=== PATIENT | female | born 1960 | race African-American/Black ===

== ENCOUNTER 2025-01-21 11:15 | Emergency (ER) | payer MEDICARE, MEDICAID, SELFPAY ==
[2025-01-21] VITALS (23 sets, daily range): BP systolic 97–137; BP diastolic 67–84; PULSE 69–89; RESP 11–26; TEMP 36.8; O2SAT 90–99
--- NOTE | ~2025-01-21 | XR_ITS ---
EXAMINATION: XR chest 2V 01/21/2025 12:19 INDICATION: Shortness of breath PROCEDURE: 2 view chest COMPARISON: No prior studies for comparison. FINDINGS: The lungs are clear. The cardiomediastinal silhouette is within normal limits. There are no pleural effusions. There is no pneumothorax suspected. IMPRESSION: 1: NO ACUTE CARDIOPULMONARY DISEASE. Reviewed, dictated and finalized at location A.
--- NOTE | 2025-01-21 11:26 | ECG_ITS ---
Test Date: 2025-01-21 11:29:00 Measurements Intervals [place] Rate: 85 P: 57 MI: 161 QRS: -30 QRSD: 98 T: 65 QT: 404 QTc: 483 Interpretive Statements SINUS RHYTHM INCOMPLETE RIGHT BUNDLE BRANCH BLOCK BORDERLINE ECG No previous ECG available for comparison Electronically Signed On 01-22-2025 06:46:44 CDT by Romero Cheng D.O.
[2025-01-21 11:42] LABS: Basophils Percent Auto 0.2 % (0.2-1.2); Eosinophils Absolute Auto 0.2 K/mm3 (0-0.3); Eosinophils Percent Auto 1.1 % (0-4.4); Hematocrit 35.5 % (37.0-47.0); Hemoglobin 10.4 g/dL (12.0-15.0); Immature Granulocyte Absolute 0.05 K/mm3 (0.00-0.031); Immature Granulocyte Percent A 0.4 % (0-0.5); Lymphocytes Absolute Auto 0.62 K/mm3 (0.9-3.2); Lymphocytes Percent Auto 4.4 % (18.3-44.2); Mean Corpuscular HGB Conc 29.3 g/dl (32-36); Mean Corpuscular Volume 102.3 fl (80-100); Mean Platelet Volume 8.9 fl (7.4-10.4); Monocytes Absolute Auto 0.8 K/mm3 (0.1-0.6); Monocytes Percent Auto 5.4 % (2.6-8.5); Neutrophils Absolute Auto 12.6 K/mm3 (1.3-6.7); Neutrophils Percent Auto 88.5 % (45.5-73.1); Platelet Count Result 261 k/mm3 (150-375); Red Blood Count 3.47 M/mm3 (4.2-5.4); Red Cell Distribution Width 15.2 % (11.5-14.5); White Blood Count 14.2 K/mm3 (4.5-10.0)
[2025-01-21 12:01] LABS: Hypochromasia 1+; Platelet Estimate Adequate (Adequate); Schistocytes None Seen
[2025-01-21 13:06] LABS: Alanine Aminotransferase 25 U/L (6-35); Albumin Level 3.8 g/dL (3.5-5.1); Alkaline Phosphatase 94 U/L (38-126); Anion Gap 2 mmol/L (4-12); Aspartate Amino Transferase 39 U/L (14-36); Bilirubin,Total 0.2 mg/dL (0.2-1.3); Blood Urea Nitrogen 19 mg/dL (7-17); Calcium 9.4 mg/dL (8.4-10.2); Carbon Dioxide 35 mmol/L (22-30); Chloride 104 mmol/L (98-107); Estimated CRCL calculation 76 ml/min; Estimated Glomerular Filt Rate > 60; Glucose 84 mg/dL (65-110); Lipase 121 U/L (23-300); Potassium 4.6 mmol/L (3.4-5.0); Sodium 141 mmol/L (137-145)
[2025-01-21 13:18] LABS: NT Pro B Type Natriuretic Pept 266 pg/mL (19.9-100); Troponin I < 0.012 ng/mL (0.000-0.034)
[2025-01-21] MEDS: BELLADONNA ALK/PHENOB ELIX 10 ML, MAG HYDROX/ALUMINUM HYD/SIMETH 30 ML, LIDOCAINE 2% VI... PO (13:48)
--- NOTE | 2025-01-21 14:30 | ED.GENADULT ---
HPI - General Adult General Chief complaint: Shortness of Breath/Dyspnea Stated complaint: SOB Time Seen by Provider: 01/21/25 11:22 History of Present Illness HPI narrative: Patient is a 64-year-old female who presents ER with reports of shortness of breath then epigastric discomfort. Reports she feels like she has heartburn. Worse when she lays down flat. No chest pain. No productive cough. No fevers or chills. Chronically O2 dependent 2/2 COPD. He Related Data Allergies Allergy/AdvReac Type Severity Reaction Status Date / Time No Known Allergies Allergy Unverified 07/22/14 10:54 Review of Systems Review of Systems: All systems reviewed & are unremarkable except as noted in HPI and below Constitutional: Constitutional: Reports no additional constitutional complaints ENT: Reports system reviewed and no additional complaints, except as documented Cardiovascular: Cardiovascular: Reports no additional cardiovascular complaints Respiratory: Respiratory: Reports no additional respiratory complaints Gastrointestinal: Gastrointestinal: Reports no additional gastrointestinal complaints [facility] Past Medical History Medical History (Updated 01/21/25 @ 14:39 by Bony Nieto MD) Schizoaffective disorder Depression Diabetes Hypertension Hyperlipidemia Pulmonary embolism COPD (chronic obstructive pulmonary disease) Exam Narrative: GENERAL: Well-appearing, well-nourished, and in no acute distress. HEAD: Normocephalic, atraumatic. ENT: Mucous membranes moist. NECK: Supple. CHEST: Clear to auscultation. No respiratory distress. HEART: Regular rate and rhythm. Normal peripheral pulses. ABDOMEN: Soft, nontender, nondistended. EXTREMITIES: Normal range of motion. No edema. SKIN: Warm, dry, no rash. NEURO:Alert and oriented x3. PSYCH: Normal mood and affect. Course Course Emergency Course: Patient resting comfortably. Feels better after GI cocktail. No pneumonia or CHF on imaging. Vital Signs Vital signs: Vital Signs Temperature 98.2 F 01/21/25 11:19 Pulse Rate 89 01/21/25 11:19 Respiratory Rate 18 01/21/25 11:19 Blood Pressure 126/82 01/21/25 11:19 Pulse Oximetry 98 01/21/25 11:19 Oxygen Delivery Nasal Cannula 01/21/25 11:19 Oxygen Flow Rate 2 01/21/25 11:19 Temperature 98.2 F 01/21/25 11:19 Pulse Rate 69 01/21/25 11:43 Respiratory Rate 18 01/21/25 11:19 Blood Pressure 126/82 01/21/25 11:19 Pulse Oximetry 99 01/21/25 11:43 Oxygen Delivery Nasal Cannula 01/21/25 11:43 Oxygen Flow Rate 2 01/21/25 11:43 Medical Decision Making Vital Signs Vital Signs: Vital Signs Temperature 98.2 F 01/21/25 11:19 Pulse Rate 89 01/21/25 11:19 Respiratory Rate 18 01/21/25 11:19 Blood Pressure 126/82 01/21/25 11:19 Pulse Oximetry 98 01/21/25 11:19 Oxygen Delivery Nasal Cannula 01/21/25 11:19 Oxygen Flow Rate 2 01/21/25 11:19 Temperature 98.2 F 01/21/25 11:19 Pulse Rate 69 01/21/25 11:43 Respiratory Rate 18 01/21/25 11:19 Blood Pressure 126/82 01/21/25 11:19 Pulse Oximetry 99 01/21/25 11:43 Oxygen Delivery Nasal Cannula 01/21/25 11:43 Oxygen Flow Rate 2 01/21/25 11:43 Lab Data 01/21/25 11:34 01/21/25 11:34 Labs: Lab Results 01/21/25 Range/Units 11:34 WBC 14.2 H (4.5-10.0) K/mm3 RBC 3.47 L (4.2-5.4) M/mm3 Hgb 10.4 L (12.0-15.0) g/dL Hct 35.5 L (37.0-47.0) % MCV 102.3 H (80-100) fl MCH 30.0 (26-34) pg MCHC 29.3 L (32-36) g/dl RDW 15.2 H (11.5-14.5) % Plt Count 261 (150-375) k/mm3 MPV 8.9 (7.4-10.4) fl Immature Gran % (Auto) 0.4 (0-0.5) % Neut % (Auto) 88.5 H (45.5-73.1) % Lymph % (Auto) 4.4 L (18.3-44.2) % [place] % (Auto) 5.4 (2.6-8.5) % Eos % (Auto) 1.1 (0-4.4) % Baso % (Auto) 0.2 (0.2-1.2) % Lymph # (Auto) 0.62 L (0.9-3.2) K/mm3 [place] # (Auto) 0.8 H (0.1-0.6) K/mm3 Eos # (Auto) 0.2 (0-0.3) K/mm3 Baso # (Auto) 0.0 (0.0-0.1) K/mm3 Abs Immat Gran (auto) 0.05 H (0.00-0.031) K/mm3 Absolute Neuts (auto) 12.6 H (1.3-6.7) K/mm3 Absolute Nucleated RBC 0.000 (0.0-0.012) K/mm3 Band Neutrophils % Not Reportable Nucleated RBC % 0.0 (0.0-0.2) % Platelet Estimate Adequate (Adequate) Hypochromasia 1+ Schistocytes None seen Sodium 141 (137-145) mmol/L Potassium 4.6 (3.4-5.0) mmol/L Chloride 104 (98-107) mmol/L Carbon Dioxide 35 H (22-30) mmol/L Anion Gap 2 L (4-12) mmol/L BUN 19 H (7-17) mg/dL Creatinine 0.68 L (0.7-1.0) mg/dL Estim Creat Clear Calc 76 ml/min Estimated GFR > 60 (59 - ) Glucose 84 (65-110) mg/dL Calcium 9.4 (8.4-10.2) mg/dL Total Bilirubin 0.2 (0.2-1.3) mg/dL AST 39 H (14-36) U/L ALT 25 (6-35) U/L Alkaline Phosphatase 94 (38-126) U/L Troponin I < 0.012 (0.000-0.034) ng/mL NT-Pro-B Natriuret Pep 266 H (19.9-100) pg/mL Total Protein 7.0 (6.3-8.2) g/dL Albumin 3.8 (3.5-5.1) g/dL Lipase 121 (23-300) U/L Imaging Data Radiologist's impression: ITS Impressions Chest X-Ray 01/21/25 12:29 IMPRESSION: 1: NO ACUTE CARDIOPULMONARY DISEASE. ECG Data EKG #1: ECG completion date: 01/21/25 ECG completion time: 11:29 EKG Interpretation: normal rate (85), sinus rhythm, non-specific ST changes, normal QRS, normal QT and NL axis Discharge Plan Discharge Clinical Impression: GERD (gastroesophageal reflux disease) Patient Disposition: Home Condition: Stable Instructions: GERD (Gastroesophageal Reflux Disease) (ED) Additional Instructions: Return to the emergency department if you develop severe abdominal pain, severe nausea and vomiting to the point where you are unable to keep down fluids, if you develop chest pain or difficulty breathing, blood in your stool, dizziness or fainting, or if you develop any other new or concerning symptoms as these could be signs of more serious medical illness. Try to stay well hydrated. Continue your pantoprazole. Patient Language: Persian Follow-up/Referrals: Shiva,MD So [Primary Care Provider] - 1 Week
== END 2025-01-21 17:07 | disposition home or self-care (01) ==
PROVIDERS: Emergency Provider Emergency Medicine; PCP Family Medicine
DX: K21.9 Gastro-esophageal reflux disease without esophagitis (principal)
CPT/HCPCS: 36415; 71046; 80053; 83690; 83880; 84484; 85025; 93005; 99284; A9270

== ENCOUNTER 2025-03-08 12:19 | Observation (INO) | payer MEDICARE, MEDICAID, SELFPAY ==
[2025-03-08] VITALS (23 sets, daily range): BP systolic 114–150; BP diastolic 75–89; PULSE 72–93; RESP 16–30; TEMP 37.1–37.7; O2SAT 94–100
--- NOTE | ~2025-03-08 | XR_ITS ---
EXAMINATION: XR chest 1V portable 03/08/2025 14:04 INDICATION: Altered mental status PROCEDURE: AP portable chest COMPARISON: 01/21/2025 FINDINGS: The lungs are clear. The cardiomediastinal silhouette is within normal limits. There are no pleural effusions. There is no pneumothorax suspected. IMPRESSION: 1: NO ACUTE CARDIOPULMONARY DISEASE. Reviewed, dictated and finalized at location B.
--- NOTE | ~2025-03-08 | CT_ITS ---
Non-contrast Head CT History: Altered mental status Technique: Axial non-contrast imaging of the brain was performed. Dose reduction technique was used on this scan by utilizing automated exposure control and iterative reconstruction technique. The dose -length product (DLP) was 681.00 mGy-cm. Findings: There is no evidence of intracranial hemorrhage, mass lesion, or acute infarct. Brain par enchyma appears normal. The ventricles and subarachnoid spaces are normal in size. The calvarium ap pears normal. The visualized paranasal sinuses and mastoid air cells are clear. Impression: No significant abnormality seen. Reviewed, dictated and finalized at location . Impression: No significant abnormality seen.
--- NOTE | 2025-03-08 12:30 | ECG_ITS ---
Test Date: 2025-03-08 12:25:39 Measurements Intervals [place] Rate: 89 P: 62 AL: 150 QRS: -39 QRSD: 103 T: 52 QT: 388 QTc: 472 Interpretive Statements SINUS RHYTHM LEFTWARD AXIS T-WAVE ABNORMALITY, CONSIDER ISCHEMIA Electronically Signed On 03-08-2025 23:26:24 CDT by Brando Camejo D.O
--- OUTSIDE RECORDS SUMMARY | 2025-03-08 12:58 | XMS_ITS | Patient Health Record ---
Author Organization [facility] As [employer] Address [address] [facility] [address] [place] [address] Care Team Providers Care Marketing Trainee Name Role Phone Ben Zuleta Unavailable [phone] Reason For Referral No Information Medications Medication SIG (Take, Route, Frequency, Duration) Notes Start Date End Date Status Omeprazole 20 MG Oral Act gary cloZAPine 100 mg Oral Act gary Lisinopril 20 MG Oral Act gary Niaspan 500 mg Oral Activ e Simvastatin 20 MG Oral Ac tive Niacin 500 mg Oral *Pick strength-form from AutoNavispan for eRX* Active Alendronate Sodium 70 MG Oral Active Advair Diskus 250-50 MCG/DOSE Inhalation Active Latanoprost 0.005 % Ophthalmic Active lamoTRIgine 150 MG Oral A ctive cloZAPine 200 MG Oral Act gary traZODone HCl 150 MG Oral Active lamoTRIgine 200 MG Oral A ctive Combivent Respimat 20-100 MCG/ACT Inhalation Active Polyethylene Glycol 3350 17 gram ORAL *Pick strength-form from AutoNavispan for eRX* Active Mirtazapine 45 MG Oral Ac tive cloZAPine 50 MG Oral Acti ve Mirtazapine 30 MG Oral Ac tive oxyBUTYnin Chloride ER 10 MG Oral Active Plan Of Treatment No Information
[2025-03-08 12:59] LABS: Hematocrit 36.4 % (37.0-47.0); Hemoglobin 10.5 g/dL (12.0-15.0); Immature Granulocyte Percent A 0.3 % (0-0.5); Lymphocytes Absolute Auto 0.85 K/mm3 (0.9-3.2); Mean Corpuscular HGB Conc 28.8 g/dl (32-36); Mean Corpuscular Hemoglobin 29.0 pg (26-34); Mean Corpuscular Volume 100.6 fl (80-100); Nucleated Red Blood Cells Absolute Auto 0.000 K/mm3 (0.0-0.012); Nucleated Red Blood Cells Perc 0.0 % (0.0-0.2); Platelet Count Result 229 k/mm3 (150-375); Red Blood Count 3.62 M/mm3 (4.2-5.4); White Blood Count 8.7 K/mm3 (4.5-10.0)
[2025-03-08 13:02] LABS: Alveolar/Arterial O2 Gradient 51.4 mmHg; Fractional Inspired Oxygen 28 %; HCO3 ABG 32.9 mEq/l (22.0-26.0); Oxygen Content ABG 13.7 %vol (16.0-22.0); Oxygen Saturation ABG 90.2 % (95.0-100.0); PO2 ABG 66.2 mmHg (80.0-100.0); PO2 FiO2 Ratio Arterial Blood 2.36 %
[2025-03-08 13:08] LABS: Liters per Minute 2.0 LPM; Modified Allen's Test Pass; PCO2 ABG 69.5 mmHg (35.0-45.0); Site Drawn RIGHT RADIAL
[2025-03-08 13:15] LABS: INR 1.1; Prothrombin Time 14.7 Seconds (11.1-14.7)
[2025-03-08 13:17] LABS: Partial Thromboplastin Time 41.1 Seconds (22.3-36.8)
--- NOTE | 2025-03-08 13:18 | ED.AMS ---
HPI - Altered Mental Status General Chief Complaint: Altered Mental Status Stated Complaint: AMS Time Seen by Provider: 03/08/25 12:47 History of Present Illness HPI narrative: Patient with COPD who is on 3L O2 was found unresponsive/lethargic by senior care this morning without her O2, O2 was 80s, when EMS arrived and put her on NRB she went up to 97% and became more responsive. She is still confused currently but can tell me she does not feel good. Related Data Allergies Allergy/AdvReac Type Severity Reaction Status Date / Time No Known Allergies Allergy Unverified 07/22/14 10:54 Review of Systems Review of Systems: ROS unobtainable: Yes unobtainable due to mental status [facility] Past Medical History Medical History (Updated 03/08/25 @ 15:35 by Alicia Damon MD) Schizoaffective disorder Depression Diabetes Hypertension Hyperlipidemia Pulmonary embolism COPD (chronic obstructive pulmonary disease) Exam Narrative: EXAMINATION OF ORGAN SYSTEMS/BODY AREAS: Constitutional: Vital signs per nursing GENERAL: Sleepy HEAD: Normal with no signs of head trauma. EYES: EOMI, conjunctiva normal ENT: Hearing grossly intact LUNGS: Diminished lung sounds HEART: [Regular rate and rhythm] ABD: [Soft], [nontender to palpation] EXT: No obvious deformity SKIN: [No rashes or lesions.] NEURO: [Lethargic but wakes to voice and answers some questions and follows some commands. No gross focal sensory or strength deficits.] PSYCH: Normal affect Course Vital Signs Vital signs: Vital Signs Temperature 99.0 F 03/08/25 12:18 Pulse Rate 88 03/08/25 12:18 Respiratory Rate 17 03/08/25 12:18 Blood Pressure 114/75 03/08/25 12:18 Pulse Oximetry 97 03/08/25 12:18 Oxygen Delivery Room Air 03/08/25 12:18 Oxygen Flow Rate 3 03/08/25 12:18 Temperature 99.0 F 03/08/25 12:18 Pulse Rate 88 03/08/25 14:09 Respiratory Rate 23 H 03/08/25 14:09 Blood Pressure 124/89 03/08/25 13:16 Pulse Oximetry 100 03/08/25 14:09 Oxygen Delivery BiPAP 03/08/25 14:09 Oxygen Flow Rate 3 03/08/25 12:58 Procedures ABG Interpretation ABG Interpretation 1: ABG Results: respiratory acidosis with CO2 narcosis MDM - Altered Mental Status MDM Narrative Medical decision making narrative: Patient presents here with after mental status she has COPD and supposed to be on oxygen but was found with her oxygen off her face and hypoxic at senior care, now that she is here and on oxygen she is more alert and able to answer some questions but still seems slightly confused, she just told me that she feels bad. ABG consistent with CO2 narcosis and she is started on BiPAP and albuterol, with improvement in symptoms. EKG on my independent interpretation shows rate 89, FL 150, QRS 103, Qtc 472, left axis deviation, without any obvious ST elevations or depressions or signs of acute ischemia or arrhythmia. Chest x-ray shows cardiomegaly without any obvious large consolidation on my independent interpretation Discussed with hospitalist for admission. Lab Data 03/08/25 12:50 03/08/25 12:50 Labs: Lab Results 03/08/25 03/08/25 03/08/25 Range/Units 12:43 12:50 13:17 WBC 8.7 (4.5-10.0) K/mm3 RBC 3.62 L (4.2-5.4) M/mm3 Hgb 10.5 L (12.0-15.0) g/dL Hct 36.4 L (37.0-47.0) % MCV 100.6 H (80-100) fl MCH 29.0 (26-34) pg MCHC 28.8 L (32-36) g/dl RDW 15.3 H (11.5-14.5) % Plt Count 229 (150-375) k/mm3 MPV 9.6 (7.4-10.4) fl Immature Gran % (Auto) 0.3 (0-0.5) % Neut % (Auto) 81.1 H (45.5-73.1) % Lymph % (Auto) 9.8 L (18.3-44.2) % [place] % (Auto) 8.6 H (2.6-8.5) % Eos % (Auto) 0.1 (0-4.4) % Baso % (Auto) 0.1 L (0.2-1.2) % Lymph # (Auto) 0.85 L (0.9-3.2) K/mm3 [place] # (Auto) 0.8 H (0.1-0.6) K/mm3 Eos # (Auto) 0.0 (0-0.3) K/mm3 Baso # (Auto) 0.0 (0.0-0.1) K/mm3 Abs Immat Gran (auto) 0.03 (0.00-0.031) K/mm3 Absolute Neuts (auto) 7.1 H (1.3-6.7) K/mm3 Absolute Nucleated RBC 0.000 (0.0-0.012) K/mm3 Band Neutrophils % Not Reportable Nucleated RBC % 0.0 (0.0-0.2) % Platelet Estimate Adequate (Adequate) Hypochromasia 1+ Anisocytosis 1+ Schistocytes None seen PT 14.7 (11.1-14.7) Seconds INR 1.1 APTT 41.1 H (22.3-36.8) Seconds Sodium 142 (137-145) mmol/L Potassium 4.4 (3.4-5.0) mmol/L Chloride 103 (98-107) mmol/L Carbon Dioxide 35 H (22-30) mmol/L Anion Gap 4 (4-12) mmol/L BUN 19 H (7-17) mg/dL Creatinine 0.76 (0.7-1.0) mg/dL Estim Creat Clear Calc 67 ml/min Estimated GFR > 60 (59 - ) Glucose 104 (65-110) mg/dL POC Capillary Glucose 102 (65-105) mg/dl Lactic Acid 0.7 (0.7-2.0) mmol/L Calcium 9.9 (8.4-10.2) mg/dL Total Bilirubin 0.3 (0.2-1.3) mg/dL AST 35 (14-36) U/L ALT 23 (6-35) U/L Alkaline Phosphatase 82 (38-126) U/L Total Protein 7.9 (6.3-8.2) g/dL Albumin 4.2 (3.5-5.1) g/dL Urine Color Yellow (Yellow) Urine Appearance Clear (Clear) Urine pH 5.5 (5.0-9.0) Ur Specific [place] 1.010 (1.001-1.035) Urine Protein Negative (Negative) mg/dL Urine Glucose (UA) Negative (Negative) mg/dL Urine Ketones Negative (Negative) mg/dL Ur Blood (Man) Negative (Negative) Urine Nitrate Negative (Negative) Urine Bilirubin Negative (Negative) Urine Urobilinogen 0.2 (<2.0) mg/dL Leukocyte Esterase Rfl Negative (Negative) RAIMUNDO/UL ABG Data ABG results: 03/08/25 12:58 Puncture Site Right radial ABG pH 7.293 L* ABG pCO2 69.5 H* ABG pO2 66.2 L ABG PO2/FiO2 Ratio 2.36 ABG HCO3 32.9 H ABG O2 Saturation 90.2 L ABG O2 Content 13.7 L ABG Base Excess 4.8 A-a Gradient 51.4 Oxyhemoglobin 90.0 Total Hemoglobin 10.8 L O2 Delivery Device Nasal cannula O2 Liters/Min 2.0 FiO2 28 Critical Care Time Critical Care Time Critical Care Time: Yes Total Critical Care Time: 31 Discharge Plan Discharge Clinical Impression: Carbon dioxide narcosis, Altered mental status, Acute on chronic respiratory failure with hypoxia and hypercapnia Patient Disposition: Still a Patient Condition: Serious Patient Language: Slovenian Follow-up/Referrals: Shiva,MD So [Primary Care Provider] -
[2025-03-08 13:19] LABS: Alanine Aminotransferase 23 U/L (6-35); Albumin Level 4.2 g/dL (3.5-5.1); Alkaline Phosphatase 82 U/L (38-126); Anion Gap 4 mmol/L (4-12); Aspartate Amino Transferase 35 U/L (14-36); Bilirubin,Total 0.3 mg/dL (0.2-1.3); Blood Urea Nitrogen 19 mg/dL (7-17); Calcium 9.9 mg/dL (8.4-10.2); Carbon Dioxide 35 mmol/L (22-30); Chloride 103 mmol/L (98-107); Estimated CRCL calculation 67 ml/min; Estimated Glomerular Filt Rate > 60; Glucose 104 mg/dL (65-110); Potassium 4.4 mmol/L (3.4-5.0); Sodium 142 mmol/L (137-145); Total Protein 7.9 g/dL (6.3-8.2)
[2025-03-08] MEDS: IPRATROPIUM 0.5 MG/ALBUTEROL SULFATE 2.5 MG AMPUL.NEB 3 ML 6 ML (13:20)
[2025-03-08 13:23] LABS: Add Urine Microscopic? NO; Appearance Urine Clear (Clear); Glucose Urine UA Negative (Negative); Leukocyte Esterase Ur Negative LEU/UL (Negative); Nitrate Urine Negative (Negative); Specific Grav Ur 1.010 (1.001-1.035)
[2025-03-08 13:31] LABS: Anisocytosis 1+; Schistocytes None Seen
[2025-03-08 13:33] LABS: Hypochromasia 1+
--- NOTE | 2025-03-08 17:14 | ADMGEN ---
This patient, David Hannon, was admitted to IMU Room 207-01. Patient/family oriented to hospital policies and general routines including ID bracelet, bed and alarms, visiting hours, pain management, procedures, bathroom and other care routines, personal items, smoking policy, room service/diet, and visiting hours. Information on how to activate the Rapid Response Team has been discussed. Patient/Family are encouraged to report perceived risks to care and to ask questions if they do not understand what they are told or what they should do.
--- NOTE | 2025-03-08 17:41 | P.HP_ITS ---
H&P: HPI History of Present Illness Date/Time: 03/08/25 17:41 Chief Complaint: Altered mental status Narrative: 64-year-old female past medical history of schizophrenia, depression, diabetes, hypertension, hyperlipidemia PE and COPD was found to have altered mental status at her [facility]. According to the ED the patient wears oxygen she was found without her O2 her pulse ox in the 80s. EMS was called. When they placed oxygen on her she became more responsive. In the ED shows hemoglobin of 10.5 which is baseline , ABG 7.29, pCO2 of 69, PO2 of 66, bicarb of 32, UA is negative for infection. Chest x-ray shows no acute cardiopulmonary process Review of Systems Review of Systems: 12 systems were reviewed and are negativ e except for as per HPI. [facility] Past Medical History Medical History (Updated 03/08/25 @ 17:45 by Cassie Mejia, DRY JANITOR) Schizoaffective disorder Depression Diabetes Hypertension Hyperlipidemia Pulmonary embolism COPD (chronic obstructive pulmonary disease) Social History Social History Smoking status: Never smoker Alcohol intake: never Substance use: never Substance use type: does not use Do You Feel Safe in your Home?: Yes Lack of Transportation: No Lack of Food: Never True Current Housing: I Have Housing Concerned About Future Housing: No Difficulty Paying Gas/Electric Bills: No Difficulty Paying for Meds: No Currently Unemployed: No Education: Decline to Answer Difficulty w/ Childcare or Family Care: No Spiritual care concerns: No Meds Home Medications and Allergies Home Medications ?Medication ?Instructions ?Recorded ?Confirmed ?Type acetaminophen 325 mg tablet 325 mg PO Q6H PRN pain 03/08/25 03/08/25 History acyclovir 400 mg tablet 400 mg PO BID 03/08/25 03/08/25 History albuterol sulfate 90 mcg/actuation 2 puff inhalation Q4H PRN cough 03/08/25 03/08/25 History aerosol inhaler alendronate 70 mg tablet 70 mg PO WEEKLY 03/08/25 03/08/25 History apixaban 5 mg tablet (Eliquis) 5 mg PO BID 03/08/25 03/08/25 History aspirin 81 mg tablet,delayed 81 mg PO DAILY 03/08/25 03/08/25 History release atorvastatin 10 mg tablet 10 mg PO HS 03/08/25 03/08/25 History bismuth subsalicylate 262 mg/15 mL 262 mg PO Q4H PRN diarrhea 03/08/25 03/08/25 History oral suspension (Stomach Relief) budesonide-formoterol HFA 80 1 puff inhalation DAILY 03/08/25 03/08/25 History mcg-4.5 mcg/actuation aerosol inhaler calcium carbonate ([place] 1,000 mg PO DAILY 03/08/25 03/08/25 History Calcium) clozapine 100 mg tablet 100 mg PO HS 03/08/25 03/08/25 History clozapine 100 mg tablet 100 mg PO QAM 03/08/25 03/08/25 History clozapine 200 mg tablet 400 mg PO HS 03/08/25 03/08/25 History desvenlafaxine succinate 50 mg 50 mg PO DAILY 03/08/25 03/08/25 History tablet,extended release 24 hr fluticasone furoate 100 1 inh inhalation DAILY 03/08/25 03/08/25 History mcg-vilanterol 25 mcg/dose inhalation powder (Breo Ellipta) lamotrigine 200 mg tablet 200 mg PO BID 03/08/25 03/08/25 History latanoprost 0.005 % eye drops 1 drp EACH EYE HS 03/08/25 03/08/25 History lithium carbonate 150 mg capsule 150 mg PO QPM 03/08/25 03/08/25 History lorazepam 0.5 mg tablet 0.5 mg PO TID 03/08/25 03/08/25 History meloxicam 7.5 mg tablet 7.5 mg PO DAILY 03/08/25 03/08/25 History metformin 500 mg tablet 500 mg PO QPM 03/08/25 03/08/25 History olanzapine 15 mg tablet 15 mg PO HS 03/08/25 03/08/25 History pantoprazole 40 mg tablet,delayed 40 mg PO DAILY 03/08/25 03/08/25 History release polyethylene glycol 3350 17 17 g PO DAILY PRN constipation 03/08/25 03/08/25 History gram/dose oral powder sertraline 100 mg tablet 200 mg PO DAILY 03/08/25 03/08/25 History tiotropium 2.5 mcg-olodaterol 2.5 2 puff inhalation DAILY 03/08/25 03/08/25 History mcg/actuation mist for inhalation (Stiolto Respimat) Allergies Allergy/AdvReac Type Severity Reaction Status Date / Time No Known Allergies Allergy Unverified 07/22/14 10:54 Vital Signs Vital Signs - 24 hr 03/08/25 12:18 03/08/25 12:18 03/08/25 12:50 Temperature 99.0 F Pulse Rate 88 87 Respiratory Rate 17 17 Blood Pressure 114/75 116/77 Pulse Oximetry 97 97 97 Oxygen Delivery Room Air Nasal Cannula Oxygen Flow Rate 3 03/08/25 12:58 03/08/25 13:01 03/08/25 13:15 Temperature Pulse Rate 87 87 Respiratory Rate 23 H 22 H Blood Pressure 115/77 Pulse Oximetry 96 97 100 Oxygen Delivery Nasal Cannula BiPAP Oxygen Flow Rate 3 03/08/25 13:16 03/08/25 13:19 03/08/25 13:20 Temperature Pulse Rate 89 88 Respiratory Rate 16 Blood Pressure 124/89 Pulse Oximetry 99 99 Oxygen Delivery BiPAP Oxygen Flow Rate 03/08/25 14:01 03/08/25 14:09 03/08/25 14:16 Temperature Pulse Rate 88 88 85 Respiratory Rate 21 H 23 H 22 H Blood Pressure 129/82 135/83 Pulse Oximetry 100 100 Oxygen Delivery BiPAP Oxygen Flow Rate 03/08/25 14:31 03/08/25 14:46 03/08/25 15:01 Temperature Pulse Rate 87 89 88 Respiratory Rate 24 H 23 H 23 H Blood Pressure 138/82 128/83 141/81 H Pulse Oximetry 100 Oxygen Delivery Oxygen Flow Rate 03/08/25 16:16 03/08/25 16:31 03/08/25 16:45 Temperature Pulse Rate 88 86 85 Respiratory Rate 22 H 30 H 21 H Blood Pressure 139/79 140/80 Pulse Oximetry 97 97 100 Oxygen Delivery BiPAP Oxygen Flow Rate 03/08/25 16:55 03/08/25 17:11 Temperature 99.9 F H Pulse Rate 93 89 Respiratory Rate 22 H Blood Pressure 150/75 H Pulse Oximetry 94 Oxygen Delivery Oxygen Flow Rate Exam Narrative: General: well appearing, appears stated age. HEENT: normocephalic, atraumatic. Mucous membranes moist. EOMI, PERRLA, bilateral sclera anicteric, no conjunctival injection. Neck supple without JVD, lymphadenopathy, or bruit. Respiratory: clear to ascultation bilaterally. No rales/rhonic/wheezes. Cardiovascular: Regular rate and rhythm, normal S1-S2 upon ascultation. No murmurs, rubs, or clicks. PMI is nondisplaced, capillary refill less than 3 second. Abdomen: Soft, round, no pulsatile masses, nondistended and nontender. No rebound, no guarding. No CVA tenderness, no hepatosplenomegaly. Bowel sounds present to all four quadrants. No high pitch or tinkling sounds, resonant to percussion. Extremities: No cyanosis, clubbing, or edema present. Pulses are palpable 2/2. Active ROM to all four extremities. Neuro: Alert and orientated x 4. PERRLA. Cranial nerves 2-12 intact without focal deficit. Skin: Warm, dry, and intact, without rash, erythema, or lesion. Psych: pleasant, cooperative, normal speech, normal affect, no hallucinations, no dysarthia H&P: Results Labs Labs: Short CBC 03/08/25 Range/Units 12:50 WBC 8.7 (4.5-10.0) K/mm3 Hgb 10.5 L (12.0-15.0) g/dL Hct 36.4 L (37.0-47.0) % Plt Count 229 (150-375) k/mm3 BMP 03/08/25 12:50 Sodium 142 Potassium 4.4 Chloride 103 Carbon Dioxide 35 H BUN 19 H Creatinine 0.76 Glucose 104 Calcium 9.9 Liver Function 03/08/25 Range/Units 12:50 Total Bilirubin 0.3 (0.2-1.3) mg/dL AST 35 (14-36) U/L ALT 23 (6-35) U/L Alkaline Phosphatase 82 (38-126) U/L Albumin 4.2 (3.5-5.1) g/dL Urine 03/08/25 Range/Units 13:17 Urine Color Yellow (Yellow) Urine Appearance Clear (Clear) Urine pH 5.5 (5.0-9.0) Ur Specific [place] 1.010 (1.001-1.035) Urine Protein Negative (Negative) mg/dL Urine Glucose (UA) Negative (Negative) mg/dL Assessment and Plan Assessment and plan (1) COPD exacerbation: Code(s): J44.1 - Chronic obstructive pulmonary disease with (acute) exacerbation Status: Acute Assessment and Plan: Cipro DuoNeb Guaifenesin Solu-Medrol (2) Altered mental status: Code(s): R41.82 - Altered mental status, unspecified Status: Acute Assessment and Plan: Could be due to hypoxia and hypercarbia versus infection versus polypharmacy versus o other (3) Acute on chronic respiratory failure with hypoxia and hypercapnia: Code(s): J96.21 - Acute and chronic respiratory failure with hypoxia; J96.22 - Acute and chronic respiratory failure with hypercapnia Status: Acute Assessment and Plan: BiPAP Clear liquid Repeat ABG (4) Carbon dioxide narcosis: Code(s): R06.89 - Other abnormalities of breathing Status: Acute Assessment and Plan: BiPAP (5) Schizoaffective disorder: Code(s): F25.9 - Schizoaffective disorder, unspecified Status: Acute (6) Hypertension: Code(s): I10 - Essential (primary) hypertension Status: Acute (7) Diabetes: Code(s): E11.9 - Type 2 diabetes mellitus without complications Status: Acute
[2025-03-08 18:36] LABS: Alveolar/Arterial O2 Gradient 71.4 mmHg; Fractional Inspired Oxygen 30 %; HCO3 ABG 35.4 mEq/l (22.0-26.0); Oxygen Content ABG 13.5 %vol (16.0-22.0); Oxygen Saturation ABG 91.3 % (95.0-100.0); PO2 ABG 65.5 mmHg (80.0-100.0); PO2 FiO2 Ratio Arterial Blood 2.18 %
[2025-03-08 18:38] LABS: Modified Allen's Test Pass; PCO2 ABG 65.5 mmHg (35.0-45.0)
[2025-03-08 18:39] LABS: Non-Invasive Inspiratory Pressure 16 CMH2O; Non-Invasive Vent Rate 22 /MIN
[2025-03-08 18:40] LABS: Non-Invasive Expiratory Pressure 8 CMH2O; Site Drawn LEFT RADIAL
--- NOTE | 2025-03-08 18:40 | PC.NURSE ---
Cassie Mjeia EPIC KALEIDOSCOPE ANALYST notified of critical ABG results. New order for BiPAP to be PRN and pt to be on home O2 of 3L NC when not on BiPAP. Pt may also have a clear liquid diet.
[2025-03-08] MEDS: ATORVASTATIN 10 MG TABLET PO (20:17)
[2025-03-08] MEDS: CIPROFLOXACIN 500 MG TAB PO (20:17)
[2025-03-08] MEDS: guaiFENesin 12 HR 600 MG TABCR 1200 MG PO (20:17)
[2025-03-08] MEDS: LATANOPROST 0.005% OP SOLN 2.5 ML BTL 1 DROP EACH EYE (20:18)
--- NOTE | 2025-03-08 22:48 | P.HP_ITS ---
H&P: HPI History of Present Illness Date/Time: 03/08/25 22:48 Chief Complaint: Altered mental status Narrative: 64-year-old female with history of schizophrenia, COPD, diabetes, hypertension, hyperlipidemia pulmonary embolism presents the hospital with altered mental status. She is normally on 2 L nasal cannula however today she was found at her halfway without her oxygen on the pulse ox in 80s. The EMS was called. Patient does not remember the event. In the ED lab work shows anemia at 10 point 5 which is baseline, ABG shows pH of 7.29, pCO2 of 69, PO2 of 66, bicarb 32. Chest x-ray shows no acute process. EKG shows sinus rhythm. Review of Systems Review of Systems: ROS unobtainable: Yes unobtainable due to medical condition [facility] Past Medical History Medical History (Updated 03/08/25 @ 22:55 by Cassie Mejia, [employer]) Schizoaffective disorder Depression Diabetes Hypertension Hyperlipidemia Pulmonary embolism COPD (chronic obstructive pulmonary disease) Social History Social History Smoking status: Never smoker Alcohol intake: never Substance use: never Substance use type: does not use Do You Feel Safe in your Home?: Yes Lack of Transportation: No Lack of Food: Never True Current Housing: I Have Housing Concerned About Future Housing: No Difficulty Paying Gas/Electric Bills: No Difficulty Paying for Meds: No Currently Unemployed: No Education: Decline to Answer Difficulty w/ Childcare or Family Care: No Spiritual care concerns: No Meds Home Medications and Allergies Home Medications ?Medication ?Instructions ?Recorded ?Confirmed ?Type acetaminophen 325 mg tablet 325 mg PO Q6H PRN pain 03/08/25 03/08/25 History acyclovir 400 mg tablet 400 mg PO BID 03/08/25 03/08/25 History albuterol sulfate 90 mcg/actuation 2 puff inhalation Q4H PRN cough 03/08/25 03/08/25 History aerosol inhaler alendronate 70 mg tablet 70 mg PO WEEKLY 03/08/25 03/08/25 History apixaban 5 mg tablet (Eliquis) 5 mg PO BID 03/08/25 03/08/25 History aspirin 81 mg tablet,delayed 81 mg PO DAILY 03/08/25 03/08/25 History release atorvastatin 10 mg tablet 10 mg PO HS 03/08/25 03/08/25 History bismuth subsalicylate 262 mg/15 mL 262 mg PO Q4H PRN diarrhea 03/08/25 03/08/25 History oral suspension (Stomach Relief) budesonide-formoterol HFA 80 1 puff inhalation DAILY 03/08/25 03/08/25 History mcg-4.5 mcg/actuation aerosol inhaler calcium carbonate (Oyster Shell 1,000 mg PO DAILY 03/08/25 03/08/25 History Calcium) clozapine 100 mg tablet 100 mg PO HS 03/08/25 03/08/25 History clozapine 100 mg tablet 100 mg PO QAM 03/08/25 03/08/25 History clozapine 200 mg tablet 400 mg PO HS 03/08/25 03/08/25 History desvenlafaxine succinate 50 mg 50 mg PO DAILY 03/08/25 03/08/25 History tablet,extended release 24 hr fluticasone furoate 100 1 inh inhalation DAILY 03/08/25 03/08/25 History mcg-vilanterol 25 mcg/dose inhalation powder (Breo Ellipta) lamotrigine 200 mg tablet 200 mg PO BID 03/08/25 03/08/25 History latanoprost 0.005 % eye drops 1 drp EACH EYE HS 03/08/25 03/08/25 History lithium carbonate 150 mg capsule 150 mg PO QPM 03/08/25 03/08/25 History lorazepam 0.5 mg tablet 0.5 mg PO TID 03/08/25 03/08/25 History meloxicam 7.5 mg tablet 7.5 mg PO DAILY 03/08/25 03/08/25 History metformin 500 mg tablet 500 mg PO QPM 03/08/25 03/08/25 History olanzapine 15 mg tablet 15 mg PO HS 03/08/25 03/08/25 History pantoprazole 40 mg tablet,delayed 40 mg PO DAILY 03/08/25 03/08/25 History release polyethylene glycol 3350 17 17 g PO DAILY PRN constipation 03/08/25 03/08/25 History gram/dose oral powder sertraline 100 mg tablet 200 mg PO DAILY 03/08/25 03/08/25 History tiotropium 2.5 mcg-olodaterol 2.5 2 puff inhalation DAILY 03/08/25 03/08/25 History mcg/actuation mist for inhalation (Stiolto Respimat) Allergies Allergy/AdvReac Type Severity Reaction Status Date / Time No Known Allergies Allergy Unverified 07/22/14 10:54 Vital Signs Vital Signs - 24 hr 03/08/25 12:18 03/08/25 12:18 03/08/25 12:50 Temperature 99.0 F Pulse Rate 88 87 Respiratory Rate 17 17 Blood Pressure 114/75 116/77 Pulse Oximetry 97 97 97 Oxygen Delivery Room Air Nasal Cannula Oxygen Flow Rate 3 Fraction of Inspired Oxygen 03/08/25 12:58 03/08/25 13:01 03/08/25 13:15 Temperature Pulse Rate 87 87 Respiratory Rate 23 H 22 H Blood Pressure 115/77 Pulse Oximetry 96 97 100 Oxygen Delivery Nasal Cannula BiPAP Oxygen Flow Rate 3 Fraction of Inspired Oxygen 03/08/25 13:16 03/08/25 13:19 03/08/25 13:20 Temperature Pulse Rate 89 88 Respiratory Rate 16 Blood Pressure 124/89 Pulse Oximetry 99 99 Oxygen Delivery BiPAP Oxygen Flow Rate Fraction of Inspired Oxygen 03/08/25 14:01 03/08/25 14:09 03/08/25 14:16 Temperature Pulse Rate 88 88 85 Respiratory Rate 21 H 23 H 22 H Blood Pressure 129/82 135/83 Pulse Oximetry 100 100 Oxygen Delivery BiPAP Oxygen Flow Rate Fraction of Inspired Oxygen 03/08/25 14:31 03/08/25 14:46 03/08/25 15:01 Temperature Pulse Rate 87 89 88 Respiratory Rate 24 H 23 H 23 H Blood Pressure 138/82 128/83 141/81 H Pulse Oximetry 100 Oxygen Delivery Oxygen Flow Rate Fraction of Inspired Oxygen 03/08/25 16:16 03/08/25 16:31 03/08/25 16:45 Temperature Pulse Rate 88 86 85 Respiratory Rate 22 H 30 H 21 H Blood Pressure 139/79 140/80 Pulse Oximetry 97 97 100 Oxygen Delivery BiPAP Oxygen Flow Rate Fraction of Inspired Oxygen 03/08/25 16:55 03/08/25 17:00 03/08/25 17:11 Temperature 99.9 F H Pulse Rate 93 89 89 Respiratory Rate 22 H 22 H Blood Pressure 150/75 H Pulse Oximetry 94 94 Oxygen Delivery BiPAP Oxygen Flow Rate Fraction of Inspired Oxygen 30 03/08/25 18:00 03/08/25 20:00 03/08/25 20:00 Temperature 98.8 F Pulse Rate 84 79 79 Respiratory Rate 22 H 26 H Blood Pressure 132/85 Pulse Oximetry 95 100 Oxygen Delivery BiPAP Oxygen Flow Rate Fraction of Inspired Oxygen 30 03/08/25 20:00 03/08/25 22:00 Temperature Pulse Rate 83 78 Respiratory Rate Blood Pressure Pulse Oximetry Oxygen Delivery Oxygen Flow Rate Fraction of Inspired Oxygen Exam Narrative: General: well appearing, appears stated age. HEENT: normocephalic, atraumatic. Mucous membranes moist. EOMI, PERRLA, bilateral sclera anicteric, no conjunctival injection. Neck supple without JVD, lymphadenopathy, or bruit. Respiratory: clear to ascultation bilaterally. No rales/rhonic/wheezes. Cardiovascular: Regular rate and rhythm, normal S1-S2 upon ascultation. No m urmurs, rubs, or clicks. PMI is nondisplaced, capillary refill less than 3 second. Abdomen: Soft, round, no pulsatile masses, nondistended and nontender. No rebound, no guarding. No CVA tenderness, no hepatosplenomegaly. Bowel sounds present to all four quadrants. No high pitch or tinkling sounds, resonant to percussion. Extremities: No cyanosis, clubbing, or edema present. Pulses are palpable 2/2. Active ROM to all four extremities. Neuro: Alert and orientated x 1-2. PERRLA. Cranial nerves 2-12 intact without focal deficit. Skin: Warm, dry, and intact, without rash, erythema, or lesion. Psych: pleasant, cooperative, normal speech, normal affect, no hallucinations, no dysarthia On BiPAP H&P: Results Labs Labs: Short CBC 03/08/25 Range/Units 12:50 WBC 8.7 (4.5-10.0) K/mm3 Hgb 10.5 L (12.0-15.0) g/dL Hct 36.4 L (37.0-47.0) % Plt Count 229 (150-375) k/mm3 BMP 03/08/25 12:50 Sodium 142 Potassium 4.4 Chloride 103 Carbon Dioxide 35 H BUN 19 H Creatinine 0.76 Glucose 104 Calcium 9.9 Liver Function 03/08/25 Range/Units 12:50 Total Bilirubin 0.3 (0.2-1.3) mg/dL AST 35 (14-36) U/L ALT 23 (6-35) U/L Alkaline Phosphatase 82 (38-126) U/L Albumin 4.2 (3.5-5.1) g/dL Urine 03/08/25 Range/Units 13:17 Urine Color Yellow (Yellow) Urine Appearance Clear (Clear) Urine pH 5.5 (5.0-9.0) Ur Specific Cass 1.010 (1.001-1.035) Urine Protein Negative (Negative) mg/dL Urine Glucose (UA) Negative (Negative) mg/dL Assessment and Plan Assessment and plan (1) Altered mental status: Code(s): R41.82 - Altered mental status, unspecified Status: Acute Assessment and Plan: Likely due to hypoxia and hypercarbia Neuro checks Treat for underlying infection BiPAP (2) Acute on chronic respiratory failure with hypoxia and hypercapnia: Code(s): J96.21 - Acute and chronic respiratory failure with hypoxia; J96.22 - Acute and chronic respiratory failure with hypercapnia Status: Acute Assessment and Plan: BiPAP Repeat ABG improved Breathing treatments (3) COPD exacerbation: Code(s): J44.1 - Chronic obstructive pulmonary disease with (acute) exacerbation Status: Acute Assessment and Plan: Cipro Duo[place] Guaifenesin Solu-Medrol (4) Schizoaffective disorder: Code(s): F25.9 - Schizoaffective disorder, unspecified Status: Acute Assessment and Plan: Continue Lamictal, lithium, Zoloft (5) ACS (acute coronary syndrome): Code(s): I24.9 - Acute ischemic heart disease, unspecified Status: Acute Assessment and Plan: Continue Eliquis, aspirin, Lipitor Quality VTE Prophylaxis VTE prophylaxis: mechanical ordered and pharmacologic ordered Hospitalist MIPS Advance Care Plan I have confirmed that the patient's Advanced Care Plan is present, code status is documented, or surrogate decision maker is listed in patient medical record.: Yes Medication Reconciliation I have utilized all available resources to obtain, update and review the patie nts current medications (includes all prescriptions, OTC, herbals, cannabis, and nutritional supplements).: Yes
[2025-03-09] VITALS (23 sets, daily range): BP systolic 114–152; BP diastolic 69–78; PULSE 71–85; RESP 18–29; TEMP 36.6–37.1; O2SAT 93–97
[2025-03-09] MEDS: IPRATROPIUM 0.5 MG/ALBUTEROL SULFATE 2.5 MG AMPUL.NEB 3 ML INHALATION ×4 (02:45→20:40)
[2025-03-09 04:34] LABS: Hematocrit 34.8 % (37.0-47.0); Hemoglobin 10.2 g/dL (12.0-15.0); Immature Granulocyte Percent A 0.3 % (0-0.5); Lymphocytes Absolute Auto 0.54 K/mm3 (0.9-3.2); Mean Corpuscular HGB Conc 29.3 g/dl (32-36); Mean Corpuscular Hemoglobin 29.0 pg (26-34); Mean Corpuscular Volume 98.9 fl (80-100); Nucleated Red Blood Cells Absolute Auto 0.000 K/mm3 (0.0-0.012); Nucleated Red Blood Cells Perc 0.0 % (0.0-0.2); Platelet Count Result 241 k/mm3 (150-375); Red Blood Count 3.52 M/mm3 (4.2-5.4); White Blood Count 6.7 K/mm3 (4.5-10.0)
[2025-03-09 05:01] LABS: Hypochromasia 1+; Schistocytes None Seen
[2025-03-09 05:03] LABS: Anion Gap 7 mmol/L (4-12); Blood Urea Nitrogen 21 mg/dL (7-17); Calcium 9.9 mg/dL (8.4-10.2); Carbon Dioxide 33 mmol/L (22-30); Chloride 101 mmol/L (98-107); Estimated CRCL calculation 68 ml/min; Estimated Glomerular Filt Rate > 60; Glucose 152 mg/dL (65-110); Potassium 4.3 mmol/L (3.4-5.0); Sodium 141 mmol/L (137-145)
[2025-03-09 05:47] LABS: Alveolar/Arterial O2 Gradient 70.8 mmHg; Fractional Inspired Oxygen 30 %; HCO3 ABG 34.7 mEq/l (22.0-26.0); Oxygen Content ABG 14.3 %vol (16.0-22.0); Oxygen Saturation ABG 92.1 % (95.0-100.0); PO2 ABG 67.9 mmHg (80.0-100.0); PO2 FiO2 Ratio Arterial Blood 2.26 %
[2025-03-09 05:50] LABS: Modified Allen's Test Pass; PCO2 ABG 64.0 mmHg (35.0-45.0); Site Drawn LEFT RADIAL
[2025-03-09] MEDS: FLUTICASONE/SALMETEROL 115-21 MCG INHALER 1 PUFF 2 PUFF INHALATION ×2 (07:30→20:39)
[2025-03-09] MEDS: SERTRALINE HCL 50 MG TABLET 200 MG PO (08:52)
[2025-03-09] MEDS: guaiFENesin 12 HR 600 MG TABCR 1200 MG PO ×2 (08:53→20:13)
[2025-03-09] MEDS: DESVENLAFAXINE SUCCINATE 50 MG TAB.ER.24H PO (08:53)
[2025-03-09] MEDS: ASPIRIN 81 MG ENTERIC TABLET PO (08:53)
[2025-03-09] MEDS: MELOXICAM 7.5 MG TABLET PO (08:53)
[2025-03-09] MEDS: CIPROFLOXACIN 500 MG TAB PO ×2 (08:53→20:14)
[2025-03-09] MEDS: ACYCLOVIR 400 MG TABLET PO ×2 (08:54→20:13)
[2025-03-09] MEDS: APIXABAN 5 MG TABLET PO ×2 (08:59→20:14)
[2025-03-09] MEDS: UMECLIDINIUM/VILANTEROL 62.5-25 MCG ELLIPTA 2 PUFF INHALATION (13:08)
--- NOTE | 2025-03-09 17:44 | P.PNIM_ITS ---
Progress Note: A&P Assessment and Plan (1) Altered mental status: Code(s): R41.82 - Altered mental status, unspecified Status: Acute Assessment and Plan: Likely due to hypoxia and hypercarbia Neuro checks Treat for underlying infection BiPAP (2) Acute on chronic respiratory failure with hypoxia and hypercapnia: Code(s): J96.21 - Acute and chronic respiratory failure with hypoxia; J96.22 - Acute and chronic respiratory failure with hypercapnia Status: Acute Assessment and Plan: BiPAP Repeat ABG improved Breathing treatments (3) COPD exacerbation: Code(s): J44.1 - Chronic obstructive pulmonary disease with (acute) exacerbation Status: Acute Assessment and Plan: Honey Sahni Guaifenesin Solu-Medrol (4) Schizoaffective disorder: Code(s): F25.9 - Schizoaffective disorder, unspecified Status: Acute Assessment and Plan: Continue Lamictal, lithium, Zoloft (5) ACS (acute coronary syndrome): Code(s): I24.9 - Acute ischemic heart disease, unspecified Status: Acute Assessment and Plan: Continue Eliquis, aspirin, Lipitor Plan patient is 64 y/o female with psychiatric history, chronic respiratory failure on home oxygen presented with AMS most likely 2/2 hypercarbic respiratory failure due to noncompliants with her home oxygen, patient was placed on BIPAP now clinical symptoms are improving, will CPM and monitor, will have PT/OT ev aluate the patient. Subjective Date/time seen: 03/09/25 17:44 Interval history: Narrative: 64-year-old female with history of schizophrenia, COPD, diabetes, hypertension, hyperlipidemia pulmonary embolism presents the hospital with altered mental status. She is normally on 2 L nasal cannula however today she was found at her half-way without her oxygen on the pulse ox in 80s. The EMS was called. Patient does not remember the event. In the ED lab work shows anemia at 10 point 5 which is baseline, ABG shows pH of 7.29, pCO2 of 69, PO2 of 66, bicarb 32. Chest x-ray shows no acute process. EKG shows sinus rhythm. patient is 64 y/o female with psychiatric history, chronic respiratory failure on home oxygen presented with AMS most likely 2/2 hypercarbic respiratory failure due to noncompliants with her home oxygen, patient was placed on BIPAP now clinical symptoms are improving, will CPM and monitor, will have PT/OT evaluate the patient. Review of Systems Review of Systems: 12 systems were reviewed and are negativ e except for as per HPI. ROS unobtainable: Yes unobtainable due to medical condition and unobtain able due to mental status Exam Narrative: Patient is comfortable, NAD HEENT: eyes are clear and none icteric LUNGS:CTA HEART: RR S1S2 ABD: BS+, Soft and nontender Lower extremities: no edema SKIN: nonjaundiced Neuro: grossly intact. Objective Data Vital Signs Vital Signs: Vital Signs - 24 hr 03/08/25 18:00 03/08/25 20:00 03/08/25 20:00 Temperature 37.1 C Pulse Rate 84 79 79 Respiratory Rate 22 H 26 H Blood Pressure 132/85 Pulse Oximetry 95 100 Oxygen Delivery BiPAP Fraction of Inspired Oxygen 30 03/08/25 20:00 03/08/25 20:00 03/08/25 22:00 Temperature Pulse Rate 83 72 78 Respiratory Rate 23 H Blood Pressure Pulse Oximetry 96 Oxygen Delivery BiPAP Fraction of Inspired Oxygen 03/09/25 00:00 03/09/25 00:00 03/09/25 00:00 Temperature 37.1 C Pulse Rate 72 72 71 Respiratory Rate 22 H 24 H Blood Pressure 114/72 Pulse Oximetry 96 95 Oxygen Delivery BiPAP Fraction of Inspired Oxygen 30 03/09/25 02:00 03/09/25 02:45 03/09/25 02:45 Temperature Pulse Rate 76 72 75 Respiratory Rate 23 H 26 H Blood Pressure Pulse Oximetry 96 Oxygen Delivery BiPAP Fraction of Inspired Oxygen 03/09/25 02:50 03/09/25 04:00 03/09/25 04:00 Temperature Pulse Rate 75 73 73 Respiratory Rate 23 H 22 H Blood Pressure Pulse Oximetry 97 Oxygen Delivery BiPAP Fraction of Inspired Oxygen 30 03/09/25 04:00 03/09/25 06:00 03/09/25 07:25 Temperature 37.1 C Pulse Rate 77 78 73 Respiratory Rate 22 H 20 Blood Pressure 133/78 Pulse Oximetry 97 Oxygen Delivery Fraction of Inspired Oxygen 03/09/25 07:35 03/09/25 08:00 03/09/25 08:00 Temperature 37.0 C Pulse Rate 75 72 79 Respiratory Rate 20 20 Blood Pressure 126/76 Pulse Oximetry 96 Oxygen Delivery Fraction of Inspired Oxygen 03/09/25 10:00 03/09/25 11:34 03/09/25 12:00 Temperature 37.0 C Pulse Rate 76 78 77 Respiratory Rate 18 Blood Pressure 133/76 Pulse Oximetry 94 Oxygen Delivery Fraction of Inspired Oxygen 03/09/25 13:08 03/09/25 13:31 03/09/25 14:00 Temperature Pulse Rate 72 73 85 Respiratory Rate 20 20 Blood Pressure Pulse Oximetry Oxygen Delivery Fraction of Inspired Oxygen 03/09/25 16:10 Temperature 36.6 C Pulse Rate 82 Respiratory Rate 20 Blood Pressure 129/69 Pulse Oximetry 97 Oxygen Delivery Fraction of Inspired Oxygen Intake/Output Intake/Output: Intake & Output 03/06/25 03/07/25 03/08/25 03/09/25 23:59 23:59 23:59 23:59 Intake Total 1430 Output Total 300 1300 Balance -300 130 Meds/Results Medications: Active Medications Generic Name Dose Route Start Last Admin Trade Name Freq PRN Reason Stop Dose Admin Acyclovir 400 mg 03/09/25 09:00 03/09/25 08:54 Acyclovir 400 Mg Tablet PO 400 mg Q12HR AIRAM Administration Albuterol/Ipratropium 3 ml 03/08/25 20:00 03/09/25 13:08 Ipratropium 0.5 Mg/Albuterol Sulfate 2.5 Mg Ampul.Neb 3 Ml INHALATION 3 ml Q6HRT AIRAM Administration Apixaban 5 mg 03/09/25 09:00 03/09/25 08:59 Apixaban 5 Mg Tablet PO 5 mg Q12HR AIRAM Administration Aspirin 81 mg 03/09/25 09:00 03/09/25 08:53 Aspirin 81 Mg Enteric Tablet PO 81 mg DAILY AIRAM Administration Atorvastatin Calcium 10 mg 03/08/25 21:00 03/08/25 20:17 Atorvastatin 10 Mg Tablet PO 10 mg HS AIRAM Administration Ciprofloxacin 500 mg 03/08/25 21:00 03/09/25 08:53 Ciprofloxacin 500 Mg Tab PO 500 mg Q12HR AIRAM Administration Desvenlafaxine Succinate 50 mg 03/09/25 09:00 03/09/25 08:53 Desvenlafaxine Succinate 50 Mg Tab.Er.24h PO 50 mg QAM AIRAM Administration Guaifenesin 1,200 mg 03/08/25 21:00 03/09/25 08:53 Guaifenesin 12 Hr 600 Mg Tabcr PO 1,200 mg Q12HR AIRAM Administration Lamotrigine 200 mg 03/09/25 09:00 03/09/25 09:07 Lamotrigine 100 Mg Tablet PO 200 mg Q12HR AIRAM Administration Latanoprost 1 drop 03/08/25 21:00 03/08/25 20:18 Latanoprost 0.005% Op Soln 2.5 Ml Btl EACH EYE 1 drop HS AIRAM Administration Mclaughlin Carbonate 150 mg 03/09/25 21:00 Mclaughlin Carbonate 150 Mg Capsule PO QHS AIRAM Meloxicam 7.5 mg 03/09/25 09:00 03/09/25 08:53 Meloxicam 7.5 Mg Tablet PO 7.5 mg DAILY AIRAM Administration Methylprednisolone Sodium Succinate 60 mg 03/09/25 09:00 03/09/25 17:06 Methylprednisolone Sod Succ 125 Mg Vial IV PUSH 60 mg Q6HR AIRAM Administration Olanzapine 15 mg 03/08/25 21:00 03/08/25 20:17 Olanzapine 5 Mg Tablet PO 15 mg HS AIRAM Administration Polyethylene Glycol 17 gm 03/08/25 18:16 Polyethylene Glycol 3350 17 Gm Powd.Pack PO DAILY PRN constipation Fluticasone/Salmeterol 2 puff 03/08/25 20:00 03/09/25 07:30 Fluticasone/Salmeterol 115-21 Mcg Inhaler 1 Puff INHALATION 2 puff Q12HRT AIRAM Administration Sertraline HCl 200 mg 03/09/25 09:00 03/09/25 08:52 Sertraline Hcl 50 Mg Tablet PO 200 mg DAILY AIRAM Administration Umeclidinium/Vilanterol 2 puff 03/09/25 08:00 03/09/25 13:08 Umeclidinium/Vilanterol 62.5-25 Mcg Ellipta INHALATION 2 puff DAILYRT AIRAM Administration Radiology Results: ITS Impressions Head CT 03/08/25 14:03 Impression: No significant abnormality seen. Chest X-Ray 03/08/25 14:07 IMPRESSION: 1: NO ACUTE CARDIOPULMONARY DISEASE. Labs Labs: Laboratory Results - last 24 hr 03/08/25 03/08/25 03/09/25 18:31 20:44 03:44 WBC 6.7 RBC 3.52 L Hgb 10.2 L Hct 34.8 L MCV 98.9 MCH 29.0 MCHC 29.3 L RDW 15.1 H Plt Count 241 MPV 9.8 Immature Gran % (Auto) 0.3 Neut % (Auto) 87.9 H Lymph % (Auto) 8.1 L Nelson % (Auto) 3.5 Eos % (Auto) 0.0 Baso % (Auto) 0.2 Lymph # (Auto) 0.54 L Nelson # (Auto) 0.2 Eos # (Auto) 0.0 Baso # (Auto) 0.0 Abs Immat Gran (auto) 0.02 Absolute Neuts (auto) 5.9 Absolute Nucleated RBC 0.000 Band Neutrophils % Not Reportable Nucleated RBC % 0.0 Platelet Estimate Adequate Hypochromasia 1+ Schistocytes None seen Puncture Site Left radial ABG pH 7.351 ABG pCO2 65.5 H* ABG pO2 65.5 L ABG PO2/FiO2 Ratio 2.18 ABG HCO3 35.4 H ABG O2 Saturation 91.3 L ABG O2 Content 13.5 L ABG Base Excess 8.1 A-a Gradient 71.4 Oxyhemoglobin 90.2 Total Hemoglobin 10.6 L O2 Delivery Device Non-invasive vent O2 Liters/Min Not Reportable Vent Rate 22 FiO2 30 Expiratory Pressure 8 Inspiratory Pressure 16 Sodium 141 Potassium 4.3 Chloride 101 Carbon Dioxide 33 H Anion Gap 7 BUN 21 H Creatinine 0.67 L Estim Creat Clear Calc 68 Estimated GFR > 60 Glucose 152 H POC Capillary Glucose 161 H Calcium 9.9 03/09/25 05:34 WBC RBC Hgb Hct MCV MCH MCHC RDW Plt Count MPV Immature Gran % (Auto) Neut % (Auto) Lymph % (Auto) Nelson % (Auto) Eos % (Auto) Baso % (Auto) Lymph # (Auto) Nelson # (Auto) Eos # (Auto) Baso # (Auto) Abs Immat Gran (auto) Absolute Neuts (auto) Absolute Nucleated RBC Band Neutrophils % Nucleated RBC % Platelet Estimate Hypochromasia Schistocytes Puncture Site Left radial ABG pH 7.352 ABG pCO2 64.0 H* ABG pO2 67.9 L ABG PO2/FiO2 Ratio 2.26 ABG HCO3 34.7 H ABG O2 Saturation 92.1 L ABG O2 Content 14.3 L ABG Base Excess 7.4 A-a Gradient 70.8 Oxyhemoglobin 91.1 Total Hemoglobin 11.1 L O2 Delivery Device Bipap O2 Liters/Min Not Reportable Vent Rate FiO2 30 Expiratory Pressure 8 Inspiratory Pressure 16 Sodium Potassium Chloride Carbon Dioxide Anion Gap BUN Creatinine Estim Creat Clear Calc Estimated GFR Glucose POC Capillary Glucose Calcium Quality VTE Prophylaxis VTE prophylaxis: mechanical ordered and pharmacologic ordered
[2025-03-09] MEDS: ATORVASTATIN 10 MG TABLET PO (20:14)
[2025-03-09] MEDS: LITHIUM CARBONATE 150 MG CAPSULE PO (20:14)
[2025-03-09] MEDS: LATANOPROST 0.005% OP SOLN 2.5 ML BTL 1 DROP EACH EYE (20:14)
[2025-03-10] VITALS (16 sets, daily range): BP systolic 108–148; BP diastolic 66–77; PULSE 67–85; RESP 16–24; TEMP 36.5–37.2; O2SAT 94–99
[2025-03-10] MEDS: IPRATROPIUM 0.5 MG/ALBUTEROL SULFATE 2.5 MG AMPUL.NEB 3 ML INHALATION ×3 (01:14→14:00)
[2025-03-10] MEDS: CIPROFLOXACIN 500 MG TAB PO (08:46)
[2025-03-10] MEDS: APIXABAN 5 MG TABLET PO (08:46)
[2025-03-10] MEDS: DESVENLAFAXINE SUCCINATE 50 MG TAB.ER.24H PO (08:46)
[2025-03-10] MEDS: ASPIRIN 81 MG ENTERIC TABLET PO (08:47)
[2025-03-10] MEDS: ACYCLOVIR 400 MG TABLET PO (08:47)
[2025-03-10] MEDS: SERTRALINE HCL 50 MG TABLET 200 MG PO (08:47)
[2025-03-10] MEDS: MELOXICAM 7.5 MG TABLET PO (08:47)
[2025-03-10] MEDS: guaiFENesin 12 HR 600 MG TABCR 1200 MG PO (08:47)
[2025-03-10] MEDS: UMECLIDINIUM/VILANTEROL 62.5-25 MCG ELLIPTA 2 PUFF INHALATION (08:51)
[2025-03-10] MEDS: FLUTICASONE/SALMETEROL 115-21 MCG INHALER 1 PUFF 2 PUFF INHALATION (08:57)
[2025-03-10 12:38] LABS: Alveolar/Arterial O2 Gradient 97.8 mmHg; Fractional Inspired Oxygen 32 %; HCO3 ABG 32.4 mEq/l (22.0-26.0); Oxygen Content ABG 13.7 %vol (16.0-22.0); Oxygen Saturation ABG 92.4 % (95.0-100.0); PCO2 ABG 55.1 mmHg (35.0-45.0); PO2 ABG 65.9 mmHg (80.0-100.0); PO2 FiO2 Ratio Arterial Blood 2.06 %
[2025-03-10 12:40] LABS: Modified Allen's Test Pass; Site Drawn LEFT RADIAL
[2025-03-10 12:41] LABS: Liters per Minute 3.0 LPM
--- NOTE | 2025-03-10 14:17 | P.DS_ITS ---
DS: Admitting Diagnosis Discharge Date 03/10/25 Admitting Diagnosis Altered mental status DS: Discharge Diagnosis Discharge Diagnosis (1) Altered mental status: Code(s): R41.82 - Altered mental status, unspecified Status: Acute Assessment and Plan: Likely due to hypoxia and hypercarbia Neuro checks Treat for underlying infection BiPAP (2) Acute on chronic respiratory failure with hypoxia and hypercapnia: Code(s): J96.21 - Acute and chronic respiratory failure with hypoxia; J96.22 - Acute and chronic respiratory failure with hypercapnia Status: Acute Assessment and Plan: BiPAP Repeat ABG improved Breathing treatments (3) COPD exacerbation: Code(s): J44.1 - Chronic obstructive pulmonary disease with (acute) exacerbation Status: Acute Assessment and Plan: Honey DuoNebs Guaifenesin Solu-Medrol (4) Schizoaffective disorder: Code(s): F25.9 - Schizoaffective disorder, unspecified Status: Chronic Assessment and Plan: Continue Lamictal, lithium, Zoloft (5) ACS (acute coronary syndrome): Code(s): I24.9 - Acute ischemic heart disease, unspecified Status: Acute Assessment and Plan: Continue Eliquis, aspirin, Lipitor Plan patient is 64 y/o female with psychiatric history, chronic respiratory failure on home oxygen presented with AMS most likely 2/2 hypercarbic respiratory failure due to noncompliants with her home oxygen, patient was placed on BIPAP now clinical symptoms are improving, will CPM and monitor, will have PT/OT evaluate the patient. DS: Summary Hospital Course Hospital Course: patient is 64 y/o female with psychiatric history, chronic respiratory failure on home oxygen presented with AMS most likely 2/2 hypercarbic respiratory failure due to noncompliants with her home oxygen, patient was placed on BIPAP now clinical symptoms are improving, will CPM and monitor, will have PT/OT evaluate the patient. While in the hospital, patient is wearing her BIPAP, her mentation has improved and feeling better, patient is stable, will discharge today. Time Spent with Patient Time attestation: Total time spent providing and/or coordinating discharge services: Exam Narrative: Patient is comfortable, NAD HEENT: eyes are clear and none icteric LUNGS:CTA HEART: RR S1S2 ABD: BS+, Soft and nontender Lower extremities: no edema SKIN: nonjaundiced Neuro: grossly intact. DS: Data Data Completed and Pending Labs on day of discharge: Labs from last 24 hours 03/10/25 03/09/25 12:30 20:01 Puncture Site Left radial ABG pH 7.387 ABG pCO2 55.1 H ABG pO2 65.9 L ABG PO2/FiO2 Ratio 2.06 ABG HCO3 32.4 H ABG O2 Saturation 92.4 L ABG O2 Content 13.7 L ABG Base Excess 6.2 A-a Gradient 97.8 Oxyhemoglobin 90.9 Total Hemoglobin 10.7 L O2 Delivery Device Nasal cannula O2 Liters/Min 3.0 FiO2 32 POC Capillary Glucose 218 H Discharge Plan Discharge Attending physician on discharge: Maria A Palma Consulting providers: Cassie Mejia; Brando Camejo; Alex Infante; Ben Howard Discharging Clinician: Maria A Palma Patient Disposition: SNF Activity: as tolerated Diet: heart healthy Discharge Instructions: patient is instructed to wear her home oxygen as directed, patient to follow up with her primary care provider as soon as possible. Patient Instructions: Antibiotic Form Patient Language: Cape Verdean Stand Alone Forms: General Discharge Information Follow-up/Referrals: Shiva,MD So [Primary Care Provider] - Discharge Medications: New guaifenesin [Mucus Relief ER] 600 mg Tablet Extended Release 12hr 1,200 mg PO Q12HR Qty: 30 0RF ipratropium-albuterol 0.5 mg-3 mg(2.5 mg base)/3 mL Solution For Nebulization 3 ml inhalation Q6HRT Qty: 30 0RF prednisone 10 mg tablet 10 mg PO DAILY Qty: 42 0RF Rx Instructions: 6Tx2d, 5Tx2d 4Tx2d, 3Tx2d, 2Tx2d, 1Tx2d Continued acetaminophen 325 mg tablet 325 mg PO Q6H PRN (Reason: pain) acyclovir 400 mg tablet 400 mg PO BID albuterol sulfate 90 mcg/actuation HFA aerosol inhaler 2 puff INHALATION Q4H PRN (Reason: cough) alendronate 70 mg tablet 70 mg PO WEEKLY Rx Instructions: Due on 03/31. Eliquis 5 mg tablet 5 mg PO BID aspirin 81 mg tablet,delayed release (DR/EC) 81 mg PO DAILY atorvastatin 10 mg tablet 10 mg PO HS bismuth subsalicylate [Stomach Relief] 262 mg/15 mL suspension 262 mg PO Q4H PRN (Reason: diarrhea) budesonide-formoterol 80-4.5 mcg/actuation HFA aerosol inhaler 1 puff INHALATION DAILY clozapine 100 mg tablet 100 mg PO QAM clozapine 200 mg tablet 400 mg PO HS Patient Comments: To be given with 100 mg at bedtime for a total of 500 desvenlafaxine succinate 50 mg tablet extended release 24 hr 50 mg PO DAILY clozapine 100 mg tablet 100 mg PO HS Patient Comments: To be given with 400 mg at bedtime for a total of 500 lamotrigine 200 mg tablet 200 mg PO BID latanoprost 0.005 % drops 1 drp EACH EYE HS meloxicam 7.5 mg tablet 7.5 mg PO DAILY metformin 500 mg tablet 500 mg PO QPM pantoprazole 40 mg tablet,delayed release (DR/EC) 40 mg PO DAILY polyethylene glycol 3350 17 gram/dose powder 17 g PO DAILY PRN (Reason: constipation) sertraline 100 mg tablet 200 mg PO DAILY Stiolto Respimat 2.5-2.5 mcg/actuation mist 2 puff INHALATION DAILY calcium carbonate [Oyster Shell Calcium] 500 mg calcium (1,250 mg) tablet 1,000 mg PO DAILY No Action lorazepam 0.5 mg tablet 0.5 mg PO TID PRN (Reason: Anxiety) 30 Days Qty: 60 0RF fluticasone propionate 50 mcg/actuation [place],Suspension 1 spray intranasal Q12HR PRN (Reason: nasal congestion) Qty: 16 0RF umeclidinium-vilanterol [Anoro Ellipta] 62.5-25 mcg/actuation Blister With Device 1 inh inhalation DAILYRT 30 Days Qty: 30 0RF fluticasone propionate [Flonase Allergy Relief] 50 mcg/actuation spray,suspension 1 spray intranasal BID PRN (Reason: nasal congestion) Qty: 16 0RF Rx Instructions: administer into each nostril Date of admission: 03/08/25 14:31 Primary Care Provider: Shiva,So Admitting Provider: Maria A Palma Attending physician on admission: Maria A Palma Condition: Stable
--- NOTE | 2025-03-10 16:56 | PC.NURSE ---
Report called to YUNI Canales at [facility] at 1416. Informed patient will be returning via ambulance, unsure of arrival time. Ally was thankful for report and verbalized understanding. EMS to floor at 1650 to transfer patient back to facility. Discharge packet and med list given to EMS. Shilo Mina RN
== END 2025-03-10 16:50 ==
LOC: ANHED 15:35 → ANHIMU 15:39
PROVIDERS: Emergency Medicine; General Practice; Nurse Practitioner Gerontology; Admitting Provider Family Medicine; Emergency Provider Emergency Medicine; PCP Family Medicine; Visit Provider Family Medicine
DX: J96.21 Acute and chronic respiratory failure with hypoxia (principal); J96.22 Acute and chronic respiratory failure with hypercapnia; R41.82 Altered mental status, unspecified; J44.1 Chronic obstructive pulmonary disease with (acute) exacerbation; Z99.81 Dependence on supplemental oxygen; I24.9 Acute ischemic heart disease, unspecified; E11.9 Type 2 diabetes mellitus without complications; F25.9 Schizoaffective disorder, unspecified; F32.A Depression, unspecified; I10 Essential (primary) hypertension; E78.5 Hyperlipidemia, unspecified; Z79.01 Long term (current) use of anticoagulants; Z79.51 Long term (current) use of inhaled steroids; Z79.82 Long term (current) use of aspirin; Z79.899 Other long term (current) drug therapy; Z86.711 Personal history of pulmonary embolism; Z91.199 Patient's noncompliance with other medical treatment and regimen due to unspecified reason
CPT/HCPCS: 36415; 36600; 70450; 71045; 80048; 80053; 81003; 82805; 82948; 83605; 85018; 85025; 85610; 85730; 93005; 94002; 94003; 94640; 96374; 99291; A9270; J2919

== ENCOUNTER 2025-03-19 06:11 | Inpatient (IN) | payer MEDICARE, MEDICAID, SELFPAY ==
[2025-03-19] VITALS (28 sets, daily range): BP systolic 101–138; BP diastolic 64–89; PULSE 52–96; RESP 13–40; TEMP 36.5–37.1; O2SAT 95–100
--- NOTE | ~2025-03-19 | XR_ITS ---
CHEST RADIOGRAPH CLINICAL HISTORY: SOB . COMPARISON: 03/08/2025 and 01/21/2025 TECHNIQUE: Single portable view of the chest. FINDINGS Significant left atrial enlargement, unchanged from prior. The remainder of the cardiomediastinal silhouette is otherwise unremarkable. Patchy interstitial thickening detected within the bilateral upper lobes, an interval change from matheus or examinations. The remainder of the lungs are clear. IMPRESSION: Patchy interstitial thickening within the bilateral upper lobes, an interval change from prior and po ssibly representing atypical pneumonia. Reviewed, dictated and finalized at location A. IMPRESSION: Patchy interstitial thickening within the bilateral upper lobes, an interval ch olman from prior and possibly representing atypical pneumonia.
--- NOTE | ~2025-03-19 | XR_ITS ---
XR chest 1V portable 03/21/2025 06:10 Indication: Pneumonia Procedure: AP portable chest Comparison: Comparison to multiple prior studies sequentially, with oldest reviewed study dated 01/21. Findings: Improving bilateral airspace disease compared with 03/19/2025. Cardiomegaly. No significant effusion or pneumothorax. No acute osseous abnormality. Impression: 1: Improving bilateral airspace disease which may reflect resolving edema or pneumonia. Reviewed, dictated and finalized at location B. Impression: 1: Improving bilateral airspace disease which may reflect resolving edema or pn eumonia.
--- NOTE | 2025-03-19 06:16 | ED_ITS ---
HPI - SOB/Dyspnea General Chief Complaint: Shortness of Breath/Dyspnea Stated Complaint: resp distress Time Seen by Provider: 03/19/25 06:13 History of Present Illness HPI Narrative: Patient was found unresponsive at the alf, did not appear to be breathing well, she was supposed be on oxygen but was not on oxygen. EMS put on a non-rebreather with with improvement only to the 80s, then started on CPAP which improved her oxygen to 93% and she became more responsive, she was also given the magnesium, steroids, DuoNebs. Related Data Home Medications ?Medication ?Instructions ?Recorded ?Confirmed ?Last Taken ?Type acetaminophen 325 mg tablet 325 mg PO Q6H PRN pain 03/08/25 03/08/25 Unknown History acyclovir 400 mg tablet 400 mg PO BID 03/08/25 03/08/25 03/08/25 History albuterol sulfate 90 mcg/actuation 2 puff inhalation Q4H PRN cough 03/08/25 03/08/25 Unknown History aerosol inhaler alendronate 70 mg tablet 70 mg PO WEEKLY 03/08/25 03/08/25 03/03/25 History apixaban 5 mg tablet (Eliquis) 5 mg PO BID 03/08/25 03/08/25 03/08/25 History aspirin 81 mg tablet,delayed 81 mg PO DAILY 03/08/25 03/08/25 03/08/25 History release atorvastatin 10 mg tablet 10 mg PO HS 03/08/25 03/08/25 03/07/25 History bismuth subsalicylate 262 mg/15 mL 262 mg PO Q4H PRN diarrhea 03/08/25 03/08/25 Unknown History oral suspension (Stomach Relief) budesonide-formoterol HFA 80 1 puff inhalation DAILY 03/08/25 03/08/25 03/08/25 History mcg-4.5 mcg/actuation aerosol inhaler calcium carbonate (Oyster Shell 1,000 mg PO DAILY 03/08/25 03/08/25 03/08/25 History Calcium) clozapine 100 mg tablet 100 mg PO HS 03/08/25 03/08/25 03/07/25 History clozapine 100 mg tablet 100 mg PO QAM 03/08/25 03/08/25 03/08/25 History clozapine 200 mg tablet 400 mg PO HS 03/08/25 03/08/2503/07/25 History desvenlafaxine succinate 50 mg 50 mg PO DAILY 03/08/25 03/08/25 03/08/25 History tablet,extended release 24 hr fluticasone furoate 100 1 inh inhalation DAILY 03/08/25 03/08/25 03/08/25 History mcg-vilanterol 25 mcg/dose inhalation powder (Breo Ellipta) lamotrigine 200 mg tablet 200 mg PO BID 03/08/25 03/08/25 03/08/25 History latanoprost 0.005 % eye drops 1 drp EACH EYE HS 03/08/25 03/08/25 03/07/25 History lithium carbonate 150 mg capsule 150 mg PO QPM 03/08/25 03/08/25 03/07/25 History lorazepam 0.5 mg tablet 0.5 mg PO TID 03/08/25 03/08/25 03/08/25 History meloxicam 7.5 mg tablet 7.5 mg PO DAILY 03/08/25 03/08/25 03/08/25 History metformin 500 mg tablet 500 mg PO QPM 03/08/25 03/08/25 03/07/25 History olanzapine 15 mg tablet 15 mg PO HS 03/08/25 03/08/25 03/07/25 History pantoprazole 40 mg tablet,delayed 40 mg PO DAILY 03/08/25 03/08/25 03/08/25 History release polyethylene glycol 3350 17 17 g PO DAILY PRN constipation 03/08/25 03/08/25 Unknown History gram/dose oral powder sertraline 100 mg tablet 200 mg PO DAILY 03/08/25 03/08/25 03/08/25 History tiotropium 2.5 mcg-olodaterol 2.5 2 puff inhalation DAILY 03/08/25 03/08/25 03/08/25 History mcg/actuation mist for inhalation (Stiolto Respimat) Allergies Allergy/AdvReac Type Severity Reaction Status Date / Time No Known Allergies Allergy Unverified 07/22/14 10:54 Review of Systems 2 Review of Systems: All systems reviewed & are unremarkable except as noted in HPI and below PMFSH Past Medical History Medical History (Updated 03/19/25 @ 06:22 by Alicia Damon MD) Schizoaffective disorder Depression Diabetes Hypertension Hyperlipidemia Pulmonary embolism COPD (chronic obstructive pulmonary disease) Social History Social History Smoking status: Never smoker Alcohol intake: never Substance use: never Substance use type: does not use Do You Feel Safe in your Home?: Yes Lack of Transportation: No Lack of Food: Never True Current Housing: I Have Housing Concerned About Future Housing: No Difficulty Paying Gas/Electric Bills: No Difficulty Paying for Meds: No Currently Unemployed: No Education: Decline to Answer Difficulty w/ Childcare or Family Care: No Spiritual care concerns: No Exam 2 Narrative: EXAMINATION OF ORGAN SYSTEMS/BODY AREAS: Constitutional: Vital signs per nursing GENERAL: Initially slumped over HEAD: Normal with no signs of head trauma. EYES: EOMI, conjunctiva normal ENT: Hearing grossly intact LUNGS: Diminished breath sounds HEART: [Regular rate and rhythm] ABD: [Soft], [nontender to palpation] EXT: Normal range of motion SKIN: [No rashes or lesions.] NEURO: [Initially only responsive to painful stimulus then started waking up and now moving spontaneously, adjusting the mask on her face, adjusting herself on the bed, speaking. No gross focal sensory or strength deficits.] PSYCH: Normal affect Course Vital Signs Vital signs: Vital Signs Pulse Rate 94 03/19/25 06:00 Respiratory Rate 33 H 03/19/25 06:00 Pulse Oximetry 95 03/19/25 06:00 Oxygen Delivery BiPAP 03/19/25 06:00 Pulse Rate 88 03/19/25 07:01 Respiratory Rate 25 H 03/19/25 07:01 Blood Pressure 109/69 03/19/25 07:01 Pulse Oximetry 100 03/19/25 07:01 Oxygen Delivery BiPAP 03/19/25 06:40 Oxygen Flow Rate 50 03/19/25 06:40 Fraction of Inspired Oxygen 50 03/19/25 06:02 MDM - SOB/Dyspnea MDM Narrative Medical decision making narrative: 64F with acute dyspnea and altered mental status, was found without her oxygen when she is supposed to be on oxygen at the alf, started on CPAP by EMS with immediate improvement in mental status. They were also given her IV steroids, magnesium, DuoNebs. By the time she arrived here she was more responsive, transferred to BiPAP here, and her mental status continued to improve. ABG does show CO2 retention/narcosis. I did re-evaluate the patient after about an hour for being on BiPAP, she is now speaking full sentences, in no respiratory distress, breathing very comfortably, says that she feels good, asking if she can go home. I do feel she can benefit from admission to IMU at this time, discussed with hospitalist for admission. Lab Data 03/19/25 06:28 03/19/25 06:28 Labs: Lab Results 03/19/25 03/19/25 03/19/25 Range/Units 06:22 06:24 06:28 WBC 22.3 H (4.5-10.0) K/mm3 RBC 3.69 L (4.2-5.4) M/mm3 Hgb 10.8 L (12.0-15.0) g/dL Hct 37.3 (37.0-47.0) % MCV 101.1 H (80-100) fl MCH 29.3 (26-34) pg MCHC 29.0 L (32-36) g/dl RDW 15.2 H (11.5-14.5) % Plt Count 350 (150-375) k/mm3 MPV 9.1 (7.4-10.4) fl Immature Gran % (Auto) 0.7 H (0-0.5) % Neut % (Auto) 93.8 H (45.5-73.1) % Lymph % (Auto) 3.3 L (18.3-44.2) % Johnston % (Auto) 1.9 L (2.6-8.5) % Eos % (Auto) 0.1 (0-4.4) % Baso % (Auto) 0.2 (0.2-1.2) % Lymph # (Auto) 0.73 L (0.9-3.2) K/mm3 Johnston # (Auto) 0.4 (0.1-0.6) K/mm3 Eos # (Auto) 0.0 (0-0.3) K/mm3 Baso # (Auto) 0.0 (0.0-0.1) K/mm3 Abs Immat Gran (auto) 0.15 H (0.00-0.031) K/mm3 Absolute Neuts (auto) 20.9 H (1.3-6.7) K/mm3 Absolute Nucleated RBC 0.000 (0.0-0.012) K/mm3 Nucleated RBC % 0.0 (0.0-0.2) % Expiratory Pressure 5 cmH2O Inspiratory Pressure 16 cmH2O Sodium 143 (137-145) mmol/L Potassium 3.9 (3.4-5.0) mmol/L Chloride 104 (98-107) mmol/L Carbon Dioxide 31 H (22-30) mmol/L Anion Gap 8 (4-12) mmol/L BUN 20 H (7-17) mg/dL Creatinine 0.81 (0.7-1.0) mg/dL Estim Creat Clear Calc Not Reportable Estimated GFR > 60 (59 - ) Glucose 184 H (65-110) mg/dL POC Capillary Glucose 159 H (65-105) mg/dl Lactic Acid 2.6 H (0.7-2.0) mmol/L Calcium 9.3 (8.4-10.2) mg/dL Magnesium 3.0 H (1.6-2.3) mg/dL Total Bilirubin 0.3 (0.2-1.3) mg/dL AST 27 (14-36) U/L ALT 16 (6-35) U/L Alkaline Phosphatase 74 (38-126) U/L Troponin I 0.026 (0.000-0.034) ng/mL NT-Pro-B Natriuret Pep 314 H (19.9-100) pg/mL Total Protein 6.9 (6.3-8.2) g/dL Albumin 3.8 (3.5-5.1) g/dL Urine Color Urine Appearance Urine pH Ur Specific [place] Urine Protein Urine Glucose (UA) Urine Ketones Ur Blood (Man) Urine Nitrate Urine Bilirubin Urine Urobilinogen Leukocyte Esterase Rfl Influenza A (RT-PCR) Influenza B (RT-PCR) RSV (RT-PCR) SARS-CoV-2 RNA (RT-PCR) 03/19/25 03/19/25 03/19/25 Range/Units 06:29 06:33 07:10 WBC (4.5-10.0) K/mm3 RBC (4.2-5.4) M/mm3 Hgb (12.0-15.0) g/dL Hct (37.0-47.0) % MCV (80-100) fl MCH (26-34) pg MCHC (32-36) g/dl RDW (11.5-14.5) % Plt Count (150-375) k/mm3 MPV (7.4-10.4) fl Immature Gran % (Auto) (0-0.5) % Neut % (Auto) (45.5-73.1) % Lymph % (Auto) (18.3-44.2) % Johnston % (Auto) (2.6-8.5) % Eos % (Auto) (0-4.4) % Baso % (Auto) (0.2-1.2) % Lymph # (Auto) (0.9-3.2) K/mm3 Johnston # (Auto) (0.1-0.6) K/mm3 Eos # (Auto) (0-0.3) K/mm3 Baso # (Auto) (0.0-0.1) K/mm3 Abs Immat Gran (auto) (0.00-0.031) K/mm3 Absolute Neuts (auto) (1.3-6.7) K/mm3 Absolute Nucleated RBC (0.0-0.012) K/mm3 Nucleated RBC % (0.0-0.2) % Expiratory Pressure cmH2O Inspiratory Pressure cmH2O Sodium Cancelled (137-145) mmol/L Potassium Cancelled (3.4-5.0) mmol/L Chloride Cancelled (98-107) mmol/L Carbon Dioxide Cancelled (22-30) mmol/L Anion Gap Cancelled (4-12) mmol/L BUN Cancelled (7-17) mg/dL Creatinine Cancelled (0.7-1.0) mg/dL Estim Creat Clear Calc Cancelled Estimated GFR Cancelled (59 - ) Glucose Cancelled (65-110) mg/dL POC Capillary Glucose (65-105) mg/dl Lactic Acid (0.7-2.0) mmol/L Calcium Cancelled (8.4-10.2) mg/dL Magnesium (1.6-2.3) mg/dL Total Bilirubin Cancelled (0.2-1.3) mg/dL AST Cancelled (14-36) U/L ALT Cancelled (6-35) U/L Alkaline Phosphatase Cancelled (38-126) U/L Troponin I (0.000-0.034) ng/mL NT-Pro-B Natriuret Pep (19.9-100) pg/mL Total Protein Cancelled (6.3-8.2) g/dL Albumin Cancelled (3.5-5.1) g/dL Urine Color Pending Urine Appearance Pending Urine pH Pending Ur Specific [place] Pending Urine Protein Pending Urine Glucose (UA) Pending Urine Ketones Pending Ur Blood (Man) Pending Urine Nitrate Pending Urine Bilirubin Pending Urine Urobilinogen Pending Leukocyte Esterase Rfl Pending Influenza A (RT-PCR) Pending Influenza B (RT-PCR) Pending RSV (RT-PCR) Pending SARS-CoV-2 RNA (RT-PCR) Pending ABG Data ABG results: 03/19/25 06:22 Puncture Site Right radial ABG pH 7.314 L ABG pCO2 59.3 H ABG pO2 70.7 L ABG PO2/FiO2 Ratio 1.41 ABG HCO3 29.5 H ABG O2 Saturation 92.4 L ABG O2 Content 13.9 L ABG Base Excess 2.2 A-a Gradient 219.1 Oxyhemoglobin 90.5 Total Hemoglobin 10.9 L O2 Delivery Device Bipap O2 Liters/Min Not Reportable FiO2 70 Critical Care Time Critical Care Time Critical Care Time: Yes Total Critical Care Time: 31 Discharge Plan Discharge Clinical Impression: Acute on chronic respiratory failure with hypoxia and hypercapnia, Altered mental status Patient Disposition: Still a Patient Condition: Serious Patient Language: Mongolian Prescriptions: No Action acetaminophen 325 mg tablet 325 mg PO Q6H PRN (Reason: pain) acyclovir 400 mg tablet 400 mg PO BID albuterol sulfate 90 mcg/actuation HFA aerosol inhaler 2 puff INHALATION Q4H PRN (Reason: cough) alendronate 70 mg tablet 70 mg PO WEEKLY Eliquis 5 mg tablet 5 mg PO BID aspirin 81 mg tablet,delayed release (DR/EC) 81 mg PO DAILY atorvastatin 10 mg tablet 10 mg PO HS bismuth subsalicylate [Stomach Relief] 262 mg/15 mL suspension 262 mg PO Q4H PRN (Reason: diarrhea) budesonide-formoterol 80-4.5 mcg/actuation HFA aerosol inhaler 1 puff INHALATION DAILY clozapine 100 mg tablet 100 mg PO QAM clozapine 200 mg tablet 400 mg PO HS Patient Comments: To be given with 100 mg at bedtime for a total of 500 desvenlafaxine succinate 50 mg tablet extended release 24 hr 50 mg PO DAILY clozapine 100 mg tablet 100 mg PO HS Patient Comments: To be given with 400 mg at bedtime for a total of 500 lamotrigine 200 mg tablet 200 mg PO BID latanoprost 0.005 % drops 1 drp EACH EYE HS lithium carbonate 150 mg capsule 150 mg PO QPM lorazepam 0.5 mg tablet 0.5 mg PO TID meloxicam 7.5 mg tablet 7.5 mg PO DAILY metformin 500 mg tablet 500 mg PO QPM olanzapine 15 mg tablet 15 mg PO HS pantoprazole 40 mg tablet,delayed release (DR/EC) 40 mg PO DAILY polyethylene glycol 3350 17 gram/dose powder 17 g PO DAILY PRN (Reason: constipation) sertraline 100 mg tablet 200 mg PO DAILY Stiolto Respimat 2.5-2.5 mcg/actuation mist 2 puff INHALATION DAILY calcium carbonate [Oyster Shell Calcium] 500 mg calcium (1,250 mg) tablet 1,000 mg PO DAILY fluticasone furoate-vilanterol [Breo Ellipta] 100-25 mcg/dose blister with device 1 inh inhalation DAILY guaifenesin [Mucus Relief ER] 600 mg Tablet Extended Release 12hr 1,200 mg PO Q12HR Qty: 30 0RF ipratropium-albuterol 0.5 mg-3 mg(2.5 mg base)/3 mL Solution For Nebulization 3 ml inhalation Q6HRT Qty: 30 0RF ciprofloxacin HCl 500 mg Tablet 500 mg PO Q12HR Qty: 10 0RF prednisone 10 mg tablet 10 mg PO DAILY Qty: 42 0RF Rx Instructions: 6Tx2d, 5Tx2d 4Tx2d, 3Tx2d, 2Tx2d, 1Tx2d Follow-up/Referrals: Shiva,MD So [Primary Care Provider] -
--- NOTE | 2025-03-19 06:18 | ECG_ITS ---
Test Date: 2025-03-19 06:17:58 Measurements Intervals Superior Rate: 95 P: 60 IL: 146 QRS: -47 QRSD: 94 T: 65 QT: 307 QTc: 387 Interpretive Statements SINUS RHYTHM LEFT ANTERIOR FASCICULAR BLOCK [QRS AXIS <= -45, QR IN I, RS IN II] Compared to ECG 03/08/2025 12:25:39 T-wave abnormality no longer present Possible ischemia no longer present Electronically Signed On 03-19-2025 17:57:50 CDT by Best Couch M.D.
--- OUTSIDE RECORDS SUMMARY | 2025-03-19 06:27 | XMS_ITS | Patient Health Record ---
Author Organization [facility] Address [address] [facility] [address] [place] [address] Care Team Providers Care Job Setter Honing Name Role Phone Ben Zuleta Unavailable [phone] Reason For Referral No Information Medications Medication SIG (Take, Route, Frequency, Duration) Notes Start Date End Date Status Omeprazole 20 MG Oral Act gary cloZAPine 100 mg Oral Act gary Lisinopril 20 MG Oral Act gary Niaspan 500 mg Oral Activ e Simvastatin 20 MG Oral Ac tive Niacin 500 mg Oral *Pick strength-form from Holvispan for eRX* Active Alendronate Sodium 70 MG Oral Active Advair Diskus 250-50 MCG/DOSE Inhalation Active Latanoprost 0.005 % Ophthalmic Active lamoTRIgine 150 MG Oral A ctive cloZAPine 200 MG Oral Act gary traZODone HCl 150 MG Oral Active lamoTRIgine 200 MG Oral A ctive Combivent Respimat 20-100 MCG/ACT Inhalation Active Polyethylene Glycol 3350 17 gram ORAL *Pick strength-form from Holvispan for eRX* Active Mirtazapine 45 MG Oral Ac tive cloZAPine 50 MG Oral Acti ve Mirtazapine 30 MG Oral Ac tive oxyBUTYnin Chloride ER 10 MG Oral Active Plan Of Treatment No Information
[2025-03-19 06:38] LABS: Hematocrit 37.3 % (37.0-47.0); Hemoglobin 10.8 g/dL (12.0-15.0); Immature Granulocyte Percent A 0.7 % (0-0.5); Lymphocytes Absolute Auto 0.73 K/mm3 (0.9-3.2); Mean Corpuscular HGB Conc 29.0 g/dl (32-36); Mean Corpuscular Hemoglobin 29.3 pg (26-34); Mean Corpuscular Volume 101.1 fl (80-100); Nucleated Red Blood Cells Absolute Auto 0.000 K/mm3 (0.0-0.012); Nucleated Red Blood Cells Perc 0.0 % (0.0-0.2); Platelet Count Result 350 k/mm3 (150-375); Red Blood Count 3.69 M/mm3 (4.2-5.4); White Blood Count 22.3 K/mm3 (4.5-10.0)
--- NOTE | 2025-03-19 06:51 | PC.NURSE ---
PT AWAKE, ALERT AND ORIENTED, RESPONDING TO QUESTIONS APPROPRIATELY.
[2025-03-19 07:00] LABS: Alveolar/Arterial O2 Gradient 219.1 mmHg; HCO3 ABG 29.5 mEq/l (22.0-26.0); Modified Allen's Test Pass; Oxygen Content ABG 13.9 %vol (16.0-22.0); Oxygen Saturation ABG 92.4 % (95.0-100.0); PCO2 ABG 59.3 mmHg (35.0-45.0); PO2 ABG 70.7 mmHg (80.0-100.0); PO2 FiO2 Ratio Arterial Blood 1.41 %; Site Drawn RIGHT RADIAL
[2025-03-19 07:01] LABS: Fractional Inspired Oxygen 70 %
[2025-03-19 07:05] LABS: Alanine Aminotransferase 16 U/L (6-35); Albumin Level 3.8 g/dL (3.5-5.1); Alkaline Phosphatase 74 U/L (38-126); Anion Gap 8 mmol/L (4-12); Aspartate Amino Transferase 27 U/L (14-36); Bilirubin,Total 0.3 mg/dL (0.2-1.3); Blood Urea Nitrogen 20 mg/dL (7-17); Calcium 9.3 mg/dL (8.4-10.2); Carbon Dioxide 31 mmol/L (22-30); Chloride 104 mmol/L (98-107); Estimated Glomerular Filt Rate > 60; Glucose 184 mg/dL (65-110); Magnesium 3.0 mg/dL (1.6-2.3); Potassium 3.9 mmol/L (3.4-5.0); Sodium 143 mmol/L (137-145); Total Protein 6.9 g/dL (6.3-8.2)
[2025-03-19 07:15] LABS: NT Pro B Type Natriuretic Pept 314 pg/mL (19.9-100); Troponin I 0.026 ng/mL (0.000-0.034)
[2025-03-19 07:22] LABS: Influenza A QL RT-PCR Negative (Negative); Influenza B QL RT-PCR Negative (Negative); RSV RNA, RT-PCR Negative (Negative); SARS-CoV-2 RNA PCR Positive (Negative)
[2025-03-19 07:29] LABS: Add Urine Microscopic? YES; Appearance Urine Clear (Clear); Glucose Urine UA Negative (Negative); Leukocyte Esterase Ur Negative LEU/UL (Negative); Nitrate Urine Negative (Negative); Specific Grav Ur > 1.030 (1.001-1.035)
[2025-03-19 07:42] LABS: Alveolar/Arterial O2 Gradient 320.9 mmHg; Carboxyhemoglobin 0.1 % THb (0-2.0); Fractional Inspired Oxygen 70 %; HCO3 ABG 29.0 mEq/l (22.0-26.0); Methemoglobin ABG 0.0 %THb (0-1.5); Oxygen Content ABG 15.0 %vol (16.0-22.0); Oxygen Saturation ABG 97.9 % (95.0-100.0); PCO2 ABG 56.6 mmHg (35.0-45.0); PO2 ABG 117.4 mmHg (80.0-100.0); PO2 FiO2 Ratio Arterial Blood 1.68 %; Reduced Hemoglobin 2.7 %THb (0-5.0)
[2025-03-19 07:43] LABS: Site Drawn LEFT RADIAL
[2025-03-19 07:44] LABS: Modified Allen's Test Pass; Non-Invasive Expiratory Pressure 5 CMH2O; Non-Invasive Inspiratory Pressure 16 CMH2O; Non-Invasive Vent Rate 12 /MIN
--- NOTE | 2025-03-19 07:45 | PC.NURSE ---
Phlebotomy at bedside at this time.
[2025-03-19] MEDS: cefTRIAXone 2 GM in SODIUM CHLORIDE 0.9% IV 100 ML 200 ML IVPB (08:36)
[2025-03-19] MEDS: AZITHROMYCIN 500 MG TABLET PO (08:36)
--- NOTE | 2025-03-19 11:06 | ADMGEN ---
This patient, David Hannon, was admitted to Intensive Care Unit-2 AT 0951. Patient/family oriented to hospital policies and general routines including ID bracelet, bed and alarms, visiting hours, pain management, procedures, bathroom and other care routines, personal items, smoking policy, room service/diet, and visiting hours. Information on how to activate the Rapid Response Team has been discussed. Patient/Family are encouraged to report perceived risks to care and to ask questions if they do not understand what they are told or what they should do.
[2025-03-19] MEDS: LORazepam INJ (*CRX) 2 MG/ML VIAL 0.5 MG IV PUSH (11:30)
[2025-03-19 12:50] LABS: Hemoglobin A1C 6.0 % (<5.7)
--- NOTE | 2025-03-19 13:07 | P.HP_ITS ---
H&P: HPI History of Present Illness Date/Time: 03/19/25 13:07 Chief Complaint: Respiratory Distress Narrative: This is a pleasantly confused 64 year old female pt w/PMH of Schizzoaffective disorder, Depression, DM, HTN, HLD, COPD, and PE on chronic anticoagulation and who is a samuel of the [facility] with state as guardian who was brought into the ER overnight after [facility]. It is noted that pt is supposed to wear supplemental oxygen, was found without it and was found to be unresponsive with low oxygen saturations. After EMS arrival and application of NRB, her oxygen increased and she began responding. She was brought to the ER for further workup and evaluation. In the ER she was placed on BiPap, and labs and workup were significant for findings of +COVID, CXR showing patchy interstitial thickness in the bilateral upper lobes possibly representing an atypical PNA, WBCs were 22.3, H&H of 10.8/37.3, Mag of 3.0, and ABG results showing pH of 7.328, PCO2 of 56.6, PO2 of 117.4 and HCO3 of 29.0. She was placed on BiPap w/settings of 16/5, RR 12, and 70% FiO2 and placed in IMU stepdown for further eval and treatment of COVID w/COVID PNA, and Acute Hypoxic Respiratory Failure. Review of Systems Review of Systems: ROS unobtainable: Yes unobtainable due to mental status (Pt confused) [facility] Past Medical History Medical History (Updated 03/19/25 @ 13:22 by RGE Raymundo) Acute hypoxic respiratory failure Pneumonia COVID-19 Schizoaffective disorder Depression Diabetes Hypertension Hyperlipidemia Pulmonary embolism COPD (chronic obstructive pulmonary disease) Social History Social History Smoking status: Unknown if ever smoked Second hand tobacco smoke exposure: No Alcohol intake: never Substance use: never Substance use type: does not use Do You Feel Safe in your Home?: No Lack of Transportation: No Lack of Food: Never True Current Housing: I Have Housing Concerned About Future Housing: No Difficulty Paying Gas/Electric Bills: No Difficulty Paying for Meds: No Currently Unemployed: No Education: High School Diploma/GED Difficulty w/ Childcare or Family Care: No Spiritual care concerns: No Meds Home Medications and Allergies Home Medications ?Medication ?Instructions ?Recorded ?Confirmed ?Type acetaminophen 325 mg tablet 325 mg PO Q6H PRN pain 03/08/25 03/19/25 History acyclovir 400 mg tablet 400 mg PO BID 03/08/25 03/19/25 History albuterol sulfate 90 mcg/actuation 2 puff inhalation Q4H PRN cough 03/08/25 03/19/25 History aerosol inhaler alendronate 70 mg tablet 70 mg PO WEEKLY 03/08/25 03/19/25 History apixaban 5 mg tablet (Eliquis) 5 mg PO BID 03/08/25 03/19/25 History aspirin 81 mg tablet,delayed 81 mg PO DAILY 03/08/25 03/19/25 History release atorvastatin 10 mg tablet 10 mg PO HS 03/08/25 03/19/25 History bismuth subsalicylate 262 mg/15 mL 262 mg PO Q4H PRN diarrhea 03/08/25 03/19/25 History oral suspension (Stomach Relief) budesonide-formoterol HFA 80 1 puff inhalation DAILY 03/08/25 03/19/25 History mcg-4.5 mcg/actuation aerosol inhaler calcium carbonate ([place] 1,000 mg PO DAILY 03/08/25 03/19/25 History Calcium) clozapine 100 mg tablet 100 mg PO HS 03/08/25 03/19/25 History clozapine 100 mg tablet 100 mg PO QAM 03/08/25 03/19/25 History clozapine 200 mg tablet 400 mg PO HS 03/08/25 03/19/25 History desvenlafaxine succinate 50 mg 50 mg PO DAILY 03/08/25 03/19/25 History tablet,extended release 24 hr fluticasone furoate 100 1 inh inhalation DAILY 03/08/25 03/19/25 History mcg-vilanterol 25 mcg/dose inhalation powder (Breo Ellipta) lamotrigine 200 mg tablet 200 mg PO BID 03/08/25 03/19/25 History latanoprost 0.005 % eye drops 1 drp EACH EYE HS 03/08/25 03/19/25 History lithium carbonate 150 mg capsule 150 mg PO QPM 03/08/25 03/19/25 History lorazepam 0.5 mg tablet 0.5 mg PO TID 03/08/25 03/19/25 History meloxicam 7.5 mg tablet 7.5 mg PO DAILY 03/08/25 03/19/25 History metformin 500 mg tablet 500 mg PO QPM 03/08/25 03/19/25 History olanzapine 15 mg tablet 15 mg PO HS 03/08/25 03/19/25 History pantoprazole 40 mg tablet,delayed 40 mg PO DAILY 03/08/25 03/19/25 History release polyethylene glycol 3350 17 17 g PO DAILY PRN constipation 03/08/25 03/19/25 History gram/dose oral powder sertraline 100 mg tablet 200 mg PO DAILY 03/08/25 03/19/25 History tiotropium 2.5 mcg-olodaterol 2.5 2 puff inhalation DAILY 03/08/25 03/19/25 History mcg/actuation mist for inhalation (Stiolto Respimat) guaifenesin 600 mg tablet, 1,200 mg (2 x 600 mg) PO Q12HR #30 03/10/25 03/19/25 Rx extended release 12 hr (Mucus tabs Relief ER) ipratropium 0.5 mg-albuterol 3 mg 3 ml inhalation Q6HRT #30 vials 03/10/25 03/19/25 Rx (2.5 mg base)/3 mL nebulization soln prednisone 10 mg tablet 10 mg PO DAILY #42 tabs 03/10/25 03/19/25 Rx Allergies Allergy/AdvReac Type Severity Reaction Status Date / Time No Known Allergies Allergy Unverified 07/22/14 10:54 Vital Signs Vital Signs - 24 hr 03/19/25 06:00 03/19/25 06:02 03/19/25 06:25 Temperature Pulse Rate 94 95 94 Respiratory Rate 33 H 29 33 H Blood Pressure Pulse Oximetry 95 96 95 Oxygen Delivery BiPAP BiPAP BiPAP Oxygen Flow Rate Fraction of Inspired Oxygen 50 03/19/25 06:40 03/19/25 06:46 03/19/25 07:01 Temperature Pulse Rate 91 88 Respiratory Rate 25 H 25 H Blood Pressure 101/67 109/69 Pulse Oximetry 100 100 100 Oxygen Delivery BiPAP Oxygen Flow Rate 50 Fraction of Inspired Oxygen 03/19/25 07:16 03/19/25 07:30 03/19/25 07:46 Temperature 97.8 F Pulse Rate 90 90 86 Respiratory Rate 24 H 26 H 25 H Blood Pressure 109/72 112/74 Pulse Oximetry 100 100 100 Oxygen Delivery BiPAP Oxygen Flow Rate Fraction of Inspired Oxygen 03/19/25 08:22 03/19/25 08:43 03/19/25 09:00 Temperature 97.7 F Pulse Rate 86 89 87 Respiratory Rate 24 H 20 13 Blood Pressure 125/73 123/85 Pulse Oximetry 98 100 98 Oxygen Delivery BiPAP Oxygen Flow Rate Fraction of Inspired Oxygen 03/19/25 09:50 Temperature Pulse Rate Respiratory Rate 40 H Blood Pressure Pulse Oximetry Oxygen Delivery BiPAP Oxygen Flow Rate Fraction of Inspired Oxygen Exam Const: General: comfortable and no acute distress Other: Elderly female pt sitting up in the bed at this time in no acute distress. She is pleasantly confused. HENMT: Face/Nose/Sinus: Normal nares present Mouth: Yes moist mucous membranes Eyes: General: appearance normal, both eyes and all related structures Neck: Neck: supple and No no JVD Lymphatic: lymphadenopathy not noted Resp: Effort & Inspection: normal respiratory effort Auscultation: diminished lung sounds bilateral (bases) Cardio: Rate: regular rate Rhythm: regular rhythm Heart sounds: no gallops, no murmurs and no rubs GI: GI Palp: Yes Soft to palpation and No Tenderness to palpation present (GI) Auscultation: normal bowel sounds Skin: General skin exam: normal color, no rashes or lesions noted and no erythema Lesions: no lesions noted Rashes: no rashes noted Wounds: no wounds Neuro: Speech: normal speech Motor exam (neuro): Abnormal motor strength present (Generalized, non-focal weakness.) Sensory Exam: normal sensation Extrem: General: normal to inspection, no edema and no pedal edema Other: Freely and equally MAEW. Psych: Mental Status: mental status grossly normal Other: Alert and oriented to self only. H&P: Results Labs Labs: Short CBC 03/19/25 Range/Units 06:28 WBC 22.3 H (4.5-10.0) K/mm3 Hgb 10.8 L (12.0-15.0) g/dL Hct 37.3 (37.0-47.0) % Plt Count 350 (150-375) k/mm3 [facility] 03/19/25 03/19/25 06:28 06:29 Sodium 143 Cancelled Potassium 3.9 Cancelled Chloride 104 Cancelled Carbon Dioxide 31 H Cancelled BUN 20 H Cancelled Creatinine 0.81 Cancelled Glucose 184 H Cancelled Calcium 9.3 Cancelled Cardiac Enzymes 03/19/25 Range/Units 06:28 Troponin I 0.026 (0.000-0.034) ng/mL Liver Function 03/19/25 03/19/25 Range/Units 06:28 06:29 Total Bilirubin 0.3 Cancelled (0.2-1.3) mg/dL AST 27 Cancelled (14-36) U/L ALT 16 Cancelled (6-35) U/L Alkaline Phosphatase 74 Cancelled (38-126) U/L Albumin 3.8 Cancelled (3.5-5.1) g/dL Urine 03/19/25 Range/Units 07:10 Urine Color Yellow (Yellow) Urine Appearance Clear (Clear) Urine pH 6.5 (5.0-9.0) Ur Specific [place] > 1.030 (1.001-1.035) Urine Protein 1+ H (Negative) mg/dL Urine Glucose (UA) Negative (Negative) mg/dL Assessment and Plan Assessment and plan (1) COVID-19: Code(s): U07.1 - COVID-19 Status: Acute Assessment and Plan: * Supportive care with oxygen, nebs * Isolation * Remdesivir per protocol * Dexamethasone IV Per protocol * Consider consult to Pulmonology if pt does not improve. * Daily labs (2) Pneumonia: Code(s): J18.9 - Pneumonia, unspecified organism Status: Acute Assessment and Plan: * See #1 * Continue Mucinex. * Continue all treatments and supportive care (3) Acute hypoxic respiratory failure: Code(s): J96.01 - Acute respiratory failure with hypoxia Status: Acute Assessment and Plan: * See #1 * Continue all treatments and supportive care * Continue BiPap at current settings of 16/5, 70% and RR of 12. * Wean from BiPap as tolerated. (4) Diabetes: Code(s): E11.9 - Type 2 diabetes mellitus without complications Status: Chronic Assessment and Plan: * Heart healthy Diet * SSI Low dose protocol * Hypoglycemic protocol * Check A1C * Glucose checks AC and HS. (5) Schizoaffective disorder: Code(s): F25.9 - Schizoaffective disorder, unspecified Status: Chronic Assessment and Plan: * Continue home meds of Clozapine, Pristiq, [place], Lamictal, Zoloft, Zyprexa * Check [place] level - maintain a therapeutic level. * PRN Ativan ordered. Quality VTE Prophylaxis VTE prophylaxis: pharmacologic ordered Hospitalist MIPS Advance Care Plan I have confirmed that the patient's Advanced Care Plan is present, code status is documented, or surrogate decision maker is listed in patient medical record.: Yes Medication Reconciliation I have utilized all available resources to obtain, update and review the patients current medications (includes all prescriptions, OTC, herbals, cannabis, and nutritional supplements).: Yes
[2025-03-19 13:10] LABS: Lithium < 0.2 mmol/L (0.6-1.2)
[2025-03-19] MEDS: guaiFENesin 12 HR 600 MG TABCR 1200 MG PO ×2 (13:59→21:19)
[2025-03-19] MEDS: dexAMETHasone SOD PHOS INJ 10 MG/ML 1 ML VIAL 6 MG IV PUSH (14:00)
[2025-03-19] MEDS: REMDESIVIR 200 MG/NS 250 ML 200 MG/250 ML BAG 250 MG IVPB (14:00)
[2025-03-19] MEDS: LORazepam INJ (*CRX) 2 MG/ML VIAL 1 MG IV PUSH (14:00)
[2025-03-19] MEDS: IPRATROPIUM 0.5 MG/ALBUTEROL SULFATE 2.5 MG AMPUL.NEB 3 ML INHALATION ×2 (14:41→21:41)
[2025-03-19] MEDS: ACYCLOVIR 400 MG TABLET PO (17:14)
[2025-03-19] MEDS: LITHIUM CARBONATE 150 MG CAPSULE PO (17:14)
[2025-03-19] MEDS: APIXABAN 5 MG TABLET PO (21:17)
[2025-03-19] MEDS: ATORVASTATIN 10 MG TABLET PO (21:18)
[2025-03-19] MEDS: FLUTICASONE/SALMETEROL 115-21 MCG INHALER 1 PUFF 2 PUFF INHALATION (21:41)
[2025-03-19] MEDS: LATANOPROST 0.005% OP SOLN 2.5 ML BTL 1 DROP EACH EYE (22:31)
[2025-03-20] VITALS (13 sets, daily range): BP systolic 132–152; BP diastolic 87–93; PULSE 72–96; RESP 16–21; TEMP 36.5–36.8; O2SAT 95–100
[2025-03-20] MEDS: IPRATROPIUM 0.5 MG/ALBUTEROL SULFATE 2.5 MG AMPUL.NEB 3 ML INHALATION ×3 (02:05→22:03)
[2025-03-20] MEDS: LORazepam INJ (*CRX) 2 MG/ML VIAL 1 MG IV PUSH ×2 (02:20→11:24)
[2025-03-20 05:05] LABS: Hematocrit 36.0 % (37.0-47.0); Hemoglobin 10.4 g/dL (12.0-15.0); Immature Granulocyte Percent A 0.6 % (0-0.5); Lymphocytes Absolute Auto 0.67 K/mm3 (0.9-3.2); Mean Corpuscular HGB Conc 28.9 g/dl (32-36); Mean Corpuscular Hemoglobin 28.7 pg (26-34); Mean Corpuscular Volume 99.4 fl (80-100); Nucleated Red Blood Cells Absolute Auto 0.000 K/mm3 (0.0-0.012); Nucleated Red Blood Cells Perc 0.0 % (0.0-0.2); Platelet Count Result 326 k/mm3 (150-375); Red Blood Count 3.62 M/mm3 (4.2-5.4); White Blood Count 29.3 K/mm3 (4.5-10.0)
[2025-03-20 05:24] LABS: Alveolar/Arterial O2 Gradient 46.7 mmHg; Fractional Inspired Oxygen 28 %; HCO3 ABG 29.3 mEq/l (22.0-26.0); Oxygen Content ABG 13.5 %vol (16.0-22.0); Oxygen Saturation ABG 96.6 % (95.0-100.0); PCO2 ABG 52.4 mmHg (35.0-45.0); PO2 ABG 91.1 mmHg (80.0-100.0); PO2 FiO2 Ratio Arterial Blood 3.25 %
[2025-03-20 05:28] LABS: Liters per Minute 2.0 LPM; Modified Allen's Test Pass; Site Drawn RIGHT RADIAL
[2025-03-20 05:30] LABS: Lithium < 0.2 mmol/L (0.6-1.2)
[2025-03-20 06:15] LABS: Alanine Aminotransferase 15 U/L (6-35); Albumin Level 4.0 g/dL (3.5-5.1); Alkaline Phosphatase 83 U/L (38-126); Anion Gap 7 mmol/L (4-12); Aspartate Amino Transferase 32 U/L (14-36); Bilirubin,Total 0.4 mg/dL (0.2-1.3); Blood Urea Nitrogen 19 mg/dL (7-17); Calcium 9.8 mg/dL (8.4-10.2); Carbon Dioxide 29 mmol/L (22-30); Chloride 106 mmol/L (98-107); Estimated Glomerular Filt Rate > 60; Glucose 113 mg/dL (65-110); Magnesium 2.7 mg/dL (1.6-2.3); Potassium 4.6 mmol/L (3.4-5.0); Sodium 142 mmol/L (137-145); Total Protein 7.5 g/dL (6.3-8.2)
[2025-03-20] MEDS: ASPIRIN 81 MG ENTERIC TABLET PO (08:10)
[2025-03-20] MEDS: ACYCLOVIR 400 MG TABLET PO ×2 (08:10→17:28)
[2025-03-20] MEDS: CALCIUM CARBONATE (OSCAL) 500 MG TABLET 1000 MG PO (08:10)
[2025-03-20] MEDS: PANTOPRAZOLE 40 MG TABLET PO (08:11)
[2025-03-20] MEDS: SERTRALINE HCL 50 MG TABLET 200 MG PO (08:11)
[2025-03-20] MEDS: APIXABAN 5 MG TABLET PO ×2 (08:11→20:18)
[2025-03-20] MEDS: DESVENLAFAXINE SUCCINATE 50 MG TAB.ER.24H PO (08:11)
[2025-03-20] MEDS: MELOXICAM 7.5 MG TABLET PO (08:11)
[2025-03-20] MEDS: guaiFENesin 12 HR 600 MG TABCR 1200 MG PO ×2 (08:11→20:18)
[2025-03-20] MEDS: DOXYCYCLINE IV 100 MG in SODIUM CHLORIDE 0.9% IV 100 ML IVPB (08:16)
[2025-03-20] MEDS: BUDESONIDE RESPULE NEB 0.5 MG/2 ML AMP INHALATION ×2 (08:54→22:04)
[2025-03-20] MEDS: FLUTICASONE/SALMETEROL 115-21 MCG INHALER 1 PUFF 2 PUFF INHALATION ×2 (08:55→22:03)
--- NOTE | 2025-03-20 09:04 | P.PNIM_ITS ---
Progress Note: A&P Assessment and Plan (1) Pneumonia: Code(s): J18.9 - Pneumonia, unspecified organism Status: Acute Assessment and Plan: * Patient presented with respiratory distress, likely related to pneumonia, chest x-ray showed new infiltrates as compared chest x-ray done on 03/08/2020 5p * 03/20: Will start her on ceftriaxone and doxycycline for community-acquired pneumonia, COVID pneumonia, likely COPD exacerbation * Continue guaifenesin * Continue bronchodilators * Supplemental oxygen to maintain O2 sats > 92% * BiPAP at night (2) COVID-19: Code(s): U07.1 - COVID-19 Status: Acute Assessment and Plan: * Supportive care with oxygen, nebs * Isolation * Remdesivir per protocol * Dexamethasone IV Per protocol * Consider consult to Pulmonology if pt does not improve. * Daily labs (3) Acute hypoxic respiratory failure: Code(s): J96.01 - Acute respiratory failure with hypoxia Status: Acute Assessment and Plan: * Likely related to pneumonia, COPD exacerbation, COVID pneumonia * BiPAP at night, currently on 2 L nasal cannula hemoglobin * Wean from BiPAP as tolerated. (4) Diabetes: Code(s): E11.9 - Type 2 diabetes mellitus without complications Status: Chronic Assessment and Plan: * Heart healthy Diet * SSI Low dose protocol * Hypoglycemic protocol * Hemoglobin A1C is 6.0 this admission * Glucose checks AC and HS. (5) Schizoaffective disorder: Code(s): F25.9 - Schizoaffective disorder, unspecified Status: Chronic Assessment and Plan: * Continue home meds of Clozapine, Pristiq, [place], Lamictal, Zoloft, Zyprexa * Check [place] level - maintain a therapeutic level. * PRN Ativan ordered. Plan PT/OT has been ordered, Up in chair as tolerated with assistance Heart healthy diet Patient be transferred to medical floor Subjective Date/time seen: 03/20/25 09:04 Interval history: Reason for consult: Respiratory distress, pneumonia, positive COVID PCR, COPD exacerbation 03/20: Patient being seen for hospitalist group. Patient is awake, alert, on 2 L nasal cannula, in no acute distress. Able to answer questions and follow simple commands. Denies any chest pain, shortness O breath abdominal pain, nausea vomiting. Patient wants to smoke, to which I told her that she cannot smoking when she is in the hospital and also that it is back from her unit when she was back to her facility Review of Systems Review of Systems: All systems reviewed & are unremarkable except as noted in HPI and below Exam Narrative: General: Pleasant female, in no acute distress HEENT:? Pupils equal and reactive, sclera is clear, moist oral mucosa Neck:? Supple Respiratory:? Coarse breath sounds at bases bilaterally, adequate air entry, no wheeze Cardiac:? S1-S2 normal, regular rate and rhythm Abdomen:? Soft, nontender, nondistended, normoactive bowel sounds Extremities:? No edema, palpable pedal pulses Neuro:? Patient is awake, alert, answers to questions appropriately and follows simple commands Skin:? Warm and dry, no skin lesions not Psych: Normal mentation and affect Objective Data Vital Signs Vital Signs: Vital Signs - 24 hr 03/19/25 09:50 03/19/25 12:00 03/19/25 12:00 Temperature Pulse Rate 83 88 Respiratory Rate 40 H 23 H Blood Pressure Pulse Oximetry 99 Oxygen Delivery BiPAP BiPAP Oxygen Flow Rate Fraction of Inspired Oxygen 50 03/19/25 12:00 03/19/25 14:00 03/19/25 14:00 Temperature 98.8 F Pulse Rate 83 82 52 L Respiratory Rate 25 H 26 H Blood Pressure 123/64 126/87 Pulse Oximetry 97 96 Oxygen Delivery Oxygen Flow Rate Fraction of Inspired Oxygen 03/19/25 14:42 03/19/25 14:43 03/19/25 14:49 Temperature Pulse Rate 92 83 83 Respiratory Rate 25 H 26 H 27 H Blood Pressure Pulse Oximetry 100 Oxygen Delivery BiPAP Oxygen Flow Rate Fraction of Inspired Oxygen 03/19/25 16:00 03/19/25 16:00 03/19/25 16:00 Temperature Pulse Rate 85 79 Respiratory Rate 18 18 Blood Pressure 138/84 Pulse Oximetry 100 100 Oxygen Delivery Nasal Cannula Oxygen Flow Rate 3 Fraction of Inspired Oxygen 03/19/25 18:00 03/19/25 18:00 03/19/25 19:49 Temperature Pulse Rate 90 90 85 Respiratory Rate 19 19 Blood Pressure 126/77 Pulse Oximetry 97 97 Oxygen Delivery Nasal Cannula Oxygen Flow Rate 2 Fraction of Inspired Oxygen 03/19/25 19:51 03/19/25 20:00 03/19/25 21:46 Temperature 98.2 F Pulse Rate 85 89 96 Respiratory Rate 18 19 Blood Pressure 136/89 Pulse Oximetry 98 Oxygen Delivery Oxygen Flow Rate Fraction of Inspired Oxygen 03/19/25 21:52 03/19/25 21:53 03/19/25 22:00 Temperature Pulse Rate 96 96 96 Respiratory Rate 19 19 Blood Pressure Pulse Oximetry 96 Oxygen Delivery Nasal Cannula Oxygen Flow Rate 2 Fraction of Inspired Oxygen 03/19/25 22:00 03/19/25 23:53 03/19/25 23:53 Temperature 98.2 F Pulse Rate 87 79 79 Respiratory Rate 18 18 Blood Pressure Pulse Oximetry 100 100 Oxygen Delivery Nasal Cannula Oxygen Flow Rate 2 Fraction of Inspired Oxygen 03/20/25 00:00 03/20/25 02:00 03/20/25 02:00 Temperature 97.9 F 97.7 F Pulse Rate 77 75 76 Respiratory Rate 20 16 Blood Pressure 132/89 Pulse Oximetry 100 100 Oxygen Delivery Oxygen Flow Rate Fraction of Inspired Oxygen 03/20/25 02:06 03/20/25 02:15 03/20/25 04:00 Temperature Pulse Rate 96 96 78 Respiratory Rate 19 19 18 Blood Pressure Pulse Oximetry 97 Oxygen Delivery Nasal Cannula Oxygen Flow Rate 2 Fraction of Inspired Oxygen 03/20/25 04:00 03/20/25 04:00 03/20/25 06:00 Temperature 97.9 F Pulse Rate 78 75 72 Respiratory Rate 16 Blood Pressure 152/93 H Pulse Oximetry 100 Oxygen Delivery Oxygen Flow Rate Fraction of Inspired Oxygen 03/20/25 06:00 03/20/25 08:00 03/20/25 08:56 Temperature 98.1 F 98.2 F Pulse Rate 73 82 84 Respiratory Rate 18 19 19 Blood Pressure 142/92 H 143/87 H Pulse Oximetry 100 100 Oxygen Delivery Oxygen Flow Rate Fraction of Inspired Oxygen 03/20/25 08:58 Temperature Pulse Rate Respiratory Rate Blood Pressure Pulse Oximetry 96 Oxygen Delivery Nasal Cannula Oxygen Flow Rate 3 Fraction of Inspired Oxygen 32 Intake/Output Intake/Output: Intake & Output 03/17/25 03/18/25 03/19/25 03/20/25 23:59 23:59 23:59 23:59 Intake Total 1250 400 Output Total 300 1350 Balance 950 -950 Meds/Results Medications: Active Medications Generic Name Dose Route Start Last Admin Trade Name Freq PRN Reason Stop Dose Admin Acetaminophen 325 mg 03/19/25 12:08 Acetaminophen 325 Mg Tablet PO Q6H PRN MILD PAIN 1-3 Acyclovir 400 mg 03/19/25 17:00 03/20/25 08:10 Acyclovir 400 Mg Tablet PO 400 mg BID AIRAM Administration Albuterol 2.5 mg 03/19/25 12:09 Albuterol Sulfate Neb 2.5 Mg/3 Ml Inh INHALATION Q4HRT PRN Shortness Of Breath Albuterol/Ipratropium 3 ml 03/19/25 14:00 03/20/25 08:54 Ipratropium 0.5 Mg/Albuterol Sulfate 2.5 Mg Ampul.Neb 3 Ml INHALATION 3 ml Q6HRT AIRAM Administration Alendronate Sodium 70 mg 03/24/25 09:00 Alendronate Sodium 70 Mg Tablet PO WEEKLY [facility] Apixaban 5 mg 03/19/25 21:00 03/20/25 08:11 Apixaban 5 Mg Tablet PO 5 mg Q12HR [facility]AM Administration Aspirin 81 mg 03/20/25 09:00 03/20/25 08:10 Aspirin 81 Mg Enteric Tablet PO 81 mg DAILY AIRAM Administration Atorvastatin Calcium 10 mg 03/19/25 21:00 03/19/25 21:18 Atorvastatin 10 Mg Tablet PO 10 mg HS [facility] Administration Bismuth Subsalicylate 262 mg 03/19/25 12:32 Bismuth Subsalicylate 262 Mg Chewable Tablet PO Q4H PRN diarrhea Budesonide 0.5 mg 03/20/25 08:00 03/20/25 08:54 Budesonide Respule Neb 0.5 Mg/2 Ml Amp INHALATION 0.5 mg DAILYRT AIRAM Administration Calcium Carbonate 1,000 mg 03/20/25 09:00 03/20/25 08:10 Calcium Carbonate (Oscal) 500 Mg Tablet PO 1,000 mg DAILY [facility] Administration Clozapine 100 mg 03/21/25 09:00 Clozapine 100 Mg Tablet PO QAM [facility] Clozapine 500 mg 03/21/25 21:00 Clozapine 100 Mg Tablet BY MOUTH HS [facility] Desvenlafaxine Succinate 50 mg 03/20/25 09:00 03/20/25 08:11 Desvenlafaxine Succinate 50 Mg Tab.Er.24h PO 50 mg QAM [facility] Administration Dexamethasone Sodium Phosphate 6 mg 03/19/25 13:00 03/19/25 14:00 Dexamethasone Sod Phos Inj 10 Mg/Ml 1 Ml Vial IV PUSH 03/28/25 13:01 6 mg Q24H [facility] Administration Dextrose 12.5 gm 03/19/25 12:09 Dextrose 50% 25 Gm/50 Ml Syringe IV PUSH PRN PRN Hypoglycemia Protocol Glucagon 1 mg 03/19/25 12:09 Glucagon For Inj 1 Mg Vial IM PRN PRN Hypoglycemia Protocol Glucose 15 gm 03/19/25 12:09 Glucose Oral Gel 15 Gm Of Glucse In 37.5 Gm Tube PO PRN PRN Hypoglycemia Protocol Guaifenesin 1,200 mg 03/19/25 12:30 03/20/25 08:11 Guaifenesin 12 Hr 600 Mg Tabcr PO 1,200 mg Q12HR [facility] Administration Dextrose 1,000 mls @ 100 mls/hr 03/19/25 12:09 Dextrose 5% 1,000 Ml IVPB PRN PRN Hypoglycemia Protocol Remdesivir 100 mg in 250 mls @ 250 mls/hr 03/20/25 10:00 IVPB 03/23/25 10:59 Q24H [facility]AM Doxycycline Hyclate 100 mg/ 100 mls @ 100 mls/hr 03/20/25 07:45 03/20/25 08:16 Sodium Chloride IVPB 03/24/25 21:59 100 mls/hr Q12HR [facility] Administration Ceftriaxone Sodium 2 gm/ 100 mls @ 200 mls/hr 03/20/25 09:00 Sodium Chloride IVPB Q24H [facility] Insulin Aspart 2 - 5 units 03/19/25 17:00 03/20/25 07:34 Insulin Aspart (*Bkc) 100 Units/Ml SUB-Q Not Given TIDWM [facility] Protocol Insulin Aspart 1 - 2 units 03/19/25 21:00 03/19/25 22:31 Insulin Aspart (*Bkc) 100 Units/Ml SUB-Q Not Given HS [facility]AM Protocol Lamotrigine 200 mg 03/19/25 17:00 03/20/25 08:10 Lamotrigine 100 Mg Tablet PO 200 mg BID [facility] Administration Latanoprost 1 drop 03/19/25 21:00 03/19/25 22:31 Latanoprost 0.005% Op Soln 2.5 Ml Btl EACH EYE 1 drop HS [facility] Administration [place] Carbonate 150 mg 03/19/25 18:00 03/19/25 17:14 [place] Carbonate 150 Mg Capsule PO 150 mg QPM [facility] Administration Lorazepam 1 mg 03/19/25 12:27 03/20/25 02:20 Lorazepam Inj (*Crx) 2 Mg/Ml Vial IV PUSH 1 mg Q4HR PRN Administration Anxiety Meloxicam 7.5 mg 03/20/25 09:00 03/20/25 08:11 Meloxicam 7.5 Mg Tablet PO 7.5 mg DAILY [facility] Administration Miscellaneous Information 1 each 03/19/25 00:01 03/20/25 00:27 Clozaril Is Nonformulary. Have Patient Use Home Supply XX 04/18/25 00:00 Not Given CLARIFY AIRAM Olanzapine 15 mg 03/19/25 21:00 03/19/25 21:17 Olanzapine 5 Mg Tablet PO 15 mg HS [facility] Administration Pantoprazole Sodium 40 mg 03/20/25 09:00 03/20/25 08:11 Pantoprazole 40 Mg Tablet PO 40 mg DAILY [facility] Administration Polyethylene Glycol 17 gm 03/19/25 12:08 Polyethylene Glycol 3350 17 Gm Powd.Pack PO DAILY PRN constipation Fluticasone/Salmeterol 2 puff 03/19/25 20:00 03/20/25 08:55 Fluticasone/Salmeterol 115-21 Mcg Inhaler 1 Puff INHALATION 2 puff Q12HRT [facility] Administration Sertraline HCl 200 mg 03/20/25 09:00 03/20/25 08:11 Sertraline Hcl 50 Mg Tablet PO 200 mg DAILY [facility] Administration Umeclidinium/Vilanterol 1 puff 03/20/25 09:00 Umeclidinium/Vilanterol 62.5-25 Mcg Ellipta INHALATION DAILY [facility] Radiology Results: ITS Impressions Chest X-Ray 03/19/25 08:20 IMPRESSION: Patchy interstitial thickening within the bilateral upper lobes, an interval change from prior and possibly representing atypical pneumonia. Labs Labs: Laboratory Results - last 24 hr 03/19/25 03/19/25 03/19/25 09:29 12:34 22:28 WBC RBC Hgb Hct MCV MCH MCHC RDW Plt Count MPV Immature Gran % (Auto) Neut % (Auto) Lymph % (Auto) [place] % (Auto) Eos % (Auto) Baso % (Auto) Lymph # (Auto) [place] # (Auto) Eos # (Auto) Baso # (Auto) Abs Immat Gran (auto) Absolute Neuts (auto) Absolute Nucleated RBC Nucleated RBC % Puncture Site ABG pH ABG pCO2 ABG pO2 ABG PO2/FiO2 Ratio ABG HCO3 ABG O2 Saturation ABG O2 Content ABG Base Excess A-a Gradient Oxyhemoglobin Total Hemoglobin O2 Delivery Device O2 Liters/Min FiO2 Sodium Potassium Chloride Carbon Dioxide Anion Gap BUN Creatinine Estim Creat Clear Calc Estimated GFR Glucose POC Capillary Glucose 183 H Hemoglobin A1c 6.0 H Lactic Acid 1.3 Calcium Magnesium Total Bilirubin AST ALT Alkaline Phosphatase Total Protein Albumin [place] < 0.2 L 03/20/25 03/20/25 04:58 05:04 WBC 29.3 H RBC 3.62 L Hgb 10.4 L Hct 36.0 L MCV 99.4 MCH 28.7 MCHC 28.9 L RDW 15.5 H Plt Count 326 MPV 9.3 Immature Gran % (Auto) 0.6 H Neut % (Auto) 93.5 H Lymph % (Auto) 2.3 L [place] % (Auto) 3.4 Eos % (Auto) 0.0 Baso % (Auto) 0.2 Lymph # (Auto) 0.67 L [place] # (Auto) 1.0 H Eos # (Auto) 0.0 Baso # (Auto) 0.1 Abs Immat Gran (auto) 0.19 H Absolute Neuts (auto) 27.4 H Absolute Nucleated RBC 0.000 Nucleated RBC % 0.0 Puncture Site Right radial ABG pH 7.366 ABG pCO2 52.4 H ABG pO2 91.1 ABG PO2/FiO2 Ratio 3.25 ABG HCO3 29.3 H ABG O2 Saturation 96.6 ABG O2 Content 13.5 L ABG Base Excess 3.3 A-a Gradient 46.7 Oxyhemoglobin 95.2 Total Hemoglobin 10.0 L O2 Delivery Device Nasal cannula O2 Liters/Min 2.0 FiO2 28 Sodium 142 Potassium 4.6 Chloride 106 Carbon Dioxide 29 Anion Gap 7 BUN 19 H Creatinine 0.78 Estim Creat Clear Calc Not Reportable Estimated GFR > 60 Glucose 113 H POC Capillary Glucose Hemoglobin A1c Lactic Acid 1.1 Calcium 9.8 Magnesium 2.7 H Total Bilirubin 0.4 AST 32 ALT 15 Alkaline Phosphatase 83 Total Protein 7.5 Albumin 4.0 [place] < 0.2 L Quality VTE Prophylaxis VTE prophylaxis: pharmacologic ordered
[2025-03-20] MEDS: cefTRIAXone 2 GM in SODIUM CHLORIDE 0.9% IV 100 ML 200 ML IVPB (09:34)
[2025-03-20] MEDS: UMECLIDINIUM/VILANTEROL 62.5-25 MCG ELLIPTA 1 PUFF INHALATION (10:38)
[2025-03-20] MEDS: REMDESIVIR 100 MG/NS 250 ML 100 MG/250 ML BAG 250 MG IVPB (11:34)
--- NOTE | 2025-03-20 11:44 | PCRCNOTE ---
The patients Anora Ellipta inhaler was not found in the patients room or on RT med cart. RT called pharmacy to have this medication filled. RT administered this inhaler when received from pharmacy and left it in the patient room due to isolation measures.
[2025-03-20] MEDS: dexAMETHasone SOD PHOS INJ 10 MG/ML 1 ML VIAL 6 MG IV PUSH (14:07)
--- NOTE | 2025-03-20 15:25 | PCRCNOTE ---
Patient was not given her 1400 breathing treatment due to her being unavailable. Patient was with Physical therapy for an evaluation. Nurse aware.
[2025-03-20] MEDS: LITHIUM CARBONATE 150 MG CAPSULE PO (17:28)
[2025-03-20] MEDS: ATORVASTATIN 10 MG TABLET PO (20:18)
[2025-03-20] MEDS: DOXYCYCLINE HYCLATE 100 MG TABLET PO (20:18)
[2025-03-20] MEDS: LATANOPROST 0.005% OP SOLN 2.5 ML BTL 1 DROP EACH EYE (20:19)
--- NOTE | 2025-03-20 22:56 | PC.NURSE ---
This patient, David Hannon, was transferred to [facility] on 03/20/25 at 2256. Personal belongings sent with patient. Report given to YUNI Eduardo. Appropriate documentation sent with patient.
[2025-03-21] VITALS (11 sets, daily range): BP systolic 138–149; BP diastolic 80–89; PULSE 70–88; RESP 18–20; TEMP 36.1–36.9; O2SAT 91–99
[2025-03-21 06:26] LABS: Hematocrit 31.0 % (37.0-47.0); Hemoglobin 9.3 g/dL (12.0-15.0); Immature Granulocyte Percent A 0.8 % (0-0.5); Lymphocytes Absolute Auto 0.88 K/mm3 (0.9-3.2); Mean Corpuscular HGB Conc 30.0 g/dl (32-36); Mean Corpuscular Hemoglobin 29.3 pg (26-34); Mean Corpuscular Volume 97.8 fl (80-100); Nucleated Red Blood Cells Absolute Auto 0.000 K/mm3 (0.0-0.012); Nucleated Red Blood Cells Perc 0.0 % (0.0-0.2); Platelet Count Result 302 k/mm3 (150-375); Red Blood Count 3.17 M/mm3 (4.2-5.4); White Blood Count 22.5 K/mm3 (4.5-10.0)
[2025-03-21 06:38] LABS: INR 1.2; Prothrombin Time 15.2 Seconds (11.1-14.7)
[2025-03-21 06:47] LABS: Alanine Aminotransferase 14 U/L (6-35); Albumin Level 3.8 g/dL (3.5-5.1); Alkaline Phosphatase 84 U/L (38-126); Anion Gap 4 mmol/L (4-12); Aspartate Amino Transferase 26 U/L (14-36); Bilirubin,Total 0.3 mg/dL (0.2-1.3); Blood Urea Nitrogen 20 mg/dL (7-17); Calcium 9.7 mg/dL (8.4-10.2); Carbon Dioxide 29 mmol/L (22-30); Chloride 103 mmol/L (98-107); Estimated CRCL calculation 77 ml/min; Estimated Glomerular Filt Rate > 60; Glucose 126 mg/dL (65-110); Magnesium 2.2 mg/dL (1.6-2.3); Potassium 4.2 mmol/L (3.4-5.0); Sodium 136 mmol/L (137-145); Total Protein 6.9 g/dL (6.3-8.2)
[2025-03-21] MEDS: IPRATROPIUM 0.5 MG/ALBUTEROL SULFATE 2.5 MG AMPUL.NEB 3 ML INHALATION ×3 (08:17→20:32)
[2025-03-21] MEDS: FLUTICASONE/SALMETEROL 115-21 MCG INHALER 1 PUFF 2 PUFF INHALATION ×2 (08:17→20:32)
[2025-03-21] MEDS: BUDESONIDE RESPULE NEB 0.5 MG/2 ML AMP INHALATION ×2 (08:18→20:32)
[2025-03-21] MEDS: UMECLIDINIUM/VILANTEROL 62.5-25 MCG ELLIPTA 1 PUFF INHALATION (08:23)
[2025-03-21] MEDS: APIXABAN 5 MG TABLET PO ×2 (09:10→20:15)
[2025-03-21] MEDS: CALCIUM CARBONATE (OSCAL) 500 MG TABLET 1000 MG PO (09:10)
[2025-03-21] MEDS: guaiFENesin 12 HR 600 MG TABCR 1200 MG PO ×2 (09:10→20:16)
[2025-03-21] MEDS: DOXYCYCLINE HYCLATE 100 MG TABLET PO ×2 (09:10→20:16)
[2025-03-21] MEDS: PANTOPRAZOLE 40 MG TABLET PO (09:10)
[2025-03-21] MEDS: ASPIRIN 81 MG ENTERIC TABLET PO (09:11)
[2025-03-21] MEDS: SERTRALINE HCL 50 MG TABLET 200 MG PO (09:11)
[2025-03-21] MEDS: MELOXICAM 7.5 MG TABLET PO (09:11)
[2025-03-21] MEDS: ACYCLOVIR 400 MG TABLET PO ×2 (09:11→18:05)
[2025-03-21] MEDS: cefTRIAXone 2 GM in SODIUM CHLORIDE 0.9% IV 100 ML 200 ML IVPB (09:11)
[2025-03-21] MEDS: REMDESIVIR 100 MG/NS 250 ML 100 MG/250 ML BAG 250 MG IVPB (10:07)
[2025-03-21] MEDS: DESVENLAFAXINE SUCCINATE 50 MG TAB.ER.24H PO (10:07)
[2025-03-21] MEDS: dexAMETHasone SOD PHOS INJ 10 MG/ML 1 ML VIAL 6 MG IV PUSH (14:31)
--- NOTE | 2025-03-21 14:39 | P.PNIM_ITS ---
Progress Note: A&P Assessment and Plan (1) Pneumonia: Code(s): J18.9 - Pneumonia, unspecified organism Status: Acute Assessment and Plan: * Patient presented with respiratory distress, likely related to pneumonia, chest x-ray showed new infiltrates as compared chest x-ray done on 03/08/2025 * 03/20: Started on ceftriaxone and doxycycline for community-acquired pneumonia, COVID pneumonia, likely COPD exacerbation * Continue guaifenesin * Continue bronchodilators * Supplemental oxygen to maintain O2 sats > 92% * BiPAP at night (2) COVID-19: Code(s): U07.1 - COVID-19 Status: Acute Assessment and Plan: * Supportive care with oxygen, nebs * Isolation * Remdesivir per protocol * Dexamethasone IV Per protocol * Consider consult to Pulmonology if pt does not improve. * Daily labs (3) Acute hypoxic respiratory failure: Code(s): J96.01 - Acute respiratory failure with hypoxia Status: Acute Assessment and Plan: * Likely related to pneumonia, COPD exacerbation, COVID pneumonia * BiPAP at night, currently on 2 L nasal cannula * Wean from BiPAP as tolerated. Presented with altered mental status with ABG initially 7.31/59/70/29 indicating hypercapnia. Placed on BiPAP with improvement. Currently off BiPAP Will recheck ABG in a.m. (4) Diabetes: Code(s): E11.9 - Type 2 diabetes mellitus without complications Status: Chronic Assessment and Plan: * Heart healthy Diet * SSI Low dose protocol * Hypoglycemic protocol * Hemoglobin A1C is 6.0 this admission * Glucose checks AC and HS. (5) Schizoaffective disorder: Code(s): F25.9 - Schizoaffective disorder, unspecified Status: Chronic Assessment and Plan: * Continue home meds of Clozapine, Pristiq, [place], Lamictal, Zoloft, Zyprexa * Check [place] level - maintain a therapeutic level. * PRN Ativan ordered. Plan PT/OT has been ordered, Up in chair as tolerated with assistance Heart healthy diet DVT prophylaxis apixaban Code status full code Subjective Date/time seen: 03/21/25 14:39 Interval history: No overnight event. Feeling better. On 2 L oxygen via nasal cannula. Lives in a nursing home. No chest pain. Denies any shortness of breath Review of Systems Review of Systems: All systems reviewed & are unremarkable except as noted in HPI and below Exam Narrative: General: Pleasant female, in no acute distress HEENT:? Pupils equal and reactive, sclera is clear, moist oral mucosa Neck:? Supple Respiratory:? Coarse breath sounds at bases bilaterally, adequate air entry, no wheeze Cardiac:? S1-S2 normal, regular rate and rhythm Abdomen:? Soft, nontender, nondistended, normoactive bowel sounds Extremities:? No edema, palpable pedal pulses Neuro:? Patient is awake, alert, answers to questions appropriately and follows simple commands Skin:? Warm and dry, no skin lesions not Psych: Normal mentation and affect Objective Data Vital Signs Vital Signs: Vital Signs - 24 hr 03/20/25 16:00 03/20/25 20:00 03/21/25 06:35 Temperature 98 F 97 F L Pulse Rate 93 77 Respiratory Rate 16 20 Blood Pressure 148/92 H 149/89 H Pulse Oximetry 99 97 93 Oxygen Delivery Nasal Cannula Oxygen Flow Rate 1 03/21/25 08:00 03/21/25 08:20 03/21/25 08:20 Temperature Pulse Rate 70 Respiratory Rate 20 Blood Pressure Pulse Oximetry 97 94 Oxygen Delivery Nasal Cannula Nasal Cannula Oxygen Flow Rate 2 2 03/21/25 08:32 03/21/25 09:39 Temperature Pulse Rate 74 Respiratory Rate 20 Blood Pressure Pulse Oximetry Oxygen Delivery Nasal Cannula Oxygen Flow Rate 2 Intake/Output Intake/Output: Intake & Output 03/18/25 03/19/25 03/20/25 03/21/25 23:59 23:59 23:59 23:59 Intake Total 1250 2640 500 Output Total 300 2350 Balance 950 290 500 Meds/Results Medications: Active Medications Generic Name Dose Route Start Last Admin Trade Name Freq PRN Reason Stop Dose Admin Acetaminophen 325 mg 03/19/25 12:08 Acetaminophen 325 Mg Tablet PO Q6H PRN MILD PAIN 1-3 Acyclovir 400 mg 03/19/25 17:00 03/21/25 09:11 Acyclovir 400 Mg Tablet PO 400 mg BID AIRAM Administration Albuterol 2.5 mg 03/19/25 12:09 Albuterol Sulfate Neb 2.5 Mg/3 Ml Inh INHALATION Q4HRT PRN Shortness Of Breath Albuterol/Ipratropium 3 ml 03/19/25 14:00 03/21/25 09:38 Ipratropium 0.5 Mg/Albuterol Sulfate 2.5 Mg Ampul.Neb 3 Ml INHALATION Not Given Q6HRT [facility] Alendronate Sodium 70 mg 03/24/25 09:00 Alendronate Sodium 70 Mg Tablet PO WEEKLY [facility] Apixaban 5 mg 03/19/25 21:00 03/21/25 09:10 Apixaban 5 Mg Tablet PO 5 mg Q12HR [facility] Administration Aspirin 81 mg 03/20/25 09:00 03/21/25 09:11 Aspirin 81 Mg Enteric Tablet PO 81 mg DAILY [facility] Administration Atorvastatin Calcium 10 mg 03/19/25 21:00 03/20/25 20:18 Atorvastatin 10 Mg Tablet PO 10 mg HS [facility] Administration Bismuth Subsalicylate 262 mg 03/19/25 12:32 Bismuth Subsalicylate 262 Mg Chewable Tablet PO Q4H PRN diarrhea Budesonide 0.5 mg 03/20/25 20:00 03/21/25 08:18 Budesonide Respule Neb 0.5 Mg/2 Ml Amp INHALATION 0.5 mg Q12HRT [facility] Administration Calcium Carbonate 1,000 mg 03/20/25 09:00 03/21/25 09:10 Calcium Carbonate (Oscal) 500 Mg Tablet PO 1,000 mg DAILY [facility] Administration Clozapine 100 mg 03/21/25 09:00 03/21/25 10:07 Clozapine 100 Mg Tablet PO Not Given QAM [facility] Clozapine 500 mg 03/21/25 21:00 Clozapine 100 Mg Tablet BY MOUTH [facility] Desvenlafaxine Succinate 50 mg 03/20/25 09:00 03/21/25 10:07 Desvenlafaxine Succinate 50 Mg Tab.Er.24h PO 50 mg QAM [facility] Administration Dexamethasone Sodium Phosphate 6 mg 03/19/25 13:00 03/21/25 14:31 Dexamethasone Sod Phos Inj 10 Mg/Ml 1 Ml Vial IV PUSH 03/28/25 13:01 6 mg Q24H AIRAM Administration Dextrose 12.5 gm 03/19/25 12:09 Dextrose 50% 25 Gm/50 Ml Syringe IV PUSH PRN PRN Hypoglycemia Protocol Doxycycline Hyclate 100 mg 03/20/25 21:00 03/21/25 09:10 Doxycycline Hyclate 100 Mg Tablet PO 03/24/25 21:01 100 mg Q12HR AIRAM Administration Glucagon 1 mg 03/19/25 12:09 Glucagon For Inj 1 Mg Vial IM PRN PRN Hypoglycemia Protocol Glucose 15 gm 03/19/25 12:09 Glucose Oral Gel 15 Gm Of Glucse In 37.5 Gm Tube PO PRN PRN Hypoglycemia Protocol Guaifenesin 1,200 mg 03/19/25 12:30 03/21/25 09:10 Guaifenesin 12 Hr 600 Mg Tabcr PO 1,200 mg Q12HR [facility] Administration Dextrose 1,000 mls @ 100 mls/hr 03/19/25 12:09 Dextrose 5% 1,000 Ml IVPB PRN PRN Hypoglycemia Protocol Remdesivir 100 mg in 250 mls @ 250 mls/hr 03/20/25 10:00 03/21/25 10:07 IVPB 03/23/25 10:59 250 mls/hr Q24H AIR[facility] Administration Ceftriaxone Sodium 2 gm/ 100 mls @ 200 mls/hr 03/20/25 09:00 03/21/25 09:11 Sodium Chloride IVPB 200 mls/hr Q24H [facility] Administration Insulin Aspart 2 - 5 units 03/19/25 17:00 03/21/25 11:56 Insulin Aspart (*Bkc) 100 Units/Ml SUB-Q Not Given TIDWM AIR[facility] Protocol Insulin Aspart 1 - 2 units 03/19/25 21:00 03/20/25 21:38 Insulin Aspart (*Bkc) 100 Units/Ml SUB-Q Not Given HS AIRAM Protocol Lamotrigine 200 mg 03/19/25 17:00 03/21/25 09:11 Lamotrigine 100 Mg Tablet PO 200 mg BID [facility] Administration Latanoprost 1 drop 03/19/25 21:00 03/20/25 20:19 Latanoprost 0.005% Op Soln 2.5 Ml Btl EACH EYE 1 drop HS [facility] Administration [place] Carbonate 150 mg 03/19/25 18:00 03/20/25 17:28 [place] Carbonate 150 Mg Capsule PO 150 mg QPM [facility] Administration Lorazepam 1 mg 03/19/25 12:27 03/20/25 11:24 Lorazepam Inj (*Crx) 2 Mg/Ml Vial IV PUSH 1 mg Q4HR PRN Administration Anxiety Meloxicam 7.5 mg 03/20/25 09:00 03/21/25 09:11 Meloxicam 7.5 Mg Tablet PO 7.5 mg DAILY [facility] Administration Miscellaneous Information 1 each 03/19/25 00:01 03/21/25 09:38 Clozaril Is Nonformulary. Have Patient Use Home Supply XX 04/18/25 00:00 Not Given CLARIFY AIRAM Olanzapine 15 mg 03/19/25 21:00 03/20/25 20:19 Olanzapine 5 Mg Tablet PO 15 mg HS [facility] Administration Pantoprazole Sodium 40 mg 03/20/25 09:00 03/21/25 09:10 Pantoprazole 40 Mg Tablet PO 40 mg DAILY [facility] Administration Polyethylene Glycol 17 gm 03/19/25 12:08 Polyethylene Glycol 3350 17 Gm Powd.Pack PO DAILY PRN constipation Fluticasone/Salmeterol 2 puff 03/19/25 20:00 03/20/25 22:03 Fluticasone/Salmeterol 115-21 Mcg Inhaler 1 Puff INHALATION 2 puff Q12HRT AIR[facility] Administration Sertraline HCl 200 mg 03/20/25 09:00 03/21/25 09:11 Sertraline Hcl 50 Mg Tablet PO 200 mg DAILY [facility] Administration Sodium Chloride 1 spray 03/20/25 10:08 Saline 0.65% [place] Soln 44 Ml Btl NASAL Q6HR PRN Congestion Umeclidinium/Vilanterol 1 puff 03/20/25 09:00 03/21/25 08:23 Umeclidinium/Vilanterol 62.5-25 Mcg Ellipta INHALATION 1 puff DAILY [facility] Administration Radiology Results: ITS Impressions Chest X-Ray 03/21/25 06:43 Impression: 1: Improving bilateral airspace disease which may reflect resolving edema or pneumonia. Labs Labs: Laboratory Results - last 24 hr 03/20/25 03/20/25 03/21/25 16:47 20:12 05:35 WBC 22.5 H RBC 3.17 L Hgb 9.3 L Hct 31.0 L MCV 97.8 MCH 29.3 MCHC 30.0 L RDW 15.5 H Plt Count 302 MPV 10.0 Immature Gran % (Auto) 0.8 H Neut % (Auto) 91.5 H Lymph % (Auto) 3.9 L [place] % (Auto) 3.7 Eos % (Auto) 0.0 Baso % (Auto) 0.1 L Lymph # (Auto) 0.88 L [place] # (Auto) 0.8 H Eos # (Auto) 0.0 Baso # (Auto) 0.0 Abs Immat Gran (auto) 0.17 H Absolute Neuts (auto) 20.6 H Absolute Nucleated RBC 0.000 Nucleated RBC % 0.0 PT 15.2 H INR 1.2 Sodium 136 L Potassium 4.2 Chloride 103 Carbon Dioxide 29 Anion Gap 4 BUN 20 H Creatinine 0.65 L Estim Creat Clear Calc 77 Estimated GFR > 60 Glucose 126 H POC Capillary Glucose 120 H 194 H Calcium 9.7 Phosphorus 3.5 Magnesium 2.2 Total Bilirubin 0.3 AST 26 ALT 14 Alkaline Phosphatase 84 Total Protein 6.9 Albumin 3.8 03/21/25 03/21/25 07:55 11:25 WBC RBC Hgb Hct MCV MCH MCHC RDW Plt Count MPV Immature Gran % (Auto) Neut % (Auto) Lymph % (Auto) [place] % (Auto) Eos % (Auto) Baso % (Auto) Lymph # (Auto) [place] # (Auto) Eos # (Auto) Baso # (Auto) Abs Immat Gran (auto) Absolute Neuts (auto) Absolute Nucleated RBC Nucleated RBC % PT INR Sodium Potassium Chloride Carbon Dioxide Anion Gap BUN Creatinine Estim Creat Clear Calc Estimated GFR Glucose POC Capillary Glucose 103 193 H Calcium Phosphorus Magnesium Total Bilirubin AST ALT Alkaline Phosphatase Total Protein Albumin
[2025-03-21] MEDS: LITHIUM CARBONATE 150 MG CAPSULE PO (18:05)
[2025-03-21] MEDS: ATORVASTATIN 10 MG TABLET PO (20:15)
[2025-03-21] MEDS: INSULIN ASPART (*BKC) 100 UNITS/ML SUB-Q (21:49)
[2025-03-22] VITALS (16 sets, daily range): BP systolic 122–131; BP diastolic 71–82; PULSE 70–91; RESP 14–25; TEMP 36.8–36.9; O2SAT 92–100
[2025-03-22] MEDS: IPRATROPIUM 0.5 MG/ALBUTEROL SULFATE 2.5 MG AMPUL.NEB 3 ML INHALATION ×4 (01:28→20:23)
[2025-03-22 05:15] LABS: Alveolar/Arterial O2 Gradient 42.0 mmHg; Fractional Inspired Oxygen 24 %; HCO3 ABG 32.2 mEq/l (22.0-26.0); Oxygen Content ABG 12.5 %vol (16.0-22.0); Oxygen Saturation ABG 92.5 % (95.0-100.0); PCO2 ABG 53.5 mmHg (35.0-45.0); PO2 ABG 65.5 mmHg (80.0-100.0); PO2 FiO2 Ratio Arterial Blood 2.73 %
[2025-03-22 05:20] LABS: Modified Allen's Test Pass; Site Drawn LEFT RADIAL
[2025-03-22 05:21] LABS: Non-Invasive Expiratory Pressure 5 CMH2O; Non-Invasive Inspiratory Pressure 16 CMH2O; Non-Invasive Vent Rate 12 /MIN
[2025-03-22 06:05] LABS: Hematocrit 30.3 % (37.0-47.0); Hemoglobin 9.1 g/dL (12.0-15.0); Immature Granulocyte Percent A 0.8 % (0-0.5); Lymphocytes Absolute Auto 1.25 K/mm3 (0.9-3.2); Mean Corpuscular HGB Conc 30.0 g/dl (32-36); Mean Corpuscular Hemoglobin 29.1 pg (26-34); Mean Corpuscular Volume 96.8 fl (80-100); Nucleated Red Blood Cells Absolute Auto 0.000 K/mm3 (0.0-0.012); Nucleated Red Blood Cells Perc 0.0 % (0.0-0.2); Platelet Count Result 320 k/mm3 (150-375); Red Blood Count 3.13 M/mm3 (4.2-5.4); White Blood Count 16.3 K/mm3 (4.5-10.0)
[2025-03-22 06:50] LABS: Alanine Aminotransferase 16 U/L (6-35); Albumin Level 3.6 g/dL (3.5-5.1); Alkaline Phosphatase 80 U/L (38-126); Anion Gap 6 mmol/L (4-12); Aspartate Amino Transferase 26 U/L (14-36); Bilirubin,Total 0.3 mg/dL (0.2-1.3); Blood Urea Nitrogen 27 mg/dL (7-17); Calcium 9.9 mg/dL (8.4-10.2); Carbon Dioxide 31 mmol/L (22-30); Chloride 104 mmol/L (98-107); Estimated CRCL calculation 69 ml/min; Estimated Glomerular Filt Rate > 60; Glucose 108 mg/dL (65-110); Magnesium 2.0 mg/dL (1.6-2.3); Potassium 4.1 mmol/L (3.4-5.0); Sodium 141 mmol/L (137-145); Total Protein 6.9 g/dL (6.3-8.2)
--- NOTE | 2025-03-22 08:15 | P.PNIM_ITS ---
Progress Note: A&P Assessment and Plan (1) Pneumonia: Code(s): J18.9 - Pneumonia, unspecified organism Status: Acute Assessment and Plan: * Patient presented with respiratory distress, likely related to pneumonia, chest x-ray showed new infiltrates as compared chest x-ray done on 03/08/2025 * 03/20: Started on ceftriaxone and doxycycline for community-acquired pneumonia, COVID pneumonia, likely COPD exacerbation * Continue guaifenesin * Continue bronchodilators * Supplemental oxygen to maintain O2 sats > 92% * BiPAP at night which will be held. * she might not be compliant with bipap treatment even if instituted at [facility]. (2) COVID-19: Code(s): U07.1 - COVID-19 Status: Acute Assessment and Plan: * Supportive care with oxygen, nebs * Isolation * Remdesivir per protocol * Dexamethasone IV Per protocol * Consider consult to Pulmonology if pt does not improve. * Daily labs (3) Acute hypoxic respiratory failure: Code(s): J96.01 - Acute respiratory failure with hypoxia Status: Acute Assessment and Plan: * Likely related to pneumonia, COPD exacerbation, COVID pneumonia * BiPAP at night, currently on 2 L nasal cannula * Wean from BiPAP as tolerated. Presented with altered mental status with ABG initially 7.31/59/70/29 indicating hypercapnia. Placed on BiPAP with improvement. Currently off BiPAP recehck abg this am with some hypercarbia. pulmonary consultation. (4) Diabetes: Code(s): E11.9 - Type 2 diabetes mellitus without complications Status: Chronic Assessment and Plan: * Heart healthy Diet * SSI Low dose protocol * Hypoglycemic protocol * Hemoglobin A1C is 6.0 this admission * Glucose checks AC and HS. (5) Schizoaffective disorder: Code(s): F25.9 - Schizoaffective disorder, unspecified Status: Chronic Assessment and Plan: * Continue home meds of Clozapine, Pristiq, [place], Lamictal, Zoloft, Zyprexa * Check [place] level - maintain a therapeutic level. * PRN Ativan ordered. Plan PT/OT has been ordered, Up in chair as tolerated with assistance Heart healthy diet DVT prophylaxis apixaban Code status full code Subjective Date/time seen: 03/22/25 08:15 Interval history: no overnight events, patient feels better. used bipap last night. abg this am reviewed. some cough but no other complaints. Review of Systems Review of Systems: All systems reviewed & are unremarkable except as noted in HPI and below Exam Narrative: General: Pleasant female, in no acute distress HEENT:? Pupils equal and reactive, sclera is clear, moist oral mucosa Neck:? Supple Respiratory:? Coarse breath sounds at bases bilaterally, adequate air entry, no wheeze Cardiac:? S1-S2 normal, regular rate and rhythm Abdomen:? Soft, nontender, nondistended, normoactive bowel sounds Extremities:? No edema, palpable pedal pulses Neuro:? Patient is awake, alert, answers to questions appropriately and follows simple commands Skin:? Warm and dry, no skin lesions not Psych: Normal mentation and affect Objective Data Vital Signs Vital Signs: Vital Signs - 24 hr 03/21/25 08:20 03/21/25 08:20 03/21/25 08:32 Temperature Pulse Rate 70 74 Respiratory Rate 20 20 Blood Pressure Pulse Oximetry 94 Oxygen Delivery Nasal Cannula Oxygen Flow Rate 2 03/21/25 09:39 03/21/25 14:00 03/21/25 16:05 Temperature 97.3 F L Pulse Rate 74 Respiratory Rate 19 Blood Pressure 141/89 H Pulse Oximetry 91 93 Oxygen Delivery Nasal Cannula Nasal Cannula Oxygen Flow Rate 2 2 03/21/25 16:05 03/21/25 16:12 03/21/25 20:35 Temperature Pulse Rate 83 80 Respiratory Rate 20 20 Blood Pressure Pulse Oximetry 99 Oxygen Delivery Nasal Cannula Oxygen Flow Rate 2 03/21/25 20:36 03/21/25 20:38 03/21/25 20:50 Temperature 98.4 F Pulse Rate 84 84 88 Respiratory Rate 18 18 18 Blood Pressure 138/80 Pulse Oximetry 97 Oxygen Delivery Oxygen Flow Rate 03/22/25 01:33 03/22/25 01:40 03/22/25 01:48 Temperature Pulse Rate 75 77 77 Respiratory Rate 18 18 20 Blood Pressure Pulse Oximetry 100 Oxygen Delivery BiPAP Oxygen Flow Rate 03/22/25 04:58 03/22/25 05:55 Temperature 98.2 F Pulse Rate 74 82 Respiratory Rate 21 H 18 Blood Pressure 131/82 Pulse Oximetry 100 94 Oxygen Delivery BiPAP Oxygen Flow Rate Intake/Output Intake/Output: Intake & Output 03/19/25 03/20/25 03/21/25 03/22/25 23:59 23:59 23:59 23:59 Intake Total 1250 2640 962 Output Total 300 2350 Balance 950 290 962 Meds/Results Medications: Active Medications Generic Name Dose Route Start Last Admin Trade Name Freq PRN Reason Stop Dose Admin Acetaminophen 325 mg 03/19/25 12:08 Acetaminophen 325 Mg Tablet PO Q6H PRN MILD PAIN 1-3 Acyclovir 400 mg 03/19/25 17:00 03/21/25 18:05 Acyclovir 400 Mg Tablet PO 400 mg BID AIRAM Administration Albuterol 2.5 mg 03/19/25 12:09 Albuterol Sulfate Neb 2.5 Mg/3 Ml Inh INHALATION Q4HRT PRN Shortness Of Breath Albuterol/Ipratropium 3 ml 03/19/25 14:00 03/22/25 01:28 Ipratropium 0.5 Mg/Albuterol Sulfate 2.5 Mg Ampul.Neb 3 Ml INHALATION 3 ml Q6HRT AIRAM Administration Alendronate Sodium 70 mg 03/24/25 09:00 Alendronate Sodium 70 Mg Tablet PO WEEKLY AIRAM Apixaban 5 mg 03/19/25 21:00 03/21/25 20:15 Apixaban 5 Mg Tablet PO 5 mg Q12HR AIRAM Administration Aspirin 81 mg 03/20/25 09:00 03/21/25 09:11 Aspirin 81 Mg Enteric Tablet PO 81 mg DAILY AIRAM Administration Atorvastatin Calcium 10 mg 03/19/25 21:00 03/21/25 20:15 Atorvastatin 10 Mg Tablet PO 10 mg HS AIRAM Administration Bismuth Subsalicylate 262 mg 03/19/25 12:32 Bismuth Subsalicylate 262 Mg Chewable Tablet PO Q4H PRN diarrhea Budesonide 0.5 mg 03/20/25 20:00 03/21/25 20:32 Budesonide Respule Neb 0.5 Mg/2 Ml Amp INHALATION 0.5 mg Q12HRT AIRAM Administration Calcium Carbonate 1,000 mg 03/20/25 09:00 03/21/25 09:10 Calcium Carbonate (Oscal) 500 Mg Tablet PO 1,000 mg DAILY AIRAM Administration Clozapine 100 mg 03/21/25 09:00 03/21/25 10:07 Clozapine 100 Mg Tablet PO Not Given QAM AIRAM Clozapine 500 mg 03/21/25 21:00 03/21/25 20:15 Clozapine 100 Mg Tablet BY MOUTH 500 mg HS AIRAM Administration Desvenlafaxine Succinate 50 mg 03/20/25 09:00 03/21/25 10:07 Desvenlafaxine Succinate 50 Mg Tab.Er.24h PO 50 mg QAM AIRAM Administration Dexamethasone Sodium Phosphate 6 mg 03/19/25 13:00 03/21/25 14:31 Dexamethasone Sod Phos Inj 10 Mg/Ml 1 Ml Vial IV PUSH 03/28/25 13:01 6 mg Q24H AIRAM Administration Dextrose 12.5 gm 03/19/25 12:09 Dextrose 50% 25 Gm/50 Ml Syringe IV PUSH PRN PRN Hypoglycemia Protocol Doxycycline Hyclate 100 mg 03/20/25 21:00 03/21/25 20:16 Doxycycline Hyclate 100 Mg Tablet PO 03/24/25 21:01 100 mg Q12HR AIRAM Administration Glucagon 1 mg 03/19/25 12:09 Glucagon For Inj 1 Mg Vial IM PRN PRN Hypoglycemia Protocol Glucose 15 gm 03/19/25 12:09 Glucose Oral Gel 15 Gm Of Glucse In 37.5 Gm Tube PO PRN PRN Hypoglycemia Protocol Guaifenesin 1,200 mg 03/19/25 12:30 03/21/25 20:16 Guaifenesin 12 Hr 600 Mg Tabcr PO 1,200 mg Q12HR AIRAM Administration Dextrose 1,000 mls @ 100 mls/hr 03/19/25 12:09 Dextrose 5% 1,000 Ml IVPB PRN PRN Hypoglycemia Protocol Remdesivir 100 mg in 250 mls @ 250 mls/hr 03/20/25 10:00 03/21/25 10:07 IVPB 03/23/25 10:59 250 mls/hr Q24H AIRAM Administration Ceftriaxone Sodium 2 gm/ 100 mls @ 200 mls/hr 03/20/25 09:00 03/21/25 09:11 Sodium Chloride IVPB 200 mls/hr Q24H AIRAM Administration Insulin Aspart 2 - 5 units 03/19/25 17:00 03/21/25 16:54 Insulin Aspart (*Bkc) 100 Units/Ml SUB-Q Not Given TIDWM AIRAM Protocol Insulin Aspart 1 - 2 units 03/19/25 21:00 03/21/25 21:49 Insulin Aspart (*Bkc) 100 Units/Ml SUB-Q 1 units HS AIRAM Administration Protocol Lamotrigine 200 mg 03/19/25 17:00 03/21/25 18:05 Lamotrigine 100 Mg Tablet PO 200 mg BID AIRAM Administration Latanoprost 1 drop 03/19/25 21:00 03/22/25 07:35 Latanoprost 0.005% Op Soln 2.5 Ml Btl EACH EYE Not Given HS AIRAM [place] Carbonate 150 mg 03/19/25 18:00 03/21/25 18:05 [place] Carbonate 150 Mg Capsule PO 150 mg QPM AIRAM Administration Lorazepam 1 mg 03/19/25 12:27 03/20/25 11:24 Lorazepam Inj (*Crx) 2 Mg/Ml Vial IV PUSH 1 mg Q4HR PRN Administration Anxiety Meloxicam 7.5 mg 03/20/25 09:00 03/21/25 09:11 Meloxicam 7.5 Mg Tablet PO 7.5 mg DAILY AIRAM Administration Miscellaneous Information 1 each 03/19/25 00:01 03/21/25 09:38 Clozaril Is Nonformulary. Have Patient Use Home Supply XX 04/18/25 00:00 Not Given CLARIFY AIRAM Olanzapine 15 mg 03/19/25 21:00 03/21/25 20:16 Olanzapine 5 Mg Tablet PO 5 mg HS AIRAM Administration Pantoprazole Sodium 40 mg 03/20/25 09:00 03/21/25 09:10 Pantoprazole 40 Mg Tablet PO 40 mg DAILY AIRAM Administration Polyethylene Glycol 17 gm 03/19/25 12:08 Polyethylene Glycol 3350 17 Gm Powd.Pack PO DAILY PRN constipation Fluticasone/Salmeterol 2 puff 03/19/25 20:00 03/21/25 20:32 Fluticasone/Salmeterol 115-21 Mcg Inhaler 1 Puff INHALATION 2 puff Q12HRT AIRAM Administration Sertraline HCl 200 mg 03/20/25 09:00 03/21/25 09:11 Sertraline Hcl 50 Mg Tablet PO 200 mg DAILY AIRAM Administration Sodium Chloride 1 spray 03/20/25 10:08 Saline 0.65% [place] Soln 44 Ml Btl NASAL Q6HR PRN Congestion Umeclidinium/Vilanterol 1 puff 03/20/25 09:00 03/21/25 08:23 Umeclidinium/Vilanterol 62.5-25 Mcg Ellipta INHALATION 1 puff DAILY AIRAM Administration Radiology Results: ITS Impressions Chest X-Ray 03/21/25 06:43 Impression: 1: Improving bilateral airspace disease which may reflect resolving edema or pneumonia. Labs Labs: Laboratory Results - last 24 hr 03/21/25 03/21/25 03/21/25 11:25 16:49 19:49 WBC RBC Hgb Hct MCV MCH MCHC RDW Plt Count MPV Immature Gran % (Auto) Neut % (Auto) Lymph % (Auto) [place] % (Auto) Eos % (Auto) Baso % (Auto) Lymph # (Auto) [place] # (Auto) Eos # (Auto) Baso # (Auto) Abs Immat Gran (auto) Absolute Neuts (auto) Absolute Nucleated RBC Nucleated RBC % Puncture Site ABG pH ABG pCO2 ABG pO2 ABG PO2/FiO2 Ratio ABG HCO3 ABG O2 Saturation ABG O2 Content ABG Base Excess A-a Gradient Oxyhemoglobin Total Hemoglobin O2 Delivery Device O2 Liters/Min Vent Rate FiO2 Expiratory Pressure Inspiratory Pressure Sodium Potassium Chloride Carbon Dioxide Anion Gap BUN Creatinine Estim Creat Clear Calc Estimated GFR Glucose POC Capillary Glucose 193 H 191 H 260 H Calcium Magnesium Total Bilirubin AST ALT Alkaline Phosphatase Total Protein Albumin 03/22/25 03/22/25 03/22/25 05:02 05:46 07:44 WBC 16.3 H RBC 3.13 L Hgb 9.1 L Hct 30.3 L MCV 96.8 MCH 29.1 MCHC 30.0 L RDW 15.7 H Plt Count 320 MPV 9.5 Immature Gran % (Auto) 0.8 H Neut % (Auto) 86.1 H Lymph % (Auto) 7.7 L [place] % (Auto) 5.1 Eos % (Auto) 0.2 Baso % (Auto) 0.1 L Lymph # (Auto) 1.25 [place] # (Auto) 0.8 H Eos # (Auto) 0.0 Baso # (Auto) 0.0 Abs Immat Gran (auto) 0.13 H Absolute Neuts (auto) 14.0 H Absolute Nucleated RBC 0.000 Nucleated RBC % 0.0 Puncture Site Left radial ABG pH 7.398 ABG pCO2 53.5 H ABG pO2 65.5 L ABG PO2/FiO2 Ratio 2.73 ABG HCO3 32.2 H ABG O2 Saturation 92.5 L ABG O2 Content 12.5 L ABG Base Excess 6.4 A-a Gradient 42.0 Oxyhemoglobin 90.6 Total Hemoglobin 9.8 L O2 Delivery Device Non-invasive vent O2 Liters/Min Not Reportable Vent Rate 12 FiO2 24 Expiratory Pressure 5 Inspiratory Pressure 16 Sodium 141 Potassium 4.1 Chloride 104 Carbon Dioxide 31 H Anion Gap 6 BUN 27 H Creatinine 0.71 Estim Creat Clear Calc 69 Estimated GFR > 60 Glucose 108 POC Capillary Glucose 103 Calcium 9.9 Magnesium 2.0 Total Bilirubin 0.3 AST 26 ALT 16 Alkaline Phosphatase 80 Total Protein 6.9 Albumin 3.6
[2025-03-22] MEDS: BUDESONIDE RESPULE NEB 0.5 MG/2 ML AMP INHALATION ×2 (08:52→20:23)
[2025-03-22] MEDS: UMECLIDINIUM/VILANTEROL 62.5-25 MCG ELLIPTA 1 PUFF INHALATION (08:53)
[2025-03-22] MEDS: DOXYCYCLINE HYCLATE 100 MG TABLET PO ×2 (10:36→21:09)
[2025-03-22] MEDS: guaiFENesin 12 HR 600 MG TABCR 1200 MG PO ×2 (10:36→21:11)
[2025-03-22] MEDS: ACYCLOVIR 400 MG TABLET PO ×2 (10:36→18:05)
[2025-03-22] MEDS: PANTOPRAZOLE 40 MG TABLET PO (10:37)
[2025-03-22] MEDS: SERTRALINE HCL 50 MG TABLET 200 MG PO (10:37)
[2025-03-22] MEDS: ASPIRIN 81 MG ENTERIC TABLET PO (10:37)
[2025-03-22] MEDS: CALCIUM CARBONATE (OSCAL) 500 MG TABLET 1000 MG PO (10:37)
[2025-03-22] MEDS: DESVENLAFAXINE SUCCINATE 50 MG TAB.ER.24H PO (10:38)
[2025-03-22] MEDS: MELOXICAM 7.5 MG TABLET PO (10:38)
[2025-03-22] MEDS: APIXABAN 5 MG TABLET PO ×2 (10:38→21:11)
[2025-03-22] MEDS: cefTRIAXone 2 GM in SODIUM CHLORIDE 0.9% IV 100 ML 200 ML IVPB (10:38)
[2025-03-22] MEDS: REMDESIVIR 100 MG/NS 250 ML 100 MG/250 ML BAG 250 MG IVPB (11:41)
[2025-03-22] MEDS: dexAMETHasone SOD PHOS INJ 10 MG/ML 1 ML VIAL 6 MG IV PUSH (12:45)
[2025-03-22] MEDS: INSULIN ASPART (*BKC) 100 UNITS/ML SUB-Q ×2 (16:47→22:17)
[2025-03-22] MEDS: LITHIUM CARBONATE 150 MG CAPSULE PO (18:06)
--- NOTE | 2025-03-22 18:36 | P.CONPL_ITS ---
History of Present Illness History of Present Illness Consult date: 03/24/25 Requesting physician: Charli Rocha MD Chief complaint: PNA, Acute Hypoxic Hypercarbic Resp Failure Narrative: This patient was not seen in consultation. She improved, was on room air, did not need mud temperer. She is leaving Mar 24. [facility] Past Medical History Medical History (Updated 03/24/25 @ 12:35 by Man Louie MD) Acute hypoxic respiratory failure Pneumonia COVID-19 Schizoaffective disorder Depression Diabetes Hypertension Hyperlipidemia Pulmonary embolism COPD (chronic obstructive pulmonary disease) Social History Social History Smoking status: Unknown if ever smoked Second hand tobacco smoke exposure: No Alcohol intake: never Substance use: never Substance use type: does not use Do You Feel Safe in your Home?: No Lack of Transportation: No Lack of Food: Never True Current Housing: I Have Housing Concerned About Future Housing: No Difficulty Paying Gas/Electric Bills: No Difficulty Paying for Meds: No Currently Unemployed: No Education: High School Diploma/GED Difficulty w/ Childcare or Family Care: No Spiritual care concerns: No Meds Home Medications and Allergies Home Medications ?Medication ?Instructions ?Recorded ?Confirmed ?Type acetaminophen 325 mg tablet 325 mg PO Q6H PRN pain 03/08/25 03/19/25 History acyclovir 400 mg tablet 400 mg PO BID 03/08/25 03/19/25 History albuterol sulfate 90 mcg/actuation 2 puff inhalation Q4H PRN cough 03/08/25 03/19/25 History aerosol inhaler alendronate 70 mg tablet 70 mg PO WEEKLY 03/08/25 03/19/25 History apixaban 5 mg tablet (Eliquis) 5 mg PO BID 03/08/25 03/19/25 History aspirin 81 mg tablet,delayed 81 mg PO DAILY 03/08/25 03/19/25 History release atorvastatin 10 mg tablet 10 mg PO HS 03/08/25 03/19/25 History bismuth subsalicylate 262 mg/15 mL 262 mg PO Q4H PRN diarrhea 03/08/25 03/19/25 History oral suspension (Stomach Relief) budesonide-formoterol HFA 80 1 puff inhalation DAILY 03/08/25 03/19/25 History mcg-4.5 mcg/actuation aerosol inhaler calcium carbonate ([place] 1,000 mg PO DAILY 03/08/25 03/19/25 History Calcium) clozapine 100 mg tablet 100 mg PO HS 03/08/25 03/19/25 History clozapine 100 mg tablet 100 mg PO QAM 03/08/25 03/19/25 History clozapine 200 mg tablet 400 mg PO HS 03/08/25 03/19/25 History desvenlafaxine succinate 50 mg 50 mg PO DAILY 03/08/25 03/19/25 History tablet,extended release 24 hr fluticasone furoate 100 1 inh inhalation DAILY 03/08/25 03/19/25 History mcg-vilanterol 25 mcg/dose inhalation powder (Breo Ellipta) lamotrigine 200 mg tablet 200 mg PO BID 03/08/25 03/19/25 History latanoprost 0.005 % eye drops 1 drp EACH EYE HS 03/08/25 03/19/25 History lithium carbonate 150 mg capsule 150 mg PO QPM 03/08/25 03/19/25 History lorazepam 0.5 mg tablet 0.5 mg PO TID 03/08/25 03/19/25 History meloxicam 7.5 mg tablet 7.5 mg PO DAILY 03/08/25 03/19/25 History metformin 500 mg tablet 500 mg PO QPM 03/08/25 03/19/25 History olanzapine 15 mg tablet 15 mg PO HS 03/08/25 03/19/25 History pantoprazole 40 mg tablet,delayed 40 mg PO DAILY 03/08/25 03/19/25 History release polyethylene glycol 3350 17 17 g PO DAILY PRN constipation 03/08/25 03/19/25 History gram/dose oral powder sertraline 100 mg tablet 200 mg PO DAILY 03/08/25 03/19/25 History tiotropium 2.5 mcg-olodaterol 2.5 2 puff inhalation DAILY 03/08/25 03/19/25 History mcg/actuation mist for inhalation (Stiolto Respimat) guaifenesin 600 mg tablet, 1,200 mg (2 x 600 mg) PO Q12HR #30 03/10/25 03/19/25 Rx extended release 12 hr (Mucus tabs Relief ER) ipratropium 0.5 mg-albuterol 3 mg 3 ml inhalation Q6HRT #30 vials 03/10/25 03/19/25 Rx (2.5 mg base)/3 mL nebulization soln prednisone 10 mg tablet 10 mg PO DAILY #42 tabs 03/10/25 03/19/25 Rx amoxicillin 875 mg-potassium 1 tablet PO Q12H #10 tabs 03/24/25 Rx clavulanate 125 mg tablet Allergies Allergy/AdvReac Type Severity Reaction Status Date / Time No Known Allergies Allergy Unverified 07/22/14 10:54 Vital Signs Vital Signs - 24 hr 03/21/25 20:35 03/21/25 20:36 03/21/25 20:38 Temperature 36.9 C Pulse Rate 84 84 Respiratory Rate 18 18 Blood Pressure 138/80 Pulse Oximetry 99 97 Oxygen Delivery Nasal Cannula Oxygen Flow Rate 2 03/21/25 20:50 03/22/25 01:33 03/22/25 01:40 Temperature Pulse Rate 88 75 77 Respiratory Rate 18 18 18 Blood Pressure Pulse Oximetry Oxygen Delivery Oxygen Flow Rate 03/22/25 01:48 03/22/25 04:58 03/22/25 05:55 Temperature 36.8 C Pulse Rate 77 74 82 Respiratory Rate 20 21 H 18 Blood Pressure 131/82 Pulse Oximetry 100 100 94 Oxygen Delivery BiPAP BiPAP Oxygen Flow Rate 03/22/25 08:00 03/22/25 08:56 03/22/25 08:56 Temperature Pulse Rate 70 Respiratory Rate 18 Blood Pressure Pulse Oximetry 92 96 Oxygen Delivery Nasal Cannula Nasal Cannula Oxygen Flow Rate 2 2 03/22/25 09:04 03/22/25 14:00 03/22/25 14:30 Temperature 36.9 C Pulse Rate 75 85 91 Respiratory Rate 18 18 14 Blood Pressure 123/73 Pulse Oximetry 100 Oxygen Delivery Oxygen Flow Rate 03/22/25 14:34 Temperature Pulse Rate 89 Respiratory Rate 14 Blood Pressure Pulse Oximetry Oxygen Delivery Oxygen Flow Rate Results Laboratory Findings 03/24/25 05:39 03/24/25 05:39 ABG, PT/INR, D-dimer: ABG ABG pH 7.398 (7.350-7.450) 03/22/25 05:02 ABG pCO2 53.5 mmHg (35.0-45.0) H 03/22/25 05:02 ABG pO2 65.5 mmHg (80.0-100.0) L 03/22/25 05:02 ABG O2 Saturation 92.5 % (95.0-100.0) L 03/22/25 05:02 PT/INR, D-dimer PT 15.2 Seconds (11.1-14.7) H 03/21/25 05:35 INR 1.2 03/21/25 05:35 Abnormal lab findings: Abnormal Labs 03/19/25 03/19/25 03/19/25 06:22 06:24 06:28 WBC 22.3 H RBC 3.69 L Hgb 10.8 L Hct MCV 101.1 H MCHC 29.0 L RDW 15.2 H Immature Gran % (Auto) 0.7 H Neut % (Auto) 93.8 H Lymph % (Auto) 3.[address] % (Auto) 1.9 L Baso % (Auto) Lymph # (Auto) 0.[address] # (Auto) Abs Immat Gran (auto) 0.15 H Absolute Neuts (auto) 20.9 H PT ABG pH 7.314 L ABG pCO2 59.3 H ABG pO2 70.7 L ABG HCO3 29.5 H ABG O2 Saturation 92.4 L ABG O2 Content 13.9 L Total Hemoglobin 10.9 L Sodium Carbon Dioxide 31 H BUN 20 H Creatinine Glucose 184 H POC Capillary Glucose 159 H Hemoglobin A1c Lactic Acid 2.6 H Magnesium 3.0 H NT-Pro-B Natriuret Pep 314 H Urine Protein [place] SARS-CoV-2 RNA (RT-PCR) 03/19/25 03/19/25 03/19/25 06:41 07:10 07:39 WBC RBC Hgb Hct MCV MCHC RDW Immature Gran % (Auto) Neut % (Auto) Lymph % (Auto) [place] % (Auto) Baso % (Auto) Lymph # (Auto) [place] # (Auto) Abs Immat Gran (auto) Absolute Neuts (auto) PT ABG pH 7.328 L ABG pCO2 56.6 H ABG pO2 117.4 H ABG HCO3 29.0 H ABG O2 Saturation ABG O2 Content 15.0 L Total Hemoglobin 10.8 L Sodium Carbon Dioxide BUN Creatinine Glucose POC Capillary Glucose Hemoglobin A1c Lactic Acid Magnesium NT-Pro-B Natriuret Pep Urine Protein 1+ H [place] SARS-CoV-2 RNA (RT-PCR) Positive A 03/19/25 03/19/25 03/20/25 12:34 22:28 04:58 WBC 29.3 H RBC 3.62 L Hgb 10.4 L Hct 36.0 L MCV MCHC 28.9 L RDW 15.5 H Immature Gran % (Auto) 0.6 H Neut % (Auto) 93.5 H Lymph % (Auto) 2.[address] % (Auto) Baso % (Auto) Lymph # (Auto) 0.[address] # (Auto) 1.0 H Abs Immat Gran (auto) 0.19 H Absolute Neuts (auto) 27.4 H PT ABG pH ABG pCO2 ABG pO2 ABG HCO3 ABG O2 Saturation ABG O2 Content Total Hemoglobin Sodium Carbon Dioxide BUN 19 H Creatinine Glucose 113 H POC Capillary Glucose 183 H Hemoglobin A1c 6.0 H Lactic Acid Magnesium 2.7 H NT-Pro-B Natriuret Pep Urine Protein [place] < 0.2 L < 0.2 L SARS-CoV-2 RNA (RT-PCR) 03/20/25 03/20/25 03/20/25 05:04 11:52 16:47 WBC RBC Hgb Hct MCV MCHC RDW Immature Gran % (Auto) Neut % (Auto) Lymph % (Auto) [place] % (Auto) Baso % (Auto) Lymph # (Auto) [place] # (Auto) Abs Immat Gran (auto) Absolute Neuts (auto) PT ABG pH ABG pCO2 52.4 H ABG pO2 ABG HCO3 29.3 H ABG O2 Saturation ABG O2 Content 13.5 L Total Hemoglobin 10.0 L Sodium Carbon Dioxide BUN Creatinine Glucose POC Capillary Glucose 118 H 120 H Hemoglobin A1c Lactic Acid Magnesium NT-Pro-B Natriuret Pep Urine Protein [place] SARS-CoV-2 RNA (RT-PCR) 03/20/25 03/21/25 03/21/25 20:12 05:35 11:25 WBC 22.5 H RBC 3.17 L Hgb 9.3 L Hct 31.0 L MCV MCHC 30.0 L RDW 15.5 H Immature Gran % (Auto) 0.8 H Neut % (Auto) 91.5 H Lymph % (Auto) 3.[address] % (Auto) Baso % (Auto) 0.1 L Lymph # (Auto) 0.[address] # (Auto) 0.8 H Abs Immat Gran (auto) 0.17 H Absolute Neuts (auto) 20.6 H PT 15.2 H ABG pH ABG pCO2 ABG pO2 ABG HCO3 ABG O2 Saturation ABG O2 Content Total Hemoglobin Sodium 136 L Carbon Dioxide BUN 20 H Creatinine 0.65 L Glucose 126 H POC Capillary Glucose 194 H 193 H Hemoglobin A1c Lactic Acid Magnesium NT-Pro-B Natriuret Pep Urine Protein [place] SARS-CoV-2 RNA (RT-PCR) 03/21/25 03/21/25 03/22/25 16:49 19:49 05:02 WBC RBC Hgb Hct MCV MCHC RDW Immature Gran % (Auto) Neut % (Auto) Lymph % (Auto) [place] % (Auto) Baso % (Auto) Lymph # (Auto) [place] # (Auto) Abs Immat Gran (auto) Absolute Neuts (auto) PT ABG pH ABG pCO2 53.5 H ABG pO2 65.5 L ABG HCO3 32.2 H ABG O2 Saturation 92.5 L ABG O2 Content 12.5 L Total Hemoglobin 9.8 L Sodium Carbon Dioxide BUN Creatinine Glucose POC Capillary Glucose 191 H 260 H Hemoglobin A1c Lactic Acid Magnesium NT-Pro-B Natriuret Pep Urine Protein [place] SARS-CoV-2 RNA (RT-PCR) 03/22/25 03/22/25 03/22/25 05:46 11:23 16:42 WBC 16.3 H RBC 3.13 L Hgb 9.1 L Hct 30.3 L MCV MCHC 30.0 L RDW 15.7 H Immature Gran % (Auto) 0.8 H Neut % (Auto) 86.1 H Lymph % (Auto) 7.[address] % (Auto) Baso % (Auto) 0.1 L Lymph # (Auto) [place] # (Auto) 0.8 H Abs Immat Gran (auto) 0.13 H Absolute Neuts (auto) 14.0 H PT ABG pH ABG pCO2 ABG pO2 ABG HCO3 ABG O2 Saturation ABG O2 Content Total Hemoglobin Sodium Carbon Dioxide 31 H BUN 27 H Creatinine Glucose POC Capillary Glucose 195 H 209 H Hemoglobin A1c Lactic Acid Magnesium NT-Pro-B Natriuret Pep Urine Protein [place] SARS-CoV-2 RNA (RT-PCR)
[2025-03-22] MEDS: ATORVASTATIN 10 MG TABLET PO (21:10)
[2025-03-22] MEDS: LATANOPROST 0.005% OP SOLN 2.5 ML BTL 1 DROP EACH EYE (21:11)
[2025-03-23] VITALS (15 sets, daily range): BP systolic 118–138; BP diastolic 70–93; PULSE 70–87; RESP 14–29; TEMP 36.8–37.3; O2SAT 91–99
--- NOTE | 2025-03-23 | ECHO_ITS ---
Patient Info Name: David Hannon Age: 64 years : 1960 Gender: Female Ht: 64 in Wt: 169 lbs BSA: 1.88 m2 HR: 89 bpm BP: 138 / 93 mmHg Heart Rhythm: Sinus Rhythm Technical Quality: Good Exam Date: 03/23/2025 11:20 AM Patient Status: I Admit Date: 03/19/2025 Exam Type: CA echo doppler color flow Complete two-dimensional, color flow and Doppler transthoracic echocardiogram is performed. Staff Referring Physician: Dane Hudson MD Job Training Specialist: Donita Krishnamurthy Attending Provider: Maria A Palma MD Summary 1. Complete two-dimensional, color flow and Doppler transthoracic echocardiogram is performed. 2. Normal left and right ventricular size and systolic function. 3. Grade 1 diastolic noncompliance. 4. No valvular dysfunction. Left Ventricle Left ventricular chamber dimension is normal. Left ventricular systolic function is normal, estimated at 65-70. The left ventricular diastolic function is grade I diastolic dysfunction. Right Ventricle Right ventricular chamber dimension is normal. Left Atria Left atrial chamber dimension is normal. Right Atria Right atrial chamber dimension is normal. Aortic Valve The aortic valve is normal. Mitral Valve The mitral valve has normal leaflets. Tricuspid Valve The tricuspid valve leaflets are normal. Pericardium/Pleural The pericardium appears normal. Aorta The aortic root size at the sinus of Valsalva is normal. Left Ventricular Outflow Tract Name Value Normal LVOT 2D LVOT Diameter 2.0 cm LVOT Doppler LVOT Peak Velocity 156 cm/s LVOT Peak Gradient 9 mmHg LVOT Mean Gradient 4 mmHg LVOT VTI 28 cm LVOT VTI/AV VTI Ratio 0.8 LVOT Stroke Volume 86 ml LVOT CO 7.7 l/min LVOT CI 4.1 l/min/m2 Pulmonic Valve Name Value Normal RVOT Doppler RVOT Peak Velocity 101 cm/s RVOT Peak Gradient 4 mmHg PV Doppler PV Peak Velocity 149 cm/s PV Peak Gradient 9 mmHg Mitral Valve Name Value Normal MV Diastolic Function MV E Peak Velocity 77 cm/s MV A Peak Velocity 101 cm/s MV E/A 0.8 MV Decel Time (PW) 446 ms MV Annular TDI MV E/e' (Septal) 13.2 MV E/e' (Lateral) 6.9 MV E/e' (Average) 10.0 Aortic Valve Name Value Normal AV Doppler AV Peak Velocity 229 cm/s AV Peak Gradient 21 mmHg AV Mean Gradient 10 mmHg AV VTI 37 cm AV Area (Cont Eq VTI) 2.3 cm2 >=3.0 AV Area (Cont Eq Juan) 2.1 cm2 AV DI (Juan) 0.68 AV Regurgitation 2D LVOT Area 3.1 cm2 Ventricles Name Value Normal LV Dimensions 2D/MM IVS Diastolic Thickness (2D) 1.2 cm 0.6-1.0 LVID Diastole (2D) 5.1 cm 3.8-5.2 LVIW Diastolic Thickness (2D) 1.0 cm 0.6-0.9 LVID Systole (2D) 3.2 cm 2.2-3.5 LVOT Diameter 2.0 cm LV Mass (2D Cubed) 207.37 g 67.00-162.00 LV Mass Index (2D Cubed) 110 g/m2 43-95 Relative Wall Thickness (2D) 0.39 <=0.42 LV Fractional Shortening/Ejection Fraction 2D/MM LV Fractional Shortening (2D) 37 % 27-45 LV EF (2D Teichholz) 67 % LV Diastolic Volume (4C MOD) 114 ml LV EF (4C MOD) 60 % LV Diastolic Volume (2C MOD) 86 ml LV EF (2C MOD) 57 % LV Diastolic Volume (BP MOD) 102 ml 46-106 LV Diastolic Volume Index (BP MOD) 54 ml/m2 29-61 LV Systolic Volume (BP MOD) 40 ml 14-42 LV Systolic Volume Index (BP MOD) 21 ml/m2 8-24 LV EF (BP MOD) 60 % 54-74 LV Diastolic Length (4C) 9.0 cm LV Systolic Length (4C) 7.4 cm LV Stroke Volume (4C MOD) 69 ml Atria Name Value Normal LA Dimensions LA Volume (4C A-L) 31 ml LA Volume (BP A-L) 40 ml RA Dimensions RA Systolic Major [place]amuchy Length (4C) 5.4 cm 2.2-2.8 RA Area (4C) 17.5 cm2 <=18.0 Report Signatures
[2025-03-23] MEDS: IPRATROPIUM 0.5 MG/ALBUTEROL SULFATE 2.5 MG AMPUL.NEB 3 ML INHALATION ×4 (01:14→21:00)
[2025-03-23 06:34] LABS: INR 1.3; Prothrombin Time 16.7 Seconds (11.1-14.7)
[2025-03-23 06:47] LABS: Alanine Aminotransferase 24 U/L (6-35); Albumin Level 3.6 g/dL (3.5-5.1); Alkaline Phosphatase 79 U/L (38-126); Aspartate Amino Transferase 36 U/L (14-36); Bilirubin,Total 0.3 mg/dL (0.2-1.3); Total Protein 6.7 g/dL (6.3-8.2)
[2025-03-23] MEDS: BUDESONIDE RESPULE NEB 0.5 MG/2 ML AMP INHALATION ×2 (08:24→21:00)
[2025-03-23] MEDS: DOXYCYCLINE HYCLATE 100 MG TABLET PO ×2 (08:57→21:06)
[2025-03-23] MEDS: MELOXICAM 7.5 MG TABLET PO (08:57)
[2025-03-23] MEDS: PANTOPRAZOLE 40 MG TABLET PO (08:57)
[2025-03-23] MEDS: ACYCLOVIR 400 MG TABLET PO ×2 (08:57→16:32)
[2025-03-23] MEDS: APIXABAN 5 MG TABLET PO ×2 (08:57→21:06)
[2025-03-23] MEDS: ASPIRIN 81 MG ENTERIC TABLET PO (08:58)
[2025-03-23] MEDS: SERTRALINE HCL 50 MG TABLET 200 MG PO (08:58)
[2025-03-23] MEDS: DESVENLAFAXINE SUCCINATE 50 MG TAB.ER.24H PO (08:58)
[2025-03-23] MEDS: CALCIUM CARBONATE (OSCAL) 500 MG TABLET 1000 MG PO (08:58)
[2025-03-23] MEDS: guaiFENesin 12 HR 600 MG TABCR 1200 MG PO ×2 (08:58→21:07)
[2025-03-23] MEDS: UMECLIDINIUM/VILANTEROL 62.5-25 MCG ELLIPTA 1 PUFF INHALATION (09:12)
[2025-03-23 09:51] LABS: Hematocrit 32.3 % (37.0-47.0); Hemoglobin 9.5 g/dL (12.0-15.0); Immature Granulocyte Percent A 0.9 % (0-0.5); Lymphocytes Absolute Auto 1.41 K/mm3 (0.9-3.2); Mean Corpuscular HGB Conc 29.4 g/dl (32-36); Mean Corpuscular Hemoglobin 29.2 pg (26-34); Mean Corpuscular Volume 99.4 fl (80-100); Nucleated Red Blood Cells Absolute Auto 0.000 K/mm3 (0.0-0.012); Nucleated Red Blood Cells Perc 0.0 % (0.0-0.2); Platelet Count Result 354 k/mm3 (150-375); Red Blood Count 3.25 M/mm3 (4.2-5.4); White Blood Count 15.8 K/mm3 (4.5-10.0)
[2025-03-23 10:12] LABS: Anion Gap 5 mmol/L (4-12); Blood Urea Nitrogen 24 mg/dL (7-17); Calcium 9.8 mg/dL (8.4-10.2); Carbon Dioxide 31 mmol/L (22-30); Chloride 101 mmol/L (98-107); Estimated CRCL calculation 72 ml/min; Estimated Glomerular Filt Rate > 60; Glucose 106 mg/dL (65-110); Potassium 4.1 mmol/L (3.4-5.0); Sodium 137 mmol/L (137-145)
[2025-03-23 10:14] LABS: Schistocytes None Seen
[2025-03-23] MEDS: REMDESIVIR 100 MG/NS 250 ML 100 MG/250 ML BAG 250 MG IVPB (10:22)
[2025-03-23] MEDS: INSULIN ASPART (*BKC) 100 UNITS/ML SUB-Q ×3 (12:03→21:54)
[2025-03-23] MEDS: dexAMETHasone SOD PHOS INJ 10 MG/ML 1 ML VIAL 6 MG IV PUSH (12:03)
--- NOTE | 2025-03-23 14:49 | P.PNIM_ITS ---
Progress Note: A&P Assessment and Plan (1) Pneumonia: Code(s): J18.9 - Pneumonia, unspecified organism Status: Acute Assessment and Plan: * Patient presented with respiratory distress, likely related to pneumonia, chest x-ray showed new infiltrates as compared chest x-ray done on 03/08/2025 * 03/20: Started on ceftriaxone and doxycycline for community-acquired pneumonia, COVID pneumonia, likely COPD exacerbation * Continue guaifenesin * Continue bronchodilators * Supplemental oxygen to maintain O2 sats > 92% * BiPAP at night PRN * she might not be compliant with bipap treatment even if instituted at discahrge. (2) COVID-19: Code(s): U07.1 - COVID-19 Status: Acute Assessment and Plan: * Supportive care with oxygen, nebs * Isolation * Remdesivir per protocol * Dexamethasone IV Per protocol, defer to pulmonary team to Dc that as patient does not need O2 at rest * Pulm team onboard * Daily labs (3) Acute hypoxic respiratory failure: Code(s): J96.01 - Acute respiratory failure with hypoxia Status: Acute Assessment and Plan: * Likely related to pneumonia, COPD exacerbation, COVID pneumonia * BiPAP at night, currently on 2 L nasal cannula * Wean from BiPAP as tolerated. Presented with altered mental status with ABG initially 7.31/59/70/29 indicating hypercapnia. Placed on BiPAP with improvement. Currently off BiPAP recehck abg this am with some hypercarbia. pulmonary consultation. (4) Diabetes: Code(s): E11.9 - Type 2 diabetes mellitus without complications Status: Chronic Assessment and Plan: * Heart healthy Diet * SSI Low dose protocol * Hypoglycemic protocol * Hemoglobin A1C is 6.0 this admission * Glucose checks AC and HS. (5) Schizoaffective disorder: Code(s): F25.9 - Schizoaffective disorder, unspecified Status: Chronic Assessment and Plan: * Continue home meds of Clozapine, Pristiq, Stiles, Lamictal, Zoloft, Zyprexa * Stiles level - maintain a therapeutic level. * PRN Ativan ordered. Plan PT/OT has been ordered, Up in chair as tolerated with assistance Heart healthy diet DVT prophylaxis apixaban Code status full code Subjective Date/time seen: 03/23/25 14:49 Interval history: per hPI: This is a pleasantly confused 64 year old female pt w/PMH of Schizzoaffective disorder, Depression, DM, HTN, HLD, COPD, and PE on chronic anticoagulation and who is a samuel of the [facility] with state as guardian who was brought into the ER overnight after being found unresponsive at the [facility] where she resides. It is noted that pt is supposed to wear supplemental oxygen, was found without it and was found to be unresponsive with low oxygen saturations. After EMS arrival and application of NRB, her oxygen increased and she began responding. She was brought to the ER for further workup and evaluation. In the ER she was placed on BiPap, and labs and workup were significant for findings of +COVID, CXR showing patchy interstitial thickness in the bilateral upper lobes possibly representing an atypical PNA, WBCs were 22.3, H&H of 10.8/37.3, Mag of 3.0, and ABG results showing pH of 7.328, PCO2 of 56.6, PO2 of 117.4 and HCO3 of 29.0. She was placed on BiPap w/settings of 16/5, RR 12, and 70% FiO2 and placed in IMU stepdown for further eval and treatment of COVID w/COVID PNA, and Acute Hypoxic Respiratory Failure. 03/23/25 patient was seen and examined at bedside. she is feeling better. her breathing is better. getting Remdesivir ad Decadron. continue IV BAx. Pulmonary team on board WBC 15.8 Review of Systems Review of Systems: All systems reviewed & are unremarkable except as noted in HPI and below ROS unobtainable: Yes unobtainable due to mental status (Pt confused) Exam Narrative: General: Pleasant female, in no acute distress HEENT:? Pupils equal and reactive, sclera is clear, moist oral mucosa Neck:? Supple Respiratory:? Coarse breath sounds at bases bilaterally, adequate air entry, no wheeze Cardiac:? S1-S2 normal, regular rate and rhythm Abdomen:? Soft, nontender, nondistended, normoactive bowel sounds Extremities:? No edema, palpable pedal pulses Neuro:? Patient is awake, alert, answers to questions appropriately and follows simple commands Skin:? Warm and dry, no skin lesions not Psych: Normal mentation and affect Const: General: comfortable and no acute distress Other: Elderly female pt sitting up in the bed at this time in no acute distress. She is pleasantly confused. HENMT: Face/Nose/Sinus: Normal nares present Mouth: Yes moist mucous membranes Eyes: General: appearance normal, both eyes and all related structures Neck: Neck: supple and No no JVD Lymphatic: lymphadenopathy not noted Resp: Effort & Inspection: normal respiratory effort Auscultation: d iminished lung sounds bilateral (bases) Cardio: Rate: regular rate Rhythm: regular rhythm Heart sounds: no gallops, no murmurs and no rubs GI: Auscultation: normal bowel sounds Skin: General skin exam: normal color, no rashes or lesions noted, no erythema, No lesion and No rashes Lesions: no lesions noted Rashes: no rashes noted Wounds: no wounds Neuro: Speech: normal speech Motor exam (neuro): Abnormal motor strength present (Generalized, non-focal weakness.) Sensory Exam: normal sensation Extrem: General: normal to inspection, no edema and no pedal edema Other: Freely and equally MAEW. Psych: Mental Status: mental status grossly normal Other: Alert and oriented to self only. Objective Data Vital Signs Vital Signs: Vital Signs - 24 hr 03/22/25 20:00 03/22/25 20:23 03/22/25 20:26 Temperature Pulse Rate 84 Respiratory Rate 20 Blood Pressure Pulse Oximetry 96 98 Oxygen Delivery Nasal Cannula Nasal Cannula Oxygen Flow Rate 2 2 03/22/25 21:51 03/22/25 23:14 03/23/25 01:14 Temperature 98.4 F Pulse Rate 80 73 87 Respiratory Rate 18 25 H 19 Blood Pressure 122/71 Pulse Oximetry 96 94 Oxygen Delivery BiPAP Oxygen Flow Rate 03/23/25 01:17 03/23/25 04:08 03/23/25 06:00 Temperature 98.3 F Pulse Rate 72 70 74 Respiratory Rate 19 19 18 Blood Pressure 138/93 H Pulse Oximetry 96 95 98 Oxygen Delivery BiPAP BiPAP Oxygen Flow Rate 03/23/25 08:00 03/23/25 08:24 03/23/25 08:24 Temperature Pulse Rate 72 Respiratory Rate 16 Blood Pressure Pulse Oximetry 98 99 Oxygen Delivery Nasal Cannula Nasal Cannula Oxygen Flow Rate 2 2 03/23/25 09:13 03/23/25 09:15 Temperature Pulse Rate 75 Respiratory Rate 16 Blood Pressure Pulse Oximetry 98 Oxygen Delivery Room Air Oxygen Flow Rate Intake/Output Intake/Output: Intake & Output 03/20/25 03/21/25 03/22/25 03/23/25 23:59 23:59 23:59 23:59 Intake Total 2640 1312 1690 700 Output Total 2350 100 300 Balance 290 1312 1590 400 Meds/Results Medications: Active Medications Generic Name Dose Route Start Last Admin Trade Name Freq PRN Reason Stop Dose Admin Acetaminophen 325 mg 03/19/25 12:08 Acetaminophen 325 Mg Tablet PO Q6H PRN MILD PAIN 1-3 Acyclovir 400 mg 03/19/25 17:00 03/23/25 08:57 Acyclovir 400 Mg Tablet PO 400 mg BID AIRAM Administration Albuterol 2.5 mg 03/19/25 12:09 Albuterol Sulfate Neb 2.5 Mg/3 Ml Inh INHALATION Q4HRT PRN Shortness Of Breath Albuterol/Ipratropium 3 ml 03/19/25 14:00 03/23/25 08:24 Ipratropium 0.5 Mg/Albuterol Sulfate 2.5 Mg Ampul.Neb 3 Ml INHALATION 3 ml Q6HRT AIRAM Administration Alendronate Sodium 70 mg 03/24/25 09:00 Alendronate Sodium 70 Mg Tablet PO WEEKLY AIRAM Amoxicillin/Clavulanate Potassium 1 tablet 03/23/25 09:00 03/23/25 08:57 Amoxicillin/Clavulanate K 875-125 Mg Tab PO 03/25/25 21:01 1 tablet Q12HR AIRAM Administration Apixaban 5 mg 03/19/25 21:00 03/23/25 08:57 Apixaban 5 Mg Tablet PO 5 mg Q12HR AIRAM Administration Aspirin 81 mg 03/20/25 09:00 03/23/25 08:58 Aspirin 81 Mg Enteric Tablet PO 81 mg DAILY AIRAM Administration Atorvastatin Calcium 10 mg 03/19/25 21:00 03/22/25 21:10 Atorvastatin 10 Mg Tablet PO 10 mg HS AIRAM Administration Bismuth Subsalicylate 262 mg 03/19/25 12:32 Bismuth Subsalicylate 262 Mg Chewable Tablet PO Q4H PRN diarrhea Budesonide 0.5 mg 03/20/25 20:00 03/23/25 08:24 Budesonide Respule Neb 0.5 Mg/2 Ml Amp INHALATION 0.5 mg Q12HRT AIRAM Administration Calcium Carbonate 1,000 mg 03/20/25 09:00 03/23/25 08:58 Calcium Carbonate (Oscal) 500 Mg Tablet PO 1,000 mg DAILY AIRAM Administration Clozapine 100 mg 03/21/25 09:00 03/23/25 08:58 Clozapine 100 Mg Tablet PO 100 mg QAM AIRAM Administration Clozapine 500 mg 03/21/25 21:00 03/22/25 21:11 Clozapine 100 Mg Tablet BY MOUTH 500 mg HS AIRAM Administration Desvenlafaxine Succinate 50 mg 03/20/25 09:00 03/23/25 08:58 Desvenlafaxine Succinate 50 Mg Tab.Er.24h PO 50 mg QAM AIRAM Administration Dexamethasone Sodium Phosphate 6 mg 03/19/25 13:00 03/23/25 12:03 Dexamethasone Sod Phos Inj 10 Mg/Ml 1 Ml Vial IV PUSH 03/28/25 13:01 6 mg Q24H AIRAM Administration Dextrose 12.5 gm 03/19/25 12:09 Dextrose 50% 25 Gm/50 Ml Syringe IV PUSH PRN PRN Hypoglycemia Protocol Doxycycline Hyclate 100 mg 03/20/25 21:00 03/23/25 08:57 Doxycycline Hyclate 100 Mg Tablet PO 03/26/25 21:01 100 mg Q12HR AIRAM Administration Glucagon 1 mg 03/19/25 12:09 Glucagon For Inj 1 Mg Vial IM PRN PRN Hypoglycemia Protocol Glucose 15 gm 03/19/25 12:09 Glucose Oral Gel 15 Gm Of Glucse In 37.5 Gm Tube PO PRN PRN Hypoglycemia Protocol Guaifenesin 1,200 mg 03/19/25 12:30 03/23/25 08:58 Guaifenesin 12 Hr 600 Mg Tabcr PO 1,200 mg Q12HR AIRAM Administration Dextrose 1,000 mls @ 100 mls/hr 03/19/25 12:09 Dextrose 5% 1,000 Ml IVPB PRN PRN Hypoglycemia Protocol Insulin Aspart 2 - 5 units 03/19/25 17:00 03/23/25 12:03 Insulin Aspart (*Bkc) 100 Units/Ml SUB-Q 2 units TIDWM AIRAM Administration Protocol Insulin Aspart 1 - 2 units 03/19/25 21:00 03/22/25 22:17 Insulin Aspart (*Bkc) 100 Units/Ml SUB-Q 1 units HS AIRAM Administration Protocol Lamotrigine 200 mg 03/19/25 17:00 03/23/25 08:58 Lamotrigine 100 Mg Tablet PO 200 mg BID AIRAM Administration Latanoprost 1 drop 03/19/25 21:00 03/22/25 21:11 Latanoprost 0.005% Op Soln 2.5 Ml Btl EACH EYE 1 drop HS AIRAM Administration Stiles Carbonate 150 mg 03/19/25 18:00 03/22/25 18:06 Stiles Carbonate 150 Mg Capsule PO 150 mg QPM AIRAM Administration Lorazepam 1 mg 03/19/25 12:27 03/20/25 11:24 Lorazepam Inj (*Crx) 2 Mg/Ml Vial IV PUSH 1 mg Q4HR PRN Administration Anxiety Meloxicam 7.5 mg 03/20/25 09:00 03/23/25 08:57 Meloxicam 7.5 Mg Tablet PO 7.5 mg DAILY AIRAM Administration Miscellaneous Information 1 each 03/19/25 00:01 03/23/25 07:28 Clozaril Is Nonformulary. Have Patient Use Home Supply XX 04/18/25 00:00 Not Given CLARIFY AIRAM Olanzapine 15 mg 03/19/25 21:00 03/22/25 21:10 Olanzapine 5 Mg Tablet PO 15 mg HS AIRAM Administration Pantoprazole Sodium 40 mg 03/20/25 09:00 03/23/25 08:57 Pantoprazole 40 Mg Tablet PO 40 mg DAILY AIRAM Administration Perflutren Lipid Microsphere 0 ml 03/22/25 18:43 Perflutren Lipid Microspheres 1.5 Ml Vial Diluted To 10 Ml Total Volume IV PUSH 03/25/25 18:43 ONCE PRN adequate visualization Protocol Polyethylene Glycol 17 gm 03/19/25 12:08 Polyethylene Glycol 3350 17 Gm Powd.Pack PO DAILY PRN constipation Sertraline HCl 200 mg 03/20/25 09:00 03/23/25 08:58 Sertraline Hcl 50 Mg Tablet PO 200 mg DAILY AIRAM Administration Sodium Chloride 1 spray 03/20/25 10:08 Saline 0.65% Amilcar Soln 44 Ml Btl NASAL Q6HR PRN Congestion Umeclidinium/Vilanterol 1 puff 03/20/25 09:00 03/23/25 09:12 Umeclidinium/Vilanterol 62.5-25 Mcg Ellipta INHALATION 1 puff DAILY AIRAM Administration Radiology Results: ITS Impressions Chest X-Ray 03/21/25 06:43 Impression: 1: Improving bilateral airspace disease which may reflect resolving edema or pneumonia. Labs Labs: Laboratory Results - last 24 hr 03/22/25 03/22/25 03/23/25 16:42 21:48 05:08 WBC 15.8 H RBC 3.25 L Hgb 9.5 L Hct 32.3 L MCV 99.4 MCH 29.2 MCHC 29.4 L RDW 15.7 H Plt Count 354 MPV 10.0 Immature Gran % (Auto) 0.9 H Neut % (Auto) 84.5 H Lymph % (Auto) 8.9 L [place] % (Auto) 5.2 Eos % (Auto) 0.3 Baso % (Auto) 0.2 Lymph # (Auto) 1.41 [place] # (Auto) 0.8 H Eos # (Auto) 0.0 Baso # (Auto) 0.0 Abs Immat Gran (auto) 0.15 H Absolute Neuts (auto) 13.4 H Absolute Nucleated RBC 0.000 Band Neutrophils % Not Reportable Nucleated RBC % 0.0 Platelet Estimate Adequate Schistocytes None seen PT 16.7 H INR 1.3 Sodium 137 Potassium 4.1 Chloride 101 Carbon Dioxide 31 H Anion Gap 5 BUN 24 H Creatinine 0.67 L Estim Creat Clear Calc 72 Estimated GFR > 60 Glucose 106 POC Capillary Glucose 209 H 267 H Calcium 9.8 Total Bilirubin 0.3 Direct Bilirubin 0.0 AST 36 ALT 24 Alkaline Phosphatase 79 Total Protein 6.7 Albumin 3.6 03/23/25 03/23/25 08:02 11:35 WBC RBC Hgb Hct MCV MCH MCHC RDW Plt Count MPV Immature Gran % (Auto) Neut % (Auto) Lymph % (Auto) [place] % (Auto) Eos % (Auto) Baso % (Auto) Lymph # (Auto) [place] # (Auto) Eos # (Auto) Baso # (Auto) Abs Immat Gran (auto) Absolute Neuts (auto) Absolute Nucleated RBC Band Neutrophils % Nucleated RBC % Platelet Estimate Schistocytes PT INR Sodium Potassium Chloride Carbon Dioxide Anion Gap BUN Creatinine Estim Creat Clear Calc Estimated GFR Glucose POC Capillary Glucose 100 218 H Calcium Total Bilirubin Direct Bilirubin AST ALT Alkaline Phosphatase Total Protein Albumin Quality VTE Prophylaxis VTE prophylaxis: pharmacologic ordered
[2025-03-23] MEDS: LITHIUM CARBONATE 150 MG CAPSULE PO (16:32)
[2025-03-23] MEDS: ATORVASTATIN 10 MG TABLET PO (21:06)
[2025-03-23] MEDS: LATANOPROST 0.005% OP SOLN 2.5 ML BTL 1 DROP EACH EYE (21:23)
[2025-03-24] VITALS (11 sets, daily range): BP systolic 100–138; BP diastolic 62–84; PULSE 72–95; RESP 16–22; TEMP 36.5; O2SAT 91–98
[2025-03-24] MEDS: IPRATROPIUM 0.5 MG/ALBUTEROL SULFATE 2.5 MG AMPUL.NEB 3 ML INHALATION ×3 (02:04→13:21)
[2025-03-24 06:34] LABS: Hematocrit 31.1 % (37.0-47.0); Hemoglobin 9.1 g/dL (12.0-15.0); Mean Corpuscular HGB Conc 29.3 g/dl (32-36); Mean Corpuscular Hemoglobin 28.7 pg (26-34); Mean Corpuscular Volume 98.1 fl (80-100); Platelet Count Result 344 k/mm3 (150-375); Red Blood Count 3.17 M/mm3 (4.2-5.4); White Blood Count 16.7 K/mm3 (4.5-10.0)
[2025-03-24 07:03] LABS: Anion Gap 5 mmol/L (4-12); Blood Urea Nitrogen 29 mg/dL (7-17); Calcium 9.7 mg/dL (8.4-10.2); Carbon Dioxide 32 mmol/L (22-30); Chloride 104 mmol/L (98-107); Estimated CRCL calculation 64 ml/min; Estimated Glomerular Filt Rate > 60; Glucose 110 mg/dL (65-110); Potassium 4.2 mmol/L (3.4-5.0); Sodium 141 mmol/L (137-145)
[2025-03-24] MEDS: PANTOPRAZOLE 40 MG TABLET PO (08:53)
[2025-03-24] MEDS: SERTRALINE HCL 50 MG TABLET 200 MG PO (08:53)
[2025-03-24] MEDS: DOXYCYCLINE HYCLATE 100 MG TABLET PO (08:53)
[2025-03-24] MEDS: ACYCLOVIR 400 MG TABLET PO ×2 (08:54→17:37)
[2025-03-24] MEDS: APIXABAN 5 MG TABLET PO (08:54)
[2025-03-24] MEDS: guaiFENesin 12 HR 600 MG TABCR 1200 MG PO (08:54)
[2025-03-24] MEDS: CALCIUM CARBONATE (OSCAL) 500 MG TABLET 1000 MG PO (08:54)
[2025-03-24] MEDS: ALENDRONATE SODIUM 70 MG TABLET PO (08:54)
[2025-03-24] MEDS: ASPIRIN 81 MG ENTERIC TABLET PO (08:54)
[2025-03-24] MEDS: MELOXICAM 7.5 MG TABLET PO (08:54)
[2025-03-24] MEDS: DESVENLAFAXINE SUCCINATE 50 MG TAB.ER.24H PO (08:54)
[2025-03-24] MEDS: BUDESONIDE RESPULE NEB 0.5 MG/2 ML AMP INHALATION (09:24)
--- NOTE | 2025-03-24 12:30 | P.PNIM_ITS ---
Progress Note: A&P Assessment and Plan (1) Pneumonia: Code(s): J18.9 - Pneumonia, unspecified organism Status: Acute Assessment and Plan: * Patient presented with respiratory distress, likely related to pneumonia, chest x-ray showed new infiltrates as compared chest x-ray done on 03/08/2025 * 03/20: Started on ceftriaxone and doxycycline for community-acquired pneumonia, COVID pneumonia, likely COPD exacerbation * Continue guaifenesin * Continue bronchodilators * Supplemental oxygen to maintain O2 sats > 92% * BiPAP at night PRN * she might not be compliant with bipap treatment even if instituted at discahrge. (2) COVID-19: Code(s): U07.1 - COVID-19 Status: Acute Assessment and Plan: * Supportive care with oxygen, nebs * Isolation * Remdesivir per protocol * Dexamethasone IV , will Dc as patient does not need O2 at rest * Pulm team onboard * Daily labs (3) Acute hypoxic respiratory failure: Code(s): J96.01 - Acute respiratory failure with hypoxia Status: Acute Assessment and Plan: * Likely related to pneumonia, COPD exacerbation, COVID pneumonia * BiPAP at night, currently on 2 L nasal cannula * Wean from BiPAP as tolerated. Presented with altered mental status with ABG initially 7.31/59/70/29 indicating hypercapnia. Placed on BiPAP with improvement. Currently off BiPAP Pulmonary team on board (4) Diabetes: Code(s): E11.9 - Type 2 diabetes mellitus without complications Status: Chronic Assessment and Plan: * Heart healthy Diet * SSI Low dose protocol * Hypoglycemic protocol * Hemoglobin A1C is 6.0 this admission * Glucose checks AC and HS. (5) Schizoaffective disorder: Code(s): F25.9 - Schizoaffective disorder, unspecified Status: Chronic Assessment and Plan: * Continue home meds of Clozapine, Pristiq, [place], Lamictal, Zoloft, Zyprexa * [place] level - maintain a therapeutic level. * PRN Ativan ordered. (6) Altered mental status: Code(s): R41.82 - Altered mental status, unspecified Status: Acute (7) Obesity: Code(s): E66.9 - Obesity, unspecified Status: Acute Assessment and Plan: Lifestyle modification Plan PT/OT has been ordered, Up in chair as tolerated with assistance Heart healthy diet DVT prophylaxis apixaban Code status full code Subjective Date/time seen: 03/24/25 12:30 Interval history: per hPI: This is a pleasantly confused 64 year old female pt w/PMH of Schizzoaffective disorder, Depression, DM, HTN, HLD, COPD, and PE on chronic anticoagulation and who is a samuel of the [facility] with state as guardian who was brought into the ER overnight after being found unresponsive at the long term where she resides. It is noted that pt is supposed to wear supplemental oxygen, was found without it and was found to be unresponsive with low oxygen saturations. After EMS arrival and application of NRB, her oxygen increased and she began responding. She was brought to the ER for further workup and evaluation. In the ER she was placed on BiPap, and labs and workup were significant for findings of +COVID, CXR showing patchy interstitial thickness in the bilateral upper lobes possibly representing an atypical PNA, WBCs were 22.3, H&H of 10.8/37.3, Mag of 3.0, and ABG results showing pH of 7.328, PCO2 of 56.6, PO2 of 117.4 and HCO3 of 29.0. She was placed on BiPap w/settings of 16/5, RR 12, and 70% FiO2 and placed in IMU stepdown for further eval and treatment of COVID w/COVID PNA, and Acute Hypoxic Respiratory Failure. 03/23/25 patient was seen and examined at bedside. she is feeling better. her breathing is better. getting Remdesivir ad Decadron. continue IV BAx. Pulmonary team on board WBC 15.8 03/24/25 Patient was seen and examined at bedside. She is feeling fine. Denies any chest pain, shortness off breath, abdominal pain, nausea vomiting. Does not need oxygen. Continue with BiPAP at night. Reviewed echo showed grade 1 diastolic dysfunction. Patient will complete remdesivir today. Will DC Decadron as patient does not need oxygen. Pending insurance auth. Review of Systems Review of Systems: All systems reviewed & are unremarkable except as noted in HPI and below ROS unobtainable: Yes unobtainable due to mental status (Pt c onfused) Exam Narrative: General: Pleasant female, in no acute distress HEENT:? Pupils equal and reactive, sclera is clear, moist oral mucosa Neck:? Supple Respiratory:? Coarse breath sounds at bases bilaterally, adequate air entry, no wheeze Cardiac:? S1-S2 normal, regular rate and rhythm Abdomen:? Soft, nontender, nondistended, normoactive bowel sounds Extremities:? No edema, palpable pedal pulses Neuro:? Patient is awake, alert, answers to questions appropriately and follows simple commands Skin:? Warm and dry, no skin lesions not Psych: Normal mentation and affect Const: General: comfortable and no acute distress Other: Elderly female pt sitting up in the bed at this time in no acute distress. She is pleasantly confused. HENMT: Face/Nose/Sinus: Normal nares present Mouth: Yes moist mucous membranes Eyes: General: appearance normal, both eyes and all related structures Neck: Neck: supple and No no JVD Lymphatic: lymphadenopathy not noted Resp: Effort & Inspection: normal respiratory effort Auscultation: diminished lung sounds bilateral (bases) Cardio: Rate: regular rate Rhythm: regular rhythm Heart sounds: no gallops, no murmurs and no rubs GI: Auscultation: normal bowel sounds Skin: General skin exam: normal color, no rashes or lesions noted, no erythema , No lesion and No rashes Lesions: no lesions noted Rashes: no rashes noted Wounds: no wounds Neuro: Speech: normal speech Motor exam (neuro): Abnormal motor strength present (Generalized, non-focal weakness.) Sensory Exam: normal sensation Extrem: General: normal to inspection, no edema and no pedal edema Other: Freely and equally MAEW. Psych: Mental Status: mental status grossly normal Other: Alert and oriented to self only. Objective Data Vital Signs Vital Signs: Vital Signs - 24 hr 03/23/25 14:00 03/23/25 14:13 03/23/25 14:20 Temperature 98.4 F Pulse Rate 81 80 82 Respiratory Rate 18 16 16 Blood Pressure 118/70 Pulse Oximetry 91 Oxygen Delivery 03/23/25 20:00 03/23/25 21:04 03/23/25 21:05 Temperature Pulse Rate 82 82 Respiratory Rate 29 H 29 H Blood Pressure Pulse Oximetry 95 Oxygen Delivery BiPAP BiPAP 03/23/25 22:00 03/23/25 23:41 03/24/25 02:04 Temperature 99.1 F Pulse Rate 86 78 80 Respiratory Rate 14 28 H 17 Blood Pressure 124/73 Pulse Oximetry 95 95 Oxygen Delivery BiPAP 03/24/25 02:06 03/24/25 04:34 03/24/25 06:00 Temperature 97.7 F Pulse Rate 80 75 72 Respiratory Rate 17 22 H 20 Blood Pressure 138/84 Pulse Oximetry 95 95 98 Oxygen Delivery BiPAP BiPAP 03/24/25 08:55 03/24/25 09:27 03/24/25 09:28 Temperature Pulse Rate 85 Respiratory Rate 16 Blood Pressure Pulse Oximetry 91 Oxygen Delivery Room Air Room Air 03/24/25 09:32 03/24/25 09:35 Temperature Pulse Rate 78 Respiratory Rate 16 Blood Pressure Pulse Oximetry 94 Oxygen Delivery Room Air Intake/Output Intake/Output: Intake & Output 03/21/25 03/22/25 03/23/25 03/24/25 23:59 23:59 23:59 23:59 Intake Total 1312 1690 1766 490 Output Total 100 300 Balance 1312 1590 1466 490 Meds/Results Medications: Active Medications Generic Name Dose Route Start Last Admin Trade Name Freq PRN Reason Stop Dose Admin Acetaminophen 325 mg 03/19/25 12:08 Acetaminophen 325 Mg Tablet PO Q6H PRN MILD PAIN 1-3 Acyclovir 400 mg 03/19/25 17:00 03/24/25 08:54 Acyclovir 400 Mg Tablet PO 400 mg BID AIRAM Administration Albuterol 2.5 mg 03/19/25 12:09 Albuterol Sulfate Neb 2.5 Mg/3 Ml Inh INHALATION Q4HRT PRN Shortness Of Breath Albuterol/Ipratropium 3 ml 03/19/25 14:00 03/24/25 09:23 Ipratropium 0.5 Mg/Albuterol Sulfate 2.5 Mg Ampul.Neb 3 Ml INHALATION 3 ml Q6HRT AIRAM Administration Alendronate Sodium 70 mg 03/24/25 09:00 03/24/25 08:54 Alendronate Sodium 70 Mg Tablet PO 70 mg WEEKLY AIRAM Administration Amoxicillin/Clavulanate Potassium 1 tablet 03/23/25 09:00 03/24/25 08:53 Amoxicillin/Clavulanate K 875-125 Mg Tab PO 03/25/25 21:01 1 tablet Q12HR AIRAM Administration Apixaban 5 mg 03/19/25 21:00 03/24/25 08:54 Apixaban 5 Mg Tablet PO 5 mg Q12HR AIRAM Administration Aspirin 81 mg 03/20/25 09:00 03/24/25 08:54 Aspirin 81 Mg Enteric Tablet PO 81 mg DAILY AIRAM Administration Atorvastatin Calcium 10 mg 03/19/25 21:00 03/23/25 21:06 Atorvastatin 10 Mg Tablet PO 10 mg HS AIRAM Administration Bismuth Subsalicylate 262 mg 03/19/25 12:32 Bismuth Subsalicylate 262 Mg Chewable Tablet PO Q4H PRN diarrhea Budesonide 0.5 mg 03/20/25 20:00 03/24/25 09:24 Budesonide Respule Neb 0.5 Mg/2 Ml Amp INHALATION 0.5 mg Q12HRT AIARM Administration Calcium Carbonate 1,000 mg 03/20/25 09:00 03/24/25 08:54 Calcium Carbonate (Oscal) 500 Mg Tablet PO 1,000 mg DAILY AIRAM Administration Clozapine 100 mg 03/21/25 09:00 03/24/25 08:54 Clozapine 100 Mg Tablet PO 100 mg QAM AIRAM Administration Clozapine 500 mg 03/21/25 21:00 03/23/25 21:07 Clozapine 100 Mg Tablet BY MOUTH 500 mg HS AIRAM Administration Desvenlafaxine Succinate 50 mg 03/20/25 09:00 03/24/25 08:54 Desvenlafaxine Succinate 50 Mg Tab.Er.24h PO 50 mg QAM AIRAM Administration Dextrose 12.5 gm 03/19/25 12:09 Dextrose 50% 25 Gm/50 Ml Syringe IV PUSH PRN PRN Hypoglycemia Protocol Doxycycline Hyclate 100 mg 03/20/25 21:00 03/24/25 08:53 Doxycycline Hyclate 100 Mg Tablet PO 03/26/25 21:01 100 mg Q12HR AIRAM Administration Glucagon 1 mg 03/19/25 12:09 Glucagon For Inj 1 Mg Vial IM PRN PRN Hypoglycemia Protocol Glucose 15 gm 03/19/25 12:09 Glucose Oral Gel 15 Gm Of Glucse In 37.5 Gm Tube PO PRN PRN Hypoglycemia Protocol Guaifenesin 1,200 mg 03/19/25 12:30 03/24/25 08:54 Guaifenesin 12 Hr 600 Mg Tabcr PO 1,200 mg Q12HR AIRAM Administration Dextrose 1,000 mls @ 100 mls/hr 03/19/25 12:09 Dextrose 5% 1,000 Ml IVPB PRN PRN Hypoglycemia Protocol Insulin Aspart 2 - 5 units 03/19/25 17:00 03/24/25 11:59 Insulin Aspart (*Bkc) 100 Units/Ml SUB-Q Not Given TIDWM AIRAM Protocol Insulin Aspart 1 - 2 units 03/19/25 21:00 03/23/25 21:54 Insulin Aspart (*Bkc) 100 Units/Ml SUB-Q 1 units HS AIRAM Administration Protocol Lamotrigine 200 mg 03/19/25 17:00 03/24/25 08:53 Lamotrigine 100 Mg Tablet PO 200 mg BID AIRAM Administration Latanoprost 1 drop 03/19/25 21:00 03/23/25 21:23 Latanoprost 0.005% Op Soln 2.5 Ml Btl EACH EYE 1 drop HS AIRAM Administration Pulcifer Carbonate 150 mg 03/19/25 18:00 03/23/25 16:32 Pulcifer Carbonate 150 Mg Capsule PO 150 mg QPM AIRAM Administration Lorazepam 1 mg 03/19/25 12:27 03/20/25 11:24 Lorazepam Inj (*Crx) 2 Mg/Ml Vial IV PUSH 1 mg Q4HR PRN Administration Anxiety Meloxicam 7.5 mg 03/20/25 09:00 03/24/25 08:54 Meloxicam 7.5 Mg Tablet PO 7.5 mg DAILY AIRAM Administration Miscellaneous Information 1 each 03/19/25 00:01 03/23/25 07:28 Clozaril Is Nonformulary. Have Patient Use Home Supply XX 04/18/25 00:00 Not Given CLARIFY AIRAM Olanzapine 15 mg 03/19/25 21:00 03/23/25 21:06 Olanzapine 5 Mg Tablet PO 15 mg HS AIRAM Administration Pantoprazole Sodium 40 mg 03/20/25 09:00 03/24/25 08:53 Pantoprazole 40 Mg Tablet PO 40 mg DAILY AIRAM Administration Perflutren Lipid Microsphere 0 ml 03/22/25 18:43 Perflutren Lipid Microspheres 1.5 Ml Vial Diluted To 10 Ml Total Volume IV PUSH 03/25/25 18:43 ONCE PRN adequate visualization Protocol Polyethylene Glycol 17 gm 03/19/25 12:08 Polyethylene Glycol 3350 17 Gm Powd.Pack PO DAILY PRN constipation Sertraline HCl 200 mg 03/20/25 09:00 03/24/25 08:53 Sertraline Hcl 50 Mg Tablet PO 200 mg DAILY AIRAM Administration Sodium Chloride 1 spray 03/20/25 10:08 Saline 0.65% Amilcar Soln 44 Ml Btl NASAL Q6HR PRN Congestion Umeclidinium/Vilanterol 1 puff 03/20/25 09:00 03/24/25 09:33 Umeclidinium/Vilanterol 62.5-25 Mcg Ellipta INHALATION Not Given DAILY [facility] Radiology Results: ITS Impressions Chest X-Ray 03/21/25 06:43 Impression: 1: Improving bilateral airspace disease which may reflect resolving edema or pneumonia. Labs Labs: Laboratory Results - last 24 hr 03/23/25 03/23/25 03/24/25 16:29 21:50 05:39 WBC 16.7 H RBC 3.17 L Hgb 9.1 L Hct 31.1 L MCV 98.1 MCH 28.7 MCHC 29.3 L RDW 15.4 H Plt Count 344 MPV 9.9 Sodium 141 Potassium 4.2 Chloride 104 Carbon Dioxide 32 H Anion Gap 5 BUN 29 H Creatinine 0.77 Estim Creat Clear Calc 64 Estimated GFR > 60 Glucose 110 POC Capillary Glucose 274 H 255 H Calcium 9.7 03/24/25 03/24/25 07:54 11:48 WBC RBC Hgb Hct MCV MCH MCHC RDW Plt Count MPV Sodium Potassium Chloride Carbon Dioxide Anion Gap BUN Creatinine Estim Creat Clear Calc Estimated GFR Glucose POC Capillary Glucose 112 H 173 H Calcium Quality VTE Prophylaxis VTE prophylaxis: pharmacologic ordered
--- NOTE | 2025-03-24 14:29 | P.DS_ITS ---
DS: Admitting Diagnosis Discharge Date 03/24/25 Admitting Diagnosis Covid/pneumonia DS: Discharge Diagnosis Discharge Diagnosis (1) Pneumonia: Code(s): J18.9 - Pneumonia, unspecified organism Status: Acute Assessment and Plan: * Patient presented with respiratory distress, likely related to pneumonia, chest x-ray showed new infiltrates as compared chest x-ray done on 03/08/2025 * 03/20: Started on ceftriaxone and doxycycline for community-acquired pneumonia, COVID pneumonia, likely COPD exacerbation. switched to augmentin * Continue guaifenesin * Continue bronchodilators * Supplemental oxygen to maintain O2 sats > 92% * BiPAP at night PRN * she might not be compliant with bipap treatment even if instituted at discharge. (2) COVID-19: Code(s): U07.1 - COVID-19 Status: Acute Assessment and Plan: * Supportive care with oxygen, nebs * Isolation * completed Remdesivir per protocol * Dexamethasone IV , will Dc as patient does not need O2 at rest * Pulm team onboard * Daily labs (3) Acute hypoxic respiratory failure: Code(s): J96.01 - Acute respiratory failure with hypoxia Status: Acute Assessment and Plan: * Likely related to pneumonia, COPD exacerbation, COVID pneumonia * BiPAP at night, currently on RA Presented with altered mental status with ABG initially 7.31/59/70/29 indicating hypercapnia. Placed on BiPAP with improvement. Currently off BiPAP Pulmonary team on board (4) Diabetes: Code(s): E11.9 - Type 2 diabetes mellitus without complications Status: Chronic Assessment and Plan: * Heart healthy Diet * SSI Low dose protocol * Hypoglycemic protocol * Hemoglobin A1C is 6.0 this admission * Glucose checks AC and HS. (5) Schizoaffective disorder: Code(s): F25.9 - Schizoaffective disorder, unspecified Status: Chronic Assessment and Plan: * Continue home meds of Clozapine, Pristiq, [place], Lamictal, Zoloft, Zyprexa * [place] level - maintain a therapeutic level. * PRN Ativan ordered. (6) Altered mental status: Code(s): R41.82 - Altered mental status, unspecified Status: Acute (7) Obesity: Code(s): E66.9 - Obesity, unspecified Status: Acute Assessment and Plan: Lifestyle modification Plan PT/OT has been ordered, Up in chair as tolerated with assistance Heart healthy diet DVT prophylaxis apixaban Code status full code DS: Summary Hospital Course Hospital Course: per hPI: This is a pleasantly confused 64 year old female pt w/PMH of Schizzoaffective disorder, Depression, DM, HTN, HLD, COPD, and PE on chronic anticoagulation and who is a samuel of the [facility] with state as guardian who was brought into the ER overnight after being found unresponsive at the [facility] where she resides. It is noted that pt is supposed to wear supplemental oxygen, was found without it and was found to be unresponsive with low oxygen saturations. After EMS arrival and application of NRB, her oxygen increased and she began responding. She was brought to the ER for further workup and evaluation. In the ER she was placed on BiPap, and labs and workup were significant for findings of +COVID, CXR showing patchy interstitial thickness in the bilateral upper lobes possibly representing an atypical PNA, WBCs were 22.3, H&H of 10.8/37.3, Mag of 3.0, and ABG results showing pH of 7.328, PCO2 of 56.6, PO2 of 117.4 and HCO3 of 29.0. She was placed on BiPap w/settings of 16/5, RR 12, and 70% FiO2 and placed in IMU stepdown for further eval and treatment of COVID w/COVID PNA, and Acute Hypoxic Respiratory Failure. 03/23/25 her breathing is better. getting Remdesivir ad Decadron. continue IV BAx. 03/24/25 Patient was seen and examined at bedside. She is feeling fine. Denies any chest pain, shortness off breath, abdominal pain, nausea vomiting. Does not need oxygen. Continue with BiPAP at night. Reviewed echo showed grade 1 diastolic dysfunction. Patient will complete remdesivir today. Will DC Decadron as patient does not need oxygen. Status at Discharge Overall status at discharge: patient is progressing back to baseline Time Spent with Patient Time attestation: Total time spent providing and/or coordinating discharge services: Time spent: Greater than 30 minutes Exam Narrative: General: Pleasant female, in no acute distress HEENT:? Pupils equal and reactive, sclera is clear, moist oral mucosa Neck:? Supple Respiratory:? Coarse breath sounds at bases bilaterally, adequate air entry, no wheeze Cardiac:? S1-S2 normal, regular rate and rhythm Abdomen:? Soft, nontender, nondistended, normoactive bowel sounds Extremities:? No edema, palpable pedal pulses Neuro:? Patient is awake, alert, answers to questions appropriately and follows simple commands Skin:? Warm and dry, no skin lesions not Psych: Normal mentation and affect Const: General: comfortable and no acute distress Other: Elderly female pt sitting up in the bed at this time in no acute distress. She is pleasantly confused. HENMT: Face/Nose/Sinus: Normal nares present Mouth: Yes moist mucous membranes Eyes: General: appearance normal, both eyes and all related structures Neck: Neck: supple and No no JVD Lymphatic: lymphadenopathy not noted Resp: Effort & Inspection: normal respiratory effort Auscultation: diminished lung sounds bilateral (bases) Cardio: Rate: regular rate Rhythm: regular rhythm Heart sounds: no gallops, no murmurs and no rubs GI: Auscultation: normal bowel sounds Skin: General skin exam: normal color, no rashes or lesions noted, no erythema, No lesion and No rashes Lesions: no lesions noted Rashes: no rashes noted Wounds: no wounds Neuro: Speech: normal speech Motor exam (neuro): Abnormal motor strength present (Generalized, non-focal weakness.) Sensory Exam: normal sensation Extrem: General: normal to inspection, no edema and no pedal edema Other: Freely and equally MAEW. Psych: Mental Status: mental status grossly normal Other: Alert and oriented to self only. DS: Data Data Completed and Pending Labs on day of discharge: Labs from last 24 hours 03/24/25 03/24/25 03/24/25 11:48 07:54 05:39 WBC 16.7 H RBC 3.17 L Hgb 9.1 L Hct 31.1 L MCV 98.1 MCH 28.7 MCHC 29.3 L RDW 15.4 H Plt Count 344 MPV 9.9 Sodium 141 Potassium 4.2 Chloride 104 Carbon Dioxide 32 H Anion Gap 5 BUN 29 H Creatinine 0.77 Estim Creat Clear Calc 64 Estimated GFR > 60 Glucose 110 POC Capillary Glucose 173 H 112 H Calcium 9.7 03/23/25 03/23/25 21:50 16:29 WBC RBC Hgb Hct MCV MCH MCHC RDW Plt Count MPV Sodium Potassium Chloride Carbon Dioxide Anion Gap BUN Creatinine Estim Creat Clear Calc Estimated GFR Glucose POC Capillary Glucose 255 H 274 H Calcium Preliminary micro results at discharge 03/19/25 07:58 Blood Culture - Preliminary Blood 03/19/25 08:04 Blood Culture - Preliminary Blood Discharge Plan Discharge Attending physician on discharge: Man Louie Consulting providers: Ольга Ortiz Discharging Clinician: Man Louie Anticipated Discharge Date/Time: 03/24/25 14:25 Patient Disposition: SNF Activity: as tolerated Diet: heart healthy Discharge Instructions: follow with PCP in one week Continue Augmentin for 5 more days Patient Language: Romanian Stand Alone Forms: General Discharge Information Follow-up/Referrals: Shiva,MD So [Primary Care Provider] - 1 Week Discharge Medications: New amoxicillin-pot clavulanate 875-125 mg tablet 1 tablet PO Q12H Qty: 10 0RF Continued acetaminophen 325 mg tablet 325 mg PO Q6H PRN (Reason: pain) acyclovir 400 mg tablet 400 mg PO BID albuterol sulfate 90 mcg/actuation HFA aerosol inhaler 2 puff INHALATION Q4H PRN (Reason: cough) alendronate 70 mg tablet 70 mg PO WEEKLY Eliquis 5 mg tablet 5 mg PO BID aspirin 81 mg tablet,delayed release (DR/EC) 81 mg PO DAILY atorvastatin 10 mg tablet 10 mg PO HS bismuth subsalicylate [Stomach Relief] 262 mg/15 mL suspension 262 mg PO Q4H PRN (Reason: diarrhea) budesonide-formoterol 80-4.5 mcg/actuation HFA aerosol inhaler 1 puff INHALATION DAILY clozapine 100 mg tablet 100 mg PO QAM clozapine 200 mg tablet 400 mg PO HS Patient Comments: To be given with 100 mg at bedtime for a total of 500 desvenlafaxine succinate 50 mg tablet extended release 24 hr 50 mg PO DAILY clozapine 100 mg tablet 100 mg PO HS Patient Comments: To be given with 400 mg at bedtime for a total of 500 lamotrigine 200 mg tablet 200 mg PO BID latanoprost 0.005 % drops 1 drp EACH EYE HS lithium carbonate 150 mg capsule 150 mg PO QPM lorazepam 0.5 mg tablet 0.5 mg PO TID meloxicam 7.5 mg tablet 7.5 mg PO DAILY metformin 500 mg tablet 500 mg PO QPM olanzapine 15 mg tablet 15 mg PO HS pantoprazole 40 mg tablet,delayed release (DR/EC) 40 mg PO DAILY polyethylene glycol 3350 17 gram/dose powder 17 g PO DAILY PRN (Reason: constipation) sertraline 100 mg tablet 200 mg PO DAILY Stiolto Respimat 2.5-2.5 mcg/actuation mist 2 puff INHALATION DAILY calcium carbonate [Oyster Shell Calcium] 500 mg calcium (1,250 mg) tablet 1,000 mg PO DAILY fluticasone furoate-vilanterol [Breo Ellipta] 100-25 mcg/dose blister with device 1 inh inhalation DAILY guaifenesin [Mucus Relief ER] 600 mg Tablet Extended Release 12hr 1,200 mg PO Q12HR Qty: 30 0RF ipratropium-albuterol 0.5 mg-3 mg(2.5 mg base)/3 mL Solution For Nebulization 3 ml inhalation Q6HRT Qty: 30 0RF prednisone 10 mg tablet 10 mg PO DAILY Qty: 42 0RF Rx Instructions: 6Tx2d, 5Tx2d 4Tx2d, 3Tx2d, 2Tx2d, 1Tx2d Date of admission: 03/19/25 10:10 Primary Care Provider: Shiva,So Admitting Provider: Maria A Palma Attending physician on admission: Maria A Palma Condition: Serious Quality VTE Prophylaxis VTE prophylaxis: pharmacologic ordered
[2025-03-24] MEDS: LITHIUM CARBONATE 150 MG CAPSULE PO (17:37)
== END 2025-03-24 19:25 | DRG 177 ==
LOC: ANHED 07:11 → ANHICU 08:59 → ANH3MEDSUR 03-20 22:58
PROVIDERS: Emergency Medicine; Internal Medicine; Nurse Practitioner Adult Health; Admitting Provider Family Medicine; Emergency Provider Emergency Medicine; PCP Family Medicine; Visit Provider Internal Medicine
DX: U07.1 COVID-19 (principal); J12.82 Pneumonia due to coronavirus disease 2019; J96.01 Acute respiratory failure with hypoxia; J44.0 Chronic obstructive pulmonary disease with (acute) lower respiratory infection; F25.9 Schizoaffective disorder, unspecified; F32.A Depression, unspecified; E11.9 Type 2 diabetes mellitus without complications; E78.5 Hyperlipidemia, unspecified; I10 Essential (primary) hypertension; Z86.711 Personal history of pulmonary embolism; Z79.01 Long term (current) use of anticoagulants; Z79.82 Long term (current) use of aspirin; Z79.84 Long term (current) use of oral hypoglycemic drugs
CPT/HCPCS: 36415; 36600; 71045; 80048; 80053; 80076; 80178; 81001; 82375; 82805; 82948; 83036; 83050; 83605; 83735; 83880; 84100; 84484; 85018; 85025; 85027; 85610; 87040; 87637; 93005; 93306; 94002; 94003; 94640; 96365; 97110; 97116; 97161; 97166; 97530; 97535; 99285; A9270; G0378; J0248; J0696; J1100; J1815; J2060

== ENCOUNTER 2025-03-25 23:16 | Inpatient (IN) | payer MEDICARE, MEDICAID, SELFPAY ==
--- NOTE | ~2025-03-25 | XR_ITS ---
EXAMINATION: XR chest 1V portable DATE: 03/26/2025 00:22 INDICATION: Cough and shortness of breath TECHNIQUE: frontal view of the chest was obtained. COMPARISON: Chest radiograph dated 03/21/2025 FINDINGS: Mild linear discoid atelectasis at the right lung base. No other airspace opacities, pulmonary edema, pleural effusion or pneumothorax. The cardiomediastinal silhouette is normal. Visualized bones and s oft tissues are unremarkable. IMPRESSION: 1. Mild right basilar atelectasis. Reviewed, dictated and finalized at location A.
--- NOTE | ~2025-03-25 | CT_ITS ---
CLINICAL INDICATION: Respiratory failure COMPARISON: None. Reference is made to multiple plain film evaluations of the chest performed most re cently on 03/26/2025 and dating back to 01/21/2025 TECHNIQUE: Multiple contiguous axial images of the chest was performed without the administration of intravenous contrast. This CT examination was performed utilizing dose reduction techniques. DLP: 306 mGy-cm FINDINGS/OBSERVATIONS: LUNG: Bibasilar atelectasis, right greater than left. 8 x 12 mm part solid nodule within the left lower lobe, possibly an intrathoracic lymph node. 8.5 x 8.4 mm nodule within the right lower lobe, possibly due to atelectasis with interstitial thicke jack. The remainder of the lungs are clear. No bullous emphysema is identified. No significant emphysematous change is noted. HEART: The heart is markedly enlarged, without pericardial effusion. MEDIASTINUM: No pathologically enlarged or morphologically suspicious lymph nodes are identified within the medias tinum, bilateral axilla, within the soft tissues of the anterior chest wall. SOFT TISSUES OF THE CHEST: Unremarkable. BONES OF THE CHEST: No acute fracture. No lytic or blastic lesions are identified. IMPRESSION: Bibasilar nodules, possibly sequelae of recent illness/Covid infection for which short term followup (3month CT) is recommended. Reviewed, dictated and finalized at location A. IMPRESSION: Bibasilar nodules, possibly sequelae of recent illness/Covid infection for whic h short term followup (3month CT) is recommended.
--- NOTE | ~2025-03-25 | XR_ITS ---
Portable chest x-ray Comparison: 03/26/2025 Clinical History: Unresponsive Findings: Lungs are clear, without focal consolidation or pleural effusion. Cardiomediastinal silho uette is stable. Bones and soft tissues are unremarkable. Impression: Clear lungs. Reviewed, dictated and finalized at location . Impression: Clear lungs.
--- NOTE | ~2025-03-25 | CT_ITS ---
EXAMINATION: CT BRAIN W/O DATE: 03/29/2025 15:02 INDICATION: Altered mental status TECHNIQUE: Computed tomography (CT) of the head was performed without intravenous contrast. The dose- length product was 605.33 mGy-cm. COMPARISON: No prior studies for comparison. FINDINGS: Normal brain parenchymal volume for age. Normal sol-white differentiation. No acute intrac ranial hemorrhage, infarction, mass or mass effect. There is intracranial atherosclerosis. There are scattered mild periventricular and subcortical white matter changes, most likely related to small ves nicole ischemic disease (microangiopathy). No ventriculomegaly or midline shift. Midline sagittal images demonstrate a normal corpus callosum, c raniovertebral junction and sella turcica. Basilar cisterns are patent. Paranasal sinuses and mastoids are pneumatized. No depressed skull fractures. IMPRESSION: 1. No acute intracranial abnormality. Reviewed, dictated and finalized at location A.
[2025-03-25 23:26] VITALS: BP 105/66; PULSE 86; RESP 24; TEMP 37.1; O2SAT 92
--- NOTE | 2025-03-25 23:32 | ECG_ITS ---
Test Date: 2025-03-26 00:32:19 Measurements Intervals [place] Rate: 82 P: 62 [place]: 136 QRS: -56 QRSD: 102 T: 72 QT: 331 QTc: 389 Interpretive Statements SINUS RHYTHM LEFT ANTERIOR FASCICULAR BLOCK ABNORMAL ECG Compared to ECG 03/19/2025 06:17:58 No significant changes Electronically Signed On 03-26-2025 08:18:11 CDT by Romero Cheng D.O.
--- OUTSIDE RECORDS SUMMARY | 2025-03-25 23:49 | XMS_ITS | Patient Health Record ---
Author Organization [facility] Address [address] [facility] [address] [place] [address] Care Team Providers Care Enterprise Records Analyst Name Role Phone Ben Zuleta Unavailable [phone] Reason For Referral No Information Medications Medication SIG (Take, Route, Frequency, Duration) Notes Start Date End Date Status Omeprazole 20 MG Oral Act gary cloZAPine 100 mg Oral Act agry Lisinopril 20 MG Oral Act gary Niaspan 500 mg Oral Activ e Simvastatin 20 MG Oral Ac tive Niacin 500 mg Oral *Pick strength-form from [employer] for eRX* Active Alendronate Sodium 70 MG Oral Active Advair Diskus 250-50 MCG/DOSE Inhalation Active Latanoprost 0.005 % Ophthalmic Active lamoTRIgine 150 MG Oral A ctive cloZAPine 200 MG Oral Act gary traZODone HCl 150 MG Oral Active lamoTRIgine 200 MG Oral A ctive Combivent Respimat 20-100 MCG/ACT Inhalation Active Polyethylene Glycol 3350 17 gram ORAL *Pick strength-form from [employer] for eRX* Active Mirtazapine 45 MG Oral Ac tive cloZAPine 50 MG Oral Acti ve Mirtazapine 30 MG Oral Ac tive oxyBUTYnin Chloride ER 10 MG Oral Active Plan Of Treatment No Information
[2025-03-25 23:50] VITALS: PULSE 87; RESP 26; O2SAT 94
[2025-03-25 23:52] LABS: Hematocrit 33.7 % (37.0-47.0); Hemoglobin 9.9 g/dL (12.0-15.0); Immature Granulocyte Percent A 1.6 % (0-0.5); Lymphocytes Absolute Auto 0.85 K/mm3 (0.9-3.2); Mean Corpuscular HGB Conc 29.4 g/dl (32-36); Mean Corpuscular Hemoglobin 28.7 pg (26-34); Mean Corpuscular Volume 97.7 fl (80-100); Nucleated Red Blood Cells Absolute Auto 0.000 K/mm3 (0.0-0.012); Nucleated Red Blood Cells Perc 0.0 % (0.0-0.2); Platelet Count Result 357 k/mm3 (150-375); Red Blood Count 3.45 M/mm3 (4.2-5.4); White Blood Count 15.8 K/mm3 (4.5-10.0)
[2025-03-26] VITALS (31 sets, daily range): BP systolic 100–119; BP diastolic 53–77; PULSE 71–85; RESP 11–22; TEMP 36.5–36.9; O2SAT 90–100; BMI 26.6
[2025-03-26 00:06] LABS: Alveolar/Arterial O2 Gradient 435.5 mmHg; Fractional Inspired Oxygen 80 %; HCO3 ABG 29.4 mEq/l (22.0-26.0); Oxygen Content ABG 14.4 %vol (16.0-22.0); Oxygen Saturation ABG 95.6 % (95.0-100.0); PCO2 ABG 51.2 mmHg (35.0-45.0); PO2 ABG 81.1 mmHg (80.0-100.0); PO2 FiO2 Ratio Arterial Blood 1.01 %
[2025-03-26 00:08] LABS: Modified Allen's Test Pass; Site Drawn RIGHT RADIAL
[2025-03-26 00:14] LABS: Alanine Aminotransferase 25 U/L (6-35); Albumin Level 3.8 g/dL (3.5-5.1); Alkaline Phosphatase 76 U/L (38-126); Anion Gap 6 mmol/L (4-12); Anisocytosis 1+; Aspartate Amino Transferase 26 U/L (14-36); Bilirubin,Total 0.3 mg/dL (0.2-1.3); Blood Urea Nitrogen 31 mg/dL (7-17); Burr Cells 1+; Calcium 9.6 mg/dL (8.4-10.2); Carbon Dioxide 31 mmol/L (22-30); Chloride 104 mmol/L (98-107); Estimated Glomerular Filt Rate > 60; Glucose 160 mg/dL (65-110); Magnesium 2.5 mg/dL (1.6-2.3); Ovalocytes 1+; Potassium 4.2 mmol/L (3.4-5.0); Schistocytes None Seen; Sodium 141 mmol/L (137-145); Total Protein 6.9 g/dL (6.3-8.2)
[2025-03-26 00:27] LABS: Influenza A QL RT-PCR Negative (Negative); Influenza B QL RT-PCR Negative (Negative); RSV RNA, RT-PCR Negative (Negative); SARS-CoV-2 RNA PCR Positive (Negative)
--- NOTE | 2025-03-26 00:38 | PC.NURSE ---
Patient arrives to ED obtunded and with frothy sputum. RA SPO2 89%, patient with abdominal muscle use and tachypnea present. Improved to 9% on 6L NC. Limited hx and known normal alertness due to poor report given to EMS. MD notified and she is very familiar with the patient and VO to call RT for bipap. PIV and blood work obtained, sent to lab. Blood cultures x2 obtained. 1 with PIV stick to R FA. 2nd set via butterfly stick to R AC. Pt was placed on full monitor with VS as charted. RT called to bedside.
--- NOTE | 2025-03-26 02:12 | PC.NURSE ---
Patient remains on bipap and minimally responsive. VSS as per chart. Pt repositioned to better facilitate oxygenation. Remains on full monitor.
--- NOTE | 2025-03-26 02:18 | ED_ITS ---
HPI - SOB/Dyspnea General Chief Complaint: Shortness of Breath/Dyspnea Stated Complaint: HYPOXIC ON ROOM AIR, COVID + Time Seen by Provider: 03/25/25 23:23 History of Present Illness HPI Narrative: Patient with recent COVID pneumonia and COPD requiring CPAP at night presents after being found obtunded her residential, without any oxygen on her, this is essentially the same as she has presented the last few times over the past month. Related Data Home Medications ?Medication ?Instructions ?Recorded ?Confirmed ?Last Taken ?Type acetaminophen 325 mg tablet 325 mg PO Q6H PRN pain 03/08/25 03/19/25 Unknown History acyclovir 400 mg tablet 400 mg PO BID 03/08/25 03/19/25 03/18/25 History albuterol sulfate 90 mcg/actuation 2 puff inhalation Q4H PRN cough 03/08/25 03/19/25 03/18/25 History aerosol inhaler alendronate 70 mg tablet 70 mg PO WEEKLY 03/08/25 03/19/25 03/18/25 History apixaban 5 mg tablet (Eliquis) 5 mg PO BID 03/08/25 03/19/25 03/18/25 History aspirin 81 mg tablet,delayed 81 mg PO DAILY 03/08/25 03/19/25 03/18/25 History release atorvastatin 10 mg tablet 10 mg PO HS 03/08/25 03/19/25 03/18/25 History bismuth subsalicylate 262 mg/15 mL 262 mg PO Q4H PRN diarrhea 03/08/25 03/19/25 Unknown History oral suspension (Stomach Relief) budesonide-formoterol HFA 80 1 puff inhalation DAILY 03/08/25 03/19/25 03/18/25 History mcg-4.5 mcg/actuation aerosol inhaler calcium carbonate (Oyster Shell 1,000 mg PO DAILY 03/08/25 03/19/25 03/18/25 History Calcium) clozapine 100 mg tablet 100 mg PO HS 03/08/25 03/19/25 03/18/25 History clozapine 100 mg tablet 100 mg PO QAM 03/08/25 03/19/25 03/18/25 History clozapine 200 mg tablet 400 mg PO HS 03/08/25 03/19/25 03/18/25 History desvenlafaxine succinate 50 mg 50 mg PO DAILY 03/08/25 03/19/25 03/18/25 History tablet,extended release 24 hr fluticasone furoate 100 1 inh inhalation DAILY 03/08/25 03/19/25 03/18/25 History mcg-vilanterol 25 mcg/dose inhalation powder (Breo Ellipta) lamotrigine 200 mg tablet 200 mg PO BID 03/08/25 03/19/25 03/18/25 History latanoprost 0.005 % eye drops 1 drp EACH EYE HS 03/08/25 03/19/25 03/18/25 History lithium carbonate 150 mg capsule 150 mg PO QPM 03/08/25 03/19/25 03/18/25 History lorazepam 0.5 mg tablet 0.5 mg PO TID 03/08/25 03/19/25 03/18/25 History meloxicam 7.5 mg tablet 7.5 mg PO DAILY 03/08/25 03/19/25 03/18/25 History metformin 500 mg tablet 500 mg PO QPM 03/08/25 03/19/25 03/18/25 History olanzapine 15 mg tablet 15 mg PO HS 03/08/25 03/19/25 03/18/25 History pantoprazole 40 mg tablet,delayed 40 mg PO DAILY 03/08/25 03/19/25 03/18/25 History release polyethylene glycol 3350 17 17 g PO DAILY PRN constipation 03/08/25 03/19/25 Unknown History gram/dose oral powder sertraline 100 mg tablet 200 mg PO DAILY 03/08/25 03/19/25 03/18/25 History tiotropium 2.5 mcg-olodaterol 2.5 2 puff inhalation DAILY 03/08/25 03/19/25 03/18/25 History mcg/actuation mist for inhalation (Stiolto Respimat) Allergies Allergy/AdvReac Type Severity Reaction Status Date / Time No Known Allergies Allergy Unverified 07/22/14 10:54 Review of Systems 2 Review of Systems: ROS unobtainable: Yes unobtainable due to mental status PMFSH Past Medical History Medical History (Updated 03/26/25 @ 03:11 by Alicia Damon MD) Acute hypoxic respiratory failure Pneumonia COVID-19 Schizoaffective disorder Depression Diabetes Hypertension Hyperlipidemia Pulmonary embolism COPD (chronic obstructive pulmonary disease) Social History Social History Smoking status: Unknown if ever smoked Second hand tobacco smoke exposure: No Alcohol intake: never Substance use: never Substance use type: does not use Do You Feel Safe in your Home?: No Lack of Transportation: No Lack of Food: Never True Current Housing: I Have Housing Concerned About Future Housing: No Difficulty Paying Gas/Electric Bills: No Difficulty Paying for Meds: No Currently Unemployed: No Education: High School Diploma/GED Difficulty w/ Childcare or Family Care: No Spiritual care concerns: No Exam 2 Narrative: EXAMINATION OF ORGAN SYSTEMS/BODY AREAS: Constitutional: Vital signs per nursing GENERAL:[No acute distress, sleepy but wakes to voice.] HEAD: Normal with no signs of head trauma. EYES: EOMI, conjunctiva normal ENT: Hearing grossly intact LUNGS: Some tachypnea HEART: [Regular rate and rhythm] ABD: [Soft], [nontender to palpation] EXT: Normal range of motion SKIN: [No rashes or lesions.] NEURO: [Sleeping. No gross focal sensory or strength deficits.] PSYCH: Normal affect Course Vital Signs Vital signs: Vital Signs Temperature 98.7 F 03/25/25 23:26 Pulse Rate 86 03/25/25 23:26 Respiratory Rate 24 H 03/25/25 23:26 Blood Pressure 105/66 03/25/25 23:26 Pulse Oximetry 92 03/25/25 23:26 Oxygen Delivery Room Air 03/25/25 23:26 Temperature 98.7 F 03/25/25 23:26 Pulse Rate 77 03/26/25 03:03 Respiratory Rate 18 03/26/25 03:03 Blood Pressure 100/70 03/26/25 03:03 Pulse Oximetry 96 03/26/25 03:03 Oxygen Delivery BiPAP 03/26/25 02:35 Fraction of Inspired Oxygen 21 03/26/25 02:35 MDM - SOB/Dyspnea MDM Narrative Medical decision making narrative: Patient presents here after being found again without her CPAP she is supposed to be on at night, hypoxic and obtunded, she was also recently diagnosed with COVID, finishing up antibiotics. She is placed on BiPAP, after which her mental status improved, she is now able to tell me that she feels better. Discussed with hospitalist for admission. Lab Data 03/25/25 23:42 03/25/25 23:42 Labs: Lab Results 03/25/25 03/25/25 Range/Units 23:42 23:59 WBC 15.8 H (4.5-10.0) K/mm3 RBC 3.45 L (4.2-5.4) M/mm3 Hgb 9.9 L (12.0-15.0) g/dL Hct 33.7 L (37.0-47.0) % MCV 97.7 (80-100) fl MCH 28.7 (26-34) pg MCHC 29.4 L (32-36) g/dl RDW 15.8 H (11.5-14.5) % Plt Count 357 (150-375) k/mm3 MPV 9.5 (7.4-10.4) fl Immature Gran % (Auto) 1.6 H (0-0.5) % Neut % (Auto) 87.2 H (45.5-73.1) % Lymph % (Auto) 5.4 L (18.3-44.2) % [place] % (Auto) 5.6 (2.6-8.5) % Eos % (Auto) 0.1 (0-4.4) % Baso % (Auto) 0.1 L (0.2-1.2) % Lymph # (Auto) 0.85 L (0.9-3.2) K/mm3 [place] # (Auto) 0.9 H (0.1-0.6) K/mm3 Eos # (Auto) 0.0 (0-0.3) K/mm3 Baso # (Auto) 0.0 (0.0-0.1) K/mm3 Abs Immat Gran (auto) 0.25 H (0.00-0.031) K/mm3 Absolute Neuts (auto) 13.8 H (1.3-6.7) K/mm3 Absolute Nucleated RBC 0.000 (0.0-0.012) K/mm3 Band Neutrophils % Not Reportable Nucleated RBC % 0.0 (0.0-0.2) % Platelet Estimate Adequate (Adequate) Large Platelets Present Anisocytosis 1+ Ovalocytes 1+ [place] Cells 1+ Schistocytes None seen Expiratory Pressure 8 cmH2O Inspiratory Pressure 15 cmH2O Sodium 141 (137-145) mmol/L Potassium 4.2 (3.4-5.0) mmol/L Chloride 104 (98-107) mmol/L Carbon Dioxide 31 H (22-30) mmol/L Anion Gap 6 (4-12) mmol/L BUN 31 H (7-17) mg/dL Creatinine 0.82 (0.7-1.0) mg/dL Estim Creat Clear Calc Not Reportable Estimated GFR > 60 (59 - ) Glucose 160 H (65-110) mg/dL Lactic Acid 1.2 (0.7-2.0) mmol/L Calcium 9.6 (8.4-10.2) mg/dL Magnesium 2.5 H (1.6-2.3) mg/dL Total Bilirubin 0.3 (0.2-1.3) mg/dL AST 26 (14-36) U/L ALT 25 (6-35) U/L Alkaline Phosphatase 76 (38-126) U/L Total Protein 6.9 (6.3-8.2) g/dL Albumin 3.8 (3.5-5.1) g/dL Influenza A (RT-PCR) Negative (Negative) Influenza B (RT-PCR) Negative (Negative) RSV (RT-PCR) Negative (Negative) SARS-CoV-2 RNA (RT-PCR) Positive A (Negative) ABG Data ABG results: 03/25/25 23:59 Puncture Site Right radial ABG pH 7.377 ABG pCO2 51.2 H ABG pO2 81.1 ABG PO2/FiO2 Ratio 1.01 ABG HCO3 29.4 H ABG O2 Saturation 95.6 ABG O2 Content 14.4 L ABG Base Excess 3.4 A-a Gradient 435.5 Oxyhemoglobin 93.5 Total Hemoglobin 10.9 L O2 Delivery Device Bipap O2 Liters/Min Not Reportable FiO2 80 Critical Care Time Critical Care Time Critical Care Time: Yes Total Critical Care Time: 31 Discharge Plan Discharge Clinical Impression: Acute on chronic respiratory failure with hypoxia and hypercapnia Patient Disposition: Still a Patient Condition: Stable Patient Language: Malawian Prescriptions: No Action amoxicillin-pot clavulanate 875-125 mg tablet 1 tablet PO Q12H Qty: 10 0RF acetaminophen 325 mg tablet 325 mg PO Q6H PRN (Reason: pain) acyclovir 400 mg tablet 400 mg PO BID albuterol sulfate 90 mcg/actuation HFA aerosol inhaler 2 puff INHALATION Q4H PRN (Reason: cough) alendronate 70 mg tablet 70 mg PO WEEKLY Eliquis 5 mg tablet 5 mg PO BID aspirin 81 mg tablet,delayed release (DR/EC) 81 mg PO DAILY atorvastatin 10 mg tablet 10 mg PO HS bismuth subsalicylate [Stomach Relief] 262 mg/15 mL suspension 262 mg PO Q4H PRN (Reason: diarrhea) budesonide-formoterol 80-4.5 mcg/actuation HFA aerosol inhaler 1 puff INHALATION DAILY clozapine 100 mg tablet 100 mg PO QAM clozapine 200 mg tablet 400 mg PO HS Patient Comments: To be given with 100 mg at bedtime for a total of 500 desvenlafaxine succinate 50 mg tablet extended release 24 hr 50 mg PO DAILY clozapine 100 mg tablet 100 mg PO HS Patient Comments: To be given with 400 mg at bedtime for a total of 500 lamotrigine 200 mg tablet 200 mg PO BID latanoprost 0.005 % drops 1 drp EACH EYE HS lithium carbonate 150 mg capsule 150 mg PO QPM lorazepam 0.5 mg tablet 0.5 mg PO TID meloxicam 7.5 mg tablet 7.5 mg PO DAILY metformin 500 mg tablet 500 mg PO QPM olanzapine 15 mg tablet 15 mg PO HS pantoprazole 40 mg tablet,delayed release (DR/EC) 40 mg PO DAILY polyethylene glycol 3350 17 gram/dose powder 17 g PO DAILY PRN (Reason: constipation) sertraline 100 mg tablet 200 mg PO DAILY Stiolto Respimat 2.5-2.5 mcg/actuation mist 2 puff INHALATION DAILY calcium carbonate [Oyster Shell Calcium] 500 mg calcium (1,250 mg) tablet 1,000 mg PO DAILY fluticasone furoate-vilanterol [Breo Ellipta] 100-25 mcg/dose blister with device 1 inh inhalation DAILY guaifenesin [Mucus Relief ER] 600 mg Tablet Extended Release 12hr 1,200 mg PO Q12HR Qty: 30 0RF ipratropium-albuterol 0.5 mg-3 mg(2.5 mg base)/3 mL Solution For Nebulization 3 ml inhalation Q6HRT Qty: 30 0RF prednisone 10 mg tablet 10 mg PO DAILY Qty: 42 0RF Rx Instructions: 6Tx2d, 5Tx2d 4Tx2d, 3Tx2d, 2Tx2d, 1Tx2d Follow-up/Referrals: Shiva,MD So [Primary Care Provider] -
--- NOTE | 2025-03-26 03:40 | PC.NURSE ---
SPO2 89-90%. Bipap mask adjusted by this RN. SPO2 remained around 90-91% with bradypnea. RT called and O2 increased on bipap. SPO2 now 96% and RR 15-18. MD updated.
[2025-03-26 08:45] LABS: Hematocrit 34.4 % (37.0-47.0); Hemoglobin 9.9 g/dL (12.0-15.0); Mean Corpuscular HGB Conc 28.8 g/dl (32-36); Mean Corpuscular Hemoglobin 28.4 pg (26-34); Mean Corpuscular Volume 98.6 fl (80-100); Platelet Count Result 355 k/mm3 (150-375); Red Blood Count 3.49 M/mm3 (4.2-5.4); White Blood Count 14.5 K/mm3 (4.5-10.0)
[2025-03-26 09:00] LABS: Alanine Aminotransferase 23 U/L (6-35); Albumin Level 3.6 g/dL (3.5-5.1); Alkaline Phosphatase 72 U/L (38-126); Anion Gap 5 mmol/L (4-12); Aspartate Amino Transferase 25 U/L (14-36); Bilirubin,Total 0.2 mg/dL (0.2-1.3); Blood Urea Nitrogen 33 mg/dL (7-17); Calcium 9.6 mg/dL (8.4-10.2); Carbon Dioxide 32 mmol/L (22-30); Chloride 109 mmol/L (98-107); Estimated CRCL calculation 56 ml/min; Estimated Glomerular Filt Rate > 60; Glucose 115 mg/dL (65-110); Potassium 4.0 mmol/L (3.4-5.0); Sodium 146 mmol/L (137-145); Total Protein 6.9 g/dL (6.3-8.2)
--- NOTE | 2025-03-26 10:07 | P.HP_ITS ---
H&P: HPI History of Present Illness Date/Time: 03/26/25 10:07 Chief Complaint: Respiratory distress Narrative: 64 year old female pt w/PMH of Schizzoaffective disorder, Depression, DM, HTN, HLD, COPD, and PE on chronic anticoagulation and who is a samuel of the [facility] with state as guardian who was brought into the ER due to hypoxia. Pertinent ED labs: WBC 14.5, hemoglobin 9.9, hematocrit 34.4, platelets 355, s odium 146, potassium 4, chloride 109, bicarb 32, creatinine 0.79 Positive for COVID Chest x-ray shows mild right basilar atelectasis Patient is alert admitted in the setting of confusion possibly due to hypoxemia. Patient is not a good historian. Record review indicates the patient wears 3 L nasal cannula as a baseline. Patient was started on BiPAP in ED and later downgraded to 3 L nasal cannula (baseline). Patient was recently admitted for COVID and received remdesivir. Consulted pulmonology for further recommendation. Review of Systems Review of Systems: ROS unobtainable: Yes unobtainable due to mental status PMFSH Past Medical History Medical History (Updated 03/26/25 @ 03:11 by Alicia Damon MD) Acute hypoxic respiratory failure Pneumonia COVID-19 Schizoaffective disorder Depression Diabetes Hypertension Hyperlipidemia Pulmonary embolism COPD (chronic obstructive pulmonary disease) Social History Social History Smoking status: Unknown if ever smoked Second hand tobacco smoke exposure: No Alcohol intake: never Substance use: never Substance use type: does not use Do You Feel Safe in your Home?: No Lack of Transportation: No Lack of Food: Never True Current Housing: I Have Housing Concerned About Future Housing: No Difficulty Paying Gas/Electric Bills: No Difficulty Paying for Meds: No Currently Unemployed: No Education: High School Diploma/GED Difficulty w/ Childcare or Family Care: No Spiritual care concerns: No Meds Home Medications and Allergies Home Medications ?Medication ?Instructions ?Recorded ?Confirmed ?Type acetaminophen 325 mg tablet 325 mg PO Q6H PRN pain 03/08/25 03/26/25 History acyclovir 400 mg tablet 400 mg PO BID 03/08/25 03/26/25 History albuterol sulfate 90 mcg/actuation 2 puff inhalation Q4H PRN cough 03/08/25 03/26/25 History aerosol inhaler alendronate 70 mg tablet 70 mg PO WEEKLY 03/08/25 03/26/25 History apixaban 5 mg tablet (Eliquis) 5 mg PO BID 03/08/25 03/26/25 History aspirin 81 mg tablet,delayed 81 mg PO DAILY 03/08/25 03/26/25 History release atorvastatin 10 mg tablet 10 mg PO HS 03/08/25 03/26/25 History bismuth subsalicylate 262 mg/15 mL 262 mg PO Q4H PRN diarrhea 03/08/25 03/26/25 History oral suspension (Stomach Relief) budesonide-formoterol HFA 80 1 puff inhalation DAILY 03/08/25 03/26/25 History mcg-4.5 mcg/actuation aerosol inhaler calcium carbonate (Oyster Shell 1,000 mg PO DAILY 03/08/25 03/26/25 History Calcium) clozapine 100 mg tablet 100 mg PO HS 03/08/25 03/26/25 History clozapine 100 mg tablet 100 mg PO QAM 03/08/25 03/26/25 History clozapine 200 mg tablet 400 mg PO HS 03/08/25 03/26/25 History desvenlafaxine succinate 50 mg 50 mg PO DAILY 03/08/25 03/26/25 History tablet,extended release 24 hr fluticasone furoate 100 1 inh inhalation DAILY 03/08/25 03/26/25 History mcg-vilanterol 25 mcg/dose inhalation powder (Breo Ellipta) lamotrigine 200 mg tablet 200 mg PO BID 03/08/25 03/26/25 History latanoprost 0.005 % eye drops 1 drp EACH EYE HS 03/08/25 03/26/25 History lithium carbonate 150 mg capsule 150 mg PO QPM 03/08/25 03/26/25 History lorazepam 0.5 mg tablet 0.5 mg PO TID 03/08/25 03/26/25 History meloxicam 7.5 mg tablet 7.5 mg PO DAILY 03/08/25 03/26/25 History metformin 500 mg tablet 500 mg PO QPM 03/08/25 03/26/25 History olanzapine 15 mg tablet 15 mg PO HS 03/08/25 03/26/25 History pantoprazole 40 mg tablet,delayed 40 mg PO DAILY 03/08/25 03/26/25 History release polyethylene glycol 3350 17 17 g PO DAILY PRN constipation 03/08/25 03/26/25 History gram/dose oral powder sertraline 100 mg tablet 200 mg PO DAILY 03/08/25 03/26/25 History tiotropium 2.5 mcg-olodaterol 2.5 2 puff inhalation DAILY 03/08/25 03/26/25 History mcg/actuation mist for inhalation (Stiolto Respimat) guaifenesin 600 mg tablet, 1,200 mg (2 x 600 mg) PO Q12HR #30 03/10/25 03/26/25 Rx extended release 12 hr (Mucus tabs Relief ER) ipratropium 0.5 mg-albuterol 3 mg 3 ml inhalation Q6HRT #30 vials 03/10/25 03/26/25 Rx (2.5 mg base)/3 mL nebulization soln prednisone 10 mg tablet 10 mg PO DAILY #42 tabs 03/10/25 03/26/25 Rx Allergies Allergy/AdvReac Type Severity Reaction Status Date / Time No Known Allergies Allergy Unverified 07/22/14 10:54 Vital Signs Vital Signs - 24 hr 03/25/25 23:26 03/25/25 23:50 03/26/25 00:26 Temperature 98.7 F Pulse Rate 86 87 84 Respiratory Rate 24 H 26 H Blood Pressure 105/66 108/74 Pulse Oximetry 92 94 96 Oxygen Delivery Room Air BiPAP Fraction of Inspired Oxygen 03/26/25 01:34 03/26/25 02:08 03/26/25 02:11 Temperature Pulse Rate 79 79 80 Respiratory Rate 19 Blood Pressure 101/74 103/76 Pulse Oximetry 99 98 99 Oxygen Delivery BiPAP Fraction of Inspired Oxygen 03/26/25 02:35 03/26/25 03:03 03/26/25 03:31 Temperature Pulse Rate 77 Respiratory Rate 18 Blood Pressure 100/70 107/72 Pulse Oximetry 94 96 Oxygen Delivery BiPAP Fraction of Inspired Oxygen 03/26/25 03:35 03/26/25 03:37 03/26/25 03:43 Temperature Pulse Rate 75 Respiratory Rate 14 Blood Pressure Pulse Oximetry 90 90 97 Oxygen Delivery BiPAP BiPAP Fraction of Inspired Oxygen 03/26/25 04:10 03/26/25 04:11 03/26/25 04:23 Temperature 97.7 F Pulse Rate 84 74 76 Respiratory Rate 22 H 17 Blood Pressure 102/75 107/77 Pulse Oximetry 97 99 100 Oxygen Delivery BiPAP Fraction of Inspired Oxygen 03/26/25 06:00 03/26/25 08:00 03/26/25 08:27 Temperature 97.9 F Pulse Rate 72 71 73 Respiratory Rate 18 11 L Blood Pressure 112/72 Pulse Oximetry 95 96 Oxygen Delivery BiPAP Fraction of Inspired Oxygen 03/26/25 08:32 Temperature Pulse Rate 73 Respiratory Rate 11 L Blood Pressure Pulse Oximetry 96 Oxygen Delivery BiPAP Fraction of Inspired Oxygen 30 Exam Narrative: EXAMINATION OF ORGAN SYSTEMS/BODY AREAS: Constitutional: Vital signs per nursing GENERAL:[No acute distress, sleepy but wakes to voice.] HEAD: Normal with no signs of head trauma. EYES: EOMI, conjunctiva normal ENT: Hearing grossly intact LUNGS: Some tachypnea HEART: [Regular rate and rhythm] ABD: [Soft], [nontender to palpation] EXT: Normal range of motion SKIN: [No rashes or lesions.] NEURO: [Sleeping. No gross focal sensory or strength deficits.] PSYCH: Normal affect H&P: Results Labs Labs: Short CBC 03/25/25 03/26/25 Range/Units 23:42 08:40 WBC 15.8 H 14.5 H (4.5-10.0) K/mm3 Hgb 9.9 L 9.9 L (12.0-15.0) g/dL Hct 33.7 L 34.4 L (37.0-47.0) % Plt Count 357 355 (150-375) k/mm3 BMP 03/25/25 03/26/25 23:42 08:40 Sodium 141 146 H Potassium 4.2 4.0 Chloride 104 109 H Carbon Dioxide 31 H 32 H BUN 31 H 33 H Creatinine 0.82 0.79 Glucose 160 H 115 H Calcium 9.6 9.6 Liver Function 03/25/25 03/26/25 Range/Units 23:42 08:40 Total Bilirubin 0.3 0.2 (0.2-1.3) mg/dL AST 26 25 (14-36) U/L ALT 25 23 (6-35) U/L Alkaline Phosphatase 76 72 (38-126) U/L Albumin 3.8 3.6 (3.5-5.1) g/dL Assessment and Plan Assessment and plan (1) Acute on chronic respiratory failure with hypoxia and hypercapnia: Code(s): J96.21 - Acute and chronic respiratory failure with hypoxia; J96.22 - Acute and chronic respiratory failure with hypercapnia Status: Acute Assessment and Plan: * Patient presented with respiratory distress possibly due to noncompliance of nasal oxygen * Positive for COVID * Previous admission completed remdesivir and Decadron * Maintain oxygen> 92% * Currently on 3 L nasal cannula baseline * BiPAP at night * Continue prednisone 10 mg p.o. q.d. home dosage * Consulted pulmonology and appreciate recommendation (2) Schizoaffective disorder: Code(s): F25.9 - Schizoaffective disorder, unspecified Status: Chronic Assessment and Plan: * Continue clozapine * Continue lithium * Continue lamotrigine (3) Hypertension: Code(s): I10 - Essential (primary) hypertension Status: Acute Assessment and Plan: * Not on hypertensive medication, monitor (4) Diabetes: Code(s): E11.9 - Type 2 diabetes mellitus without complications Status: Chronic Assessment and Plan: * Continue metformin 5 mg p.o. b.i.d. (5) COVID-19: Code(s): U07.1 - COVID-19 Status: Acute Assessment and Plan: As mentioned above Plan DVT prophylaxis: Continue Eliquis 2.5 mg p.o. b.i.d. Code status: Full code Hospitalist [facility] Advance Care Plan I have confirmed that the patient's Advanced Care Plan is present, code status is documented, or surrogate decision maker is listed in patient medical record.: Yes Medication Reconciliation I have utilized all available resources to obtain, update and review the patients current medications (includes all prescriptions, OTC, herbals, cannabis, and nutritional supplements).: Yes
[2025-03-26] MEDS: ACYCLOVIR 400 MG TABLET PO ×2 (11:43→21:17)
[2025-03-26] MEDS: PANTOPRAZOLE 40 MG TABLET PO (11:44)
[2025-03-26] MEDS: SERTRALINE HCL 50 MG TABLET 200 MG PO (11:44)
[2025-03-26] MEDS: MELOXICAM 7.5 MG TABLET PO (11:45)
[2025-03-26] MEDS: ASPIRIN 81 MG ENTERIC TABLET PO (11:45)
[2025-03-26] MEDS: CALCIUM CARBONATE (OSCAL) 500 MG TABLET 1000 MG PO (11:45)
[2025-03-26] MEDS: NONFORMULARY DRUG (Desvenlafaxine Succinate 50 mg tablet extended release 24 hr) PO (11:46)
[2025-03-26] MEDS: LORazepam (*CRX) 0.5 MG TABLET PO ×3 (11:47→21:18)
[2025-03-26] MEDS: guaiFENesin 12 HR 600 MG TABCR 1200 MG PO ×2 (11:47→21:15)
[2025-03-26] MEDS: APIXABAN 5 MG TABLET PO ×2 (11:49→21:16)
[2025-03-26] MEDS: IPRATROPIUM 0.5 MG/ALBUTEROL SULFATE 2.5 MG AMPUL.NEB 3 ML INHALATION ×2 (13:42→20:05)
[2025-03-26] MEDS: LITHIUM CARBONATE 150 MG CAPSULE PO (18:06)
[2025-03-26] MEDS: FLUTICASONE/SALMETEROL 115-21 MCG INHALER 1 PUFF 2 PUFF INHALATION (20:04)
[2025-03-26] MEDS: ATORVASTATIN 10 MG TABLET PO (21:17)
[2025-03-26] MEDS: LATANOPROST 0.005% OP SOLN 2.5 ML BTL 1 DROP EACH EYE (21:18)
[2025-03-27] VITALS (15 sets, daily range): BP systolic 97–154; BP diastolic 58–90; PULSE 67–87; RESP 15–18; TEMP 36.5–37.2; O2SAT 81–100
[2025-03-27] MEDS: IPRATROPIUM 0.5 MG/ALBUTEROL SULFATE 2.5 MG AMPUL.NEB 3 ML INHALATION (08:03)
[2025-03-27] MEDS: FLUTICASONE/SALMETEROL 115-21 MCG INHALER 1 PUFF 2 PUFF INHALATION ×2 (08:06→21:31)
[2025-03-27] MEDS: guaiFENesin 12 HR 600 MG TABCR 1200 MG PO ×2 (08:19→21:53)
[2025-03-27] MEDS: MELOXICAM 7.5 MG TABLET PO (08:19)
[2025-03-27] MEDS: ASPIRIN 81 MG ENTERIC TABLET PO (08:19)
[2025-03-27] MEDS: CALCIUM CARBONATE (OSCAL) 500 MG TABLET 1000 MG PO (08:19)
[2025-03-27] MEDS: ACYCLOVIR 400 MG TABLET PO ×2 (08:19→21:53)
[2025-03-27] MEDS: LORazepam (*CRX) 0.5 MG TABLET PO ×3 (08:20→22:04)
[2025-03-27] MEDS: APIXABAN 5 MG TABLET PO ×2 (08:20→21:54)
[2025-03-27] MEDS: SERTRALINE HCL 50 MG TABLET 200 MG PO (08:20)
[2025-03-27] MEDS: PANTOPRAZOLE 40 MG TABLET PO (08:20)
[2025-03-27 08:22] LABS: Hematocrit 31.2 % (37.0-47.0); Hemoglobin 9.1 g/dL (12.0-15.0); Mean Corpuscular HGB Conc 29.2 g/dl (32-36); Mean Corpuscular Hemoglobin 29.0 pg (26-34); Mean Corpuscular Volume 99.4 fl (80-100); Platelet Count Result 319 k/mm3 (150-375); Red Blood Count 3.14 M/mm3 (4.2-5.4); White Blood Count 10.7 K/mm3 (4.5-10.0)
[2025-03-27 08:51] LABS: Alanine Aminotransferase 25 U/L (6-35); Albumin Level 3.4 g/dL (3.5-5.1); Alkaline Phosphatase 74 U/L (38-126); Anion Gap 4 mmol/L (4-12); Aspartate Amino Transferase 31 U/L (14-36); Bilirubin,Total 0.2 mg/dL (0.2-1.3); Blood Urea Nitrogen 23 mg/dL (7-17); Calcium 9.2 mg/dL (8.4-10.2); Carbon Dioxide 31 mmol/L (22-30); Chloride 106 mmol/L (98-107); Estimated CRCL calculation 63 ml/min; Estimated Glomerular Filt Rate > 60; Glucose 96 mg/dL (65-110); Potassium 3.9 mmol/L (3.4-5.0); Sodium 141 mmol/L (137-145); Total Protein 6.3 g/dL (6.3-8.2)
[2025-03-27] MEDS: NONFORMULARY DRUG (Desvenlafaxine Succinate 50 mg tablet extended release 24 hr) PO (08:58)
--- NOTE | 2025-03-27 09:49 | P.CONPL_ITS ---
Assessment and Plan Assessment and plan (1) COVID-19: Code(s): U07.1 - COVID-19 Status: Acute Assessment and Plan: Patient was COVID positive on 03/19 and treated with remdesivir and dexamethasone. She remains COVID positive on 03/25 and I suspect this is residual reactivity from her per 1st COVID infection. She is in no respiratory distress. She is on 2 L nasal cannula and presumably she wears 3 L at [facility]. plan: Prednisone 10 mg p.o. q.day day 9 of . At this time I do not recommend any additional active treatment for COVID pneumonia. Discussed with Dr. Ramirze. (2) Acute on chronic respiratory failure with hypoxia and hypercapnia: Code(s): J96.21 - Acute and chronic respiratory failure with hypoxia; J96.22 - Acute and chronic respiratory failure with hypercapnia Status: Acute Assessment and Plan: Patient does not know if she wears oxygen at [facility]. She does not know if she wear CPAP or BiPAP. She does not know if she has obstructive sleep apnea or COPD. It is unknown if the patient has smokes cigarettes. ABG on admission on 03/19 7.31/59/71 on BiPAP 16/5 in 70%. On 03/25/2025 ABG on BiPAP 15/8 and 80% pH of 7.37/51/81. 01/21/2025: White blood cell count 14.2, eosinophils 1.1%=156/uL. Plan: coding quality coordinator from will call [facility] in ask them if she is on oxygen at rest, with activity and at night. They will also ask if she was on BiPAP or CPAP and if so we will obtain a download. I will check a TSH and free T4. I will obtain a CT scan of the chest looking for bullous emphysema. I will place the patient on anoro ellipta. I will not place the patient on inhaled corticosteroids at this time. I will check an overnight oximetry on room air tonight to see if she qualifies for oxygen at night. Patient will need a home O2 assessment prior to returning to [facility]. I will discontinue the patient's BiPAP tonight and check an ABG off of BiPAP for 24 hours to reassess for chronic hypercarbic respiratory failure. (3) Schizoaffective disorder: Code(s): F25.9 - Schizoaffective disorder, unspecified Status: Chronic Assessment and Plan: Patient is on Ativan 0.5 t.i.d., clonazepam 100 mg p.o. q.day, Zyprexa and lithium. Patient has chronic hypercarbic respiratory failure and I recommend discontinuation of all benzodiazepine such as these are respiratory suppressants and will make her hypercarbic respiratory failure worse. Discussed with hospitalist. History of Present Illness History of Present Illness Consult date: 03/27/25 Chief complaint: AMS From Hypoxia Narrative: 03/27/2025: This is a new pulmonary consult for COVID and BiPAP. 64-year-old 6w/PMH of Schizoaffective disorder, Depression, DM, HTN, HLD, COPD, and PE on chronic anticoagulation, COVID treated with remdesivir and dexamethasone on 03/19/2025 and discharge back to [facility] on 03/24/2025. She is a samuel of the [facility] with state as guardian who was brought into the ER due to hypoxia. patient cannot provide me with any meaningful history. Of note patient was COVID positive on 03/19/2025 ( 7 days earlier) and treated with 5 days of remdesivir and dexamethasone for 10 days and discharged on 03/24/2025. chest x-ray on 03/21/2025 showed improved bilateral LL space disease. On 03/24/2025 at 9:32 a.m. room air saturations 94%. I asked her if she had COPD and she said I do not know. I asked her if she had PE and she said I do not know. I asked her if she wore oxygen at her nursing facility which is [facility] and she said sometimes I wear it in the hospital, I asked her if she wore CPAP or BiPAP at [facility] and she said no. I asked her she had obstructive sleep apnea and she did not know with this was. 03/26/2025 patient was brought to the emergency room from [facility] with altered mental status and hypoxia. The chart says she wears 3 L nasal cannula at baseline. She was found by EMS off oxygen and placed on a non- rebreather with saturations that improved to the 80s. The patient was in then placed on CPAP and her saturations increased to 93 and she became more responsive. She was treated with magnesium, steroids and DuoNeb. Patient presented to the emergency department and her COVID RT PCR was positive. of note the patient's home medicines include Ativan 0.5 mg p.o. t.i.d., clonazepam 100 mg p.o. q.day, Zyprexa, lithium. 03/27/25: Patient is unable to give accurate healthcare information. She is in no respiratory distress and asking me if she can go home. When I enter the room she was on 4 L with saturation 99%. I decreased her to room air and after 5 minutes her saturations went to 88 and I placed her on 2 L nasal cannula her saturations were 92%. She is afebrile. White blood cell count 10.7, creatinine 0.75. DATA: 03/23/2025: Echo Summary 1. Complete two-dimensional, color flow and Doppler transthoracic echocardiogram is performed. 2. Normal left and right ventricular size and systolic function. 3. Grade 1 diastolic noncompliance. 4. No valvular dysfunction. Left Ventricle Left ventricular chamber dimension is normal. Left ventricular systolic function is normal, estimated at 65-70. The left ventricular diastolic function is grade I diastolic dysfunction. Right Ventricle Right ventricular chamber dimension is normal. Left Atria Left atrial chamber dimension is normal. Right Atria Right atrial chamber dimension is normal. Review of Systems 2 Review of Systems: ROS unobtainable: Yes unobtainable due to mental status [facility] Past Medical History Medical History (Updated 03/26/25 @ 03:11 by Alicia Damon MD) Acute hypoxic respiratory failure Pneumonia COVID-19 Schizoaffective disorder Depression Diabetes Hypertension Hyperlipidemia Pulmonary embolism COPD (chronic obstructive pulmonary disease) Social History Social History Smoking status: Unknown if ever smoked Second hand tobacco smoke exposure: No Alcohol intake: never Substance use: never Substance use type: does not use Do You Feel Safe in your Home?: No Lack of Transportation: No Lack of Food: Never True Current Housing: I Have Housing Concerned About Future Housing: No Difficulty Paying Gas/Electric Bills: No Difficulty Paying for Meds: No Currently Unemployed: No Education: High School Diploma/GED Difficulty w/ Childcare or Family Care: No Spiritual care concerns: No Meds Home Medications and Allergies Home Medications ?Medication ?Instructions ?Recorded ?Confirmed ?Type acetaminophen 325 mg tablet 325 mg PO Q6H PRN pain 03/08/25 03/26/25 History acyclovir 400 mg tablet 400 mg PO BID 03/08/25 03/26/25 History albuterol sulfate 90 mcg/actuation 2 puff inhalation Q4H PRN cough 03/08/25 03/26/25 History aerosol inhaler alendronate 70 mg tablet 70 mg PO WEEKLY 03/08/25 03/26/25 History apixaban 5 mg tablet (Eliquis) 5 mg PO BID 03/08/25 03/26/25 History aspirin 81 mg tablet,delayed 81 mg PO DAILY 03/08/25 03/26/25 History release atorvastatin 10 mg tablet 10 mg PO HS 03/08/25 03/26/25 History bismuth subsalicylate 262 mg/15 mL 262 mg PO Q4H PRN diarrhea 03/08/25 03/26/25 History oral suspension (Stomach Relief) budesonide-formoterol HFA 80 1 puff inhalation DAILY 03/08/25 03/26/25 History mcg-4.5 mcg/actuation aerosol inhaler calcium carbonate (Oyster Shell 1,000 mg PO DAILY 03/08/25 03/26/25 History Calcium) clozapine 100 mg tablet 100 mg PO HS 03/08/25 03/26/25 History clozapine 100 mg tablet 100 mg PO QAM 03/08/25 03/26/25 History clozapine 200 mg tablet 400 mg PO HS 03/08/25 03/26/25 History desvenlafaxine succinate 50 mg 50 mg PO DAILY 03/08/25 03/26/25 History tablet,extended release 24 hr fluticasone furoate 100 1 inh inhalation DAILY 03/08/25 03/26/25 History mcg-vilanterol 25 mcg/dose inhalation powder (Breo Ellipta) lamotrigine 200 mg tablet 200 mg PO BID 03/08/25 03/26/25 History latanoprost 0.005 % eye drops 1 drp EACH EYE HS 03/08/25 03/26/25 History lithium carbonate 150 mg capsule 150 mg PO QPM 03/08/25 03/26/25 History lorazepam 0.5 mg tablet 0.5 mg PO TID 03/08/25 03/26/25 History meloxicam 7.5 mg tablet 7.5 mg PO DAILY 03/08/25 03/26/25 History metformin 500 mg tablet 500 mg PO QPM 03/08/25 03/26/25 History olanzapine 15 mg tablet 15 mg PO HS 03/08/25 03/26/25 History pantoprazole 40 mg tablet,delayed 40 mg PO DAILY 03/08/25 03/26/25 History release polyethylene glycol 3350 17 17 g PO DAILY PRN constipation 03/08/25 03/26/25 History gram/dose oral powder sertraline 100 mg tablet 200 mg PO DAILY 03/08/25 03/26/25 History tiotropium 2.5 mcg-olodaterol 2.5 2 puff inhalation DAILY 03/08/25 03/26/25 History mcg/actuation mist for inhalation (Stiolto Respimat) guaifenesin 600 mg tablet, 1,200 mg (2 x 600 mg) PO Q12HR #30 03/10/25 03/26/25 Rx extended release 12 hr (Mucus tabs Relief ER) ipratropium 0.5 mg-albuterol 3 mg 3 ml inhalation Q6HRT #30 vials 03/10/25 03/26/25 Rx (2.5 mg base)/3 mL nebulization soln prednisone 10 mg tablet 10 mg PO DAILY #42 tabs 03/10/25 03/26/25 Rx Allergies Allergy/AdvReac Type Severity Reaction Status Date / Time No Known Allergies Allergy Unverified 07/22/14 10:54 Vital Signs Vital Signs - 24 hr 03/26/25 10:00 03/26/25 11:00 03/26/25 12:00 Temperature Pulse Rate 78 Respiratory Rate Blood Pressure Pulse Oximetry 100 90 Oxygen Delivery Nasal Cannula Nasal Cannula Oxygen Flow Rate 3 3 03/26/25 12:00 03/26/25 12:00 03/26/25 13:43 Temperature 36.8 C Pulse Rate 77 76 80 Respiratory Rate 18 20 Blood Pressure 119/74 Pulse Oximetry 100 Oxygen Delivery Oxygen Flow Rate 03/26/25 13:56 03/26/25 14:00 03/26/25 16:00 Temperature 36.9 C Pulse Rate 77 81 83 Respiratory Rate 20 20 Blood Pressure 111/61 Pulse Oximetry 93 Oxygen Delivery Oxygen Flow Rate 03/26/25 16:00 03/26/25 16:00 03/26/25 18:00 Temperature Pulse Rate 81 74 Respiratory Rate Blood Pressure Pulse Oximetry 98 Oxygen Delivery Nasal Cannula Oxygen Flow Rate 3 03/26/25 20:00 03/26/25 20:00 03/26/25 20:06 Temperature Pulse Rate 79 76 Respiratory Rate 20 Blood Pressure Pulse Oximetry 94 Oxygen Delivery Nasal Cannula Oxygen Flow Rate 3 03/26/25 20:16 03/26/25 20:30 03/26/25 21:00 Temperature 36.7 C Pulse Rate 80 83 Respiratory Rate 20 18 Blood Pressure 117/53 L Pulse Oximetry 95 94 Oxygen Delivery Nasal Cannula Oxygen Flow Rate 2 03/26/25 22:00 03/27/25 00:00 03/27/25 00:00 Temperature 37.2 C Pulse Rate 85 80 Respiratory Rate 18 Blood Pressure 97/65 L Pulse Oximetry 94 98 Oxygen Delivery Nasal Cannula Oxygen Flow Rate 3 03/27/25 00:00 03/27/25 02:00 03/27/25 03:48 Temperature 36.6 C Pulse Rate 79 73 73 Respiratory Rate 18 Blood Pressure 113/58 L Pulse Oximetry 98 Oxygen Delivery Oxygen Flow Rate 03/27/25 04:00 03/27/25 04:00 03/27/25 05:57 Temperature Pulse Rate 72 70 Respiratory Rate Blood Pressure Pulse Oximetry 98 Oxygen Delivery Nasal Cannula Oxygen Flow Rate 2 03/27/25 07:31 03/27/25 07:50 Temperature 36.5 C Pulse Rate 72 Respiratory Rate 15 Blood Pressure 154/90 H Pulse Oximetry 99 Oxygen Delivery BiPAP Oxygen Flow Rate Exam 2 Const: General: cooperative, healthy appearing and comfortable O rientation/consciousness: oriented to person, oriented to place and oriented to time HENMT: Head: normal to inspection Ears: hearing grossly normal bilaterally Eyes: General: appearance normal, both eyes and all related structures Neck: Neck: normal visual inspection Chest: Chest palpation & inspection: normal inspection of the chest Resp: Effort & Inspection: normal respiratory effort and able to speak in complete sentences Auscultation: no crackles, no rales, no rhonchi, no wheezes and lung sounds not diminished Cardio: Jugular venous distension: no JVD GI: Inspection: normal to inspection GI Palp: No abdominal tenderness Skin: General skin exam: normal color Neuro: General: oriented to person, oriented to place and oriented to time Extrem: General: normal to inspection Psych: Appearance: grossly normal Results Laboratory Findings 03/27/25 08:17 03/27/25 08:17 ABG, PT/INR, D-dimer: ABG ABG pH 7.377 (7.350-7.450) 03/25/25 23:59 ABG pCO2 51.2 mmHg (35.0-45.0) H 03/25/25 23:59 ABG pO2 81.1 mmHg (80.0-100.0) 03/25/25 23:59 ABG O2 Saturation 95.6 % (95.0-100.0) 03/25/25 23:59 Abnormal lab findings: Abnormal Labs 03/25/25 03/25/25 03/26/25 23:42 23:59 08:40 WBC 15.8 H 14.5 H RBC 3.45 L 3.49 L Hgb 9.9 L 9.9 L Hct 33.7 L 34.4 L MCHC 29.4 L 28.8 L RDW 15.8 H 15.9 H Immature Gran % (Auto) 1.6 H Neut % (Auto) 87.2 H Lymph % (Auto) 5.4 L Baso % (Auto) 0.1 L Lymph # (Auto) 0.85 L [place] # (Auto) 0.9 H Abs Immat Gran (auto) 0.25 H Absolute Neuts (auto) 13.8 H ABG pCO2 51.2 H ABG HCO3 29.4 H ABG O2 Content 14.4 L Total Hemoglobin 10.9 L Sodium 146 H Chloride 109 H Carbon Dioxide 31 H 32 H BUN 31 H 33 H Glucose 160 H 115 H Magnesium 2.5 H Albumin SARS-CoV-2 RNA (RT-PCR) Positive A 03/27/25 08:17 WBC 10.7 H RBC 3.14 L Hgb 9.1 L Hct 31.2 L MCHC 29.2 L RDW 15.8 H Immature Gran % (Auto) Neut % (Auto) Lymph % (Auto) Baso % (Auto) Lymph # (Auto) [place] # (Auto) Abs Immat Gran (auto) Absolute Neuts (auto) ABG pCO2 ABG HCO3 ABG O2 Content Total Hemoglobin Sodium Chloride Carbon Dioxide 31 H BUN 23 H D Glucose Magnesium Albumin 3.4 L SARS-CoV-2 RNA (RT-PCR) Diagnostic Findings Additional studies: ITS Impressions Chest X-Ray 03/26/25 08:09 IMPRESSION: 1. Mild right basilar atelectasis.
[2025-03-27 10:11] LABS: Hemoglobin A1C 6.3 % (<5.7)
[2025-03-27 10:41] LABS: NT Pro B Type Natriuretic Pept 27 pg/mL (19.9-100)
[2025-03-27 10:56] LABS: Procalcitonin 0.2 ng/mL
[2025-03-27 11:03] LABS: Thyroid Stimulating Hormone 0.871 uIU/mL (0.465-4.680)
[2025-03-27 11:07] LABS: Free T4 Free Thyroxine 0.99 ng/dL (0.78-2.19)
--- NOTE | 2025-03-27 15:33 | P.PNIM_ITS ---
Progress Note: A&P Assessment and Plan (1) Acute on chronic respiratory failure with hypoxia and hypercapnia: Code(s): J96.21 - Acute and chronic respiratory failure with hypoxia; J96.22 - Acute and chronic respiratory failure with hypercapnia Status: Acute Assessment and Plan: * Patient presented with respiratory distress possibly due to noncompliance of nasal oxygen * Positive for COVID * Previous admission completed remdesivir and Decadron * Maintain oxygen> 92% * Currently on 3 L nasal cannula baseline * BiPAP at night * Continue prednisone 10 mg p.o. q.d. home dosage * Consulted pulmonology and appreciate recommendation * Will undergo overnight oximetry * Off BiPAP for 24 hours and repeat ABG tomorrow a.m. (2) Schizoaffective disorder: Code(s): F25.9 - Schizoaffective disorder, unspecified Status: Chronic Assessment and Plan: * Continue clozapine * Continue lithium * Continue lamotrigine * Patient needs tapering of clonazepam as outpatient by psychiatrist (3) Hypertension: Code(s): I10 - Essential (primary) hypertension Status: Acute Assessment and Plan: * Not on hypertensive medication, monitor (4) Diabetes: Code(s): E11.9 - Type 2 diabetes mellitus without complications Status: Chronic Assessment and Plan: * Continue metformin 5 mg p.o. b.i.d. (5) COVID-19: Code(s): U07.1 - COVID-19 Status: Acute Assessment and Plan: As mentioned above Plan DVT prophylaxis: Continue Eliquis 2.5 mg p.o. b.i.d. Code status: Full code Subjective Date/time seen: 03/27/25 15:33 Interval history: Discussed with pulmonology. Patient will undergo overnight oximetry. As per pulmonology will be off on BiPAP for 24 hours and repeat blood gas tomorrow Review of Systems Review of Systems: ROS unobtainable: Yes unobtainable due to mental status Exam Narrative: EXAMINATION OF ORGAN SYSTEMS/BODY AREAS: Constitutional: Vital signs per nursing GENERAL:[No acute distress, sleepy but wakes to voice.] HEAD: Normal with no signs of head trauma. EYES: EOMI, conjunctiva normal ENT: Hearing grossly intact LUNGS: Some tachypnea HEART: [Regular rate and rhythm] ABD: [Soft], [nontender to palpation] EXT: Normal range of motion SKIN: [No rashes or lesions.] NEURO: [Sleeping. No gross focal sensory or strength deficits.] PSYCH: Normal affect Objective Data Vital Signs Vital Signs: Vital Signs - 24 hr 03/26/25 16:00 03/26/25 16:00 03/26/25 16:00 Temperature 98.5 F Pulse Rate 83 81 Respiratory Rate 20 Blood Pressure 111/61 Pulse Oximetry 93 98 Oxygen Delivery Nasal Cannula Oxygen Flow Rate 3 03/26/25 18:00 03/26/25 20:00 03/26/25 20:00 Temperature Pulse Rate 74 79 Respiratory Rate Blood Pressure Pulse Oximetry 94 Oxygen Delivery Nasal Cannula Oxygen Flow Rate 3 03/26/25 20:06 03/26/25 20:16 03/26/25 20:30 Temperature Pulse Rate 76 80 Respiratory Rate 20 20 Blood Pressure Pulse Oximetry 95 Oxygen Delivery Nasal Cannula Oxygen Flow Rate 2 03/26/25 21:00 03/26/25 22:00 03/27/25 00:00 Temperature 98.0 F Pulse Rate 83 85 Respiratory Rate 18 Blood Pressure 117/53 L Pulse Oximetry 94 94 Oxygen Delivery Nasal Cannula Oxygen Flow Rate 3 03/27/25 00:00 03/27/25 00:00 03/27/25 02:00 Temperature 98.9 F Pulse Rate 80 79 73 Respiratory Rate 18 Blood Pressure 97/65 L Pulse Oximetry 98 Oxygen Delivery Oxygen Flow Rate 03/27/25 03:48 03/27/25 04:00 03/27/25 04:00 Temperature 97.8 F Pulse Rate 73 72 Respiratory Rate 18 Blood Pressure 113/58 L Pulse Oximetry 98 98 Oxygen Delivery Nasal Cannula Oxygen Flow Rate 2 03/27/25 05:57 03/27/25 07:31 03/27/25 07:50 Temperature 97.7 F Pulse Rate 70 72 Respiratory Rate 15 Blood Pressure 154/90 H Pulse Oximetry 99 Oxygen Delivery BiPAP Oxygen Flow Rate 03/27/25 08:00 03/27/25 08:00 03/27/25 10:00 Temperature Pulse Rate 67 72 Respiratory Rate Blood Pressure Pulse Oximetry 97 Oxygen Delivery Nasal Cannula Oxygen Flow Rate 2 Intake/Output Intake/Output: Intake & Output 03/24/25 03/25/25 03/26/25 03/27/25 23:59 23:59 23:59 23:59 Intake Total 720 2280 Output Total 1000 940 Balance -280 1340 Meds/Results Medications: Active Medications Generic Name Dose Route Start Last Admin Trade Name Freq PRN Reason Stop Dose Admin Acetaminophen 325 mg 03/26/25 08:17 Acetaminophen 325 Mg Tablet PO Q6H PRN pain Acyclovir 400 mg 03/26/25 09:00 03/27/25 08:19 Acyclovir 400 Mg Tablet PO 400 mg Q12HR AIRAM Administration Albuterol 2 puff 03/26/25 08:17 Albuterol Sulfate (*Sp) Aerosol 1 Puff INHALATION Q4HRT PRN cough Alendronate Sodium 70 mg 03/31/25 06:30 Alendronate Sodium 70 Mg Tablet PO Fr@0630 AIRAM Apixaban 5 mg 03/26/25 09:00 03/27/25 08:20 Apixaban 5 Mg Tablet PO 5 mg Q12HR AIRAM Administration Aspirin 81 mg 03/26/25 09:00 03/27/25 08:19 Aspirin 81 Mg Enteric Tablet PO 81 mg DAILY AIRAM Administration Atorvastatin Calcium 10 mg 03/26/25 21:00 03/26/25 21:17 Atorvastatin 10 Mg Tablet PO 10 mg HS AIRAM Administration Bismuth Subsalicylate 262 mg 03/26/25 09:04 Bismuth Subsalicylate 262 Mg Chewable Tablet PO Q4H PRN diarrhea Calcium Carbonate 1,000 mg 03/26/25 09:00 03/27/25 08:19 Calcium Carbonate (Oscal) 500 Mg Tablet PO 1,000 mg DAILY AIRAM Administration Clozapine 100 mg 03/26/25 09:00 03/27/25 08:19 Clozapine 100 Mg Tablet PO 100 mg QAM AIRAM Administration Clozapine 500 mg 03/26/25 21:00 03/26/25 21:17 Clozapine 100 Mg Tablet PO 500 mg HS AIRAM Administration Guaifenesin 1,200 mg 03/26/25 09:00 03/27/25 08:19 Guaifenesin 12 Hr 600 Mg Tabcr PO 1,200 mg Q12HR AIRAM Administration Lamotrigine 200 mg 03/26/25 09:00 03/27/25 08:20 Lamotrigine 100 Mg Tablet PO 200 mg BID AIRAM Administration Latanoprost 1 drop 03/26/25 21:00 03/26/25 21:18 Latanoprost 0.005% Op Soln 2.5 Ml Btl EACH EYE 1 drop HS AIRAM Administration [place] Carbonate 150 mg 03/26/25 18:00 03/26/25 18:06 [place] Carbonate 150 Mg Capsule PO 150 mg QPM AIRAM Administration Lorazepam 0.5 mg 03/27/25 09:00 03/27/25 15:09 Lorazepam (*Crx) 0.5 Mg Tablet PO 0.5 mg TID AIRAM Administration Meloxicam 7.5 mg 03/26/25 09:00 03/27/25 08:19 Meloxicam 7.5 Mg Tablet PO 7.5 mg DAILY AIRAM Administration Metformin HCl 500 mg 03/26/25 18:00 03/26/25 18:06 Metformin Hcl 500 Mg Tablet PO 500 mg QPM AIRAM Administration Non-Formulary Medication 0 mg 03/26/25 09:00 03/27/25 08:58 Desvenlafaxine Succinate PO 04/25/25 08:59 50 mg DAILY AIRAM Administration Olanzapine 15 mg 03/26/25 21:00 03/26/25 21:16 Olanzapine 5 Mg Tablet PO 15 mg HS AIRAM Administration Pantoprazole Sodium 40 mg 03/26/25 09:00 03/27/25 08:20 Pantoprazole 40 Mg Tablet PO 40 mg DAILY AIRAM Administration Polyethylene Glycol 17 gm 03/26/25 08:17 Polyethylene Glycol 3350 17 Gm Powd.Pack PO DAILY PRN constipation Prednisone 10 mg 03/26/25 09:00 03/27/25 08:20 Prednisone 10 Mg Tablet PO 10 mg DAILY AIRAM Administration Fluticasone/Salmeterol 2 puff 03/26/25 11:00 03/27/25 08:06 Fluticasone/Salmeterol 115-21 Mcg Inhaler 1 Puff INHALATION 2 puff Q12HRT AIRAM Administration Sertraline HCl 200 mg 03/26/25 09:00 03/27/25 08:20 Sertraline Hcl 50 Mg Tablet PO 200 mg DAILY AIRAM Administration Umeclidinium/Vilanterol 1 puff 03/27/25 10:20 03/27/25 11:46 Umeclidinium/Vilanterol 62.5-25 Mcg Ellipta INHALATION Not Given DAILYRT [facility] Radiology Results: ITS Impressions Chest X-Ray 03/26/25 08:09 IMPRESSION: 1. Mild right basilar atelectasis. Labs Labs: Laboratory Results - last 24 hr 03/27/25 03/27/25 03/27/25 07:36 08:17 08:17 WBC 10.7 H RBC 3.14 L Hgb 9.1 L Hct 31.2 L MCV 99.4 MCH 29.0 MCHC 29.2 L RDW 15.8 H Plt Count 319 MPV 9.0 Sodium 141 Potassium 3.9 Chloride 106 Carbon Dioxide 31 H Anion Gap 4 BUN 23 H D Creatinine 0.75 Estim Creat Clear Calc 63 Estimated GFR > 60 Glucose 96 POC Capillary Glucose 97 Hemoglobin A1c 6.3 H Calcium 9.2 Total Bilirubin 0.2 AST 31 ALT 25 Alkaline Phosphatase 74 NT-Pro-B Natriuret Pep 27 Total Protein 6.3 Albumin 3.4 L Procalcitonin 0.2 Cancelled TSH 0.871 Free T4 0.99 Hospitalist MIPS Advance Care Plan I have confirmed that the patient's Advanced Care Plan is present, code status is documented, or surrogate decision maker is listed in patient medical record.: Yes Medication Reconciliation I have utilized all available resources to obtain, update and review the patients current medications (includes all prescriptions, OTC, herbals, cannabis, and nutritional supplements).: Yes
[2025-03-27] MEDS: LITHIUM CARBONATE 150 MG CAPSULE PO (17:24)
[2025-03-27] MEDS: ATORVASTATIN 10 MG TABLET PO (21:54)
[2025-03-27] MEDS: LATANOPROST 0.005% OP SOLN 2.5 ML BTL 1 DROP EACH EYE (21:54)
[2025-03-28] VITALS (11 sets, daily range): BP systolic 96–125; BP diastolic 55–73; PULSE 76–90; RESP 12–26; TEMP 36.7–37.6; O2SAT 93–100
--- NOTE | 2025-03-28 00:20 | PCRCNOTE ---
patient was unable to complete the oximetry study on room air due to O2 desaturation
--- NOTE | 2025-03-28 04:04 | PC.NURSE ---
Rapid Response called on this pt at this time. PCT walked in room and found patient foaming at the mouth. Suctioning provided. VSS. 94% on 2L of O2. MD at bedside. Patient lethargic but responds to painful stimuli. Pupils brisk, PERRL. Unable to assess orientation. Pt is Med/Surg status without telemetry at this time. Telemetry monitoring placed back on pt and inpatient status changed to IMU per MD.
--- NOTE | 2025-03-28 04:10 | ECG_ITS ---
Test Date: 2025-03-28 04:14:17 Measurements Intervals [place] Rate: 82 P: 62 WY: 136 QRS: -33 QRSD: 109 T: 66 QT: 314 QTc: 368 Interpretive Statements SINUS RHYTHM LEFT AXIS DEVIATION BASELINE ARTIFACT- V4, V6 BORDERLINE ECG Compared to ECG 03/26/2025 00:32:19 LEFT ANTERIOR FASCICULAR BLOCK NO LONGER PRESENT Electronically Signed On 03-28-2025 06:36:08 CDT by Romero Cheng D.O.
[2025-03-28 04:15] LABS: Alveolar/Arterial O2 Gradient 70.2 mmHg; Fractional Inspired Oxygen 28 %; HCO3 ABG 32.3 mEq/l (22.0-26.0); Oxygen Content ABG 12.0 %vol (16.0-22.0); Oxygen Saturation ABG 88.6 % (95.0-100.0); PCO2 ABG 59.8 mmHg (35.0-45.0); PO2 ABG 58.9 mmHg (80.0-100.0); PO2 FiO2 Ratio Arterial Blood 2.10 %
[2025-03-28 04:19] LABS: Liters per Minute 2.0 LPM; Modified Allen's Test Pass; Site Drawn LEFT RADIAL
[2025-03-28 04:38] LABS: Hematocrit 31.0 % (37.0-47.0); Hemoglobin 9.0 g/dL (12.0-15.0); Mean Corpuscular HGB Conc 29.0 g/dl (32-36); Mean Corpuscular Hemoglobin 28.9 pg (26-34); Mean Corpuscular Volume 99.7 fl (80-100); Platelet Count Result 328 k/mm3 (150-375); Red Blood Count 3.11 M/mm3 (4.2-5.4); White Blood Count 9.4 K/mm3 (4.5-10.0)
--- NOTE | 2025-03-28 04:43 | PM.CCN ---
Critical Care Event Note Summary Code activated: No Narrative: Nursing staff called a rapid response when they found the patient lying in bed with frothy white secretions from her mouth. The patient had been on a ApneaLink study on room air earlier in the night but had failed her ApneaLink with overt hypoxia. Subsequently the patient was placed back on 2 L nasal cannula. The patient was on the 2 L nasal cannula at the time of nursing staff finding her with this secretions. The patient is responsive to painful stimuli but cannot provide any history. Patient was not on telemetry as she had been changed to medical status and was awaiting transfer to a medical bed. Patient was not on continuous pulse ox to the uncertain if the patient may have had worsening hypoxia. Subsequently I ordered a stat chest x-ray which was unchanged from patient's prior at the time of my review radiologic interpretation pending. The patient's oxygen saturations were 94% on the 2 L at the time of the rapid response. Her glucoses were normal on Accu-Chek. Patient is edentulous and does not have evidence of oral trauma that would support the diagnosis of seizure. Patient has normal tone in her extremities the patient had already had her morning labs drawn but results were pending at the time of the rapid response. Labs were reviewed after the rapid response and appeared stable. Lactic acid has been ordered and is pending. Will order neuro checks, in place the patient back on telemetry and continuous pulse ox. Will change bed status back to IMU S patient the frequent monitoring. Will hold off on giving further benzodiazepines given the patient's respiratory status. Given that her ABG demonstrates worsening hypoxia and hypercapnia will place patient back on BiPAP until patient's case can the be discussed with the school bus driver/mechanic. 30 minute spent in critical care activities This case had a high probability of a clinically significant, sudden, or life threatening deterioration of this patient's condition which required my full and direct attention, intervention and personal management. Critical care time: 30 - 74 mins
[2025-03-28 04:45] LABS: Alanine Aminotransferase 21 U/L (6-35); Albumin Level 3.4 g/dL (3.5-5.1); Alkaline Phosphatase 91 U/L (38-126); Anion Gap 3 mmol/L (4-12); Aspartate Amino Transferase 27 U/L (14-36); Bilirubin,Total 0.2 mg/dL (0.2-1.3); Blood Urea Nitrogen 26 mg/dL (7-17); Calcium 8.7 mg/dL (8.4-10.2); Carbon Dioxide 30 mmol/L (22-30); Chloride 103 mmol/L (98-107); Estimated CRCL calculation 65 ml/min; Estimated Glomerular Filt Rate > 60; Glucose 144 mg/dL (65-110); Potassium 4.0 mmol/L (3.4-5.0); Sodium 136 mmol/L (137-145); Total Protein 6.3 g/dL (6.3-8.2)
[2025-03-28] MEDS: UMECLIDINIUM/VILANTEROL 62.5-25 MCG ELLIPTA 1 PUFF INHALATION (08:58)
[2025-03-28] MEDS: SERTRALINE HCL 50 MG TABLET 200 MG PO (09:07)
[2025-03-28] MEDS: LORazepam (*CRX) 0.5 MG TABLET PO ×3 (09:08→21:09)
[2025-03-28] MEDS: CALCIUM CARBONATE (OSCAL) 500 MG TABLET 1000 MG PO (09:08)
[2025-03-28] MEDS: ASPIRIN 81 MG ENTERIC TABLET PO (09:08)
[2025-03-28] MEDS: guaiFENesin 12 HR 600 MG TABCR 1200 MG PO ×2 (09:08→21:10)
[2025-03-28] MEDS: ACYCLOVIR 400 MG TABLET PO ×2 (09:08→21:09)
[2025-03-28] MEDS: APIXABAN 5 MG TABLET PO ×2 (09:08→21:10)
[2025-03-28] MEDS: PANTOPRAZOLE 40 MG TABLET PO (09:08)
[2025-03-28] MEDS: MELOXICAM 7.5 MG TABLET PO (09:09)
[2025-03-28] MEDS: NONFORMULARY DRUG (Desvenlafaxine Succinate 50 mg tablet extended release 24 hr) PO (09:09)
--- NOTE | 2025-03-28 10:11 | P.PNPL_ITS ---
Progress Note: A&P Assessment and Plan (1) Acute on chronic respiratory failure with hypoxia and hypercapnia: Code(s): J96.21 - Acute and chronic respiratory failure with hypoxia; J96.22 - Acute and chronic respiratory failure with hypercapnia Status: Acute Assessment and Plan: Patient does not know if she [facility] at [facility]. She does not know if she wear CPAP or BiPAP. She does not know if she has obstructive sleep apnea or COPD. It is unknown if the patient has smokes cigarettes. ABG on admission on 03/19 7./59/71 on BiPAP 16/5 in 70%. On 03/25/2025 ABG on BiPAP 15/8 and 80% pH of 7.37/51/81. 01/21/2025: White blood cell count 14.2, eosinophils 1.1%=156/uL. Plan: business services coordinator from will call [facility] facility in ask them if she is on oxygen at rest, with activity and at night. They will also ask if she was on BiPAP or CPAP and if so we will obtain a download. I will check a TSH and free T4. I will obtain a CT scan of the chest looking for bullous emphysema. I will place the patient on anoro ellipta. I will not place the patient on inhaled corticosteroids at this time. I will check an overnight oximetry on room air tonight to see if she qualifies for oxygen at night. Patient will need a home O2 assessment prior to returning to [facility]. I will discontinue the patient's BiPAP tonight and check an ABG off of BiPAP for 24 hours to reassess for chronic hypercarbic respiratory failure. Later in the day patient had a CT scan of the chest that showed no bullous emphysema, bibasilar atelectasis, 8 x 12 part solid nodule left lower lobe and 8 0.5 x 8.4 nodule right lower lobe. 03/28/25: Patient was on 2 L nasal cannula until last night with saturations 99%. Patient had an overnight oximetry on room air that was terminated after 1 hour due to hypoxia, with a recording duration of 59 minutes. Average saturation 91%. Low saturation 83%, time with saturation less than or equal to 88% was 9 minutes. Oxygen desaturation index 39.4. Patient was then placed on 2 L nasal cannula. on 2 L nasal cannula the patient had saturations of 94% and a rapid response was called for altered mental status with frothy white secretions from her mouth. The patient was only responsive to painful stimuli and could not provide any history. Stat chest x-ray was performed with no acute changes. ABG on 2 L 7.35/59.. Patient was placed on BiPAP rate of 12, pressures 15/8 and 30% FiO2. At 7:30 a.m. this morning the patient was awake and asking for breakfast and was taken off BiPAP. Patient tells me she does not remember any events that happened in the middle the night. When I saw her she was on 2 L nasal cannula with saturations 97%. I decreased her to room air and her saturations were 94%. White blood cell count 9.4, creatinine 0.72. She was positive 1.2 L yesterday and cumulative she is positive 800 mL since admission. Her weight today is 76.7. Plan: Regarding the events early this morning patient saturations on 2 L nasal cannula were 99% and her ABG on 2 L with a chronic compensated respiratory acidosis with PaO2 of 59. Patient has chronic hypercarbic respiratory failure an etiologies include COPD, sleep-related breathing disorder, medication induced, obesity hypoventilation syndrome. TSH 0.87. Free T4 0.99, both normal BMI 30.9. continue Anoro Ellipta for possible COPD. We have discussed with [facility] care facility and they can provide BiPAP but cannot provide noninvasive ventilation with the AVAPS AE mode. Tonight I will place the patient on BiPAP rate of 12, pressures 15/5, 28% FiO2 and obtain an overnight oximetry study and an ABG prior to removal. (2) Schizoaffective disorder: Code(s): F25.9 - Schizoaffective disorder, unspecified Status: Chronic Assessment and Plan: Patient is on Ativan 0.5 t.i.d., Zyprexa and lithium. Patient has chronic hypercarbic respiratory failure and I recommend discontinuation of all benzodiazepine such as these are respiratory suppressants and will make her hypercarbic respiratory failure worse. Discussed with hospitalist. 03/28/25: Patient had an episode last night of being responsive only to deep pain with adequate saturations and an ABG with a compensated respiratory a cidosis. I do not believe her chronic compensated respiratory acidosis explains her altered mental status and her being responsive only to deep pain. The patient is on multiple medications including and anti epileptic medicine lamotrigine 200 mg p.o. b.i.d. I do not know she has a seizure disorder. patient is on lorazepam 0.5 t.i.d., Zyprexa 15 q.h.s., lithium carbonate 150 q.p.m., Lamictal 200 p.o. b.i.d., clozapine 100 q.a.m. and 500 q. HS. (3) COVID-19: Code(s): U07.1 - COVID-19 Status: Acute Assessment and Plan: Patient was COVID positive on 03/19 and treated with remdesivir and dexamethasone. She remains COVID positive on 03/25 and I suspect this is residual reactivity from her per 1st COVID infection. She is in no respiratory distress. She is on 2 L nasal cannula and presumably she wears 3 L at [facility] facility. plan: Prednisone 10 mg p.o. q.day day 9 of 10. At this time I do not recommend any additional active treatment for COVID pneumonia. 03/28/25: Patient is in no respiratory distress. Room air saturations 94% currently. Plan: Today is day 10 of 10 of prednisone 10 mg and I will discontinue. Discussed with Dr. You. Subjective Date/time seen: 03/28/25 10:11 Interval history: 03/27/2025: This is a new pulmonary consult for COVID and BiPAP. 64-year-old 6w/PMH of Schizoaffective disorder, Depression, DM, HTN, HLD, COPD, and PE on chronic anticoagulation, COVID treated with remdesivir and dexamethasone on 03/19/2025 and discharge back to [facility] on 03/24/2025. She is a samuel of the [facility] with state as guardian who was brought into the ER due to hypoxia. patient cannot provide me with any meaningful history. Of note patient was COVID positive on 03/19/2025 ( 7 days earlier) and treated with 5 days of remdesivir and dexamethasone for 10 days and discharged on 03/24/2025. chest x-ray on 03/21/2025 showed improved bilateral LL space disease. On 03/24/2025 at 9:32 a.m. room air saturations 94%. I asked her if she had COPD and she said I do not know. I asked her if she had PE and she said I do not know. I asked her if she wore oxygen at her nursing facility which is [facility] and [facility] and she said sometimes I wear it in the hospital, I asked her if she wore CPAP or BiPAP at [facility] and she said no. I asked her she had obstructive sleep apnea and she did not know with this was. 03/26/2025 patient was brought to the emergency room from [facility] with altered mental status and hypoxia. The chart says she wears 3 L nasal cannula at baseline. She was found by EMS off oxygen and placed on a non- rebreather with saturations that improved to the 80s. The patient was in then placed on CPAP and her saturations increased to 93 and she became more responsive. She was treated with magnesium, steroids and DuoNeb. Patient presented to the emergency department and her COVID RT PCR was positive. of note the patient's home medicines include Ativan 0.5 mg p.o. t.i.d., clonazepam 100 mg p.o. q.day, Zyprexa, lithium. 03/27/25: Patient tells me her name, knows this is [facility], states that his 2011. Patient is unable to give accurate healthcare information. She is in no respiratory distress and asking me if she can go home. When I enter the room she was on 4 L with saturation 99%. I decreased her to room air and after 5 minutes her saturations went to 88 and I placed her on 2 L nasal cannula her saturations were 92%. She is afebrile. White blood cell count 10.7, creatinine 0.75. Later in the day patient had a CT scan of the chest that showed no bullous emphysema, bibasilar atelectasis, 8 x 12 part solid nodule left lower lobe and 8 0.5 x 8.4 nodule right lower lobe. 03/28/25: Patient was on 2 L nasal cannula until last night with saturations 99%. Patient had an overnight oximetry on room air that was terminated after 1 hour due to hypoxia, with a recording duration of 59 minutes. Average saturation 91%. Low saturation 83%, time with saturation less than or equal to 88% was 9 minutes. Oxygen desaturation index 39.4. Patient was then placed on 2 L nasal cannula. on 2 L nasal cannula the patient had saturations of 94% and a rapid response was called for altered mental status with frothy white secretions from her mouth. The patient was only responsive to painful stimuli and could not provide any history. Stat chest x-ray was performed with no acute changes. ABG on 2 L 7.35/59.8/59. Patient was placed on BiPAP rate of 12, pressures 15/8 and 30% FiO2. At 7:30 a.m. this morning the patient was awake and asking for breakfast and was taken off BiPAP. Patient tells me she does not remember any events that happened in the middle the night. When I saw her she was on 2 L nasal cannula with saturations 97%. I decreased her to room air and her saturations were 94%. White blood cell count 9.4, creatinine 0.72. She was positive 1.2 L yesterday and cumulative she is positive 800 mL since admission. Her weight today is 76.7. DATA: 03/27/25: CLINICAL INDICATION: Respiratory failure COMPARISON: None. Reference is made to multiple plain film evaluations of the chest performed most recently on 03/26/2025 and dating back to 01/21/2025 TECHNIQUE: Multiple contiguous axial images of the chest was performed without the administration of intravenous contrast. This CT examination was performed utilizing dose reduction techniques. DLP: 306 mGy-cm FINDINGS/OBSERVATIONS: LUNG: Bibasilar atelectasis, right greater than left. 8 x 12 mm part solid nodule within the left lower lobe, possibly an intrathoracic lymph node. 8.5 x 8.4 mm nodule within the right lower lobe, possibly due to atelectasis with interstitial thickening. The remainder of the lungs are clear. No bullous emphysema is identified. No significant emphysematous change is noted. HEART: The heart is markedly enlarged, without pericardial effusion. MEDIASTINUM: No pathologically enlarged or morphologically suspicious lymph nodes are identified within the mediastinum, bilateral axilla, within the soft tissues of the anterior chest wall. SOFT TISSUES OF THE CHEST: Unremarkable. BONES OF THE CHEST: No acute fracture. No lytic or blastic lesions are identified. IMPRESSION: Bibasilar nodules, possibly sequelae of recent illness/Covid infection for which short term followup (3month CT) is recommended. 03/23/2025: Echo Summary 1. Complete two-dimensional, color flow and Doppler transthoracic echocardiogram is performed. 2. Normal left and right ventricular size and systolic function. 3. Grade 1 diastolic noncompliance. 4. No valvular dysfunction. Left Ventricle Left ventricular chamber dimension is normal. Left ventricular systolic function is normal, estimated at 65-70. The left ventricular diastolic function is grade I diastolic dysfunction. Right Ventricle Right ventricular chamber dimension is normal. Left Atria Left atrial chamber dimension is normal. Right Atria Right atrial chamber dimension is normal. Review of Systems Review of Systems: ROS unobtainable: Yes unobtainable due to mental status Exam Const: General: cooperative, healthy appearing and comfortable Orientation/consciousness: oriented to person, oriented to place and oriented to time HENMT: Head: normal to inspection Ears: hearing grossly normal bilaterally Eyes: General: appearance normal, both eyes and all related structures Neck: Neck: normal visual inspection Chest: Chest palpation & inspection: normal inspection of the chest Resp: Effort & Inspection: normal respiratory effort and able to speak in complete sentences Auscultation: no crackles, no rales, no rhonchi, no wheezes and lung sounds not diminished Cardio: Jugular venous distension: no JVD GI: Inspection: normal to inspection Skin: General skin exam: normal color Neuro: General: oriented to person, oriented to place and oriented to time Extrem: General: normal to inspection Psych: Appearance: grossly normal Objective Data Vital Signs Vital Signs: Vital Signs - 24 hr 03/27/25 16:00 03/27/25 20:00 03/27/25 20:01 Temperature 36.6 C 36.8 C Pulse Rate 87 84 Respiratory Rate 18 18 Blood Pressure 110/67 114/65 Pulse Oximetry 100 99 99 Oxygen Delivery Nasal Cannula Oxygen Flow Rate 2 Fraction of Inspired Oxygen 03/27/25 21:32 03/27/25 22:07 03/27/25 22:45 Temperature Pulse Rate Respiratory Rate Blood Pressure Pulse Oximetry 98 98 81 L Oxygen Delivery Nasal Cannula Room Air Room Air Oxygen Flow Rate 2 Fraction of Inspired Oxygen 03/27/25 23:40 03/28/25 04:04 03/28/25 04:04 Temperature 36.7 C 37.6 C 37.6 C Pulse Rate 86 81 81 Respiratory Rate 18 20 12 Blood Pressure 106/61 96/55 L 99/55 L Pulse Oximetry 98 94 94 Oxygen Delivery Nasal Cannula Oxygen Flow Rate 2 Fraction of Inspired Oxygen 03/28/25 04:04 03/28/25 04:30 03/28/25 07:46 Temperature 36.8 C Pulse Rate 83 77 Respiratory Rate 26 H 20 Blood Pressure 108/67 Pulse Oximetry 94 93 98 Oxygen Delivery BiPAP BiPAP Oxygen Flow Rate Fraction of Inspired Oxygen 30 Intake/Output Intake/Output: Intake & Output 03/25/25 03/26/25 03/27/25 03/28/25 23:59 23:59 23:59 23:59 Intake Total 720 2520 777 Output Total 1000 1240 500 Balance -280 1280 277 Meds/Results Medications: Active Medications Generic Name Dose Route Start Last Admin Trade Name Freq PRN Reason Stop Dose Admin Acetaminophen 325 mg 03/26/25 08:17 Acetaminophen 325 Mg Tablet PO Q6H PRN pain Acyclovir 400 mg 03/26/25 09:00 03/28/25 09:08 Acyclovir 400 Mg Tablet PO 400 mg Q12HR AIRAM Administration Albuterol 2 puff 03/26/25 08:17 Albuterol Sulfate (*Sp) Aerosol 1 Puff INHALATION Q4HRT PRN cough Alendronate Sodium 70 mg 03/31/25 06:30 Alendronate Sodium 70 Mg Tablet PO Fr@0630 AIRAM Apixaban 5 mg 03/26/25 09:00 03/28/25 09:08 Apixaban 5 Mg Tablet PO 5 mg Q12HR AIRAM Administration Aspirin 81 mg 03/26/25 09:00 03/28/25 09:08 Aspirin 81 Mg Enteric Tablet PO 81 mg DAILY AIRAM Administration Atorvastatin Calcium 10 mg 03/26/25 21:00 03/27/25 21:54 Atorvastatin 10 Mg Tablet PO 10 mg HS AIRAM Administration Bismuth Subsalicylate 262 mg 03/26/25 09:04 Bismuth Subsalicylate 262 Mg Chewable Tablet PO Q4H PRN diarrhea Calcium Carbonate 1,000 mg 03/26/25 09:00 03/28/25 09:08 Calcium Carbonate (Oscal) 500 Mg Tablet PO 1,000 mg DAILY AIRAM Administration Clozapine 100 mg 03/26/25 09:00 03/28/25 09:08 Clozapine 100 Mg Tablet PO 100 mg QAM AIRAM Administration Clozapine 500 mg 03/26/25 21:00 03/27/25 21:53 Clozapine 100 Mg Tablet PO 500 mg HS AIRAM Administration Guaifenesin 1,200 mg 03/26/25 09:00 03/28/25 09:08 Guaifenesin 12 Hr 600 Mg Tabcr PO 1,200 mg Q12HR AIRAM Administration Lamotrigine 200 mg 03/26/25 09:00 03/28/25 09:08 Lamotrigine 100 Mg Tablet PO 200 mg BID AIRAM Administration Latanoprost 1 drop 03/26/25 21:00 03/27/25 21:54 Latanoprost 0.005% Op Soln 2.5 Ml Btl EACH EYE 1 drop HS AIRAM Administration [place] Carbonate 150 mg 03/26/25 18:00 03/27/25 17:24 [place] Carbonate 150 Mg Capsule PO 150 mg QPM AIRAM Administration Lorazepam 0.5 mg 03/27/25 09:00 03/28/25 09:08 Lorazepam (*Crx) 0.5 Mg Tablet PO 0.5 mg TID AIRAM Administration Meloxicam 7.5 mg 03/26/25 09:00 03/28/25 09:09 Meloxicam 7.5 Mg Tablet PO 7.5 mg DAILY AIRAM Administration Metformin HCl 500 mg 03/26/25 18:00 03/27/25 17:24 Metformin Hcl 500 Mg Tablet PO 500 mg QPM AIRAM Administration Non-Formulary Medication 0 mg 03/26/25 09:00 03/28/25 09:09 Desvenlafaxine Succinate PO 04/25/25 08:59 50 mg DAILY AIRAM Administration Olanzapine 15 mg 03/26/25 21:00 03/27/25 21:53 Olanzapine 5 Mg Tablet PO 15 mg HS AIRAM Administration Pantoprazole Sodium 40 mg 03/26/25 09:00 03/28/25 09:08 Pantoprazole 40 Mg Tablet PO 40 mg DAILY AIRAM Administration Polyethylene Glycol 17 gm 03/26/25 08:17 Polyethylene Glycol 3350 17 Gm Powd.Pack PO DAILY PRN constipation Prednisone 10 mg 03/26/25 09:00 03/28/25 09:08 Prednisone 10 Mg Tablet PO 10 mg DAILY AIRAM Administration Sertraline HCl 200 mg 03/26/25 09:00 03/28/25 09:07 Sertraline Hcl 50 Mg Tablet PO 200 mg DAILY AIRAM Administration Umeclidinium/Vilanterol 1 puff 03/27/25 10:20 03/28/25 08:58 Umeclidinium/Vilanterol 62.5-25 Mcg Ellipta INHALATION 1 puff DAILYRT AIRAM Administration Radiology Results: ITS Impressions Chest CT 03/27/25 16:01 IMPRESSION: Bibasilar nodules, possibly sequelae of recent illness/Covid infection for which short term followup (3month CT) is recommended. Chest X-Ray 03/28/25 05:55 Impression: Clear lungs. Labs Labs: Laboratory Results - last 24 hr 03/27/25 03/27/25 03/28/25 08:17 08:17 03:53 WBC 9.4 RBC 3.11 L Hgb 9.0 L Hct 31.0 L MCV 99.7 MCH 28.9 MCHC 29.0 L RDW 15.6 H Plt Count 328 MPV 9.5 Puncture Site ABG pH ABG pCO2 ABG pO2 ABG PO2/FiO2 Ratio ABG HCO3 ABG O2 Saturation ABG O2 Content ABG Base Excess A-a Gradient Oxyhemoglobin Total Hemoglobin O2 Delivery Device O2 Liters/Min FiO2 Sodium 136 L Potassium 4.0 Chloride 103 Carbon Dioxide 30 Anion Gap 3 L BUN 26 H Creatinine 0.72 Estim Creat Clear Calc 65 Estimated GFR > 60 Glucose 144 H POC Capillary Glucose Hemoglobin A1c 6.3 H Lactic Acid Calcium 8.7 Total Bilirubin 0.2 AST 27 ALT 21 Alkaline Phosphatase 91 NT-Pro-B Natriuret Pep 27 Total Protein 6.3 Albumin 3.4 L Procalcitonin 0.2 Cancelled TSH 0.871 Free T4 0.99 03/28/25 03/28/25 03/28/25 04:05 04:14 04:23 WBC RBC Hgb Hct MCV MCH MCHC RDW Plt Count MPV Puncture Site Left radial ABG pH 7.350 ABG pCO2 59.8 H ABG pO2 58.9 L ABG PO2/FiO2 Ratio 2.10 ABG HCO3 32.3 H ABG O2 Saturation 88.6 L ABG O2 Content 12.0 L ABG Base Excess 5.5 A-a Gradient 70.2 Oxyhemoglobin 87.5 L* Total Hemoglobin 9.7 L O2 Delivery Device Nasal cannula O2 Liters/Min 2.0 FiO2 28 Sodium Potassium Chloride Carbon Dioxide Anion Gap BUN Creatinine Estim Creat Clear Calc Estimated GFR Glucose POC Capillary Glucose 136 H Hemoglobin A1c Lactic Acid 0.9 Calcium Total Bilirubin AST ALT Alkaline Phosphatase NT-Pro-B Natriuret Pep Total Protein Albumin Procalcitonin TSH Free T4
--- NOTE | 2025-03-28 16:26 | P.PNIM_ITS ---
Progress Note: A&P Assessment and Plan (1) Acute on chronic respiratory failure with hypoxia and hypercapnia: Code(s): J96.21 - Acute and chronic respiratory failure with hypoxia; J96.22 - Acute and chronic respiratory failure with hypercapnia Status: Acute Assessment and Plan: * Patient presented with respiratory distress possibly due to noncompliance of nasal oxygen * Positive for COVID * Previous admission completed remdesivir and Decadron * Maintain oxygen> 92% * Currently on 3 L nasal cannula baseline * BiPAP at night * Continue prednisone 10 mg p.o. q.d. home dosage * Consulted pulmonology and appreciate recommendation * Will undergo overnight oximetry * Off BiPAP for 24 hours and repeat ABG tomorrow a.m. * For overnight BiPAP study per pulmonology (2) Schizoaffective disorder: Code(s): F25.9 - Schizoaffective disorder, unspecified Status: Chronic Assessment and Plan: * Continue clozapine * Continue lithium * Continue lamotrigine * Patient needs tapering of clonazepam as outpatient by psychiatrist (3) Hypertension: Code(s): I10 - Essential (primary) hypertension Status: Acute Assessment and Plan: * Not on hypertensive medication, monitor (4) Diabetes: Code(s): E11.9 - Type 2 diabetes mellitus without complications Status: Chronic Assessment and Plan: * Continue metformin 5 mg p.o. b.i.d. (5) COVID-19: Code(s): U07.1 - COVID-19 Status: Acute Assessment and Plan: As mentioned above Plan Seizure Patient had a suspected seizure last night EEG and neuro consulted Continue Lamotrigine, Started on Keppra monitor closely DVT prophylaxis: Continue Eliquis 2.5 mg p.o. b.i.d. Code status: Full code Subjective Date/time seen: 03/28/25 16:26 Interval history: Comfortable at bedside Review of Systems Review of Systems: ROS unobtainable: Yes unobtainable due to mental status Exam Narrative: EXAMINATION OF ORGAN SYSTEMS/BODY AREAS: Constitutional: Vital signs per nursing GENERAL:[No acute distress, sleepy but wakes to voice.] HEAD: Normal with no signs of head trauma. EYES: EOMI, conjunctiva normal ENT: Hearing grossly intact LUNGS: Some tachypnea HEART: [Regular rate and rhythm] ABD: [Soft], [nontender to palpation] EXT: Normal range of motion SKIN: [No rashes or lesions.] NEURO: [Sleeping. No gross focal sensory or strength deficits.] PSYCH: Normal affect Objective Data Vital Signs Vital Signs: Vital Signs - 24 hr 03/27/25 20:00 03/27/25 20:01 03/27/25 21:32 Temperature 98.3 F Pulse Rate 84 Respiratory Rate 18 Blood Pressure 114/65 Pulse Oximetry 99 99 98 Oxygen Delivery Nasal Cannula Nasal Cannula Oxygen Flow Rate 2 2 Fraction of Inspired Oxygen 03/27/25 22:07 03/27/25 22:45 03/27/25 23:40 Temperature 98.1 F Pulse Rate 86 Respiratory Rate 18 Blood Pressure 106/61 Pulse Oximetry 98 81 L 98 Oxygen Delivery Room Air Room Air Oxygen Flow Rate Fraction of Inspired Oxygen 03/28/25 04:04 03/28/25 04:04 03/28/25 04:04 Temperature 99.6 F 99.6 F Pulse Rate 81 81 Respiratory Rate 20 12 Blood Pressure 96/55 L 99/55 L Pulse Oximetry 94 94 94 Oxygen Delivery Nasal Cannula BiPAP Oxygen Flow Rate 2 Fraction of Inspired Oxygen 30 03/28/25 04:30 03/28/25 07:46 03/28/25 09:16 Temperature 98.2 F Pulse Rate 83 77 76 Respiratory Rate 26 H 20 20 Blood Pressure 108/67 Pulse Oximetry 93 98 Oxygen Delivery BiPAP Oxygen Flow Rate Fraction of Inspired Oxygen 03/28/25 11:32 03/28/25 16:00 Temperature 98.8 F 99.2 F Pulse Rate 85 77 Respiratory Rate 24 H 12 Blood Pressure 97/57 L 125/73 Pulse Oximetry 98 98 Oxygen Delivery Oxygen Flow Rate Fraction of Inspired Oxygen Intake/Output Intake/Output: Intake & Output 03/25/25 03/26/25 03/27/25 03/28/25 23:59 23:59 23:59 23:59 Intake Total 720 2520 2043 Output Total 1000 1240 500 Balance -280 1280 1543 Meds/Results Medications: Active Medications Generic Name Dose Route Start Last Admin Trade Name Freq PRN Reason Stop Dose Admin Acetaminophen 325 mg 03/26/25 08:17 Acetaminophen 325 Mg Tablet PO Q6H PRN pain Acyclovir 400 mg 03/26/25 09:00 03/28/25 09:08 Acyclovir 400 Mg Tablet PO 400 mg Q12HR AIRAM Administration Albuterol 2 puff 03/26/25 08:17 Albuterol Sulfate (*Sp) Aerosol 1 Puff INHALATION Q4HRT PRN cough Alendronate Sodium 70 mg 03/31/25 06:30 Alendronate Sodium 70 Mg Tablet PO Fr@0630 AIRAM Apixaban 5 mg 03/26/25 09:00 03/28/25 09:08 Apixaban 5 Mg Tablet PO 5 mg Q12HR AIRAM Administration Aspirin 81 mg 03/26/25 09:00 03/28/25 09:08 Aspirin 81 Mg Enteric Tablet PO 81 mg DAILY AIRAM Administration Atorvastatin Calcium 10 mg 03/26/25 21:00 03/27/25 21:54 Atorvastatin 10 Mg Tablet PO 10 mg HS AIRAM Administration Bismuth Subsalicylate 262 mg 03/26/25 09:04 Bismuth Subsalicylate 262 Mg Chewable Tablet PO Q4H PRN diarrhea Calcium Carbonate 1,000 mg 03/26/25 09:00 03/28/25 09:08 Calcium Carbonate (Oscal) 500 Mg Tablet PO 1,000 mg DAILY AIRAM Administration Clozapine 100 mg 03/26/25 09:00 03/28/25 09:08 Clozapine 100 Mg Tablet PO 100 mg QAM AIRAM Administration Clozapine 500 mg 03/26/25 21:00 03/27/25 21:53 Clozapine 100 Mg Tablet PO 500 mg HS AIRAM Administration Guaifenesin 1,200 mg 03/26/25 09:00 03/28/25 09:08 Guaifenesin 12 Hr 600 Mg Tabcr PO 1,200 mg Q12HR AIRAM Administration Lamotrigine 200 mg 03/28/25 21:00 Lamotrigine 100 Mg Tablet PO Q12HR AIRAM Latanoprost 1 drop 03/26/25 21:00 03/27/25 21:54 Latanoprost 0.005% Op Soln 2.5 Ml Btl EACH EYE 1 drop HS AIRAM Administration [place] Carbonate 150 mg 03/26/25 18:00 03/27/25 17:24 [place] Carbonate 150 Mg Capsule PO 150 mg QPM AIRAM Administration Lorazepam 0.5 mg 03/28/25 14:00 03/28/25 13:44 Lorazepam (*Crx) 0.5 Mg Tablet PO 0.5 mg Q8HR AIRAM Administration Meloxicam 7.5 mg 03/26/25 09:00 03/28/25 09:09 Meloxicam 7.5 Mg Tablet PO 7.5 mg DAILY AIRAM Administration Metformin HCl 500 mg 03/26/25 18:00 03/27/25 17:24 Metformin Hcl 500 Mg Tablet PO 500 mg QPM AIRAM Administration Non-Formulary Medication 0 mg 03/26/25 09:00 03/28/25 09:09 Desvenlafaxine Succinate PO 04/25/25 08:59 50 mg DAILY AIRAM Administration Olanzapine 15 mg 03/26/25 21:00 03/27/25 21:53 Olanzapine 5 Mg Tablet PO 15 mg HS AIRAM Administration Pantoprazole Sodium 40 mg 03/26/25 09:00 03/28/25 09:08 Pantoprazole 40 Mg Tablet PO 40 mg DAILY AIRMA Administration Polyethylene Glycol 17 gm 03/26/25 08:17 Polyethylene Glycol 3350 17 Gm Powd.Pack PO DAILY PRN constipation Sertraline HCl 200 mg 03/26/25 09:00 03/28/25 09:07 Sertraline Hcl 50 Mg Tablet PO 200 mg DAILY AIRAM Administration Umeclidinium/Vilanterol 1 puff 03/27/25 10:20 03/28/25 08:58 Umeclidinium/Vilanterol 62.5-25 Mcg Ellipta INHALATION 1 puff DAILYRT AIRAM Administration Radiology Results: ITS Impressions Chest CT 03/27/25 16:01 IMPRESSION: Bibasilar nodules, possibly sequelae of recent illness/Covid infection for which short term followup (3month CT) is recommended. Chest X-Ray 03/28/25 05:55 Impression: Clear lungs. Labs Labs: Laboratory Results - last 24 hr 03/28/25 03/28/25 03/28/25 03:53 04:05 04:14 WBC 9.4 RBC 3.11 L Hgb 9.0 L Hct 31.0 L MCV 99.7 MCH 28.9 MCHC 29.0 L RDW 15.6 H Plt Count 328 MPV 9.5 Puncture Site Left radial ABG pH 7.350 ABG pCO2 59.8 H ABG pO2 58.9 L ABG PO2/FiO2 Ratio 2.10 ABG HCO3 32.3 H ABG O2 Saturation 88.6 L ABG O2 Content 12.0 L ABG Base Excess 5.5 A-a Gradient 70.2 Oxyhemoglobin 87.5 L* Total Hemoglobin 9.7 L O2 Delivery Device Nasal cannula O2 Liters/Min 2.0 FiO2 28 Sodium 136 L Potassium 4.0 Chloride 103 Carbon Dioxide 30 Anion Gap 3 L BUN 26 H Creatinine 0.72 Estim Creat Clear Calc 65 Estimated GFR > 60 Glucose 144 H POC Capillary Glucose 136 H Lactic Acid Calcium 8.7 Total Bilirubin 0.2 AST 27 ALT 21 Alkaline Phosphatase 91 Total Protein 6.3 Albumin 3.4 L 03/28/25 04:23 WBC RBC Hgb Hct MCV MCH MCHC RDW Plt Count MPV Puncture Site ABG pH ABG pCO2 ABG pO2 ABG PO2/FiO2 Ratio ABG HCO3 ABG O2 Saturation ABG O2 Content ABG Base Excess A-a Gradient Oxyhemoglobin Total Hemoglobin O2 Delivery Device O2 Liters/Min FiO2 Sodium Potassium Chloride Carbon Dioxide Anion Gap BUN Creatinine Estim Creat Clear Calc Estimated GFR Glucose POC Capillary Glucose Lactic Acid 0.9 Calcium Total Bilirubin AST ALT Alkaline Phosphatase Total Protein Albumin
[2025-03-28] MEDS: LITHIUM CARBONATE 150 MG CAPSULE PO (17:23)
[2025-03-28] MEDS: ATORVASTATIN 10 MG TABLET PO (21:10)
[2025-03-28] MEDS: LATANOPROST 0.005% OP SOLN 2.5 ML BTL 1 DROP EACH EYE (21:10)
[2025-03-28] MEDS: levETIRAcetam 1000MG/NACL100ML 1,000 MG/100 ML BAG 400 MG IVPB (21:11)
[2025-03-29] VITALS (24 sets, daily range): BP systolic 98–141; BP diastolic 56–76; PULSE 63–90; RESP 15–26; TEMP 36.4–37.2; O2SAT 95–100
--- NOTE | 2025-03-29 00:38 | PC.NURSE ---
Pt not tolerating the Bipap tonight. Makenna in respiratory notified. Pt back on NC at 3 L, with no difficulties noted.
--- NOTE | 2025-03-29 00:42 | PCRCNOTE ---
Pt frequently removed BIPAP mask and RN placed pt on 3 LPM NC and apnea link ended.
[2025-03-29 04:11] LABS: Hematocrit 30.5 % (37.0-47.0); Hemoglobin 8.7 g/dL (12.0-15.0); Immature Granulocyte Percent A 0.8 % (0-0.5); Lymphocytes Absolute Auto 1.64 K/mm3 (0.9-3.2); Mean Corpuscular HGB Conc 28.5 g/dl (32-36); Mean Corpuscular Hemoglobin 28.5 pg (26-34); Mean Corpuscular Volume 100.0 fl (80-100); Nucleated Red Blood Cells Absolute Auto 0.000 K/mm3 (0.0-0.012); Nucleated Red Blood Cells Perc 0.0 % (0.0-0.2); Platelet Count Result 305 k/mm3 (150-375); Red Blood Count 3.05 M/mm3 (4.2-5.4); White Blood Count 9.9 K/mm3 (4.5-10.0)
[2025-03-29 04:40] LABS: Alanine Aminotransferase 18 U/L (6-35); Albumin Level 3.4 g/dL (3.5-5.1); Alkaline Phosphatase 85 U/L (38-126); Anion Gap 1 mmol/L (4-12); Aspartate Amino Transferase 26 U/L (14-36); Bilirubin,Total 0.2 mg/dL (0.2-1.3); Blood Urea Nitrogen 22 mg/dL (7-17); Calcium 8.6 mg/dL (8.4-10.2); Carbon Dioxide 31 mmol/L (22-30); Chloride 105 mmol/L (98-107); Estimated CRCL calculation 70 ml/min; Estimated Glomerular Filt Rate > 60; Glucose 106 mg/dL (65-110); Magnesium 2.5 mg/dL (1.6-2.3); Potassium 4.2 mmol/L (3.4-5.0); Sodium 137 mmol/L (137-145); Total Protein 6.3 g/dL (6.3-8.2)
[2025-03-29 04:48] LABS: Hypochromasia 1+; Ovalocytes 1+; Schistocytes Rare; Stomatocytes 1+
[2025-03-29 05:02] LABS: Alveolar/Arterial O2 Gradient 25.3 mmHg; Fractional Inspired Oxygen 32 %; HCO3 ABG 29.5 mEq/l (22.0-26.0); Oxygen Content ABG 13.1 %vol (16.0-22.0); Oxygen Saturation ABG 98.6 % (95.0-100.0); PCO2 ABG 55.1 mmHg (35.0-45.0); PO2 ABG 138.4 mmHg (80.0-100.0); PO2 FiO2 Ratio Arterial Blood 4.32 %
[2025-03-29 05:09] LABS: Liters per Minute 3.0 LPM; Modified Allen's Test Pass; Site Drawn RIGHT RADIAL
[2025-03-29] MEDS: UMECLIDINIUM/VILANTEROL 62.5-25 MCG ELLIPTA 1 PUFF INHALATION (08:37)
[2025-03-29] MEDS: APIXABAN 5 MG TABLET PO ×2 (10:31→21:01)
[2025-03-29] MEDS: ACYCLOVIR 400 MG TABLET PO ×2 (10:32→21:01)
[2025-03-29] MEDS: CALCIUM CARBONATE (OSCAL) 500 MG TABLET 1000 MG PO (10:32)
[2025-03-29] MEDS: guaiFENesin 12 HR 600 MG TABCR 1200 MG PO ×2 (10:32→21:01)
[2025-03-29] MEDS: PANTOPRAZOLE 40 MG TABLET PO (10:32)
[2025-03-29] MEDS: SERTRALINE HCL 50 MG TABLET 200 MG PO (10:33)
[2025-03-29] MEDS: ASPIRIN 81 MG ENTERIC TABLET PO (10:33)
[2025-03-29] MEDS: MELOXICAM 7.5 MG TABLET PO (10:33)
[2025-03-29] MEDS: NONFORMULARY DRUG (Desvenlafaxine Succinate 50 mg tablet extended release 24 hr) PO (10:34)
[2025-03-29] MEDS: levETIRAcetam 1000MG/NACL100ML 1,000 MG/100 ML BAG 400 MG IVPB ×2 (10:59→21:01)
--- NOTE | 2025-03-29 12:04 | P.PNPL_ITS ---
Progress Note: A&P Assessment and Plan (1) Acute on chronic respiratory failure with hypoxia and hypercapnia: Code(s): J96.21 - Acute and chronic respiratory failure with hypoxia; J96.22 - Acute and chronic respiratory failure with hypercapnia Status: Acute Assessment and Plan: Patient does not know if she wears oxygen at [facility]. She does not know if she wear CPAP or BiPAP. She does not know if she has obstructive sleep apnea or COPD. It is unknown if the patient has smokes cigarettes. ABG on admission on 03/19 7./59/71 on BiPAP 16/5 in 70%. On 03/25/2025 ABG on BiPAP 15/8 and 80% pH of 7.37/51/81. 01/21/2025: White blood cell count 14.2, eosinophils 1.1%=156/uL. Plan: esthetician/spa coordinator from will call [facility] facility in ask them if she is on oxygen at rest, with activity and at night. They will also ask if she was on BiPAP or CPAP and if so we will obtain a download. I will check a TSH and free T4. I will obtain a CT scan of the chest looking for bullous emphysema. I will place the patient on anoro ellipta. I will not place the patient on inhaled corticosteroids at this time. I will check an overnight oximetry on room air tonight to see if she qualifies for oxygen at night. Patient will need a home O2 assessment prior to returning to [facility]. I will discontinue the patient's BiPAP tonight and check an ABG off of BiPAP for 24 hours to reassess for chronic hypercarbic respiratory failure. Later in the day patient had a CT scan of the chest that showed no bullous emphysema, bibasilar atelectasis, 8 x 12 part solid nodule left lower lobe and 8 0.5 x 8.4 nodule right lower lobe. 03/28/25: Patient was on 2 L nasal cannula until last night with saturations 99%. Patient had an overnight oximetry on room air that was terminated after 1 hour due to hypoxia, with a recording duration of 59 minutes. Average saturation 91%. Low saturation 83%, time with saturation less than or equal to 88% was 9 minutes. Oxygen desaturation index 39.4. Patient was then placed on 2 L nasal cannula. on 2 L nasal cannula the patient had saturations of 94% and a rapid response was called for altered mental status with frothy white secretions from her mouth. The patient was only responsive to painful stimuli and could not provide any history. Stat chest x-ray was performed with no acute changes. ABG on 2 L 7.35/59.. Patient was placed on BiPAP rate of 12, pressures 15/8 and 30% FiO2. At 7:30 a.m. this morning the patient was awake and asking for breakfast and was taken off BiPAP. Patient tells me she does not remember any events that happened in the middle the night. When I saw her she was on 2 L nasal cannula with saturations 97%. I decreased her to room air and her saturations were 94%. White blood cell count 9.4, creatinine 0.72. She was positive 1.2 L yesterday and cumulative she is positive 800 mL since admission. Her weight today is 76.7. Plan: Regarding the events early this morning patient saturations on 2 L nasal cannula were 99% and her ABG on 2 L with a chronic compensated respiratory acidosis with PaO2 of 59. Patient has chronic hypercarbic respiratory failure an etiologies include COPD, sleep-related breathing disorder, medication induced, obesity hypoventilation syndrome. TSH 0.87. Free T4 0.99, both normal BMI 30.9. continue Anoro Ellipta for possible COPD. We have discussed with [facility] facility and they can provide BiPAP but cannot provide noninvasive ventilation with the AVAPS AE mode. Tonight I will place the patient on BiPAP rate of 12, pressures 15/5, 28% FiO2 and obtain an overnight oximetry study and an ABG prior to removal. 03/29/25: Currently the patient states she is breathing at her baseline. When I enter the room she was on 2 L nasal cannula saturations 98%. I placed her on room air and her saturations were 94%. White blood cell count 9.9, creatinine 0.66. Yesterday she was positive 1.2 L, cumulative she is positive 93 mL since admission and her weight is 75.5. Patient tells me she is breathing at her baseline. When I asked the patient if she wore the BiPAP machine rate of 12, pressures 15/5 and 28% [id number] night she said she could not remember. When I then showed her the mask she said all yes I did wear it and was comfortable. Nursing reports that she wore it for about 3 hours and then took it off. She had an overnight oximetry on these settings with recording duration of 2 hours and 53 minutes, average saturation 98%, low saturation 92%, time with saturation less than or equal to 88% was 0 minutes, oxygen desaturation index 0.8. Patient had an ABG approximately 4 hours off the BiPAP on 3 L nasal cannula 7.35/55/138. Plan: Patient states she is breathing at her baseline and currently on Anoro Ellipta 1 puff q.day and guaifenesin 1200 mg p.o. b.i.d.. She tolerated the BiPAP for 3 hours and 28% FiO2 provided adequate oxygenation. Her ABG was not drawn until 4 hours later. [facility] with the above settings and ABG prior to removal to assess ventilation. If ABG demonstrates adequate ventilation patient can be discharged to [facility] on 03/30/2025 on these pulmonary medications: Anoro Ellipta 62.5-25 at 1 puff q.day Rescue albuterol 2 puffs q.4 hours p.r.n. shortness of breath or wheezing Guaifenesin 600 mg p.o. b.i.d. p.r.n. congestion BiPAP with settings guided by ABG in the morning with 2 L bleed in Oxygen at rest and with activity per [facility] protocol (2) Schizoaffective disorder: Code(s): F25.9 - Schizoaffective disorder, unspecified Status: Chronic Assessment and Plan: Patient is on Ativan 0.5 t.i.d., Zyprexa and lithium. Patient has chronic hypercarbic respiratory failure and I recommend discontinuation of all benzodiazepine such as these are respiratory suppressants and will make her hypercarbic respiratory failure worse. Discussed with hospitalist. 03/28/25: Patient had an episode last night of being responsive only to deep pain with adequate saturations and an ABG with a compensated respiratory acidosis. I do not believe her chronic compensated respiratory acidosis explains her altered mental status and her being responsive only to deep pain. The patient is on multiple medications including and anti epileptic medicine lamotrigine 200 mg p.o. b.i.d. I do not know she has a seizure disorder. patient is on lorazepam 0.5 t.i.d., Zyprexa 15 q.h.s., lithium carbonate 150 q.p.m., Lamictal 200 p.o. b.i.d., clozapine 100 q.a.m. and 500 q. HS. 03/29/2025: Patient was started on Keppra per hospitalist team. (3) COVID-19: Code(s): U07.1 - COVID-19 Status: Acute Assessment and Plan: Patient was COVID positive on 03/19 and treated with remdesivir and dexamethasone. She remains COVID positive on 03/25 and I suspect this is residual reactivity from her per 1st COVID infection. She is in no respiratory distress. She is on 2 L nasal cannula and presumably she wears 3 L at [facility] facility. plan: Prednisone 10 mg p.o. q.day day 9 of 10. At this time I do not recommend any additional active treatment for COVID pneumonia. 03/28/25: Patient is in no respiratory distress. Room air saturations 94% currently. Plan: Today is day 10 of 10 of prednisone 10 mg and I will discontinue. Subjective Date/time seen: 03/29/25 12:04 Interval history: 03/27/2025: This is a new pulmonary consult for COVID and BiPAP. 64-year-old 6w/PMH of Schizoaffective disorder, Depression, DM, HTN, HLD, COPD, and PE on chronic anticoagulation, COVID treated with remdesivir and dexame thasone on 03/19/2025 and discharge back to [facility] on 03/24/2025. 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 patient cannot provide me with any meaningful history. Of note patient was COVID positive on 03/19/2025 ( 7 days earlier) and treated with 5 days of remdesivir and dexamethasone for 10 days and discharged on 03/24/2025. chest x-ray on 03/21/2025 showed improved bilateral LL space disease. On 03/24/2025 at 9:32 a.m. room air saturations 94%. I asked her if she had COPD and she said I do not know. I asked her if she had PE and she said I do not know. I asked her if she wore oxygen at her nursing facility which is [facility] and [facility] and she said sometimes I wear it in the hospital, I asked her if she wore CPAP or BiPAP at [facility] and she said no. I asked her she had obstructive sleep apnea and she did not know with this was. 03/26/2025 patient was brought to the emergency room from [facility] with altered mental status and hypoxia. The chart says she wears 3 L nasal cannula at baseline. She was found by EMS off oxygen and placed on a non- rebreather with saturations that improved to the 80s. The patient was in then placed on CPAP and her saturations increased to 93 and she became more responsive. She was treated with magnesium, steroids and DuoNeb. Patient presented to the emergency department and her COVID RT PCR was positive. of note the patient's home medicines include Ativan 0.5 mg p.o. t.i.d., clonazepam 100 mg p.o. q.day, Zyprexa, lithium. 03/27/25: Patient tells me her name, knows this is [facility], states that his 2012. Patient is unable to give accurate healthcare information. She is in no respiratory distress and asking me if she can go home. When I enter the room she was on 4 L with saturation 99%. I decreased her to room air and after 5 minutes her saturations went to 88 and I placed her on 2 L nasal cannula her saturations were 92%. She is afebrile. White blood cell count 10.7, creatinine 0.75. Later in the day patient had a CT scan of the chest that showed no bullous emphysema, bibasilar atelectasis, 8 x 12 part solid nodule left lower lobe and 8 0.5 x 8.4 nodule right lower lobe. 03/28/25: Patient was on 2 L nasal cannula until last night with saturations 99%. Patient had an overnight oximetry on room air that was terminated after 1 hour due to hypoxia, with a recording duration of 59 minutes. Average saturation 91%. Low saturation 83%, time with saturation less than or equal to 88% was 9 minutes. Oxygen desaturation index 39.4. Patient was then placed on 2 L nasal cannula. on 2 L nasal cannula the patient had saturations of 94% and a rapid response was called for altered mental status with frothy white sec retions from her mouth. The patient was only responsive to painful stimuli and could not provide any history. Stat chest x-ray was performed with no acute changes. ABG on 2 L 7.35/59.8/59. Patient was placed on BiPAP rate of 12, pressures 15/8 and 30% FiO2. At 7:30 a.m. this morning the patient was awake and asking for breakfast and was taken off BiPAP. Patient tells me she does not remember any events that happened in the middle the night. When I saw her she was on 2 L nasal cannula with saturations 97%. I decreased her to room air and her saturations were 94%. White blood cell count 9.4, creatinine 0.72. She was positive 1.2 L yesterday and cumulative she is positive 800 mL since admission. Her weight today is 76.7. 03/29/25: Currently the patient states she is breathing at her baseline. When I enter the room she was on 2 L nasal cannula saturations 98%. I placed her on room air and her saturations were 94%. White blood cell count 9.9, creatinine 0.66. Yesterday she was positive 1.2 L, cumulative she is positive 93 mL since admission and her weight is 75.5. Patient tells me she is breathing at her baseline. When I asked the patient if she wore the BiPAP machine rate of 12, pressures 15/5 and 28% [id number] night she said she could not remember. When I then showed her the mask she said all yes I did wear it and was comfortable. Nursing reports that she wore it for about 3 hours and then took it off. She had an overnight oximetry on these settings with recording duration of 2 hours and 53 minutes, average saturation 98%, low saturation 92%, time with saturation less than or equal to 88% was 0 minutes, oxygen desaturation index 0.8. Patient had an ABG approximately 4 hours off the BiPAP on 3 L nasal cannula 7.35/55/138. DATA: 03/27/25: CLINICAL INDICATION: Respiratory failure COMPARISON: None. Reference is made to multiple plain film evaluations of the chest performed most recently on 03/26/2025 and dating back to 01/21/2025 TECHNIQUE: Multiple contiguous axial images of the chest was performed without the administration of intravenous contrast. This CT examination was performed utilizing dose reduction techniques. DLP: 306 mGy-cm FINDINGS/OBSERVATIONS: LUNG: Bibasilar atelectasis, right greater than left. 8 x 12 mm part solid nodule within the left lower lobe, possibly an intrathoracic lymph node. 8.5 x 8.4 mm nodule within the right lower lobe, possibly due to atelectasis with interstitial thickening. The remainder of the lungs are clear. No bullous emphysema is identified. No significant emphysematous change is noted. HEART: The heart is markedly enlarged, without pericardial effusion. MEDIASTINUM: No pathologically enlarged or morphologically suspicious lymph nodes are identified within the mediastinum, bilateral axilla, within the soft tissues of the anterior chest wall. SOFT TISSUES OF THE CHEST: Unremarkable. BONES OF THE CHEST: No acute fracture. No lytic or blastic lesions are identified. IMPRESSION: Bibasilar nodules, possibly sequelae of recent illness/Covid infection for which short term followup (3month CT) is recommended. 03/23/2025: Echo Summary 1. Complete two-dimensional, color flow and Doppler transthoracic echocardiogram is performed. 2. Normal left and right ventricular size and systolic function. 3. Grade 1 diastolic noncompliance. 4. No valvular dysfunction. Left Ventricle Left ventricular chamber dimension is normal. Left ventricular systolic function is normal, estimated at 65-70. The left ventricular diastolic function is grade I diastolic dysfunction. Right Ventricle Right ventricular chamber dimension is normal. Left Atria Left atrial chamber dimension is normal. Right Atria Right atrial chamber dimension is normal. Review of Systems Review of Systems: ROS unobtainable: Yes unobtainable due to mental status Exam Const: General: cooperative, healthy appearing and comfortable Orientation/consciousness: oriented to person, oriented to place and oriented to time HENMT: Head: normal to inspection Ears: hearing grossly normal bilaterally Eyes: General: appearance normal, both eyes and all related structures Neck: Neck: normal visual inspection Chest: Chest palpation & inspection: normal inspection of the chest Resp: Effort & Inspection: normal respiratory effort and able to speak in complete sentences Auscultation: no crackles, no rales, no rhonchi, no wheezes and lung sounds not diminished Cardio: Jugular venous distension: no JVD GI: Inspection: normal to inspection Skin: General skin exam: normal color Neuro: General: oriented to person, oriented to place and oriented to time Extrem: General: normal to inspection Psych: Appearance: grossly normal Objective Data Vital Signs Vital Signs: Vital Signs - 24 hr 03/28/25 16:00 03/28/25 20:00 03/28/25 20:25 Temperature 37.3 C 36.7 C Pulse Rate 77 84 Respiratory Rate 12 12 Blood Pressure 125/73 119/72 Pulse Oximetry 98 100 96 Oxygen Delivery BiPAP Oxygen Flow Rate Fraction of Inspired Oxygen 30 03/28/25 20:49 03/28/25 21:46 03/28/25 23:36 Temperature Pulse Rate 90 78 Respiratory Rate 20 23 H Blood Pressure Pulse Oximetry 96 100 100 Oxygen Delivery Room Air BiPAP BiPAP Oxygen Flow Rate Fraction of Inspired Oxygen 21 30 03/29/25 00:00 03/29/25 00:01 03/29/25 00:40 Temperature 36.4 C Pulse Rate 78 77 75 Respiratory Rate 15 20 Blood Pressure 123/75 Pulse Oximetry 100 100 Oxygen Delivery Nasal Cannula Oxygen Flow Rate 3 Fraction of Inspired Oxygen 32 03/29/25 03:08 03/29/25 03:22 03/29/25 04:00 Temperature 36.7 C Pulse Rate 74 72 Respiratory Rate 18 Blood Pressure 122/68 Pulse Oximetry 100 100 Oxygen Delivery Nasal Cannula Oxygen Flow Rate 3 Fraction of Inspired Oxygen 03/29/25 06:05 03/29/25 08:00 03/29/25 08:38 Temperature 36.6 C Pulse Rate 68 71 77 Respiratory Rate 16 20 Blood Pressure 141/76 H Pulse Oximetry 100 Oxygen Delivery Oxygen Flow Rate Fraction of Inspired Oxygen 03/29/25 08:47 03/29/25 08:48 Temperature Pulse Rate Respiratory Rate Blood Pressure Pulse Oximetry 98 97 Oxygen Delivery Nasal Cannula Nasal Cannula Oxygen Flow Rate 3 2 Fraction of Inspired Oxygen 32 28 Intake/Output Intake/Output: Intake & Output 03/26/25 03/27/25 03/28/25 03/29/25 23:59 23:59 23:59 23:59 Intake Total 720 2520 2443 Output Total 1000 1240 1050 2200 Balance -280 1280 1393 -2200 Meds/Results Medications: Active Medications Generic Name Dose Route Start Last Admin Trade Name Freq PRN Reason Stop Dose Admin Acetaminophen 325 mg 03/26/25 08:17 Acetaminophen 325 Mg Tablet PO Q6H PRN pain Acyclovir 400 mg 03/26/25 09:00 03/29/25 10:32 Acyclovir 400 Mg Tablet PO 400 mg Q12HR AIRAM Administration Albuterol 2 puff 03/26/25 08:17 Albuterol Sulfate (*Sp) Aerosol 1 Puff INHALATION Q4HRT PRN cough Alendronate Sodium 70 mg 03/31/25 06:30 Alendronate Sodium 70 Mg Tablet PO Fr@0630 AIRAM Apixaban 5 mg 03/26/25 09:00 03/29/25 10:31 Apixaban 5 Mg Tablet PO 5 mg Q12HR AIRAM Administration Aspirin 81 mg 03/26/25 09:00 03/29/25 10:33 Aspirin 81 Mg Enteric Tablet PO 81 mg DAILY AIRAM Administration Atorvastatin Calcium 10 mg 03/26/25 21:00 03/28/25 21:10 Atorvastatin 10 Mg Tablet PO 10 mg HS AIRAM Administration Bismuth Subsalicylate 262 mg 03/26/25 09:04 Bismuth Subsalicylate 262 Mg Chewable Tablet PO Q4H PRN diarrhea Calcium Carbonate 1,000 mg 03/26/25 09:00 03/29/25 10:32 Calcium Carbonate (Oscal) 500 Mg Tablet PO 1,000 mg DAILY AIRAM Administration Clozapine 100 mg 03/26/25 09:00 03/29/25 10:32 Clozapine 100 Mg Tablet PO 100 mg QAM AIRAM Administration Clozapine 500 mg 03/26/25 21:00 03/28/25 21:09 Clozapine 100 Mg Tablet PO 500 mg HS AIRAM Administration Guaifenesin 1,200 mg 03/26/25 09:00 03/29/25 10:32 Guaifenesin 12 Hr 600 Mg Tabcr PO 1,200 mg Q12HR AIRAM Administration Levetiracetam 1,000 mg in 100 mls @ 400 mls/hr 03/28/25 21:00 03/29/25 10:59 Keppra Iv IVPB 400 mls/hr Q12HR AIRAM Administration Lamotrigine 200 mg 03/28/25 21:00 03/29/25 10:33 Lamotrigine 100 Mg Tablet PO 200 mg Q12HR AIRAM Administration Latanoprost 1 drop 03/26/25 21:00 03/28/25 21:10 Latanoprost 0.005% Op Soln 2.5 Ml Btl EACH EYE 1 drop HS AIRAM Administration [place] Carbonate 150 mg 03/26/25 18:00 03/28/25 17:23 [place] Carbonate 150 Mg Capsule PO 150 mg QPM AIRAM Administration Lorazepam 0.5 mg 03/28/25 14:00 03/29/25 05:53 Lorazepam (*Crx) 0.5 Mg Tablet PO Not Given Q8HR AIRAM Meloxicam 7.5 mg 03/26/25 09:00 03/29/25 10:33 Meloxicam 7.5 Mg Tablet PO 7.5 mg DAILY AIRAM Administration Metformin HCl 500 mg 03/26/25 18:00 03/28/25 17:23 Metformin Hcl 500 Mg Tablet PO 500 mg QPM AIRAM Administration Non-Formulary Medication 0 mg 03/26/25 09:00 03/29/25 10:34 Desvenlafaxine Succinate PO 04/25/25 08:59 50 mg DAILY AIRAM Administration Olanzapine 15 mg 03/26/25 21:00 03/28/25 21:20 Olanzapine 5 Mg Tablet PO 15 mg HS AIRAM Administration Pantoprazole Sodium 40 mg 03/26/25 09:00 03/29/25 10:32 Pantoprazole 40 Mg Tablet PO 40 mg DAILY AIRAM Administration Polyethylene Glycol 17 gm 03/26/25 08:17 Polyethylene Glycol 3350 17 Gm Powd.Pack PO DAILY PRN constipation Sertraline HCl 200 mg 03/26/25 09:00 03/29/25 10:33 Sertraline Hcl 50 Mg Tablet PO 200 mg DAILY AIRAM Administration Umeclidinium/Vilanterol 1 puff 03/27/25 10:20 03/29/25 08:37 Umeclidinium/Vilanterol 62.5-25 Mcg Ellipta INHALATION 1 puff DAILYRT AIRAM Administration Radiology Results: ITS Impressions Chest CT 03/27/25 16:01 IMPRESSION: Bibasilar nodules, possibly sequelae of recent illness/Covid infection for which short term followup (3month CT) is recommended. Chest X-Ray 03/28/25 05:55 Impression: Clear lungs. Labs Labs: Laboratory Results - last 24 hr 03/29/25 03/29/25 03:56 04:58 WBC 9.9 RBC 3.05 L Hgb 8.7 L Hct 30.5 L MCV 100.0 MCH 28.5 MCHC 28.5 L RDW 15.6 H Plt Count 305 MPV 9.1 Immature Gran % (Auto) 0.8 H Neut % (Auto) 74.4 H Lymph % (Auto) 16.6 L [place] % (Auto) 6.3 Eos % (Auto) 1.7 Baso % (Auto) 0.2 Lymph # (Auto) 1.64 [place] # (Auto) 0.6 Eos # (Auto) 0.2 Baso # (Auto) 0.0 Abs Immat Gran (auto) 0.08 H Absolute Neuts (auto) 7.3 H Absolute Nucleated RBC 0.000 Band Neutrophils % Not Reportable Nucleated RBC % 0.0 Platelet Estimate Adequate Hypochromasia 1+ Ovalocytes 1+ Stomatocytes 1+ Schistocytes Rare Puncture Site Right radial ABG pH 7.347 L ABG pCO2 55.1 H ABG pO2 138.4 H ABG PO2/FiO2 Ratio 4.32 ABG HCO3 29.5 H ABG O2 Saturation 98.6 ABG O2 Content 13.1 L ABG Base Excess 3.1 A-a Gradient 25.3 Oxyhemoglobin 97.3 Total Hemoglobin 9.4 L O2 Delivery Device Nasal cannula O2 Liters/Min 3.0 FiO2 32 Sodium 137 Potassium 4.2 Chloride 105 Carbon Dioxide 31 H Anion Gap 1 L BUN 22 H Creatinine 0.66 L Estim Creat Clear Calc 70 Estimated GFR > 60 Glucose 106 Calcium 8.6 Magnesium 2.5 H Total Bilirubin 0.2 AST 26 ALT 18 Alkaline Phosphatase 85 Total Protein 6.3 Albumin 3.4 L
--- NOTE | 2025-03-29 12:57 | PCNEURO ---
Patient currently getting a treatment. Spoke with nurse. Will come back in an hour to complete.
--- NOTE | 2025-03-29 14:30 | ECG_ITS ---
Test Date: 2025-03-29 14:45:[address] Rate: 82 P: 64 ME: 156 QRS: -18 QRSD: 97 T: 66 QT: 316 QTc: 370 Interpretive Statements SINUS RHYTHM EARLY PRECORDIAL R/S TRANSITION BORDERLINE ECG Compared to ECG 03/28/2025 04:14:17 NO SIGNIFICANT CHANGE Electronically Signed On 03-29-2025 15:02:32 CDT by Romero Cheng D.O.
--- NOTE | 2025-03-29 14:45 | PCNEURO ---
Patient is going to CT. Nurse said she would contact us when they were finished. EEG may have to be completed tomorrow.
[2025-03-29 14:46] LABS: Alveolar/Arterial O2 Gradient 82.7 mmHg; Fractional Inspired Oxygen 28 %; HCO3 ABG 31.1 mEq/l (22.0-26.0); Oxygen Content ABG 11.4 %vol (16.0-22.0); PCO2 ABG 57.3 mmHg (35.0-45.0); PO2 FiO2 Ratio Arterial Blood 1.76 %
[2025-03-29 14:52] LABS: PO2 ABG 49.3 mmHg (80.0-100.0)
[2025-03-29 14:53] LABS: Oxygen Saturation ABG 82.2 % (95.0-100.0); Site Drawn RIGHT BRACHIAL
[2025-03-29 14:57] LABS: Non-Invasive Expiratory Pressure 5 CMH2O; Non-Invasive Inspiratory Pressure 15 CMH2O; Non-Invasive Vent Rate 12 /MIN
--- NOTE | 2025-03-29 15:01 | P.PNIM_ITS ---
Progress Note: A&P Assessment and Plan (1) Acute on chronic respiratory failure with hypoxia and hypercapnia: Code(s): J96.21 - Acute and chronic respiratory failure with hypoxia; J96.22 - Acute and chronic respiratory failure with hypercapnia Status: Acute Assessment and Plan: * Patient presented with respiratory distress possibly due to noncompliance of nasal oxygen * Positive for COVID * Previous admission completed remdesivir and Decadron * Maintain oxygen> 92% * Currently on 3 L nasal cannula baseline * BiPAP at night * Continue prednisone 10 mg p.o. q.d. home dosage * Consulted pulmonology and appreciate recommendation * Will undergo overnight oximetry * Overnight oximetry on BiPAP evaluated * pulmonology following (2) Schizoaffective disorder: Code(s): F25.9 - Schizoaffective disorder, unspecified Status: Chronic Assessment and Plan: * Continue clozapine * Continue lithium * Continue lamotrigine * Patient needs tapering of clonazepam as outpatient by psychiatrist (3) Hypertension: Code(s): I10 - Essential (primary) hypertension Status: Acute Assessment and Plan: * Not on hypertensive medication, monitor (4) Diabetes: Code(s): E11.9 - Type 2 diabetes mellitus without complications Status: Chronic Assessment and Plan: * Continue metformin 5 mg p.o. b.i.d. (5) COVID-19: Code(s): U07.1 - COVID-19 Status: Acute Assessment and Plan: As mentioned above Plan ?Seizure Patient having unresponsive episodes CT head unremarkable Awaiting EEG and neuro eval Continue Lamotrigine, on Keppra monitor closely DVT prophylaxis: Continue Eliquis 2.5 mg p.o. b.i.d. Code status: Full code Subjective Date/time seen: 03/29/25 15:01 Interval history: Comfortable at bedside patient had unresponsive episode, no witnessed seizure Abg showed compensated resp acidosis Awaiting EEG and Neuro eval Review of Systems Review of Systems: ROS unobtainable: Yes unobtainable due to mental status Exam Narrative: EXAMINATION OF ORGAN SYSTEMS/BODY AREAS: Constitutional: Vital signs per nursing GENERAL:[No acute distress, sleepy but wakes to voice.] HEAD: Normal with no signs of head trauma. EYES: EOMI, conjunctiva normal ENT: Hearing grossly intact LUNGS: Some tachypnea HEART: [Regular rate and rhythm] ABD: [Soft], [nontender to palpation] EXT: Normal range of motion SKIN: [No rashes or lesions.] NEURO: [Sleeping. No gross focal sensory or strength deficits.] PSYCH: Normal affect Objective Data Vital Signs Vital Signs: Vital Signs - 24 hr 03/28/25 16:00 03/28/25 20:00 03/28/25 20:25 Temperature 99.2 F 98.0 F Pulse Rate 77 84 Respiratory Rate 12 12 Blood Pressure 125/73 119/72 Pulse Oximetry 98 100 96 Oxygen Delivery BiPAP Oxygen Flow Rate Fraction of Inspired Oxygen 30 03/28/25 20:49 03/28/25 21:46 03/28/25 23:36 Temperature Pulse Rate 90 78 Respiratory Rate 20 23 H Blood Pressure Pulse Oximetry 96 100 100 Oxygen Delivery Room Air BiPAP BiPAP Oxygen Flow Rate Fraction of Inspired Oxygen 21 30 03/29/25 00:00 03/29/25 00:01 03/29/25 00:40 Temperature 97.6 F Pulse Rate 78 77 75 Respiratory Rate 15 20 Blood Pressure 123/75 Pulse Oximetry 100 100 Oxygen Delivery Nasal Cannula Oxygen Flow Rate 3 Fraction of Inspired Oxygen 32 03/29/25 03:08 03/29/25 03:22 03/29/25 04:00 Temperature 98.1 F Pulse Rate 74 72 Respiratory Rate 18 Blood Pressure 122/68 Pulse Oximetry 100 100 Oxygen Delivery Nasal Cannula Oxygen Flow Rate 3 Fraction of Inspired Oxygen 03/29/25 06:05 03/29/25 08:00 03/29/25 08:00 Temperature 97.9 F Pulse Rate 68 71 68 Respiratory Rate 16 Blood Pressure 141/76 H Pulse Oximetry 100 Oxygen Delivery Oxygen Flow Rate Fraction of Inspired Oxygen 03/29/25 08:38 03/29/25 08:47 03/29/25 08:48 Temperature Pulse Rate 77 Respiratory Rate 20 Blood Pressure Pulse Oximetry 98 97 Oxygen Delivery Nasal Cannula Nasal Cannula Oxygen Flow Rate 3 2 Fraction of Inspired Oxygen 32 28 03/29/25 10:00 03/29/25 12:00 03/29/25 12:00 Temperature 98 F Pulse Rate 72 87 86 Respiratory Rate 21 H Blood Pressure 99/56 L Pulse Oximetry 99 Oxygen Delivery Oxygen Flow Rate Fraction of Inspired Oxygen 03/29/25 14:36 03/29/25 14:46 Temperature 98.2 F Pulse Rate 63 82 Respiratory Rate 25 H Blood Pressure 98/56 L Pulse Oximetry 99 Oxygen Delivery Oxygen Flow Rate Fraction of Inspired Oxygen Intake/Output Intake/Output: Intake & Output 03/26/25 03/27/25 03/28/25 03/29/25 23:59 23:59 23:59 23:59 Intake Total 720 2520 2443 220 Output Total 1000 1240 1050 2200 Balance -280 1280 1393 -1980 Meds/Results Medications: Active Medications Generic Name Dose Route Start Last Admin Trade Name Freq PRN Reason Stop Dose Admin Acetaminophen 325 mg 03/26/25 08:17 Acetaminophen 325 Mg Tablet PO Q6H PRN pain Acyclovir 400 mg 03/26/25 09:00 03/29/25 10:32 Acyclovir 400 Mg Tablet PO 400 mg Q12HR AIRAM Administration Albuterol 2 puff 03/26/25 08:17 Albuterol Sulfate (*Sp) Aerosol 1 Puff INHALATION Q4HRT PRN cough Alendronate Sodium 70 mg 03/31/25 06:30 Alendronate Sodium 70 Mg Tablet PO Fr@0630 AIRAM Apixaban 5 mg 03/26/25 09:00 03/29/25 10:31 Apixaban 5 Mg Tablet PO 5 mg Q12HR AIRAM Administration Aspirin 81 mg 03/26/25 09:00 03/29/25 10:33 Aspirin 81 Mg Enteric Tablet PO 81 mg DAILY AIRAM Administration Atorvastatin Calcium 10 mg 03/26/25 21:00 03/28/25 21:10 Atorvastatin 10 Mg Tablet PO 10 mg HS AIRAM Administration Bismuth Subsalicylate 262 mg 03/26/25 09:04 Bismuth Subsalicylate 262 Mg Chewable Tablet PO Q4H PRN diarrhea Calcium Carbonate 1,000 mg 03/26/25 09:00 03/29/25 10:32 Calcium Carbonate (Oscal) 500 Mg Tablet PO 1,000 mg DAILY AIRAM Administration Clozapine 100 mg 03/26/25 09:00 03/29/25 10:32 Clozapine 100 Mg Tablet PO 100 mg QAM AIRAM Administration Clozapine 500 mg 03/26/25 21:00 03/28/25 21:09 Clozapine 100 Mg Tablet PO 500 mg HS AIRAM Administration Guaifenesin 1,200 mg 03/26/25 09:00 03/29/25 10:32 Guaifenesin 12 Hr 600 Mg Tabcr PO 1,200 mg Q12HR AIRAM Administration Levetiracetam 1,000 mg in 100 mls @ 400 mls/hr 03/28/25 21:00 03/29/25 10:59 Keppra Iv IVPB 400 mls/hr Q12HR AIRAM Administration Lamotrigine 200 mg 03/28/25 21:00 03/29/25 10:33 Lamotrigine 100 Mg Tablet PO 200 mg Q12HR AIRAM Administration Latanoprost 1 drop 03/26/25 21:00 03/28/25 21:10 Latanoprost 0.005% Op Soln 2.5 Ml Btl EACH EYE 1 drop HS AIRAM Administration [place] Carbonate 150 mg 03/26/25 18:00 03/28/25 17:23 [place] Carbonate 150 Mg Capsule PO 150 mg QPM AIRAM Administration Lorazepam 0.5 mg 03/28/25 14:00 03/29/25 14:15 Lorazepam (*Crx) 0.5 Mg Tablet PO Not Given Q8HR AIRAM Meloxicam 7.5 mg 03/26/25 09:00 03/29/25 10:33 Meloxicam 7.5 Mg Tablet PO 7.5 mg DAILY AIRAM Administration Metformin HCl 500 mg 03/26/25 18:00 03/28/25 17:23 Metformin Hcl 500 Mg Tablet PO 500 mg QPM AIRAM Administration Non-Formulary Medication 0 mg 03/26/25 09:00 03/29/25 10:34 Desvenlafaxine Succinate PO 04/25/25 08:59 50 mg DAILY AIRAM Administration Olanzapine 15 mg 03/26/25 21:00 03/28/25 21:20 Olanzapine 5 Mg Tablet PO 15 mg HS AIRAM Administration Pantoprazole Sodium 40 mg 03/26/25 09:00 03/29/25 10:32 Pantoprazole 40 Mg Tablet PO 40 mg DAILY AIRAM Administration Polyethylene Glycol 17 gm 03/26/25 08:17 Polyethylene Glycol 3350 17 Gm Powd.Pack PO DAILY PRN constipation Sertraline HCl 200 mg 03/26/25 09:00 03/29/25 10:33 Sertraline Hcl 50 Mg Tablet PO 200 mg DAILY AIRAM Administration Umeclidinium/Vilanterol 1 puff 03/27/25 10:20 03/29/25 08:37 Umeclidinium/Vilanterol 62.5-25 Mcg Ellipta INHALATION 1 puff DAILYRT AIRAM Administration Radiology Results: ITS Impressions Chest CT 03/27/25 16:01 IMPRESSION: Bibasilar nodules, possibly sequelae of recent illness/Covid infection for which short term followup (3month CT) is recommended. Chest X-Ray 03/28/25 05:55 Impression: Clear lungs. Labs Labs: Laboratory Results - last 24 hr 03/27/25 03/29/25 03/29/25 08:17 03:56 04:58 WBC 9.9 RBC 3.05 L Hgb 8.7 L Hct 30.5 L MCV 100.0 MCH 28.5 MCHC 28.5 L RDW 15.6 H Plt Count 305 MPV 9.1 Immature Gran % (Auto) 0.8 H Neut % (Auto) 74.4 H Lymph % (Auto) 16.6 L [place] % (Auto) 6.3 Eos % (Auto) 1.7 Baso % (Auto) 0.2 Lymph # (Auto) 1.64 [place] # (Auto) 0.6 Eos # (Auto) 0.2 Baso # (Auto) 0.0 Abs Immat Gran (auto) 0.08 H Absolute Neuts (auto) 7.3 H Absolute Nucleated RBC 0.000 Band Neutrophils % Not Reportable Nucleated RBC % 0.0 Platelet Estimate Adequate Hypochromasia 1+ Ovalocytes 1+ Stomatocytes 1+ Schistocytes Rare Puncture Site Right radial ABG pH 7.347 L ABG pCO2 55.1 H ABG pO2 138.4 H ABG PO2/FiO2 Ratio 4.32 ABG HCO3 29.5 H ABG O2 Saturation 98.6 ABG O2 Content 13.1 L ABG Base Excess 3.1 A-a Gradient 25.3 Oxyhemoglobin 97.3 Total Hemoglobin 9.4 L O2 Delivery Device Nasal cannula O2 Liters/Min 3.0 Vent Rate FiO2 32 Expiratory Pressure Inspiratory Pressure Sodium 137 Potassium 4.2 Chloride 105 Carbon Dioxide 31 H Anion Gap 1 L BUN 22 H Creatinine 0.66 L Estim Creat Clear Calc 70 Estimated GFR > 60 Glucose 106 POC Capillary Glucose Calcium 8.6 Magnesium 2.5 H Total Bilirubin 0.2 AST 26 ALT 18 Alkaline Phosphatase 85 Total Protein 6.3 Albumin 3.4 L M.pneumoniae IgM Titer <770 03/29/25 03/29/25 03/29/25 12:34 14:36 14:37 WBC RBC Hgb Hct MCV MCH MCHC RDW Plt Count MPV Immature Gran % (Auto) Neut % (Auto) Lymph % (Auto) [place] % (Auto) Eos % (Auto) Baso % (Auto) Lymph # (Auto) [place] # (Auto) Eos # (Auto) Baso # (Auto) Abs Immat Gran (auto) Absolute Neuts (auto) Absolute Nucleated RBC Band Neutrophils % Nucleated RBC % Platelet Estimate Hypochromasia Ovalocytes Stomatocytes Schistocytes Puncture Site Right brachial ABG pH 7.352 ABG pCO2 57.3 H ABG pO2 49.3 L* ABG PO2/FiO2 Ratio 1.76 ABG HCO3 31.1 H ABG O2 Saturation 82.2 L* ABG O2 Content 11.4 L ABG Base Excess 4.5 A-a Gradient 82.7 Oxyhemoglobin 81.4 L* Total Hemoglobin 9.9 L O2 Delivery Device Non-invasive vent O2 Liters/Min Not Reportable Vent Rate 12 FiO2 28 Expiratory Pressure 5 Inspiratory Pressure 15 Sodium Potassium Chloride Carbon Dioxide Anion Gap BUN Creatinine Estim Creat Clear Calc Estimated GFR Glucose POC Capillary Glucose 182 H 124 H Calcium Magnesium Total Bilirubin AST ALT Alkaline Phosphatase Total Protein Albumin M.pneumoniae IgM Titer
--- NOTE | 2025-03-29 16:22 | PCRCNOTE ---
Patient was put on bipap late this morning, 03/29/25 according to her nurse. RT was unaware of this. RT was not notified that the patient was put on the bipap. Patient was on bipap for a few hours before RT aware. While patient was on bipap, she was lethargic therefore nurse ordered ABG on patient. Dr Diaz adjusted settings per ABG results. Patient to wear overnight.
--- NOTE | 2025-03-29 17:09 | PC.NURSE ---
1430- patient found only responsive to painful stimuli/sternal rub with drooling present. Patient had been on biPap since around 1030. Patient baseline alert times person and place. Vitals and blood sugar obtained. WNL. ABGs obtained. Critical CO2, but at patient's baseline. STAT ABGs and Head CT ordered by Dr. You. Patient became arousable to verbal stimuli by 1550 en route to head CT. Dr. Diaz and Estefanía at bedside. Patient requesting bipap off to speak with doctors.
[2025-03-29] MEDS: LITHIUM CARBONATE 150 MG CAPSULE PO (18:40)
[2025-03-29] MEDS: ATORVASTATIN 10 MG TABLET PO (21:01)
[2025-03-29] MEDS: LORazepam (*CRX) 0.5 MG TABLET PO (21:01)
[2025-03-29] MEDS: LATANOPROST 0.005% OP SOLN 2.5 ML BTL 1 DROP EACH EYE (21:02)
[2025-03-30] VITALS (14 sets, daily range): BP systolic 111–126; BP diastolic 59–72; PULSE 71–88; RESP 20–24; TEMP 36.6–37.1; O2SAT 93–99
[2025-03-30 00:23] LABS: Alveolar/Arterial O2 Gradient 82.5 mmHg; Fractional Inspired Oxygen 32 %; HCO3 ABG 30.0 mEq/l (22.0-26.0); Oxygen Content ABG 12.2 %vol (16.0-22.0); Oxygen Saturation ABG 95.3 % (95.0-100.0); PCO2 ABG 55.0 mmHg (35.0-45.0); PO2 ABG 81.3 mmHg (80.0-100.0); PO2 FiO2 Ratio Arterial Blood 2.54 %
[2025-03-30 02:28] LABS: Modified Allen's Test Pass; Site Drawn RIGHT RADIAL
[2025-03-30] MEDS: APIXABAN 5 MG TABLET PO ×2 (09:55→21:30)
[2025-03-30] MEDS: PANTOPRAZOLE 40 MG TABLET PO (09:55)
[2025-03-30] MEDS: ASPIRIN 81 MG ENTERIC TABLET PO (09:55)
[2025-03-30] MEDS: ACYCLOVIR 400 MG TABLET PO ×2 (09:55→21:30)
[2025-03-30] MEDS: MELOXICAM 7.5 MG TABLET PO (09:55)
[2025-03-30] MEDS: CALCIUM CARBONATE (OSCAL) 500 MG TABLET 1000 MG PO (09:55)
[2025-03-30] MEDS: guaiFENesin 12 HR 600 MG TABCR 1200 MG PO ×2 (09:55→21:30)
[2025-03-30] MEDS: levETIRAcetam 1000MG/NACL100ML 1,000 MG/100 ML BAG 400 MG IVPB ×2 (09:56→21:32)
[2025-03-30] MEDS: NONFORMULARY DRUG (Desvenlafaxine Succinate 50 mg tablet extended release 24 hr) PO (09:56)
[2025-03-30] MEDS: SERTRALINE HCL 50 MG TABLET 200 MG PO (10:11)
--- NOTE | 2025-03-30 10:38 | PM.PNPUL ---
Progress Note: A&P Assessment and Plan (1) Acute on chronic respiratory failure with hypoxia and hypercapnia: Code(s): J96.21 - Acute and chronic respiratory failure with hypoxia; J96.22 - Acute and chronic respiratory failure with hypercapnia Status: Acute Assessment and Plan: 03/26/2025 patient was brought to the emergency room from [facility] with altered mental status and hypoxia. The chart says she wears 3 L nasal cannula at baseline. She was found by EMS off oxygen and placed on a non-rebreather with saturations that improved to the 80s. The patient was in then placed on CPAP and her saturations increased to 93 and she became more responsive. She was treated with magnesium, steroids and DuoNeb. Patient does not know if she wears oxygen at [facility]. She does not know if she wear CPAP or BiPAP. She does not know if she has obstructive sleep apnea or COPD. It is unknown if the patient has smokes cigarettes. ABG on admission on 03/19 7.31/59/71 on BiPAP 16/5 in 70%. On 03/25/2025 ABG on BiPAP 15/8 and 80% pH of 7.37/51/81. 01/21/2025: White blood cell count 14.2, eosinophils 1.1%=156/uL. Plan: optometric coordinator from will call [facility] facility in ask them if she is on oxygen at rest, with activity and at night. They will also ask if she was on BiPAP or CPAP and if so we will obtain a download. I will check a TSH and free T4. I will obtain a CT scan of the chest looking for bullous emphysema. I will place the patient on anoro ellipta. I will not place the patient on inhaled corticosteroids at this time. I will check an overnight oximetry on room air tonight to see if she qualifies for oxygen at night. Patient will need a home O2 assessment prior to returning to [facility]. I will discontinue the patient's BiPAP tonight and check an ABG off of BiPAP for 24 hours to reassess for chronic hypercarbic respiratory failure. Later in the day patient had a CT scan of the chest that showed no bullous emphysema, bibasilar atelectasis, 8 x 12 part solid nodule left lower lobe and 8 0.5 x 8.4 nodule right lower lobe. 8/5/25: Patient was on 2 L nasal cannula until last night with saturations 99%. Patient had an overnight oximetry on room air that was terminated after 1 hour due to hypoxia, with a recording duration of 59 minutes. Average saturation 91%. Low saturation 83%, time with saturation less than or equal to 88% was 9 minutes. Oxygen desaturation index 39.4. Patient was then placed on 2 L nasal cannula. on 2 L nasal cannula the patient had saturations of 94% and a rapid response was called for altered mental status with frothy white secretions from her mouth. The patient was only responsive to painful stimuli and could not provide any history. Stat chest x-ray was performed with no acute changes. ABG on 2 L 7.35/59.. Patient was placed on BiPAP rate of 12, pressures 15/8 and 30% FiO2. At 7:30 a.m. this morning the patient was awake and asking for breakfast and was taken off BiPAP. Patient tells me she does not remember any events that happened in the middle the night. When I saw her she was on 2 L nasal cannula with saturations 97%. I decreased her to room air and her saturations were 94%. White blood cell count 9.4, creatinine 0.72. She was positive 1.2 L yesterday and cumulative she is positive 800 mL since admission. Her weight today is 76.7. Plan: Regarding the events early this morning patient saturations on 2 L nasal cannula were 99% and her ABG on 2 L with a chronic compensated respiratory acidosis with PaO2 of 59. Patient has chronic hypercarbic respiratory failure an etiologies include COPD, sleep-related breathing disorder, medication induced, obesity hypoventilation syndrome. TSH 0.87. Free T4 0.99, both normal BMI 30.9. continue Anoro Ellipta for possible COPD. We have discussed with [facility] care facility and they can provide BiPAP but cannot provide noninvasive ventilation with the AVAPS AE mode. Tonight I will place the patient on BiPAP rate of 12, pressures 15/5, 28% FiO2 and obtain an overnight oximetry study and an ABG prior to removal. 03/29/25: Currently the patient states she is breathing at her baseline. When I enter the room she was on 2 L nasal cannula saturations 98%. I placed her on room air and her saturations were 94%. White blood cell count 9.9, creatinine 0.66. Yesterday she was positive 1.2 L, cumulative she is positive 93 mL since admission and her weight is 75.5. Patient tells me she is breathing at her baseline. When I asked the patient if she wore the BiPAP machine rate of 12, pressures 15/5 and 28% [id number] night she said she could not remember. When I then showed her the mask she said all yes I did wear it and was comfortable. Nursing reports that she wore it for about 3 hours and then took it off. She had an overnight oximetry on these settings with recording duration of 2 hours and 53 minutes, average saturation 98%, low saturation 92%, time with saturation less than or equal to 88% was 0 minutes, oxygen desaturation index 0.8. Patient had an ABG approximately 4 hours off the BiPAP on 3 L nasal cannula 7.35/55/138. Plan: Patient states she is breathing at her baseline and currently on Anoro Ellipta 1 puff q.day and guaifenesin 1200 mg p.o. b.i.d.. She tolerated the BiPAP for 3 hours and 28% FiO2 provided adequate oxygenation. Her ABG was not drawn until 4 hours later. Tonight will attempt BiPAP with the above settings and ABG prior to removal to assess ventilation. Later in the day patient had an episode of responsiveness only to deep pain on the BiPAP with adequate saturations. ABG at that time was 7.35/57/49. I did not feel her altered mental status was related to respiratory component. 03/30/2025: Patient is sitting on the bedside commode and denies any rest shortness of breath. Mild dyspnea on exertion walking to the commode. Patient does not remember if she wore the BiPAP last night. She says that was uncomfortable. Daytime nurse does not know any details about the patient's BiPAP use from the overnight nurse. Records show that she wore it for 2 hours. She states she is breathing okay. In no respiratory distress. Yesterday she was -2 L, cumulative she is positive 667 mL and her weight today is 81.2. Patient had a ABG on BiPAP for 2 hours rate of 18 pressures 18/5 and 32% FiO2 with pH of 7.36/55/81. Plan: Patient is had 3 episodes with decreased mentation and responsiveness only to deep pain. Although she has chronic hypercarbic respiratory failure at this time given these episodic periods of decreased mentation, I do not believe noninvasive ventilation or BiPAP is safe in this patient as she would not be able to remove the mask herself. I will discontinue BiPAP. It should also be noted that the patient did not tolerate the BiPAP well and that BiPAP with rate of 18, pressures 18/5 did not improve her chronic respiratory acidosis. I will place the patient on 2 L nasal cannula tonight and perform an overnight oximetry on [address] You, will follow with you. (2) Schizoaffective disorder: Code(s): F25.9 - Schizoaffective disorder, unspecified Status: Chronic Assessment and Plan: Patient is on Ativan 0.5 t.i.d., Zyprexa and lithium. Patient has chronic hypercarbic respiratory failure and I recommend discontinuation of all benzodiazepine such as these are respiratory suppressants and will make her hypercarbic respiratory failure worse. Discussed with hospitalist. 03/28/25: Patient had an episode last night of being responsive only to deep pain with adequate saturations and an ABG with a compensated respiratory acidosis. I do not believe her chronic compensated respiratory acidosis explains her altered mental status and her being responsive only to deep pain. The patient is on multiple medications including and anti epileptic medicine lamotrigine 200 mg p.o. b.i.d. I do not know she has a seizure disorder. patient is on lorazepam 0.5 t.i.d., Zyprexa 15 q.h.s., lithium carbonate 150 q.p.m., Lamictal 200 p.o. b.i.d., clozapine 100 q.a.m. and 500 q. HS. 03/29/2025: Patient was started on Keppra per hospitalist team. 03/30/2025: patient with 3 episodes of altered mental status with responsiveness only to deep pain with blood gases showing chronic compensated respiratory acidosis and adequate oxygenation. I did not feel these episodes are related to respiratory pathology. Plan: EEG, Neurology consult id. (3) COVID-19: Code(s): U07.1 - COVID-19 Status: Acute Assessment and Plan: Patient was COVID positive on 03/19 and treated with remdesivir and dexamethasone. She remains COVID positive on 03/25 and I suspect this is residual reactivity from her per 1st COVID infection. She is in no respiratory distress. She is on 2 L nasal cannula and presumably she wears 3 L at [facility] facility. plan: Prednisone 10 mg p.o. q.day day 9 of 10. At this time I do not recommend any additional active treatment for COVID pneumonia. 03/28/25: Patient is in no respiratory distress. Room air saturations 94% currently. Plan: Today is day 10 of 10 of prednisone 10 mg and I will discontinue. Subjective Date/time seen: 03/30/25 10:38 Interval history: 03/27/2025: This is a new pulmonary consult for COVID and BiPAP. 64-year-old 6w/PMH of Schizoaffective disorder, Depression, DM, HTN, HLD, COPD, and PE on chronic anticoagulation, COVID treated with remdesivir and dexamethasone on 03/19/2025 and discharge back to [facility] on 03/24/2025. She is a samuel of the [facility] with state as guardian who was brought into the ER due to hypoxia. patient cannot provide me with any meaningful history. Of note patient was COVID positive on 03/19/2025 ( 7 days earlier) and treated with 5 days of remdesivir and dexamethasone for 10 days and discharged on 03/24/2025. chest x-ray on 03/21/2025 showed improved bilateral LL space disease. On 03/24/2025 at 9:32 a.m. room air saturations 94%. I asked her if she had COPD and she said I do not know. I asked her if she had PE and she said I do not know. I asked her if she wore oxygen at her nursing facility which is [facility] and she said sometimes I wear it in the hospital, I asked her if she wore CPAP or BiPAP at [facility] and she said no. I asked her she had obstructive sleep apnea and she did not know with this was. 03/26/2025 patient was brought to the emergency room from [facility] with altered mental status and hypoxia. The chart says she wears 3 L nasal cannula at baseline. She was found by EMS off oxygen and placed on a non-rebreather with saturations that improved to the 80s. The patient was in then placed on CPAP and her saturations increased to 93 and she became more responsive. She was treated with magnesium, steroids and DuoNeb. Patient presented to the emergency department and her COVID RT PCR was positive. of note the patient's home medicines include Ativan 0.5 mg p.o. t.i.d., clonazepam 100 mg p.o. q.day, Zyprexa, lithium. 03/27/25: Patient tells me her name, knows this is [facility], states that his 2011. Patient is unable to give accurate healthcare information. She is in no respiratory distress and asking me if she can go home. When I enter the room she was on 4 L with saturation 99%. I decreased her to room air and after 5 minutes her saturations went to 88 and I placed her on 2 L nasal cannula her saturations were 92%. She is afebrile. White blood cell count 10.7, creatinine 0.75. Later in the day patient had a CT scan of the chest that showed no bullous emphysema, bibasilar atelectasis, 8 x 12 part solid nodule left lower lobe and 8 0.5 x 8.4 nodule right lower lobe. 03/28/25: Patient was on 2 L nasal cannula until last night with saturations 99%. Patient had an overnight oximetry on room air that was terminated after 1 hour due to hypoxia, with a recording duration of 59 minutes. Average saturation 91%. Low saturation 83%, time with saturation less than or equal to 88% was 9 minutes. Oxygen desaturation index 39.4. Patient was then placed on 2 L nasal cannula. on 2 L nasal cannula the patient had saturations of 94% and a rapid response was called for altered mental status with frothy white secretions from her mouth. The patient was only responsive to painful stimuli and could not provide any history. Stat chest x-ray was performed with no acute changes. ABG on 2 L 7.35/59.. Patient was placed on BiPAP rate of 12, pressures 15/8 and 30% FiO2. At 7:30 a.m. this morning the patient was awake and asking for breakfast and was taken off BiPAP. Patient tells me she does not remember any events that happened in the middle the night. When I saw her she was on 2 L nasal cannula with saturations 97%. I decreased her to room air and her saturations were 94%. White blood cell count 9.4, creatinine 0.72. She was positive 1.2 L yesterday and cumulative she is positive 800 mL since admission. Her weight today is 76.7. 03/29/25: Currently the patient states she is breathing at her baseline. When I enter the room she was on 2 L nasal cannula saturations 98%. I placed her on room air and her saturations were 94%. White blood cell count 9.9, creatinine 0.66. Yesterday she was positive 1.2 L, cumulative she is positive 93 mL since admission and her weight is 75.5. Patient tells me she is breathing at her baseline. When I asked the patient if she wore the BiPAP machine rate of 12, pressures 15/5 and 28% DwE2ztat night she said she could not remember. When I then showed her the mask she said all yes I did wear it and was comfortable. Nursing reports that she wore it for about 3 hours and then took it off. She had an overnight oximetry on these settings with recording duration of 2 hours and 53 minutes, average saturation 98%, low saturation 92%, time with saturation less than or equal to 88% was 0 minutes, oxygen desaturation index 0.8. Patient had an ABG approximately 4 hours off the BiPAP on 3 L nasal cannula 7.35/55/138. Later in the day patient had an episode of responsiveness only to deep pain on the BiPAP with adequate saturations. ABG at that time was 7.35/57/49. 03/30/2025: Patient is sitting on the bedside commode and denies any rest shortness of breath. Mild dyspnea on exertion walking to the commode. Patient does not remember if she wore the BiPAP last night. She says that was uncomfortable. Daytime nurse does not know any details about the patient's BiPAP use from the overnight nurse. Records show that she wore it for 2 hours. She states she is breathing okay. In no respiratory distress. Yesterday she was -2 L, cumulative she is positive 667 mL and her weight today is 81.2. Patient had a ABG on BiPAP for 2 hours rate of 18 pressures 18/5 and 32% FiO2 with pH of 7.36/55/81. DATA: 03/27/25: CLINICAL INDICATION: Respiratory failure COMPARISON: None. Reference is made to multiple plain film evaluations of the chest performed most recently on 03/26/2025 and dating back to 01/21/2025 TECHNIQUE: Multiple contiguous axial images of the chest was performed without the administration of intravenous contrast. This CT examination was performed utilizing dose reduction techniques. DLP: 306 mGy-cm FINDINGS/OBSERVATIONS: LUNG: Bibasilar atelectasis, right greater than left. 8 x 12 mm part solid nodule within the left lower lobe, possibly an intrathoracic lymph node. 8.5 x 8.4 mm nodule within the right lower lobe, possibly due to atelectasis with interstitial thickening. The remainder of the lungs are clear. No bullous emphysema is identified. No significant emphysematous change is noted. HEART: The heart is markedly enlarged, without pericardial effusion. MEDIASTINUM: No pathologically enlarged or morphologically suspicious lymph nodes are identified within the mediastinum, bilateral axilla, within the soft tissues of the anterior chest wall. SOFT TISSUES OF THE CHEST: Unremarkable. BONES OF THE CHEST: No acute fracture. No lytic or blastic lesions are identified. IMPRESSION: Bibasilar nodules, possibly sequelae of recent illness/Covid infection for which short term followup (3month CT) is recommended. 03/23/2025: Echo Summary 1. Complete two-dimensional, color flow and Doppler transthoracic echocardiogram is performed. 2. Normal left and right ventricular size and systolic function. 3. Grade 1 diastolic noncompliance. 4. No valvular dysfunction. Left Ventricle Left ventricular chamber dimension is normal. Left ventricular systolic function is normal, estimated at 65-70. The left ventricular diastolic function is grade I diastolic dysfunction. Right Ventricle Right ventricular chamber dimension is normal. Left Atria Left atrial chamber dimension is normal. Right Atria Right atrial chamber dimension is normal. Review of Systems Review of Systems: ROS unobtainable: Yes unobtainable due to mental status Exam Const: General: cooperative, healthy appearing and comfortable Orientation/consciousness: oriented to person, oriented to place and oriented to time HENMT: Head: normal to inspection Ears: hearing grossly normal bilaterally Eyes: General: appearance normal, both eyes and all related structures Neck: Neck: normal visual inspection Chest: Chest palpation & inspection: normal inspection of the chest Resp: Effort & Inspection: normal respiratory effort and able to speak in complete sentences Auscultation: no crackles, no rales, no rhonchi, no wheezes and lung sounds not diminished Cardio: Jugular venous distension: no JVD GI: Inspection: normal to inspection Skin: General skin exam: normal color Neuro: General: oriented to person, oriented to place and oriented to time Extrem: General: normal to inspection Objective Data Vital Signs Vital Signs: Vital Signs - 24 hr 03/29/25 12:00 03/29/25 12:00 03/29/25 14:30 Temperature 36.6 C Pulse Rate 87 86 Respiratory Rate 21 H 23 H Blood Pressure 99/56 L Pulse Oximetry 99 96 Oxygen Delivery BiPAP Oxygen Flow Rate Fraction of Inspired Oxygen 03/29/25 14:36 03/29/25 14:46 03/29/25 15:15 Temperature 36.8 C Pulse Rate 63 82 Respiratory Rate 25 H Blood Pressure 98/56 L Pulse Oximetry 99 Oxygen Delivery BiPAP Oxygen Flow Rate Fraction of Inspired Oxygen 03/29/25 16:00 03/29/25 16:00 03/29/25 18:00 Temperature 36.7 C Pulse Rate 81 83 90 Respiratory Rate 22 H Blood Pressure 104/62 Pulse Oximetry 98 Oxygen Delivery Oxygen Flow Rate Fraction of Inspired Oxygen 03/29/25 19:53 03/29/25 20:00 03/29/25 20:00 Temperature 37.2 C Pulse Rate 85 86 Respiratory Rate 16 Blood Pressure 107/63 Pulse Oximetry 96 100 Oxygen Delivery BiPAP Oxygen Flow Rate Fraction of Inspired Oxygen 32 03/29/25 20:36 03/29/25 22:00 03/29/25 22:00 Temperature Pulse Rate 81 81 Respiratory Rate 26 H Blood Pressure Pulse Oximetry 95 100 Oxygen Delivery Room Air BiPAP Oxygen Flow Rate Fraction of Inspired Oxygen 03/29/25 23:28 03/29/25 23:54 03/30/25 00:00 Temperature 37.1 C Pulse Rate 76 75 Respiratory Rate 20 Blood Pressure 108/62 Pulse Oximetry 99 100 Oxygen Delivery BiPAP Oxygen Flow Rate Fraction of Inspired Oxygen 32 03/30/25 00:06 03/30/25 02:00 03/30/25 03:56 Temperature 37.0 C Pulse Rate 79 76 71 Respiratory Rate Blood Pressure 120/61 Pulse Oximetry 98 99 Oxygen Delivery Nasal Cannula Oxygen Flow Rate Fraction of Inspired Oxygen 03/30/25 04:00 03/30/25 04:00 03/30/25 05:59 Temperature Pulse Rate 72 74 Respiratory Rate Blood Pressure Pulse Oximetry 99 Oxygen Delivery Nasal Cannula Oxygen Flow Rate 2 Fraction of Inspired Oxygen 03/30/25 08:00 Temperature 36.6 C Pulse Rate 71 Respiratory Rate 20 Blood Pressure 120/59 L Pulse Oximetry 99 Oxygen Delivery Oxygen Flow Rate Fraction of Inspired Oxygen Intake/Output Intake/Output: Intake & Output 03/27/25 03/28/25 03/29/25 03/30/25 23:59 23:59 23:59 23:59 Intake Total 2520 2443 1380 994 Output Total 1240 1050 3300 700 Balance 1280 1393 -1920 294 Meds/Results Medications: Active Medications Generic Name Dose Route Start Last Admin Trade Name Freq PRN Reason Stop Dose Admin Acetaminophen 325 mg 03/26/25 08:17 Acetaminophen 325 Mg Tablet PO Q6H PRN pain Acyclovir 400 mg 03/26/25 09:00 03/30/25 09:55 Acyclovir 400 Mg Tablet PO 400 mg Q12HR AIRAM Administration Albuterol 2 puff 03/26/25 08:17 Albuterol Sulfate (*Sp) Aerosol 1 Puff INHALATION Q4HRT PRN cough Alendronate Sodium 70 mg 03/31/25 06:30 Alendronate Sodium 70 Mg Tablet PO Fr@0630 AIRAM Apixaban 5 mg 03/26/25 09:00 03/30/25 09:55 Apixaban 5 Mg Tablet PO 5 mg Q12HR AIRAM Administration Aspirin 81 mg 03/26/25 09:00 03/30/25 09:55 Aspirin 81 Mg Enteric Tablet PO 81 mg DAILY AIRAM Administration Atorvastatin Calcium 10 mg 03/26/25 21:00 03/29/25 21:01 Atorvastatin 10 Mg Tablet PO 10 mg HS AIRAM Administration Bismuth Subsalicylate 262 mg 03/26/25 09:04 Bismuth Subsalicylate 262 Mg Chewable Tablet PO Q4H PRN diarrhea Calcium Carbonate 1,000 mg 03/26/25 09:00 03/30/25 09:55 Calcium Carbonate (Oscal) 500 Mg Tablet PO 1,000 mg DAILY AIRAM Administration Clozapine 100 mg 03/26/25 09:00 03/30/25 09:55 Clozapine 100 Mg Tablet PO 100 mg QAM AIRAM Administration Clozapine 500 mg 03/26/25 21:00 03/29/25 21:00 Clozapine 100 Mg Tablet PO 500 mg HS AIRAM Administration Guaifenesin 1,200 mg 03/26/25 09:00 03/30/25 09:55 Guaifenesin 12 Hr 600 Mg Tabcr PO 1,200 mg Q12HR AIRAM Administration Levetiracetam 1,000 mg in 100 mls @ 400 mls/hr 03/28/25 21:00 03/30/25 09:56 Keppra Iv IVPB 400 mls/hr Q12HR AIRAM Administration Lamotrigine 200 mg 03/28/25 21:00 03/30/25 09:55 Lamotrigine 100 Mg Tablet PO 200 mg Q12HR AIRAM Administration Latanoprost 1 drop 03/26/25 21:00 03/29/25 21:02 Latanoprost 0.005% Op Soln 2.5 Ml Btl EACH EYE 1 drop HS AIRAM Administration [place] Carbonate 150 mg 03/26/25 18:00 03/29/25 18:40 [place] Carbonate 150 Mg Capsule PO 150 mg QPM AIRAM Administration Lorazepam 0.5 mg 03/28/25 14:00 03/30/25 06:05 Lorazepam (*Crx) 0.5 Mg Tablet PO Not Given Q8HR AIRAM Meloxicam 7.5 mg 03/26/25 09:00 03/30/25 09:55 Meloxicam 7.5 Mg Tablet PO 7.5 mg DAILY AIRAM Administration Metformin HCl 500 mg 03/26/25 18:00 03/29/25 18:40 Metformin Hcl 500 Mg Tablet PO 500 mg QPM AIRAM Administration Non-Formulary Medication 0 mg 03/26/25 09:00 03/30/25 09:56 Desvenlafaxine Succinate PO 04/25/25 08:59 50 mg DAILY AIRAM Administration Olanzapine 15 mg 03/26/25 21:00 03/29/25 21:01 Olanzapine 5 Mg Tablet PO 15 mg HS AIRAM Administration Pantoprazole Sodium 40 mg 03/26/25 09:00 03/30/25 09:55 Pantoprazole 40 Mg Tablet PO 40 mg DAILY AIRAM Administration Polyethylene Glycol 17 gm 03/26/25 08:17 03/30/25 09:56 Polyethylene Glycol 3350 17 Gm Powd.Pack PO 17 gm DAILY PRN Administration constipation Sertraline HCl 200 mg 03/26/25 09:00 03/30/25 10:11 Sertraline Hcl 50 Mg Tablet PO 200 mg DAILY AIRAM Administration Umeclidinium/Vilanterol 1 puff 03/27/25 10:20 03/30/25 09:42 Umeclidinium/Vilanterol 62.5-25 Mcg Ellipta INHALATION Not Given DAILYRT [facility] Radiology Results: ITS Impressions Chest CT 03/27/25 16:01 IMPRESSION: Bibasilar nodules, possibly sequelae of recent illness/Covid infection for which short term followup (3month CT) is recommended. Chest X-Ray 03/28/25 05:55 Impression: Clear lungs. Head CT 03/29/25 15:03 IMPRESSION: 1. No acute intracranial abnormality. Labs Labs: Laboratory Results - last 24 hr 03/27/25 03/29/25 03/29/25 08:17 12:34 14:36 Puncture Site ABG pH ABG pCO2 ABG pO2 ABG PO2/FiO2 Ratio ABG HCO3 ABG O2 Saturation ABG O2 Content ABG Base Excess A-a Gradient Oxyhemoglobin Total Hemoglobin O2 Delivery Device O2 Liters/Min Vent Rate FiO2 Expiratory Pressure Inspiratory Pressure POC Capillary Glucose 182 H 124 H M.pneumoniae IgM Titer <770 03/29/25 03/29/25 03/30/25 14:37 16:04 00:09 Puncture Site Right brachial Right radial ABG pH 7.352 7.355 ABG pCO2 57.3 H 55.0 H ABG pO2 49.3 L* 81.3 ABG PO2/FiO2 Ratio 1.76 2.54 ABG HCO3 31.1 H 30.0 H ABG O2 Saturation 82.2 L* 95.3 ABG O2 Content 11.4 L 12.2 L ABG Base Excess 4.5 3.7 A-a Gradient 82.7 82.5 Oxyhemoglobin 81.4 L* 93.4 Total Hemoglobin 9.9 L 9.2 L O2 Delivery Device Non-invasive vent Bipap O2 Liters/Min Not Reportable Not Reportable Vent Rate 12 FiO2 28 32 Expiratory Pressure 5 5 Inspiratory Pressure 15 18 POC Capillary Glucose 129 H M.pneumoniae IgM Titer
--- NOTE | 2025-03-30 13:00 | WPDNEUROLOGY ---
Neurology EEG Report General Information Date of Study: 03/30/25 TEST Electroencephalogram DIAGNOSIS episodes of unresponsiveness CONDITION OF RECORDING bedside recording EEG NUMBER [id number] CLINICAL HISTORY the patient is 64-year-old female having episodes of unresponsiveness. The patient was found laying on the bed with frothy white secretions coming from her mouth. She was responsive to pain stimuli. EEG DESCRIPTION The background activity consists of predominantly theta activity at 6 hertz with an amplitude of 15-30 microvolts. There is no significant anteroposterior gradient. Anteriorly low amplitude mixed frequency activity was seen. Hyperventilation or photic stimulation were not performed. When alerted the background activity reaches to 6-7 hertz and appears poorly organized. It did not progress to stage 2 sleep however during drowsiness vertex waves were noted. IMPRESSION This is an abnormal EEG due to presence of moderate diffuse background slowing suggestive of generalized encephalopathy however focal or paroxysmal epileptiform abnormalities were seen at this time.
--- NOTE | 2025-03-30 14:52 | P.PNIM_ITS ---
Progress Note: A&P Assessment and Plan (1) Acute on chronic respiratory failure with hypoxia and hypercapnia: Code(s): J96.21 - Acute and chronic respiratory failure with hypoxia; J96.22 - Acute and chronic respiratory failure with hypercapnia Status: Acute Assessment and Plan: * Patient presented with respiratory distress possibly due to noncompliance of nasal oxygen * Positive for COVID * Previous admission completed remdesivir and Decadron * Maintain oxygen> 92% * Currently on 3 L nasal cannula baseline * BiPAP at night * Continue prednisone 10 mg p.o. q.d. home dosage * Consulted pulmonology and appreciate recommendation * Will undergo overnight oximetry * Overnight oximetry on BiPAP evaluated * pulmonology following (2) Schizoaffective disorder: Code(s): F25.9 - Schizoaffective disorder, unspecified Status: Chronic Assessment and Plan: * Continue clozapine * Continue lithium * Continue lamotrigine * Patient needs tapering of clonazepam as outpatient by psychiatrist (3) Hypertension: Code(s): I10 - Essential (primary) hypertension Status: Acute Assessment and Plan: * Not on hypertensive medication, monitor (4) Diabetes: Code(s): E11.9 - Type 2 diabetes mellitus without complications Status: Chronic Assessment and Plan: * Continue metformin 5 mg p.o. b.i.d. (5) COVID-19: Code(s): U07.1 - COVID-19 Status: Acute Assessment and Plan: As mentioned above Plan AMS ?Seizure vs polypharmacy Patient having unresponsive episodes patient on multiple psych meds CT head unremarkable Awaiting EEG and neuro eval Continue Lamotrigine, on Keppra Psych consulted to evaluated and whittle down psych meds monitor closely DVT prophylaxis: Continue Eliquis 2.5 mg p.o. b.i.d. Code status: Full code Subjective Date/time seen: 03/30/25 14:52 Interval history: Comfortable at bedside Polypharmacy suspected for patient AMS Psych consulted, awaiting neuro eval Review of Systems Review of Systems: ROS unobtainable: Yes unobtainable due to mental status Exam Narrative: EXAMINATION OF ORGAN SYSTEMS/BODY AREAS: Constitutional: Vital signs per nursing GENERAL:[No acute distress, sleepy but wakes to voice.] HEAD: Normal with no signs of head trauma. EYES: EOMI, conjunctiva normal ENT: Hearing grossly intact LUNGS: Some tachypnea HEART: [Regular rate and rhythm] ABD: [Soft], [nontender to palpation] EXT: Normal range of motion SKIN: [No rashes or lesions.] NEURO: [Sleeping. No gross focal sensory or strength deficits.] PSYCH: Normal affect Objective Data Vital Signs Vital Signs: Vital Signs - 24 hr 03/29/25 15:15 03/29/25 16:00 03/29/25 16:00 Temperature 98.1 F Pulse Rate 81 83 Respiratory Rate 22 H Blood Pressure 104/62 Pulse Oximetry 98 Oxygen Delivery BiPAP Oxygen Flow Rate Fraction of Inspired Oxygen 03/29/25 18:00 03/29/25 19:53 03/29/25 20:00 Temperature 99.0 F Pulse Rate 90 85 Respiratory Rate 16 Blood Pressure 107/63 Pulse Oximetry 96 100 Oxygen Delivery BiPAP Oxygen Flow Rate Fraction of Inspired Oxygen 32 03/29/25 20:00 03/29/25 20:36 03/29/25 22:00 Temperature Pulse Rate 86 81 Respiratory Rate Blood Pressure Pulse Oximetry 95 Oxygen Delivery Room Air Oxygen Flow Rate Fraction of Inspired Oxygen 03/29/25 22:00 03/29/25 23:28 03/29/25 23:54 Temperature 98.7 F Pulse Rate 81 76 Respiratory Rate 26 H 20 Blood Pressure 108/62 Pulse Oximetry 100 99 100 Oxygen Delivery BiPAP BiPAP Oxygen Flow Rate Fraction of Inspired Oxygen 32 03/30/25 00:00 03/30/25 00:06 03/30/25 02:00 Temperature Pulse Rate 75 79 76 Respiratory Rate Blood Pressure Pulse Oximetry 98 Oxygen Delivery Nasal Cannula Oxygen Flow Rate Fraction of Inspired Oxygen 03/30/25 03:56 03/30/25 04:00 03/30/25 04:00 Temperature 98.6 F Pulse Rate 71 72 Respiratory Rate Blood Pressure 120/61 Pulse Oximetry 99 99 Oxygen Delivery Nasal Cannula Oxygen Flow Rate 2 Fraction of Inspired Oxygen 03/30/25 05:59 03/30/25 08:00 03/30/25 08:00 Temperature 98 F Pulse Rate 74 71 Respiratory Rate 20 Blood Pressure 120/59 L Pulse Oximetry 99 95 Oxygen Delivery Nasal Cannula Oxygen Flow Rate 2 Fraction of Inspired Oxygen 03/30/25 08:00 03/30/25 10:00 03/30/25 12:00 Temperature 98.2 F Pulse Rate 80 82 82 Respiratory Rate 24 H Blood Pressure 111/66 Pulse Oximetry 94 Oxygen Delivery Oxygen Flow Rate Fraction of Inspired Oxygen 03/30/25 12:00 03/30/25 12:00 Temperature Pulse Rate 86 Respiratory Rate Blood Pressure Pulse Oximetry 95 Oxygen Delivery Room Air Oxygen Flow Rate Fraction of Inspired Oxygen Intake/Output Intake/Output: Intake & Output 03/27/25 03/28/25 03/29/25 03/30/25 23:59 23:59 23:59 23:59 Intake Total 2520 2443 1380 1234 Output Total 1240 1050 3300 700 Balance 1280 1393 -1920 534 Meds/Results Medications: Active Medications Generic Name Dose Route Start Last Admin Trade Name Freq PRN Reason Stop Dose Admin Acetaminophen 325 mg 03/26/25 08:17 Acetaminophen 325 Mg Tablet PO Q6H PRN pain Acyclovir 400 mg 03/26/25 09:00 03/30/25 09:55 Acyclovir 400 Mg Tablet PO 400 mg Q12HR AIRAM Administration Albuterol 2 puff 03/26/25 08:17 Albuterol Sulfate (*Sp) Aerosol 1 Puff INHALATION Q4HRT PRN cough Alendronate Sodium 70 mg 03/31/25 06:30 Alendronate Sodium 70 Mg Tablet PO Fr@0630 AIRAM Apixaban 5 mg 03/26/25 09:00 03/30/25 09:55 Apixaban 5 Mg Tablet PO 5 mg Q12HR AIRAM Administration Aspirin 81 mg 03/26/25 09:00 03/30/25 09:55 Aspirin 81 Mg Enteric Tablet PO 81 mg DAILY AIRAM Administration Atorvastatin Calcium 10 mg 03/26/25 21:00 03/29/25 21:01 Atorvastatin 10 Mg Tablet PO 10 mg HS AIRAM Administration Bismuth Subsalicylate 262 mg 03/26/25 09:04 Bismuth Subsalicylate 262 Mg Chewable Tablet PO Q4H PRN diarrhea Calcium Carbonate 1,000 mg 03/26/25 09:00 03/30/25 09:55 Calcium Carbonate (Oscal) 500 Mg Tablet PO 1,000 mg DAILY AIRAM Administration Clozapine 100 mg 03/26/25 09:00 03/30/25 09:55 Clozapine 100 Mg Tablet PO 100 mg QAM AIRAM Administration Clozapine 500 mg 03/26/25 21:00 03/29/25 21:00 Clozapine 100 Mg Tablet PO 500 mg HS AIRAM Administration Fluticasone Propionate 1 spray 03/30/25 11:45 Fluticasone Propionate 0.05% Na Spr 16 Gm Btl (*Bkc) NASAL Q12HR AIRAM Guaifenesin 1,200 mg 03/26/25 09:00 03/30/25 09:55 Guaifenesin 12 Hr 600 Mg Tabcr PO 1,200 mg Q12HR AIRAM Administration Levetiracetam 1,000 mg in 100 mls @ 400 mls/hr 03/28/25 21:00 03/30/25 09:56 Keppra Iv IVPB 400 mls/hr Q12HR AIRAM Administration Lamotrigine 200 mg 03/28/25 21:00 03/30/25 09:55 Lamotrigine 100 Mg Tablet PO 200 mg Q12HR AIRAM Administration Latanoprost 1 drop 03/26/25 21:00 03/29/25 21:02 Latanoprost 0.005% Op Soln 2.5 Ml Btl EACH EYE 1 drop HS AIRAM Administration [place] Carbonate 150 mg 03/26/25 18:00 03/29/25 18:40 [place] Carbonate 150 Mg Capsule PO 150 mg QPM AIRAM Administration Lorazepam 0.5 mg 03/28/25 14:00 03/30/25 13:29 Lorazepam (*Crx) 0.5 Mg Tablet PO Not Given Q8HR AIRAM Meloxicam 7.5 mg 03/26/25 09:00 03/30/25 09:55 Meloxicam 7.5 Mg Tablet PO 7.5 mg DAILY AIRAM Administration Metformin HCl 500 mg 03/26/25 18:00 03/29/25 18:40 Metformin Hcl 500 Mg Tablet PO 500 mg QPM AIRAM Administration Non-Formulary Medication 0 mg 03/26/25 09:00 03/30/25 09:56 Desvenlafaxine Succinate PO 04/25/25 08:59 50 mg DAILY AIRAM Administration Olanzapine 15 mg 03/26/25 21:00 03/29/25 21:01 Olanzapine 5 Mg Tablet PO 15 mg HS AIRAM Administration Pantoprazole Sodium 40 mg 03/26/25 09:00 03/30/25 09:55 Pantoprazole 40 Mg Tablet PO 40 mg DAILY AIRAM Administration Polyethylene Glycol 17 gm 03/26/25 08:17 03/30/25 09:56 Polyethylene Glycol 3350 17 Gm Powd.Pack PO 17 gm DAILY PRN Administration constipation Sertraline HCl 200 mg 03/26/25 09:00 03/30/25 10:11 Sertraline Hcl 50 Mg Tablet PO 200 mg DAILY AIRAM Administration Umeclidinium/Vilanterol 1 puff 03/27/25 10:20 03/30/25 09:42 Umeclidinium/Vilanterol 62.5-25 Mcg Ellipta INHALATION Not Given DAILYRT [facility] Radiology Results: ITS Impressions Chest CT 03/27/25 16:01 IMPRESSION: Bibasilar nodules, possibly sequelae of recent illness/Covid infection for which short term followup (3month CT) is recommended. Chest X-Ray 03/28/25 05:55 Impression: Clear lungs. Head CT 03/29/25 15:03 IMPRESSION: 1. No acute intracranial abnormality. Labs Labs: Laboratory Results - last 24 hr 03/29/25 03/29/25 03/30/25 14:37 16:04 00:09 Puncture Site Right brachial Right radial ABG pH 7.352 7.355 ABG pCO2 57.3 H 55.0 H ABG pO2 49.3 L* 81.3 ABG PO2/FiO2 Ratio 1.76 2.54 ABG HCO3 31.1 H 30.0 H ABG O2 Saturation 82.2 L* 95.3 ABG O2 Content 11.4 L 12.2 L ABG Base Excess 4.5 3.7 A-a Gradient 82.7 82.5 Oxyhemoglobin 81.4 L* 93.4 Total Hemoglobin 9.9 L 9.2 L O2 Delivery Device Non-invasive vent Bipap O2 Liters/Min Not Reportable Not Reportable Vent Rate 12 FiO2 28 32 Expiratory Pressure 5 5 Inspiratory Pressure 15 18 POC Capillary Glucose 129 H
--- NOTE | 2025-03-30 17:17 | P.CONNEU_ITS ---
Assessment and Plan Assessment and plan (1) Schizoaffective disorder: Code(s): F25.9 - Schizoaffective disorder, unspecified Status: Chronic (2) Diabetes: Code(s): E11.9 - Type 2 diabetes mellitus without complications Status: Chronic (3) Seizure disorder: Code(s): G40.909 - Epilepsy, unspecified, not intractable, without status epilepticus Status: Acute Plan Apparently she probably had a seizure episode. I am not sure we can ascertain if she has had similar spells in the past. She is currently on Keppra 1000 mg twice a day and lamotrigine 200 mg twice a day. Keppra was started after she had a spell on 03/28/2025 at the hospital while she was still on lamotrigine 400 mg a day and I agree with the step based upon the description. She is on many medications prescribed by psychiatrist which include lorazepam and Zyprexa, Zoloft, clozapine. Her EEG shows mild diffuse background slowing suggestive of underlying generalized encephalopathy. Patient may have some degree of static encephalopathy. She has been thought to have schizoaffective disorder. She recently had COVID pneumonia. She is also diabetic. Hence the episode in which she was suspected of a seizure because he is unresponsive could come from either episode of seizure or some other metabolic problem. We can keep on the same medication for now. Eventually since he sees a psychiatrist and some of the medication use by them cover the seizure also they can certainly evaluate that and the need my input I will be glad to see him office. It should be noted that sometimes Keppra can lead to combative behavior in a small number of patients and hence he should be observed for any change in the behavior. Consult date: 03/30/25 HPI: David Hannon is a 64 year old Afro[place] female was seen for neurologic evaluation. Patient apparently has had a spell which was suspect did to be a seizure-like spell. She was found on the bed frothing from the mouth and unresponsive. She was started on Keppra. She has not had any further spells since that after. She is on lamotrigine and Keppra. I am not able to get much history from her. There is history of schizoaffective disorder. She was also found to have COVID pneumonia. However at this time she has improved from the same. There is also history of diabetes mellitus. CT scan of brain performed on this admission did not show any significant abnormalities. She is on lamotrigine 400 mg a day and Keppra 2000 mg a day. She is unable to give me history of seizures or when did this start her who takes care of that. She is from [facility]. She lives like a child and does some painting and she could understand her speech for most part. She also does not appear to be reliable historian. An EEG was performed today which shows mild diffuse background slowing suggestive of generalized encephalopathy however no focal or paroxysmal epileptiform abnormality was seen. Review of her record revealed her hemoglobin was low at 8.7 however WBC count was 9.9 y Platelet count was normal. Hemoglobin A1c was 6.0 on 03/19/2025. She is a resident of [facility]. Review of Systems 2 Review of Systems: ROS unobtainable: Yes unobtainable due to mental status PMFSH Past Medical History Medical History (Updated 03/30/25 @ 17:27 by Higinio Navarro MD) Seizure disorder Acute hypoxic respiratory failure Pneumonia COVID-19 Schizoaffective disorder Depression Diabetes Hypertension Hyperlipidemia Pulmonary embolism COPD (chronic obstructive pulmonary disease) Social History Social History Smoking status: Unknown if ever smoked Second hand tobacco smoke exposure: No Alcohol intake: never Substance use: never Substance use type: does not use Do You Feel Safe in your Home?: No Lack of Transportation: No Lack of Food: Never True Current Housing: I Have Housing Concerned About Future Housing: No Difficulty Paying Gas/Electric Bills: No Difficulty Paying for Meds: No Currently Unemployed: No Education: High School Diploma/GED Difficulty w/ Childcare or Family Care: No Spiritual care concerns: No Meds Home Medications and Allergies Home Medications ?Medication ?Instructions ?Recorded ?Confirmed ?Type acetaminophen 325 mg tablet 325 mg PO Q6H PRN pain 03/08/25 03/26/25 History acyclovir 400 mg tablet 400 mg PO BID 03/08/25 03/26/25 History albuterol sulfate 90 mcg/actuation 2 puff inhalation Q4H PRN cough 03/08/25 03/26/25 History aerosol inhaler alendronate 70 mg tablet 70 mg PO WEEKLY 03/08/25 03/26/25 History apixaban 5 mg tablet (Eliquis) 5 mg PO BID 03/08/25 03/26/25 History aspirin 81 mg tablet,delayed 81 mg PO DAILY 03/08/25 03/26/25 History release atorvastatin 10 mg tablet 10 mg PO HS 03/08/25 03/26/25 History bismuth subsalicylate 262 mg/15 mL 262 mg PO Q4H PRN diarrhea 03/08/25 03/26/25 History oral suspension (Stomach Relief) budesonide-formoterol HFA 80 1 puff inhalation DAILY 03/08/25 03/26/25 History mcg-4.5 mcg/actuation aerosol inhaler calcium carbonate (Oyster Shell 1,000 mg PO DAILY 03/08/25 03/26/25 History Calcium) clozapine 100 mg tablet 100 mg PO HS 03/08/25 03/26/25 History clozapine 100 mg tablet 100 mg PO QAM 03/08/25 03/26/25 History clozapine 200 mg tablet 400 mg PO HS 03/08/25 03/26/25 History desvenlafaxine succinate 50 mg 50 mg PO DAILY 03/08/25 03/26/25 History tablet,extended release 24 hr fluticasone furoate 100 1 inh inhalation DAILY 03/08/25 03/26/25 History mcg-vilanterol 25 mcg/dose inhalation powder (Breo Ellipta) lamotrigine 200 mg tablet 200 mg PO BID 03/08/25 03/26/25 History latanoprost 0.005 % eye drops 1 drp EACH EYE HS 03/08/25 03/26/25 History lithium carbonate 150 mg capsule 150 mg PO QPM 03/08/25 03/26/25 History lorazepam 0.5 mg tablet 0.5 mg PO TID 03/08/25 03/26/25 History meloxicam 7.5 mg tablet 7.5 mg PO DAILY 03/08/25 03/26/25 History metformin 500 mg tablet 500 mg PO QPM 03/08/25 03/26/25 History olanzapine 15 mg tablet 15 mg PO HS 03/08/25 03/26/25 History pantoprazole 40 mg tablet,delayed 40 mg PO DAILY 03/08/25 03/26/25 History release polyethylene glycol 3350 17 17 g PO DAILY PRN constipation 03/08/25 03/26/25 History gram/dose oral powder sertraline 100 mg tablet 200 mg PO DAILY 03/08/25 03/26/25 History tiotropium 2.5 mcg-olodaterol 2.5 2 puff inhalation DAILY 03/08/25 03/26/25 History mcg/actuation mist for inhalation (Stiolto Respimat) guaifenesin 600 mg tablet, 1,200 mg (2 x 600 mg) PO Q12HR #30 03/10/25 03/26/25 Rx extended release 12 hr (Mucus tabs Relief ER) ipratropium 0.5 mg-albuterol 3 mg 3 ml inhalation Q6HRT #30 vials 03/10/25 03/26/25 Rx (2.5 mg base)/3 mL nebulization soln prednisone 10 mg tablet 10 mg PO DAILY #42 tabs 03/10/25 03/26/25 Rx Allergies Allergy/AdvReac Type Severity Reaction Status Date / Time No Known Allergies Allergy Unverified 07/22/14 10:54 Vital Signs Vital Signs - 24 hr 03/29/25 18:00 03/29/25 19:53 03/29/25 20:00 Temperature 99.0 F Pulse Rate 90 85 Respiratory Rate 16 Blood Pressure 107/63 Pulse Oximetry 96 100 Oxygen Delivery BiPAP Oxygen Flow Rate Fraction of Inspired Oxygen 32 03/29/25 20:00 03/29/25 20:36 03/29/25 22:00 Temperature Pulse Rate 86 81 Respiratory Rate Blood Pressure Pulse Oximetry 95 Oxygen Delivery Room Air Oxygen Flow Rate Fraction of Inspired Oxygen 03/29/25 22:00 03/29/25 23:28 03/29/25 23:54 Temperature 98.7 F Pulse Rate 81 76 Respiratory Rate 26 H 20 Blood Pressure 108/62 Pulse Oximetry 100 99 100 Oxygen Delivery BiPAP BiPAP Oxygen Flow Rate Fraction of Inspired Oxygen 32 03/30/25 00:00 03/30/25 00:06 03/30/25 02:00 Temperature Pulse Rate 75 79 76 Respiratory Rate Blood Pressure Pulse Oximetry 98 Oxygen Delivery Nasal Cannula Oxygen Flow Rate Fraction of Inspired Oxygen 03/30/25 03:56 03/30/25 04:00 03/30/25 04:00 Temperature 98.6 F Pulse Rate 71 72 Respiratory Rate Blood Pressure 120/61 Pulse Oximetry 99 99 Oxygen Delivery Nasal Cannula Oxygen Flow Rate 2 Fraction of Inspired Oxygen 03/30/25 05:59 03/30/25 08:00 03/30/25 08:00 Temperature 98 F Pulse Rate 74 71 Respiratory Rate 20 Blood Pressure 120/59 L Pulse Oximetry 99 95 Oxygen Delivery Nasal Cannula Oxygen Flow Rate 2 Fraction of Inspired Oxygen 03/30/25 08:00 03/30/25 10:00 03/30/25 12:00 Temperature 98.2 F Pulse Rate 80 82 82 Respiratory Rate 24 H Blood Pressure 111/66 Pulse Oximetry 94 Oxygen Delivery Oxygen Flow Rate Fraction of Inspired Oxygen 03/30/25 12:00 03/30/25 12:00 03/30/25 14:00 Temperature Pulse Rate 86 88 Respiratory Rate Blood Pressure Pulse Oximetry 95 Oxygen Delivery Room Air Oxygen Flow Rate Fraction of Inspired Oxygen 03/30/25 16:00 03/30/25 16:00 03/30/25 16:00 Temperature 98.4 F Pulse Rate 81 85 Respiratory Rate 20 Blood Pressure 123/68 Pulse Oximetry 98 93 Oxygen Delivery Room Air Oxygen Flow Rate Fraction of Inspired Oxygen Exam 2 Narrative: Fully conscious alert however difficult to understand her speech clearly. She wants to go home. She knew her age. No aphasia per se a could be dysarthric. Examination head and neck shows no evidence of external trauma. No dysmorphic features were noted. No carotid bruit. Cranial nerves annual testing show pupils were equal react to light. Extraocular movements are intact. No facial asymmetry. Tongue was midline. Other cranial nerves within normal limits. Motor system normal power and tone in both upper and lower limbs. No abnormal movements were seen. Deep tendon reflexes did not show any asymmetry. Sensory exam is grossly intact. Results Labs 03/29/25 03:56 03/29/25 03:56
--- NOTE | 2025-03-30 17:18 | P.PSYCH_ITS ---
Assessment and Plan Assessment and plan (1) Schizoaffective disorder: Code(s): F25.9 - Schizoaffective disorder, unspecified Status: Chronic (2) Altered mental status: Code(s): R41.82 - Altered mental status, unspecified Status: Acute Plan Altered mental status likely compounded by polypharmacy, difficult to assess patient's baseline given her current mental state. Although, appears to be improving from previous days. Recommendations: Goal to limit psychotropic polypharmacy -Recommend discontinue lithium- at subtherapeutic level, not likely proving much benefit and no indication to increase to therapeutic level. -Recommend switching lorazepam to as needed basis only rather than scheduled, has not gotten daytime dose today and mental status appears to be improving. -Recommend taper off of olanzapine- give half dose 7.5mg tonight then discontinue tomorrow. Patient already on clozapine for antipsychotic coverage. -Recommend getting trough clozapine level to monitor for toxicity. No s/s of neutropenia HPI Data of Consult Date/Time: 03/30/25 17:18 Requesting Physician: Hayde Chu DO Primary Care Provider: So ShannonMD Consult Narrative Narrative: David Hannon is a 64 year old female admitted 03/26 from SNF with hypoxia, apparent altered mental status. Psychiatry has been consulted for medication recommendations due to polypharmacy which could be contributing to altered mental status. She has a reported history of schizoaffective disorder, depressive type and notably is a samuel of the [facility]. David is calm and cooperative during interview at bedside today, however appears to be a poor historian. She is A/O to self and place, unsure of month/year or reason for hospitalization. She has had waxing and waning mental status throughout her admission, has been evaluated by neurology and EEG was completed today. Per bedside nurse reports, she has held two doses of lorazepam today and mental status at present appears to be closer to her baseline. Additionally, RN reports that she is generally sedated after her evening medication and difficult to awaken in the morning with significant lethargy. Patient reports at present, her mood is stable, denies feeling sad. Denies significant anxiety or worries. Does not appear to be agitated. David does report a history of auditory hallucinations, although states last time she experienced this was several years ago. Admits to previous behavioral health hospitalization at [facility] around age 18, although unsure of how long she lived at this facility. For psychiatric medications, she is currently taking clozapine 100mg qAM, 500mg qHS; olanzapine 15mg qHS; lorazepam 0.5mg TID; sertraline 200mg daily; lithium 150mg daily. Her lithium level was sub-therapeutic upon admission at <0.2. Review of Systems 2 Psychiatric: Psychiatric: Reports confusion Comments: altered mental status PMFSH Past Medical History Medical History (Updated 03/30/25 @ 17:27 by Higinio Navarro MD) Seizure disorder Acute hypoxic respiratory failure Pneumonia COVID-19 Schizoaffective disorder Depression Diabetes Hypertension Hyperlipidemia Pulmonary embolism COPD (chronic obstructive pulmonary disease) Social History Social History Smoking status: Unknown if ever smoked Second hand tobacco smoke exposure: No Alcohol intake: never Substance use: never Substance use type: does not use Do You Feel Safe in your Home?: No Lack of Transportation: No Lack of Food: Never True Current Housing: I Have Housing Concerned About Future Housing: No Difficulty Paying Gas/Electric Bills: No Difficulty Paying for Meds: No Currently Unemployed: No Education: High School Diploma/GED Difficulty w/ Childcare or Family Care: No Spiritual care concerns: No Meds Home Medications and Allergies Home Medications ?Medication ?Instructions ?Recorded ?Confirmed ?Type acetaminophen 325 mg tablet 325 mg PO Q6H PRN pain 03/08/25 03/26/25 History acyclovir 400 mg tablet 400 mg PO BID 03/08/25 03/26/25 History albuterol sulfate 90 mcg/actuation 2 puff inhalation Q4H PRN cough 03/08/25 03/26/25 History aerosol inhaler alendronate 70 mg tablet 70 mg PO WEEKLY 03/08/25 03/26/25 History apixaban 5 mg tablet (Eliquis) 5 mg PO BID 03/08/25 03/26/25 History aspirin 81 mg tablet,delayed 81 mg PO DAILY 03/08/25 03/26/25 History release atorvastatin 10 mg tablet 10 mg PO HS 03/08/25 03/26/25 History bismuth subsalicylate 262 mg/15 mL 262 mg PO Q4H PRN diarrhea 03/08/25 03/26/25 History oral suspension (Stomach Relief) budesonide-formoterol HFA 80 1 puff inhalation DAILY 03/08/25 03/26/25 History mcg-4.5 mcg/actuation aerosol inhaler calcium carbonate (Oyster Shell 1,000 mg PO DAILY 03/08/25 03/26/25 History Calcium) clozapine 100 mg tablet 100 mg PO HS 03/08/25 03/26/25 History clozapine 100 mg tablet 100 mg PO QAM 03/08/25 03/26/25 History clozapine 200 mg tablet 400 mg PO HS 03/08/25 03/26/25 History desvenlafaxine succinate 50 mg 50 mg PO DAILY 03/08/25 03/26/25 History tablet,extended release 24 hr fluticasone furoate 100 1 inh inhalation DAILY 03/08/25 03/26/25 History mcg-vilanterol 25 mcg/dose inhalation powder (Breo Ellipta) lamotrigine 200 mg tablet 200 mg PO BID 03/08/25 03/26/25 History latanoprost 0.005 % eye drops 1 drp EACH EYE HS 03/08/25 03/26/25 History lithium carbonate 150 mg capsule 150 mg PO QPM 03/08/25 03/26/25 History lorazepam 0.5 mg tablet 0.5 mg PO TID 03/08/25 03/26/25 History meloxicam 7.5 mg tablet 7.5 mg PO DAILY 03/08/25 03/26/25 History metformin 500 mg tablet 500 mg PO QPM 03/08/25 03/26/25 History olanzapine 15 mg tablet 15 mg PO HS 03/08/25 03/26/25 History pantoprazole 40 mg tablet,delayed 40 mg PO DAILY 03/08/25 03/26/25 History release polyethylene glycol 3350 17 17 g PO DAILY PRN constipation 03/08/25 03/26/25 History gram/dose oral powder sertraline 100 mg tablet 200 mg PO DAILY 03/08/25 03/26/25 History tiotropium 2.5 mcg-olodaterol 2.5 2 puff inhalation DAILY 03/08/25 03/26/25 History mcg/actuation mist for inhalation (Stiolto Respimat) guaifenesin 600 mg tablet, 1,200 mg (2 x 600 mg) PO Q12HR #30 03/10/25 03/26/25 Rx extended release 12 hr (Mucus tabs Relief ER) ipratropium 0.5 mg-albuterol 3 mg 3 ml inhalation Q6HRT #30 vials 03/10/25 03/26/25 Rx (2.5 mg base)/3 mL nebulization soln prednisone 10 mg tablet 10 mg PO DAILY #42 tabs 03/10/25 03/26/25 Rx Allergies Allergy/AdvReac Type Severity Reaction Status Date / Time No Known Allergies Allergy Unverified 07/22/14 10:54 Vital Signs Vital Signs - 24 hr 03/29/25 18:00 03/29/25 19:53 03/29/25 20:00 Temperature 99.0 F Pulse Rate 90 85 Respiratory Rate 16 Blood Pressure 107/63 Pulse Oximetry 96 100 Oxygen Delivery BiPAP Oxygen Flow Rate Fraction of Inspired Oxygen 32 03/29/25 20:00 03/29/25 20:36 03/29/25 22:00 Temperature Pulse Rate 86 81 Respiratory Rate Blood Pressure Pulse Oximetry 95 Oxygen Delivery Room Air Oxygen Flow Rate Fraction of Inspired Oxygen 03/29/25 22:00 03/29/25 23:28 03/29/25 23:54 Temperature 98.7 F Pulse Rate 81 76 Respiratory Rate 26 H 20 Blood Pressure 108/62 Pulse Oximetry 100 99 100 Oxygen Delivery BiPAP BiPAP Oxygen Flow Rate Fraction of Inspired Oxygen 32 03/30/25 00:00 03/30/25 00:06 03/30/25 02:00 Temperature Pulse Rate 75 79 76 Respiratory Rate Blood Pressure Pulse Oximetry 98 Oxygen Delivery Nasal Cannula Oxygen Flow Rate Fraction of Inspired Oxygen 03/30/25 03:56 03/30/25 04:00 03/30/25 04:00 Temperature 98.6 F Pulse Rate 71 72 Respiratory Rate Blood Pressure 120/61 Pulse Oximetry 99 99 Oxygen Delivery Nasal Cannula Oxygen Flow Rate 2 Fraction of Inspired Oxygen 03/30/25 05:59 03/30/25 08:00 03/30/25 08:00 Temperature 98 F Pulse Rate 74 71 Respiratory Rate 20 Blood Pressure 120/59 L Pulse Oximetry 99 95 Oxygen Delivery Nasal Cannula Oxygen Flow Rate 2 Fraction of Inspired Oxygen 03/30/25 08:00 03/30/25 10:00 03/30/25 12:00 Temperature 98.2 F Pulse Rate 80 82 82 Respiratory Rate 24 H Blood Pressure 111/66 Pulse Oximetry 94 Oxygen Delivery Oxygen Flow Rate Fraction of Inspired Oxygen 03/30/25 12:00 03/30/25 12:00 03/30/25 14:00 Temperature Pulse Rate 86 88 Respiratory Rate Blood Pressure Pulse Oximetry 95 Oxygen Delivery Room Air Oxygen Flow Rate Fraction of Inspired Oxygen 03/30/25 16:00 03/30/25 16:00 03/30/25 16:00 Temperature 98.4 F Pulse Rate 81 85 Respiratory Rate 20 Blood Pressure 123/68 Pulse Oximetry 98 93 Oxygen Delivery Room Air Oxygen Flow Rate Fraction of Inspired Oxygen Exam 2 Psych: Appearance: grossly normal Mental Status: other (A/O x 2) Speech and movement: Normal speech and movement present Affect: normal affect A ttitude: cooperative Thought process: Loose association thought process present Thought content: Yes Normal thought content present Insight: Poor insight present (Psych) Judgement: Poor judgement present (Psych) Results Labs 03/29/25 03:56 03/29/25 03:56
[2025-03-30] MEDS: FLUTICASONE PROPIONATE 0.05% NA SPR 16 GM BTL (*BKC) 1 SPRAY NASAL ×2 (17:48→21:31)
[2025-03-30] MEDS: ATORVASTATIN 10 MG TABLET PO (21:30)
[2025-03-31] VITALS (7 sets, daily range): BP systolic 106–121; BP diastolic 74–80; PULSE 71–91; RESP 16–20; TEMP 36.7–37; O2SAT 100
[2025-03-31] MEDS: ALENDRONATE SODIUM 70 MG TABLET PO (05:55)
--- NOTE | 2025-03-31 08:55 | P.PNPL_ITS ---
Progress Note: A&P Assessment and Plan (1) Acute on chronic respiratory failure with hypoxia and hypercapnia: Code(s): J96.21 - Acute and chronic respiratory failure with hypoxia; J96.22 - Acute and chronic respiratory failure with hypercapnia Status: Acute Assessment and Plan: 03/26/2025 patient was brought to the emergency room from [facility] with altered mental status and hypoxia. The chart says she wears 3 L nasal cannula at baseline. She was found by EMS off oxygen and placed on a non- rebreather with saturations that improved to the 80s. The patient was in then placed on CPAP and her saturations increased to 93 and she became more responsive. She was treated with magnesium, steroids and DuoNeb. Patient does not know if she wears oxygen at [facility]. She does not know if she wear CPAP or BiPAP. She does not know if she has obstructive sleep apnea or COPD. It is unknown if the patient has smokes cigarettes. ABG on admission on 03/19 7.31/59/71 on BiPAP 16/5 in 70%. On 03/25/2025 ABG on BiPAP 15/8 and 80% pH of 7.37/51/81. 01/21/2025: White blood cell count 14.2, eosinophils 1.1%=156/uL. Plan: practical nurse clinical coordinator from will call [facility] facility in ask them if she is on oxygen at rest, with activity and at night. They will also ask if she was on BiPAP or CPAP and if so we will obtain a download. I will check a TSH and free T4. I will obtain a CT scan of the chest looking for bullous emphysema. I will place the patient on anoro ellipta. I will not place the patient on inhaled corticosteroids at this time. I will check an overnight oximetry on room air tonight to see if she qualifies for oxygen at night. Patient will need a home O2 assessment prior to returning to [facility]. I will discontinue the patient's BiPAP tonight and check an ABG off of BiPAP for 24 hours to reassess for chronic hypercarbic respiratory failure. Later in the day patient had a CT scan of the chest that showed no bullous emphysema, bibasilar atelectasis, 8 x 12 part solid nodule left lower lobe and 8 0.5 x 8.4 nodule right lower lobe. 8/5/25: Patient was on 2 L nasal cannula until last night with saturations 99%. Patient had an overnight oximetry on room air that was terminated after 1 hour due to hypoxia, with a recording duration of 59 minutes. Average saturation 91%. Low saturation 83%, time with saturation less than or equal to 88% was 9 minutes. Oxygen desaturation index 39.4. Patient was then placed on 2 L nasal cannula. on 2 L nasal cannula the patient had saturations of 94% and a rapid response was called for altered mental status with frothy white secretions from her mouth. The patient was only responsive to painful stimuli and could not provide any history. Stat chest x-ray was performed with no acute changes. ABG on 2 L 7.35/59.. Patient was placed on BiPAP rate of 12, pressures 15/8 and 30% FiO2. At 7:30 a.m. this morning the patient was awake and asking for breakfast and was taken off BiPAP. Patient tells me she does not remember any events that happened in the middle the night. When I saw her she was on 2 L nasal cannula with saturations 97%. I decreased her to room air and her saturations were 94%. White blood cell count 9.4, creatinine 0.72. She was positive 1.2 L yesterday and cumulative she is positive 800 mL since admission. Her weight today is 76.7. Plan: Regarding the events early this morning patient saturations on 2 L nasal cannula were 99% and her ABG on 2 L with a chronic compensated respiratory acidosis with PaO2 of 59. Patient has chronic hypercarbic respiratory failure an etiologies include COPD, sleep-related breathing disorder, medication induced, obesity hypoventilation syndrome. TSH 0.87. Free T4 0.99, both normal BMI 30.9. continue Anoro Ellipta for possible COPD. We have discussed with [facility] care facility and they can provide BiPAP but cannot provide noninvasive ventilation with the AVAPS AE mode. Tonight I will place the patient on BiPAP rate of 12, pressures 15/5, 28% FiO2 and obtain an overnight oximetry study and an ABG prior to removal. 03/29/25: Currently the patient states she is breathing at her baseline. When I enter the room she was on 2 L nasal cannula saturations 98%. I placed her on room air and her saturations were 94%. White blood cell count 9.9, creatinine 0.66. Yesterday she was positive 1.2 L, cumulative she is positive 93 mL since admission and her weight is 75.5. Patient tells me she is breathing at her baseline. When I asked the patient if she wore the BiPAP machine rate of 12, pressures 15/5 and 28% AmB5ries night she said she could not remember. When I then showed her the mask she said all yes I did wear it and was comfortable. Nursing reports that she wore it for about 3 hours and then took it off. She had an overnight oximetry on these settings with recording duration of 2 hours and 53 minutes, average saturation 98%, low saturation 92%, time with saturation less than or equal to 88% was 0 minutes, oxygen desaturation index 0.8. Patient had an ABG approximately 4 hours off the BiPAP on 3 L nasal cannula 7.35/55/138. Plan: Patient states she is breathing at her baseline and currently on Anoro Ellipta 1 puff q.day and guaifenesin 1200 mg p.o. b.i.d.. She tolerated the BiPAP for 3 hours and 28% FiO2 provided adequate oxygenation. Her ABG was not drawn until 4 hours later. Tonight will attempt BiPAP with the above settings and ABG prior to removal to assess ventilation. Later in the day patient had an episode of responsiveness only to deep pain on the BiPAP with adequate saturations. ABG at that time was 7.35/57/49. I did not feel her altered mental status was related to respiratory component. 03/30/2025: Patient is sitting on the bedside commode and denies any rest shortness of breath. Mild dyspnea on exertion walking to the commode. Patient does not remember if she wore the BiPAP last night. She says that was uncomfortable. Daytime nurse does not know any details about the patient's BiPAP use from the overnight nurse. Records show that she wore it for 2 hours. She states she is breathing okay. In no respiratory distress. Yesterday she was -2 L, cumulative she is positive 667 mL and her weight today is 81.2. Patient had a ABG on BiPAP for 2 hours rate of 18 pressures 18/5 and 32% FiO2 with pH of 7.36/55/81. Plan: Patient is had 3 episodes with decreased mentation and responsiveness only to deep pain. Although she has chronic hypercarbic respiratory failure at this time given these episodic periods of decreased mentation, I do not believe noninvasive ventilation or BiPAP is safe in this patient as she would not be abl e to remove the mask herself. I will discontinue BiPAP. It should also be noted that the patient did not tolerate the BiPAP well and that BiPAP with rate of 18, pressures 18/5 did not improve her chronic respiratory acidosis. I will place the patient on 2 L nasal cannula tonight and perform an overnight oximetry on 2 L. EEG mild diffuse background slowing suggestive of underlying generalized encephalopathy. She is thought to have a schizoaffective disorder. Apparently she probably had a seizure. Continue Keppra 1000 mg twice a day and lamotrigine 200 mg twice a day. Psychiatry consult with altered mental status likely compounded by polypharmacy. Difficult to assess patient's baseline given her current mental state. Recommends discontinuing lithium, Switching lorazepam to as needed basis. Tapering off a Lasso parameter. Give half dose 7.5 mg tonight then discontinue tomorrow. Patient already on clozapine for antipsychotic coverage. Recommend getting trough clozapine level to monitor for toxicity. 03/31/25: Patient states she is breathing at her baseline. alert and requesting to go home. Denies any shortness of breath. She is afebrile. Patient was on 2 L nasal cannula when I enter the room with saturations 100%. I removed the her 2 L and placed her on room air and saturations were 96%. She is positive 2 L yesterday. Her weight today is 81.2 kg. Patient had an overnight oximetry on 2 L nasal cannula with recording duration of 5 hours and 59 minutes. Average saturation 96%. Low saturation 93%. Time with saturation less than or equal to 88% was 0 minutes. Oxygen desaturation index 0. Plan: Patient has chronic hypercarbic respiratory failure but also intermittent episodes of responsiveness only to deep pain and she did not tolerate BiPAP while she was in the hospital for more than 2 hours. Will discontinue BiPAP at this time. 2 L nasal cannula at night provides adequate oxygenation. From a pulmonary perspective patient is ready to be discharged to her facility on these pulmonary medications: Anoro Ellipta 62.5-25 at 1 puff q.day Rescue albuterol 2 puffs q.4 hours p.r.n. shortness of breath Flonase 2 sprays each nostril q.12 hours p.r.n. nasal congestion Oxygen at rest and with activity per facilities protocol. Currently the patient is on room air with saturations 96%. Oxygen 2 L nasal cannula at night Follow-up in the Pulmonary Clinic in 3-4 weeks. I gave her a business card and informed our practice administrator. She should have outpatient PFTs, repeat ABG after being on a stable dose of her seizure and psychiatric medicines, split night sleep study. Discussed with Dr. You, will sign off, call with questions. (2) Schizoaffective disorder: Code(s): F25.9 - Schizoaffective disorder, unspecified Status: Chronic Assessment and Plan: Patient is on Ativan 0.5 t.i.d., Zyprexa and lithium. Patient has chronic hypercarbic respiratory failure and I recommend discontinuation of all benzodiazepine such as these are respiratory suppressants and will make her hypercarbic respiratory failure worse. Discussed with hospitalist. 03/28/25: Patient had an episode last night of being responsive only to deep pain with adequate saturations and an ABG with a compensated respiratory acidosis. I do not believe her chronic compensated respiratory acidosis explains her altered mental status and her being responsive only to deep pain. The patient is on multiple medications including and anti epileptic medicine lamotrigine 200 mg p.o. b.i.d. I do not know she has a seizure disorder. patient is on lorazepam 0.5 t.i.d., Zyprexa 15 q.h.s., lithium carbonate 150 q. p.m., Lamictal 200 p.o. b.i.d., clozapine 100 q.a.m. and 500 q. HS. 03/29/2025: Patient was started on Keppra per hospitalist team. 03/30/2025: patient with 3 episodes of altered mental status with responsiveness only to deep pain with blood gases showing chronic compensated respiratory acidosis and adequate oxygenation. I did not feel these episodes are related to respiratory pathology. Plan: EEG, Neurology and Psychiatry consulted. 03/31/25: EEG mild diffuse background slowing suggestive of underlying generalized encephalopathy. She is thought to have a schizoaffective disorder. Apparently she probably had a seizure. Continue Keppra 1000 mg twice a day and lamotrigine 200 mg twice a day. Psychiatry consult with altered mental status likely compounded by polypharmacy. Difficult to assess patient's baseline given her current mental state. Recommends discontinuing lithium, Switching lorazepam to as needed basis. Tapering off a Lasso parameter. Give half dose 7.5 mg tonight then discontinue tomorrow. Patient already on clozapine for antipsychotic coverage. Recommend getting trough clozapine level to monitor for toxicity. Plan: Per Neurology, Psychiatry and hospitalist teams (3) COVID-19: Code(s): U07.1 - COVID-19 Status: Acute Assessment and Plan: Patient was COVID positive on 03/19 and treated with remdesivir and dexamethasone. She remains COVID positive on 03/25 and I suspect this is residual reactivity from her per 1st COVID infection. She is in no respiratory distress. She is on 2 L nasal cannula and presumably she wears 3 L at [facility] facility. plan: Prednisone 10 mg p.o. q.day day 9 of 10. At this time I do not recommend any additional active treatment for COVID pneumonia. 03/28/25: Patient is in no respiratory distress. Room air saturations 94% currently. Plan: Today is day 10 of 10 of prednisone 10 mg and I will discontinue. Subjective Date/time seen: 03/31/25 08:55 Interval history: 03/27/2025: This is a new pulmonary consult for COVID and BiPAP. 64-year-old 6w/PMH of Schizoaffective disorder, Depression, DM, HTN, HLD, COPD, and PE on chronic anticoagulation, COVID treated with remdesivir and dexamethasone on 03/19/2025 and discharge back to [facility] on 03/24/2025. She is a [facility] guardian who was brought into the ER due to hypoxia. patient cannot provide me with any meaningful history. Of note patient was COVID positive on 03/19/2025 ( 7 days earlier) and treated with 5 days of remdesivir and dexamethasone for 10 days and discharged on 03/24/2025. chest x-ray on 03/21/2025 showed improved bilateral LL space disease. On 03/24/2025 at 9:32 a.m. room air saturations 94%. I asked her if she had COPD and she said I do not know. I asked her if she had PE and she said I do not know. I asked her if she wore oxygen at her nursing facility which is [facility] and [facility] and she said sometimes I wear it in the hospital, I asked her if she wore CPAP or BiPAP at [facility] and she said no. I asked her she had obstructive sleep apnea and she did not know with this was. 03/26/2025 patient was brought to the emergency room from [facility] with altered mental status and hypoxia. The chart says she wears 3 L nasal cannula at baseline. She was found by EMS off oxygen and placed on a non- rebreather with saturations that improved to the 80s. The patient was in then placed on CPAP and her saturations increased to 93 and she became more responsive. She was treated with magnesium, steroids and DuoNeb. Patient presented to the emergency department and her COVID RT PCR was positive. of note the patient's home medicines include Ativan 0.5 mg p.o. t.i.d., clonazepam 100 mg p.o. q.day, Zyprexa, lithium. 03/27/25: Patient tells me her name, knows this is [facility], states that his 2011. Patient is unable to give accurate healthcare information. She is in no respiratory distress and asking me if she can go home. When I enter the room she was on 4 L with saturation 99%. I decreased her to room air and after 5 minutes her saturations went to 88 and I placed her on 2 L nasal cannula her saturations were 92%. She is afebrile. White blood cell count 10.7, creatinine 0.75. Later in the day patient had a CT scan of the chest that showed no bullous emphysema, bibasilar atelectasis, 8 x 12 part solid nodule left lower lobe and 8 0.5 x 8.4 nodule right lower lobe. 03/28/25: Patient was on 2 L nasal cannula until last night with saturations 99%. Patient had an overnight oximetry on room air that was terminated after 1 hour due to hypoxia, with a recording duration of 59 minutes. Average saturation 91%. Low saturation 83%, time with saturation less than or equal to 88% was 9 minutes. Oxygen desaturation index 39.4. Patient was then placed on 2 L nasal cannula. on 2 L nasal cannula the patient had saturations of 94% and a rapid response was called for altered mental status with frothy white secretions from her mouth. The patient was only responsive to painful stimuli and could not provide any history. Stat chest x-ray was performed with no acute changes. ABG on 2 L 7.35/59.8/59. Patient was placed on BiPAP rate of 12, pressures 15/8 and 30% FiO2. At 7:30 a.m. this morning the patient was awake and asking for breakfast and was taken off BiPAP. Patient tells me she does not remember any events that happened in the middle the night. When I saw her she was on 2 L nasal cannula with saturations 97%. I decreased her to room air and her saturations were 94%. White blood cell count 9.4, creatinine 0.72. She was positive 1.2 L yesterday and cumulative she is positive 800 mL since admission. Her weight today is 76.7. 03/29/25: Currently the patient states she is breathing at her baseline. When I enter the room she was on 2 L nasal cannula saturations 98%. I placed her on room air and her saturations were 94%. White blood cell count 9.9, creatinine 0.66. Yesterday she was positive 1.2 L, cumulative she is positive 93 mL since admission and her weight is 75.5. Patient tells me she is breathing at her baseline. When I asked the patient if she wore the BiPAP machine rate of 12, pressures 15/5 and 28% [id number] night she said she could not remember. When I then showed her the mask she said all yes I did wear it and was comfortable. Nursing reports that she wore it for about 3 hours and then took it off. She had an overnight oximetry on these settings with recording duration of 2 hours and 53 minutes, average saturation 98%, low saturation 92%, time with saturation less than or equal to 88% was 0 minutes, oxygen desaturation index 0.8. Patient had an ABG approximately 4 ho urs off the BiPAP on 3 L nasal cannula 7.35/55/138. Later in the day patient had an episode of responsiveness only to deep pain on the BiPAP with adequate saturations. ABG at that time was 7.35/57/49. 03/30/2025: Patient is sitting on the bedside commode and denies any rest shortness of breath. Mild dyspnea on exertion walking to the commode. Patient does not remember if she wore the BiPAP last night. She says that was uncomfortable. Daytime nurse does not know any details about the patient's BiPAP use from the overnight nurse. Records show that she wore it for 2 hours. She states she is breathing okay. In no respiratory distress. Yesterday she was -2 L, cumulative she is positive 667 mL and her weight today is 81.2. Patient had a ABG on BiPAP for 2 hours rate of 18 pressures 18/5 and 32% FiO2 with pH of 7.36/55/81. EEG mild diffuse background slowing suggestive of underlying generalized encephalopathy. She is thought to have a schizoaffective disorder. Apparently she probably had a seizure. Continue Keppra 1000 mg twice a day and lamotrigine 200 mg twice a day. Psychiatry consult with altered mental status likely compounded by polypharmacy. Difficult to assess patient's baseline given her current mental state. Recommends discontinuing lithium, Switching lorazepam to as needed basis. Tapering off a Lasso parameter. Give half dose 7.5 mg tonight then discontinue tomorrow. Patient already on clozapine for antipsychotic coverage. Recommend getting trough clozapine level to monitor for toxicity. 03/31/25: Patient states she is breathing at her baseline. alert and requesting to go home. Denies any shortness of breath. She is afebrile. Patient was on 2 L nasal cannula when I enter the room with saturations 100%. I removed the her 2 L and placed her on room air and saturations were 96%. She is positive 2 L yesterday. Her weight today is 81.2 kg. Patient had an overnight oximetry on 2 L nasal cannula with recording duration of 5 hours and 59 minutes. Average saturation 96%. Low saturation 93%. Time with saturation less than or equal to 88% was 0 minutes. Oxygen desaturation index 0. DATA: 03/27/25: CLINICAL INDICATION: Respiratory failure COMPARISON: None. Reference is made to multiple plain film evaluations of the chest performed most recently on 03/26/2025 and dating back to 01/21/2025 TECHNIQUE: Multiple contiguous axial images of the chest was performed without the administration of intravenous contrast. This CT examination was performed utilizing dose reduction techniques. DLP: 306 mGy-cm FINDINGS/OBSERVATIONS: LUNG: Bibasilar atelectasis, right greater than left. 8 x 12 mm part solid nodule within the left lower lobe, possibly an intrathoracic lymph node. 8.5 x 8.4 mm nodule within the right lower lobe, possibly due to atelectasis with interstitial thickening. The remainder of the lungs are clear. No bullous emphysema is identified. No significant emphysematous change is noted. HEART: The heart is markedly enlarged, without pericardial effusion. MEDIASTINUM: No pathologically enlarged or morphologically suspicious lymph nodes are identified within the mediastinum, bilateral axilla, within the soft tissues of the anterior chest wall. SOFT TISSUES OF THE CHEST: Unremarkable. BONES OF THE CHEST: No acute fracture. No lytic or blastic lesions are identified. IMPRESSION: Bibasilar nodules, possibly sequelae of recent illness/Covid infection for which short term followup (3month CT) is recommended. 03/23/2025: Echo Summary 1. Complete two-dimensional, color flow and Doppler transthoracic echocardiogram is performed. 2. Normal left and right ventricular size and systolic function. 3. Grade 1 diastolic noncompliance. 4. No valvular dysfunction. Left Ventricle Left ventricular chamber dimension is normal. Left ventricular systolic function is normal, estimated at 65-70. The left ventricular diastolic function is grade I diastolic dysfunction. Right Ventricle Right ventricular chamber dimension is normal. Left Atria Left atrial chamber dimension is normal. Right Atria Right atrial chamber dimension is normal. Review of Systems Review of Systems: ROS unobtainable: Yes unobtainable due to mental status Exam Const: General: cooperative, healthy appearing and comfortable Orientation/consciousness: oriented to person, oriented to place and oriented to time HENMT: Head: normal to inspection Ears: hearing grossly normal bilaterally Eyes: General: appearance normal, both eyes and all related structures Neck: Neck: normal visual inspection Chest: Chest palpation & inspection: normal inspection of the chest Resp: Effort & Inspection: normal respiratory effort and able to speak in complete sentences Auscultation: no crackles, no rales, no rhonchi, no wheezes and lung sounds not diminished Cardio: Jugular venous distension: no JVD GI: Inspection: normal to inspection Skin: General skin exam: normal color Neuro: General: oriented to person, oriented to place and oriented to time Extrem: General: normal to inspection Psych: Appearance: grossly normal Objective Data Vital Signs Vital Signs: Vital Signs - 24 hr 03/30/25 10:00 03/30/25 12:00 03/30/25 12:00 Temperature 36.8 C Pulse Rate 82 82 Respiratory Rate 24 H Blood Pressure 111/66 Pulse Oximetry 94 95 Oxygen Delivery Room Air Oxygen Flow Rate 03/30/25 12:00 03/30/25 14:00 03/30/25 16:00 Temperature Pulse Rate 86 88 Respiratory Rate Blood Pressure Pulse Oximetry 98 Oxygen Delivery Room Air Oxygen Flow Rate 03/30/25 16:00 03/30/25 16:00 03/30/25 19:53 Temperature 36.9 C 37.1 C Pulse Rate 81 85 85 Respiratory Rate 20 20 Blood Pressure 123/68 126/72 Pulse Oximetry 93 97 Oxygen Delivery Oxygen Flow Rate 03/30/25 20:00 03/30/25 20:00 03/30/25 22:50 Temperature Pulse Rate 85 85 Respiratory Rate Blood Pressure Pulse Oximetry 99 98 Oxygen Delivery Nasal Cannula Nasal Cannula Oxygen Flow Rate 2 2 03/31/25 00:00 03/31/25 00:06 03/31/25 04:00 Temperature 37.0 C Pulse Rate 79 85 71 Respiratory Rate 20 Blood Pressure 121/74 Pulse Oximetry 100 Oxygen Delivery Oxygen Flow Rate 03/31/25 07:52 Temperature 36.7 C Pulse Rate 90 Respiratory Rate 16 Blood Pressure 106/80 Pulse Oximetry 100 Oxygen Delivery Oxygen Flow Rate Intake/Output Intake/Output: Intake & Output 03/28/25 03/29/25 03/30/25 03/31/25 23:59 23:59 23:59 23:59 Intake Total 2443 1380 2254 1804 Output Total 1050 3300 1400 750 Balance 1393 -3708 585 6098 Meds/Results Medications: Active Medications Generic Name Dose Route Start Last Admin Trade Name Freq PRN Reason Stop Dose Admin Acetaminophen 325 mg 03/26/25 08:17 Acetaminophen 325 Mg Tablet PO Q6H PRN pain Acyclovir 400 mg 03/26/25 09:00 03/30/25 21:30 Acyclovir 400 Mg Tablet PO 400 mg Q12HR AIRAM Administration Albuterol 2 puff 03/26/25 08:17 Albuterol Sulfate (*Sp) Aerosol 1 Puff INHALATION Q4HRT PRN cough Alendronate Sodium 70 mg 03/31/25 06:30 03/31/25 05:55 Alendronate Sodium 70 Mg Tablet PO 70 mg Fr@0630 AIRAM Administration Apixaban 5 mg 03/26/25 09:00 03/30/25 21:30 Apixaban 5 Mg Tablet PO 5 mg Q12HR AIRAM Administration Aspirin 81 mg 03/26/25 09:00 03/30/25 09:55 Aspirin 81 Mg Enteric Tablet PO 81 mg DAILY AIRAM Administration Atorvastatin Calcium 10 mg 03/26/25 21:00 03/30/25 21:30 Atorvastatin 10 Mg Tablet PO 10 mg HS AIRAM Administration Bismuth Subsalicylate 262 mg 03/26/25 09:04 Bismuth Subsalicylate 262 Mg Chewable Tablet PO Q4H PRN diarrhea Calcium Carbonate 1,000 mg 03/26/25 09:00 03/30/25 09:55 Calcium Carbonate (Oscal) 500 Mg Tablet PO 1,000 mg DAILY AIRAM Administration Clozapine 100 mg 03/26/25 09:00 03/30/25 09:55 Clozapine 100 Mg Tablet PO 100 mg QAM AIRAM Administration Clozapine 500 mg 03/26/25 21:00 03/30/25 21:30 Clozapine 100 Mg Tablet PO 500 mg HS AIRAM Administration Fluticasone Propionate 1 spray 03/30/25 11:45 03/30/25 21:31 Fluticasone Propionate 0.05% Na Spr 16 Gm Btl (*Bkc) NASAL 1 spray Q12HR AIRAM Administration Guaifenesin 1,200 mg 03/26/25 09:00 03/30/25 21:30 Guaifenesin 12 Hr 600 Mg Tabcr PO 1,200 mg Q12HR AIRAM Administration Levetiracetam 1,000 mg in 100 mls @ 400 mls/hr 03/28/25 21:00 03/30/25 21:32 Keppra Iv IVPB 400 mls/hr Q12HR AIRAM Administration Lamotrigine 200 mg 03/28/25 21:00 03/30/25 21:31 Lamotrigine 100 Mg Tablet PO 200 mg Q12HR AIRAM Administration Latanoprost 1 drop 03/26/25 21:00 03/30/25 21:34 Latanoprost 0.005% Op Soln 2.5 Ml Btl EACH EYE Not Given HS AIRAM [place] Carbonate 150 mg 03/26/25 18:00 03/30/25 17:38 [place] Carbonate 150 Mg Capsule PO Not Given QPM AIRAM Lorazepam 0.5 mg 03/28/25 14:00 03/31/25 05:46 Lorazepam (*Crx) 0.5 Mg Tablet PO Not Given Q8HR AIRAM Meloxicam 7.5 mg 03/26/25 09:00 03/30/25 09:55 Meloxicam 7.5 Mg Tablet PO 7.5 mg DAILY AIRAM Administration Metformin HCl 500 mg 03/26/25 18:00 03/30/25 17:48 Metformin Hcl 500 Mg Tablet PO 500 mg QPM AIRAM Administration Non-Formulary Medication 0 mg 03/26/25 09:00 03/30/25 09:56 Desvenlafaxine Succinate PO 04/25/25 08:59 50 mg DAILY AIRAM Administration Olanzapine 15 mg 03/26/25 21:00 03/30/25 21:31 Olanzapine 5 Mg Tablet PO 15 mg HS AIRAM Administration Pantoprazole Sodium 40 mg 03/26/25 09:00 03/30/25 09:55 Pantoprazole 40 Mg Tablet PO 40 mg DAILY AIRAM Administration Polyethylene Glycol 17 gm 03/26/25 08:17 03/30/25 09:56 Polyethylene Glycol 3350 17 Gm Powd.Pack PO 17 gm DAILY PRN Administration constipation Sertraline HCl 200 mg 03/26/25 09:00 03/30/25 10:11 Sertraline Hcl 50 Mg Tablet PO 200 mg DAILY AIRAM Administration Umeclidinium/Vilanterol 1 puff 03/27/25 10:20 03/30/25 09:42 Umeclidinium/Vilanterol 62.5-25 Mcg Ellipta INHALATION Not Given DAILYRT AIRAM Radiology Results: ITS Impressions Chest CT 03/27/25 16:01 IMPRESSION: Bibasilar nodules, possibly sequelae of recent illness/Covid infection for which short term followup (3month CT) is recommended. Chest X-Ray 03/28/25 05:55 Impression: Clear lungs. Head CT 03/29/25 15:03 IMPRESSION: 1. No acute intracranial abnormality.
[2025-03-31] MEDS: UMECLIDINIUM/VILANTEROL 62.5-25 MCG ELLIPTA 1 PUFF INHALATION (09:24)
[2025-03-31] MEDS: NONFORMULARY DRUG (Desvenlafaxine Succinate 50 mg tablet extended release 24 hr) PO (09:32)
[2025-03-31] MEDS: ASPIRIN 81 MG ENTERIC TABLET PO (09:32)
[2025-03-31] MEDS: CALCIUM CARBONATE (OSCAL) 500 MG TABLET 1000 MG PO (09:32)
[2025-03-31] MEDS: SERTRALINE HCL 50 MG TABLET 200 MG PO (09:32)
[2025-03-31] MEDS: MELOXICAM 7.5 MG TABLET PO (09:34)
[2025-03-31] MEDS: ACYCLOVIR 400 MG TABLET PO (09:34)
[2025-03-31] MEDS: APIXABAN 5 MG TABLET PO (09:34)
[2025-03-31] MEDS: FLUTICASONE PROPIONATE 0.05% NA SPR 16 GM BTL (*BKC) 1 SPRAY NASAL (09:34)
[2025-03-31] MEDS: guaiFENesin 12 HR 600 MG TABCR 1200 MG PO (09:34)
[2025-03-31] MEDS: PANTOPRAZOLE 40 MG TABLET PO (09:34)
[2025-03-31] MEDS: levETIRAcetam 1000MG/NACL100ML 1,000 MG/100 ML BAG 400 MG IVPB (09:34)
--- NOTE | 2025-03-31 13:01 | P.DS_ITS ---
DS: Admitting Diagnosis Discharge Date 03/31/25 Admitting Diagnosis Respiratory distress DS: Discharge Diagnosis Discharge Diagnosis (1) COVID-19: Code(s): U07.1 - COVID-19 Status: Acute (2) Altered mental status: Code(s): R41.82 - Altered mental status, unspecified Status: Acute DS: Summary Hospital Course Hospital Course: 64-year-old female with a history of schizoaffective disorder, depression, type 2 diabetes, hypertension, hyperlipidemia, COPD, prior PE on chronic anticoagulation, and recent COVID-19 infection, admitted from SNF for acute on chronic respiratory failure with hypoxia and altered mental status. She is a samuel of the [facility]. She was recently treated for COVID-19 with remdesivir and dexamethasone, and discharged back to SNF, but returned with hypoxia and confusion. On arrival, she was found off oxygen, requiring escalation to non-rebreather and then CPAP, with improvement in oxygenation and mental status. She was COVID positive on admission. Baseline oxygen requirement is 3 L nasal cannula. During hospitalization, she had multiple episodes of decreased responsiveness, some associated with adequate oxygenation and chronic compensated respiratory acidosis. CT head was unremarkable. EEG showed mild diffuse background slowing, suggestive of underlying encephalopathy. Neurology and psychiatry were consulted. She was started on Keppra for suspected seizure activity and continued on lamotrigine. Polypharmacy was identified as a likely contributor to her altered mental status; recommendations were made to taper benzodiazepines and olanzapine, and to discontinue lithium. Pulmonology recommended discontinuing BiPAP due to poor tolerance and safety concerns, and continuing 2 L nasal cannula at night, with oxygen at rest and with activity per facility protocol. Overnight oximetry on 2 L nasal cannula showed adequate oxygenation. She was transitioned to Anoro Ellipta and rescue albuterol for COPD management. She remained hemodynamically stable, afebrile, and at her respiratory baseline at discharge. ASSESSMENT & PLAN 1. Acute on chronic respiratory failure with hypoxia and hypercapnia ICD-10: J96.21, J96.22 * Presented with respiratory distress, likely due to noncompliance with nasal oxygen. * COVID-19 positive, previously completed remdesivir and dexamethasone. * Maintain oxygen saturation >92%. * Discharged on 2 L nasal cannula at night, oxygen at rest and with activity per SNF protocol. * Discontinue BiPAP due to poor tolerance and safety concerns. * Continue Anoro Ellipta 62.5-25 mcg 1 puff daily, rescue albuterol 2 puffs q4h PRN. * Flonase 2 sprays each nostril q12h PRN. * Pulmonology follow-up in 3-4 weeks, outpatient PFTs, repeat ABG, and split- night sleep study recommended. 2. Schizoaffective disorder ICD-10: F25.9 * Continue clozapine. * Continue lamotrigine. * Discontinued Olanzapine and lithium per psychiatry recommendations. * Monitor for clozapine toxicity (obtain trough level). * Psychiatry to continue to manage and streamline psychotropic regimen. 3. Hypertension ICD-10: I10 * Not on antihypertensive medication; monitor blood pressure. 4. Diabetes Mellitus, Type 2 ICD-10: E11.9 * Continue metformin 500 mg PO BID. 5. COVID-19 ICD-10: U07.1 * Completed remdesivir and dexamethasone. * No additional active treatment required at this time. 6. Altered mental status likely from polypharmacy Psych was consulted and medications were adjusted as above and drowsiness resolved following the changes EEG did not show any epileptiform discharges Neurolgoy was involved in the care Patient still had unresponsive epsiodes while on Keppra Keppra discontinued. F/u with Neurology and psych as instructed Continue christianne for hx of Pum embolism DISCHARGE MEDICATIONS: * Anoro Ellipta 62.5-25 mcg, 1 puff daily (Breo discontinued per Pulmonology) * Albuterol inhaler, 2 puffs q4h PRN * Flonase 2 sprays each nostril q12h PRN * Oxygen at rest and with activity per SNF protocol; 2 L nasal cannula at night * Clozapine, per psychiatry * Lamotrigine 200 mg BID * Metformin 500 mg BID * Eliquis 2.5 mg BID * Taper and discontinue lithium, olanzapine, and changed benzodiazepines to pRN as per psychiatry recommendations FOLLOW-UP: * Pulmonology clinic in 3-4 weeks (PFTs, ABG, sleep study) * Psychiatry for medication management * Neurology for seizure follow-up * Primary care in 3-5 days Time Spent with Patient Time attestation: Total time spent providing and/or coordinating discharge services: DS: Data Data Completed and Pending Labs on day of discharge: Preliminary micro results at discharge 03/25/25 23:42 Blood Culture - Preliminary Blood 03/25/25 23:52 Blood Culture - Preliminary Blood Discharge Plan Discharge Attending physician on discharge: Chai You Consulting providers: Chai You; Melecio Parry; Dickson Russell; Ben Zuleta Discharging Clinician: Chai You Anticipated Discharge Date/Time: 03/31/25 12:56 Patient Disposition: NH Shelter/Asst Living Activity: as tolerated Diet: as tolerated and diabetic Patient Instructions: Antibiotic Form, Apixaban (By mouth), COVID-19 (Coronavirus Disease 2019) (DC), COVID-19 and Chronic Health Conditions (DC) Patient Language: Malaysian Stand Alone Forms: General Discharge Information Follow-up/Referrals: Shiva,MD So [Primary Care Provider] - (F/u with PCP in 3-5 days ) Dickson Russell MD [Physician] - (F/u with Neurology as instructed ) Ben Zuleta MD [Physician] - (F/u with Psych as instructed ) Melecio Parry MD [Physician] - (F/u with Pulm as instructed ) Discharge Medications: New fluticasone propionate [Flonase Allergy Relief] 50 mcg/actuation spray,suspension 1 spray intranasal BID PRN (Reason: nasal congestion) Qty: 16 0RF Rx Instructions: administer into each nostril umeclidinium-vilanterol [Anoro Ellipta] 62.5-25 mcg/actuation Blister With Device 1 inh inhalation DAILYRT 30 Days Qty: 30 0RF fluticasone propionate 50 mcg/actuation [place],Suspension 1 spray intranasal Q12HR PRN (Reason: nasal congestion) Qty: 16 0RF Continued acetaminophen 325 mg tablet 325 mg PO Q6H PRN (Reason: pain) acyclovir 400 mg tablet 400 mg PO BID albuterol sulfate 90 mcg/actuation HFA aerosol inhaler 2 puff INHALATION Q4H PRN (Reason: cough) alendronate 70 mg tablet 70 mg PO WEEKLY Rx Instructions: Due on 03/31. Eliquis 5 mg tablet 5 mg PO BID aspirin 81 mg tablet,delayed release (DR/EC) 81 mg PO DAILY atorvastatin 10 mg tablet 10 mg PO HS bismuth subsalicylate [Stomach Relief] 262 mg/15 mL suspension 262 mg PO Q4H PRN (Reason: diarrhea) budesonide-formoterol 80-4.5 mcg/actuation HFA aerosol inhaler 1 puff INHALATION DAILY clozapine 100 mg tablet 100 mg PO QAM clozapine 200 mg tablet 400 mg PO HS Patient Comments: To be given with 100 mg at bedtime for a total of 500 desvenlafaxine succinate 50 mg tablet extended release 24 hr 50 mg PO DAILY clozapine 100 mg tablet 100 mg PO HS Patient Comments: To be given with 400 mg at bedtime for a total of 500 lamotrigine 200 mg tablet 200 mg PO BID latanoprost 0.005 % drops 1 drp EACH EYE HS meloxicam 7.5 mg tablet 7.5 mg PO DAILY metformin 500 mg tablet 500 mg PO QPM pantoprazole 40 mg tablet,delayed release (DR/EC) 40 mg PO DAILY polyethylene glycol 3350 17 gram/dose powder 17 g PO DAILY PRN (Reason: constipation) sertraline 100 mg tablet 200 mg PO DAILY Stiolto Respimat 2.5-2.5 mcg/actuation mist 2 puff INHALATION DAILY calcium carbonate [Oyster Shell Calcium] 500 mg calcium (1,250 mg) tablet 1,000 mg PO DAILY guaifenesin [Mucus Relief ER] 600 mg Tablet Extended Release 12hr 1,200 mg PO Q12HR Qty: 30 0RF ipratropium-albuterol 0.5 mg-3 mg(2.5 mg base)/3 mL Solution For Nebulization 3 ml inhalation Q6HRT Qty: 30 0RF prednisone 10 mg tablet 10 mg PO DAILY Qty: 42 0RF Rx Instructions: 6Tx2d, 5Tx2d 4Tx2d, 3Tx2d, 2Tx2d, 1Tx2d Changed lorazepam 0.5 mg tablet 0.5 mg PO TID PRN (Reason: Anxiety) 30 Days Qty: 60 0RF Discontinued lithium carbonate 150 mg capsule 150 mg PO QPM olanzapine 15 mg tablet 15 mg PO HS fluticasone furoate-vilanterol [Breo Ellipta] 100-25 mcg/dose blister with device 1 inh inhalation DAILY Date of admission: 03/28/25 10:36 Primary Care Provider: ShivaSo Admitting Provider: Hayde Chu Attending physician on admission: Hayde Chu Condition: Stable
== END 2025-03-31 15:30 | DRG 189 ==
LOC: ANHED 03-26 03:11 → ANHIMU 03-26 04:04
PROVIDERS: General Practice; Internal Medicine Pulmonary Disease; Admitting Provider Internal Medicine; Emergency Provider Emergency Medicine; PCP Family Medicine; Visit Provider Internal Medicine
DX: J96.21 Acute and chronic respiratory failure with hypoxia (principal); U07.1 COVID-19; J96.22 Acute and chronic respiratory failure with hypercapnia; J44.9 Chronic obstructive pulmonary disease, unspecified; F25.9 Schizoaffective disorder, unspecified; R41.82 Altered mental status, unspecified; E11.9 Type 2 diabetes mellitus without complications; F32.A Depression, unspecified; I10 Essential (primary) hypertension; E78.5 Hyperlipidemia, unspecified; Z99.81 Dependence on supplemental oxygen; Z79.01 Long term (current) use of anticoagulants; Z79.51 Long term (current) use of inhaled steroids; Z79.82 Long term (current) use of aspirin; Z79.84 Long term (current) use of oral hypoglycemic drugs; Z79.899 Other long term (current) drug therapy; Z86.711 Personal history of pulmonary embolism; Z87.01 Personal history of pneumonia (recurrent); Z91.199 Patient's noncompliance with other medical treatment and regimen due to unspecified reason
CPT/HCPCS: 36415; 36600; 70450; 71045; 71250; 80053; 82805; 82948; 83036; 83605; 83735; 83880; 84145; 84439; 84443; 85018; 85025; 85027; 86738; 87040; 87637; 93005; 94002; 94003; 94640; 94762; 95816; 99285; A9270; G0378; J1953; J7512

== ENCOUNTER 2025-07-03 13:58 | Outpatient (CLI) | payer MEDICARE, MEDICAID, SELFPAY ==
--- NOTE | ~2025-07-03 | CT_ITS ---
CT diagnostic chest wo con HISTORY:R91.8 - Other nonspecific abnormal finding of lung field COMPARISON: 03/27/2025. TECHNIQUE: Axial images of the chest were obtained without infusion of intravenous contrast. Dose optimization technique was utilized. FINDINGS: The examination demonstrates 6.1 mm pulmonary nodule within the right upper lobe. There is a 6.1 mm pulmonary nodule in the posterior left upper lobe. Previously noted nodule within the superior segment of the left lower lobe and superior segment of the right lower lobe has resolved. There is scarring at the right lung base. Cardiac size and mediastinal configuration are normal in appearance. No hilar or mediastinal lymphadenopathy is seen. The thoracic aorta is normal in caliber. Osseous structures are intact. IMPRESSION: The nodule seen within the lower lobes bilaterally has resolved. There are new nodules within the left upper and right lower lobe measuring 6.1 mm. Short-term follow-up CT in 6 months is recommended. All CT scans at this facility are performed using low dose modulation techniques as appropriate to perform exam including the following: automated exposure control; use of iterative reconstruction technique; adjustment of the mA and/or kV according to patient size (this includes techniques or standardized protocols for targeted exams where dose is matched to indication/reason for exam). Reviewed, dictated and finalized at location [facility] IMPRESSION: The nodule seen within the lower lobes bilaterally has resolved. There are new nodules within the left upper and right lower lobe measuring 6.1 mm. Short-term follow-up CT in 6 months is recommended. All CT scans at this facility are performed using low dose modulation techniqu es as appropriate to perform exam including the following: automated exposure c ontrol; use of iterative reconstruction technique; adjustment of the mA and/or kV according to patient size (this includes techniques or standardized protocol s for targeted exams where dose is matched to indication/reason for exam).
--- OUTSIDE RECORDS SUMMARY | 2025-07-03 14:10 | XMS_ITS | Encounter Summary ---
Author Organization [facility] Healthcare Address [address] [place] [address] Care Team Providers Care Ramp Flight Attendant Name Role Phone Elysia Mickey Melecio LOGISTICS TEAM LEAD Unavailable [phone] Mendoza Tapia MD Primary Care Provider [phone] Adama Haro DO Unavailable [phone] Reason for Visit * Reason Comments Chart Review [facility] Medicare KED and A1c labs Encounter Details Date Type Department Care Team (Late st Contact Info) Description 07/03/2025 ACO Quality [facility] Accountable Care Organization [address] [place] [id number] Elise Hooks, [address] [place] [id number] Social History Tobacco Use Types Packs/Day Years Used Date Smoking Tobacco: Former Smokeless Tobacco: Never Alcohol Use Standard Drinks/Week Comments Never 0 (1 standard drink = 0.6 oz pur e alcohol) [facility] Utilities Answer Date Recorded In the past 12 months has [employer] electric, gas, oil, or water company threatened to shut off services in your home? No 11/23/2024 Social Connection and Isolation Panel Answer Date Recorded In a typical week, how many times do you talk on the phone with family, friends, or neighbors? Never 11/23/2024 How often do you get togethe r with friends or relatives? Never 11/23/2024 How often do you attend yarsanism or taoist serv ices? Never 11/23/2024 Do you belong to any clubs o r organizations such as yarsanism groups, unions, fraternal or athletic groups, or school groups? No 11/23/2024 How often do you attend meet ings of the clubs or organizations you belong to? Never 11/23/2024 Are you , , di vorced, , never , or living with a partner? Patient declined 11/23/2024 AUDIT-C Answer Date Recorded Q1: How often do you have a drink containing alcohol? Never 11/22/2024 Q2: How many drinks containi ng alcohol do you have on a typical day when you are drinking? Patient does not drink Q3: How often do you have si x or more drinks on one occasion? Never 11/22/2024 Overall Financial Resource Strain (CARDIA) Answe r Date Recorded How hard is it for you to pa y for the very basics like food, housing, medical care, and heating? Not very hard 11/23/2024 PHQ-2 Answer Date Recorded PHQ-2 Total Score (If total score is 3 or more points, staff should administer the PHQ-9) 3 11/09/2024 Hunger Vital Sign Answer Date Recorded Within the past 12 months, y ou worried that your food would run out before you got the money to buy more. Never true 11/24/19 25 Within the past 12 months, t he food you bought just didn't last and you didn't have money to get more. Never true 11/23/2024 PRAPARE - Transportation Answer Date Re corded In the past 12 months, has l ack of transportation kept you from medical appointments or from getting medications? No 09/2024 In the past 12 months, has l ack of transportation kept you from meetings, work, or from getting things needed for daily living? No 11/23/2024 PHQ-9 Answer Date Recorded PHQ-9 Total Score 19 11/09/2024 Housing Stability Vital Sign Answer Tee e Recorded In the last 12 months, was t here a time when you were not able to pay the mortgage or rent on time? No 11/23/2024 In the past 12 months, how m any times have you moved where you were living? 0 11/23/2024 At any time in the past 12 m [facility], were you homeless or living in a nursing home (including now)? No 11/23/2024 Personal Safety Answer Date Recorded Have you ever been in or are you currently in a harmful physical or emotional relationship or is someone making you feel afraid or unsafe? Denies 11/22/2024 Comments No Sex and Gender Information Value Date Recorded Sex Assigned at Not on file Legal Sex Female 8:43 PM INSTALLATION SERVICE REPRESENTATIVE Gender Identity Not on file Sexual Orientation Not on file documented as of this encounter Progress Notes * Elise Hooks MA - 07/03/2025 8:54 AM CST Chart has been scrubbed. Patient currently resides at a correction ([facility]). Thank you, Elise Hooks [facility] ACO Care File System Installer [facility] [phone] ALLATION SERVICE REPRESENTATIVE documented in this encounter Plan of Treatment Not on file documented as of this encounter Visit Diagnoses Not on filedocumented in this encounter Care Teams Ramp Flight Attendant Relationship Specialty Start Date End Date Mendoza Tapia MD [address] [place] [address] PCP - General Internal Medicine 02/16/24 Mickey Naidu NP [address] [facility] [address] [address] [place] [address] Nurse Practitioner Nurse Practitioner 04/18/21 Adama Haro DO [address] [facility] [address] [facility] [address] [address] [place] [address] Consulting Physician Pulmonary Disease 11/25/24 documented as of this encounter
--- OUTSIDE RECORDS SUMMARY | 2025-07-03 14:10 | XMS_ITS | Clinical Summary ---
Author Organization [facility] [address] Address [address] [place] [address] Care Team Providers Care Weight Loss Physician Name Role Phone Mickey Naidu VACUUM PAN TENDER Unavailable [phone] Mendoza Tapia MD Primary Care Provider [phone] Adama Haro DO Unavailable [phone] Allergies Active Allergy Reactions Criticality Noted Date Comments Penicillins Other (See comments),Itching Medium 08/02/2015 Reaction: Reaction: Medications acyclovir (ZOVIRAX) 400 mg tablet Take 1 tablet (400 mg total) by mouth 2 (two) times a day 0 Active alendronate (FOSAMAX) 70 mg tablet Take 0.5 tablets (35 mg total) by mouth every 7 days 7 Active atorvastatin (LIPITOR) 10 mg tablet Take 1 tablet (10 mg total) by mouth nightly 0 Active cloZAPine (CLOZARIL) 100 mg tablet Take 1 tablet (100 mg total) by mouth 2 (two) times a day Takes 1 qam and 5 qhs 7 Active lamoTRIgine (LaMICtal) 200 mg tablet Take 1 tablet (200 mg total) by mouth 2 (two) times a day 0 Active latanoprost (XALATAN) 0.005 % ophthalmic solution Administer 1 drop into both eyes nightly 0 Active metFORMIN (GLUCOPHAGE) 500 mg tablet Take 1 tablet (500 mg total) by mouth daily after dinner 0 Active albuterol HFA (PROVENTIL HFA,VENTOLIN HFA,PROAIR HFA) 90 mcg/actuation inhaler Inhale 2 puffs every 4 (four) hours as needed for shortness of breath 7 Active BD Alcohol Swabs pads, medicated 0 Active True Metrix Glucose Test Strip strip 0 Active TRUEplus Lancets 33 gauge misc 0 Active losartan (COZAAR) 50 mg tablet Take 0.5 tablets (25 mg total) by mouth daily 0 Active blood glucose diagnostic strip TEST BLOOD GLUCOSE EVERY DAY AND NEEDED 1 Active lithium 150 mg capsule Take 2 capsules (300 mg total) by mouth nightly 1 Active blood glucose diagnostic strip TEST BLOOD GLUCOSE EVERY DAY AND NEEDED 1 Active bisacodyl EC (DULCOLAX EC) 5 mg EC tablet Take 2 tablets (10 mg total) by mouth daily as needed Active simethicone (MYLANTA GAS ORAL) Take 1 each by mouth every 4 (four) hours as needed (indigestion) Active guaifenesin (ROBAFEN ORAL) Take 1 each by mouth every 4 (four) hours as needed (cough) Active bacitracin-neomyc in-polymyxin B (Triple Antibiotic) 400-3.5-5,000 [id number] ointment in packetIndications :Minor Bacterial Skin Infections Apply 1 application topically as needed Active bismuth subsalicylate (PEPTO-BISMOL) suspension Take 30 mL by mouth every 4 (four) hours as needed Active diphenhydrAMINE (BENADRYL) 25 mg capsuleIndication s:Other insomnia Take 1 tablet/capsule (25 mg total) by mouth every 6 (six) hours as needed for itching, sleep or allergies 30 capsule 2 4 Active acetaminophen ER (TYLENOL) 650 mg 8 hr tabletIndications :Chronic pain of right knee Take 1-2 tablets (650-1,300 mg total) by mouth every 8 (eight) hours as needed for pain 180 tablet 3 4 Active food supplemt, lactose-reduced liquidIndications :Moderate protein-calorie malnutrition Take 1 each by mouth 2 (two) times a day 330 mL 3 4 Active aspirin 81 mg enteric coated tablet Take 1 tablet (81 mg total) by mouth daily 30 tablet 11 4 Active Symbicort 80-4.5 mcg/actuation inhaler Inhale 2 puffs 2 (two) times a day 4 Active desvenlafaxine ER (PRISTIQ) 25 mg tablet extended release 24 hr 24 hr tablet 2 tablets (50 mg total) daily 4 Active lurasidone (LATUDA) 80 mg tablet Take 1 tablet (80 mg total) by mouth every evening [address] (PROTONIX) 40 mg EC tablet Take 1 tablet (40 mg total) by mouth daily 30 tablet 4 Active magnesium citrate solution Take 296 mL by mouth once for 1 dose 296 mL 5 Active polyethylene glycol (MIRALAX) 17 gram/dose bulk powderIndications :constipation Take 17 g by mouth daily as needed (constipation) 1700 g 3 5 Active lurasidone (LATUDA) 40 mg tablet Take 1 tablet (40 mg total) by mouth daily Active mirtazapine (REMERON) 30 mg tablet Take 1 tablet (30 mg total) by mouth nightly Active nicotine (NICODERM CQ) [address] 1 patch on the skin daily Active apixaban (ELIQUIS) 5 mg tabletIndications :deep venous thrombosis Take 2 tablets (10 mg total) by mouth 2 (two) times a day for 6 days, THEN 1 tablet (5 mg total) 2 (two) times a day. 84 tablet 5 Active Active Problems Problem Noted Date Diagnosed Date Shortness of breath 11/22/2024 Left kidney mass 01/25/2024 Assessment & Plan (01/25/2024 8:39 PM CDT): Incidental finding on CT A/P performed for questionable hematemesis last week. 1.3 cm intermediate density lesion. Denies urinary changes, exam deferred. No CVA tenderness, diffuse tenderness to abdomen. No other abnormal findings on exam, vitals stable. Will order dedicated renal US to further assess. Generalized abdominal pain 01/25/2024 Assessment & Plan (01/25/2024 8:48 PM CDT): Dull aching that moves around abdomen for 2 weeks. See ER details as outlined in HPI. Labs unremarkable, contrasted CT A/P showed mass to L kidney but no other abnormalities. Generalized mild tenderness on exam, exam deferred. Vitals stable. Will order left renal US to further characterize renal mass. Likely gastritis, continue pantoprazole as rxd. Encouraged smoking cessation. Push fluids. Chronic pain of right knee 12/02/2023 Assessment & Plan (12/28/2023 8:51 PM CDT): Worse in last several weeks. Hard to tell if patient has been getting Tylenol regularly and aide could not provide any input. No notes from RN on transfer form. Tenderness and mild lateral laxity as noted above, no acute findings. XR of left knee 2 weeks ago was unremarkable, TKR noted- no hardware failure. Encouraged Tylenol at least twice daily for 3-5 days then can go back to PRN use. Heat/ice as tolerated. Gentle stretching encouraged. Bracing may help also. Assessment & Plan (12/02/2023 10:42 AM CDT): Worse in last several weeks. Hard to tell if patient has been getting Tylenol regularly and aide could not provide any input. No notes from RN on transfer form. Tenderness and mild lateral laxity as noted above, no acute findings. XR of left knee from 01/2022 was unremarkable, TKR noted. No recent imaging of R knee, will check XR to r/o arthritis or any other structural changes. Encouraged Tylenol at least twice daily for 3-5 days then can go back to PRN use. Heat/ice as tolerated. Gentle stretching encouraged. Follow in 2 weeks for recheck. Routine physical examination 11/04/2023 Assessment & Plan (11/09/2024 7:00 PM CDT): IMMUNIZATIONS WERE REVIEWED EYE EXAM AND DENTAL UPTODATE DM TYPE 2 GOAL HBAIC IS UNDER 7 PERCENT NON INSULIN DEPEDNENT BI POLAR TYPE 2 CHRONIC WAXING AND WANING SEES PSYCHITARY OSTEOPOROSIS WITHOUT FRACTURE ON FOSMAX ONCE A WEEK ON CALCIUM AND VIT D FALL PREVENTION AND PRECUATIONS DISCUSSED Assessment & Plan (11/04/2023 8:37 AM CDT): Annual Medicare wellness exam completed today. All questionnaires completed and reviewed with patient. No Concerns. BMI:23.82 Normal Dietary and exercise recommendations given Routine screening labs: reviewed. Additional labs ordered Preventative screening ordered:?Colon CA screen due. Will request notes from home Routine vaccines given:Will request vaccine records Medications refilled Referrals placed prn Low back pain without sciatica 11/04/2023 Assessment & Plan (11/04/2023 8:44 AM CDT): Chronic vs Acute without radiation. No red flag symptoms. DDx:muscle spasms vs OA vs DDD - Tylenol 500-1000mg q6h or Ibuprofen 800mg q8h prn pain. Counseled on risk of liver and/or kidney injury with prolonged use of medication. - Ice/Heat to affected area prn - Exercise handout for stretches given - Consider PT referral. Will re-eval at f/u Primary osteoarthritis of left knee 09/27/2021 Overview (09/27/2021): Added automatically from request for surgery [id number] Acquired valgus deformity of knee, left 09/27/19 Overview (09/27/2021): Added automatically from request for surgery [id number] Macrocytic anemia 06/07/2021 Type 2 diabetes mellitus wit hout complication, without long-term current use of insulin 06/07/2021 Assessment & Plan (06/22/2024 7:56 AM CDT): EYE EXAm is uptodate Foot exam is uptodate Goal hbaic is under 7 percent On metofrmin 500 mg po qday Assessment & Plan (02/19/2024 1:15 PM CDT): Goal hbaic is under 7 percent Fasting less thn 120 and random less then 140 Dilated eye exaM IS UPTODATE FOOT EXAM IS UPTODATE CONTINUE METOFRMIN 500 MG PO QAM WQTH BREAKFAST Assessment & Plan (11/04/2023 8:40 AM CDT): Dm type 2 without complications. Recent A1C? Mild loss of protective senses on foot exam Continue low carb diet Next A1C - order placed today Most recent Microalbumin - Order placed today Continue current medications. Dilated retinal eye exam - Requested most recent BP at goal <130/80 on ARB - Continue Vaccines - PCV, Flu, COVID. Vaccine record requested Assessment & Plan (05/19/2023 10:45 AM CDT): Dm type 2 without complications. Recent A1C? No Neuropathy on foot exam Continue low carb diet Next A1C - Recent labs requested Most recent Microalbumin - Recent labs requested Continue current medications. Dilated retinal eye exam - Requested most recent BP at goal <130/80 on ARB - Continue Vaccines - PCV, Flu, COVID. Vaccine record requested Primary osteoarthritis of right knee 02/26/2021 COPD (chronic obstructive pulmonary disease) Assessment & Plan (11/25/2023 10:41 AM CDT): Chronic cough with blood tinged sputum for the last 5 days, color has improved since onset. Dim breath sounds throughout, lungs otherwise clear, stating 93% on RA. No acute signs of PNA, no other acute findings on exam. Likely COPD exacerbation VS allergic rhinitis. Will obtain CXR to r/o PNA. Will call with results. ADDENDUM: CXR was clear, no further treatment at this time. Assessment & Plan (11/04/2023 8:32 AM CDT): Chronic and stable following recent hospitalization for influenza. Request updated medication list from home. Continue current medication. Will continue to monitor symptoms Assessment & Plan (05/19/2023 10:40 AM CDT): Chronic and stable. Continue current medication. Will continue to monitor symptoms GERD (gastroesophageal reflux disease) Assessment & Plan (05/19/2023 10:40 AM CDT): Chronic and stable. Continue current medication. Will monitor Insomnia 02/18/2021 Assessment & Plan (12/28/2023 8:54 PM CDT): Patient admits but aide that is with her reports no concerns. No acute findings or neuro deficits on exam. Advised to call psychiatry concerning these symptoms. Assessment & Plan (12/02/2023 10:32 AM CDT): Patient admits but aide that is with her reports no concerns. No acute findings or neuro deficits on exam. Will Rx diphenhydramine 25mg PRN for sleep or allergies. Will continue to monitor. Moderate intellectual disability 02/18/2021 Overactive bladder 02/18/2021 Assessment & Plan (05/19/2023 10:43 AM CDT): Chronic and stable. Continue current medication. Will continue to monitor Acute encephalopathy 11/23/2020 Bilateral primary osteoarthritis of knee 020 Tobacco use disorder 04/05/2019 Asthma 12/02/2016 Diabetes mellitus 12/02/2016 Gastroesophageal reflux disease with esophagitis 12/02/2016 Assessment & Plan (06/22/2024 7:57 AM CDT): Chronic and stable On PPI Genital herpes simplex 12/02/2016 Assessment & Plan (05/19/2023 10:42 AM CDT): Chronic and stable. Continue current medication. Will continue to monitor Glaucoma 12/02/2016 HTN (hypertension) 12/02/2016 Assessment & Plan (06/22/2024 7:58 AM CDT): Goal bp is 130/80 or less Assessment & Plan (02/19/2024 1:15 PM CDT): GOAL BP IS 130/80 OR LESS LOW NA DIET CONTINUE ARB Assessment & Plan (01/25/2024 8:49 PM CDT): Chronic, at goal. BP soft but stable in office today on current therapy. According to vital record from living facility, BP runs 110-130s over 60-70s at home. No acute findings on exam. Continue losartan and low salt diet. Assessment & Plan (12/28/2023 8:50 PM CDT): Chronic, at goal. BP soft but stable in office today on current therapy. No acute findings on exam. Continue losartan and low salt diet. Assessment & Plan (11/25/2023 10:42 AM CDT): BP stable in office today on current therapy. No acute findings on exam. Continue current regimen and low salt diet. Assessment & Plan (05/19/2023 10:42 AM CDT): Chronic and stable. At goal < 130/80. Continue current medications and Will continue to monitor Osteoporosis 12/02/2016 Schizoaffective disorder 12/02/2016 Assessment & Plan (06/22/2024 7:57 AM CDT): Chronic and stable Pt is under the care of psychiatry and lives in a care home. Is unable to live independently Assessment & Plan (02/19/2024 1:16 PM CDT): PT IS AT HER BASELINE NO MED CHANGES TODAY SET UP OF SHELTER IS PERFECT FOR HER AND SHE IS FOLLOWED BY PSYCHIATRY Assessment & Plan (05/19/2023 10:43 AM CDT): Chronic. Patient follows regularly with Psychiatry. Will continue current medications and follow-up with his specialists for this chronic condition Urinary incontinence 12/02/2016 Diabetic polyneuropathy asso ciated with type 2 diabetes mellitus 04/21/2016 Constipation 08/02/2015 Assessment & Plan (09/15/2024 8:19 AM MERCHANDISING MANAGER): CHRONIC. SLOW TRANSIT . INCREASE MIOBLITY/ FIBER AND FLUID/ WATER INTAKE OK TO DO MIRALAX 17 GM IN 8 OZ OF WATER ONCE A DAY Hyperlipidemia 08/02/2015 Assessment & Plan (02/19/2024 1:16 PM CDT): FLP AND LDL ORDERED GOAL LDL IS UNDER 100 Assessment & Plan (11/04/2023 8:42 AM CDT): Chronic and stable. Continue current medication. Will continue to monitor Assessment & Plan (05/19/2023 10:42 AM CDT): Chronic and stable. Continue current medication. Will review recent lab and adjust meds prn Iron deficiency anemia 08/02/2015 Assessment & Plan (11/04/2023 8:42 AM CDT): Chronic and stable. Continue current medication. Will monitor Resolved Problems Problem Noted Date Diagnosed Date Resolved Date Moderate protein-calorie malnutrition 12/28/2023 11/24/2024 Assessment & Plan (12/28/2023 8:53 PM CDT): Down 3 lbs in last month, BMI at 22.9. staff admits she just picks at her food. Will rx ensure/glucerna supplements BID. Push high protein snacks. Will monitor closely, follow in 1 month for weight check. Subacute cough 11/23/2023 12/02/2023 Influenza A 10/24/2023 11/23/2023 Encounters Date Type Department Care Team Description 07/03/2025 [facility] Accountable Care Organization [address] [place] [phone] Elise Hooks MA 05/12/2025 Telephone [facility] [address] [place] [phone] Mendoza Tapia MD 05/11/2025 [facility] Care Organization [address] [place] [phone] Patricia Benjamin from Last 3 Months Immunizations Immunization Administration Dates Next Due Influenza, Quadrivalent, Payton l Culture-based MDCK, Antibiotic Free, Intramuscular 06/08/2019 Influenza, Quadrivalent, Spl it, Intramuscular 07/07/2016 Influenza, Quadrivalent, Spl it, Preservative Free, Intramuscular 05/22/2023,06/12/2022,05/31/2021,06/15 Influenza, Trivalent, IM (MDV) 05/24/2013 Influenza, Trivalent, Preser vative Free, Intramuscular 05/25/2024,06/15/2015 Influenza, Unspecified 05/24/2013 Pfizer SARS-CoV-2 Monovalent Vaccination (12+ Yrs) PURPLE 01/01/2022 Pneumococcal Polysaccharide PPV23 06/14/2015,08/2012 Td, adsorbed 10/22/2005 Tdap 06/15/2020 Surgical History Surgery Date Site/Laterality Comments JOINT REPLACEMENT right total knee [facility] MAMMOGRAPHY 12/11/2023 Bilateral Negative. Medical History Medical History Date Comments Hypertension Diabetes mellitus Hypercholesteremia Asthma Depression Lung disease COPD Schizoaffective disorder (HCC) Arthritis Family History Medical History Relation Name Comments Hypertension Other Relation Name Status Comments Other Social History Tobacco Use Types Packs/Day Years Used Date Smoking Tobacco: Former Smokeless Tobacco: Never Tobacco Cessation:Counseling Given: Not Answered Alcohol Use Standard Drinks/Week Comments Never 0 (1 standard drink = 0.6 oz pur e alcohol) [facility] Utilities Answer Date Recorded In the past 12 months has [employer] electric, gas, oil, or water company threatened to shut off services in your home? No 11/23/2024 Social Connection and Isolation Panel Answer Date Recorded In a typical week, how many times do you talk on the phone with family, friends, or neighbors? Never 11/23/2024 How often do you get togethe r with friends or relatives? Never 11/23/2024 How often do you attend amish or islam serv ices? Never 11/23/2024 Do you belong to any clubs o r organizations such as amish groups, unions, fraternal or athletic groups, or [...] any time in the past 12 [facility], were you homeless or living in a detention (including now)? No 11/23/2024 Personal Safety Answer Date Recorded Have you ever been in or are you currently in a harmful physical or emotional relationship or is someone making you feel afraid or unsafe? 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 Gender Identity Not on file Sexual Orientation Not on file Last Filed Vital Signs Vital Sign Reading Time Taken Comments Blood Pressure 112/69 11/25/2024 11:14 AM CDT Pulse 63 11/25/2024 11:14 AM CDT Temperature 36.6 C (97.8 F) 11/25/2024 11:14 AM CDT Respiratory Rate 16 11/25/2024 11:14 AM CDT Oxygen Saturation 95% 11/25/2024 1:36 PM CDT Inhaled Oxygen Concentration - - Weight 56.5 kg (124 lb 9 oz) 11/25/2024 7:00 AM CDT Height 165.1 cm (5' 5) 11/22/2024 7:30 PM CDT Body Mass Index 20.73 11/22/2024 7:30 PM CDT Plan of Treatment Health Maintenance Due Date Last Done Comments Albumin Creatinine Ratio, Urine 1960 Cervical Cancer Screening 1960 Hepatitis C Screening 1960 Hepatitis B Screening 1978 Zoster Vaccine (1 of 2) 2010 Pneumococcal vaccine <65 (2 of 2 - PCV) 06/14/2016 06/14/2015, 05/24/2013 Foot Exam 11/02/2024 11/03/2023 Breast Cancer Screening-Mammogram 12/09/2024 12/10/2023, 10/20/2022, 09/19/2021, Additional history exists Covid-19 Vaccine (2024-2 6 season) 2025 07/23/2023, 06/12/2022, 03/19/2022, Additional history exists Influenza Vaccine (#1) 2025 , 05/22/2023, 06/12/2022, Additional history exists Hemoglobin A1C 05/25/2025 11/23/2024, 06/24/2024 Lipid Panel 06/24/2025 06/24/2024, 06/25, 11/22/2020 Colon Cancer Screening-Colonoscopy 09/07/20252020 Depression Screening 11/09/2025 11/09/2024, 11/09/2024, 11/03/2023, Additional history exists Regular Well Visit/Exam 18-64 11/09/2025 11/09/2024, 11/03/2023 eGFR 11/24/2025 11/24/2024, 04/08/2024, 11/22/2024, Additional history exists Dilated Eye Exam 12/20/2025 12/20/2024, 08/06/2023 DTaP/Tdap/Td Vaccine (2 - Td or Tdap) 06/15/2030 06/15/2020, 10/22/2005 Medical Devices Implanted Type Area Egg Smeller Device Identifier Shelf Expiration Date Model / Serial / Lot [employer] [id number] Attune 7mm Cruciate Retaining Rotate Platform Knee 4 Insert - [id number] Implanted:Qty: 1 on 04/16/2021 by Armin Luis MD at [facility] Right: Knee [employer] 04/23/2024 [id number] / / [id number] [employer] [id number] Attune Cementless Rotate Platform Knee 4 Baseplate Tibial - [id number] Implanted:Qty: 1 on 04/16/2021 by Armin Luis MD at [facility] Right: Knee [employer] 01/21/2029 [id number] / / [id number] [employer] [id number] Attune Cruciate Retain Cementless Knee Right 4 Component Femoral - [id number] Implanted:Qty: 1 on 04/16/2021 by Armin Luis MD at [facility] Right: Knee [employer] 10/21/2030 [id number] / / [id number] [employer] [id number] Attune Cementless Rotate Platform Knee 4 Baseplate Tibial - [id number] Implanted:Qty: 1 on 12/17/2021 by Armin Luis MD at [facility] Left: Knee [employer] 12/21/2030 [id number] / / [id number] [employer] [id number] Attune Cruciate Retain Cementless Knee Left 4 Component Femoral - [id number] Implanted:Qty: 1 on 12/17/2021 by Armin Luis MD at [facility] Left: Knee [employer] 09/23/2029 [id number] / / [id number] [employer] [id number] Attune 14mm Cruciate Retaining Rotate Platform Knee 4 Insert - [id number] Implanted:Qty: 1 on 12/17/2021 by Armin Luis MD at [facility] Left: Knee [employer] 07/23/2023 [id number] / / [id number] Procedures Procedure Name Priority Date/Time Associated Diagnosis Comments HM DIABETES EYE EXAM Routine 12/20/2024 10:51 AM CDT EGFR STAT 11/24/2024 8:24 AM CDT HEMOGLOBIN A1C Add-On 11/23/2024 8:28 AM CDT LIPID PANEL Routine 06/24/2024 10:29 AM CDT Mixed hyperlipidemia SCREENING MAMMOGRAM BILATERAL [place] Schedule Routine, Read Routine (OP Routine) 12/10/2023 8:09 AM CDT Encounter for screening mammogram for malignant neoplasm of breast COLONOSCOPY Routine 09/07/2020 9:26 AM MERCHANDISING MANAGER from Last 3 Months or Most Recently Relevant to Health Maintenance Results * DIABETES EYE EXAM (12/20/2024 10:51 AM CDT) SCRIBED DIABETIC DILATED EYE EXAM Normal us Historical Provider HEALTH MAINTENANCE Final Result * eGFR (11/24/2024 8:24 AM CDT) eGFR 66 >=60 mL/min/1. 73 m2 Comment: Interpretive Data Reference Interval Normal >/= 90 mL/min/1.73m2 Mildly decreased* 60 - 89 mL/min/1.73m2 Mildly to moderately decreased 45 - 59 mL/min/1.73m2 Moderately to severely decreased 30 - 44 mL/min/1.73m2 Severely decreased 15 - 29 mL/min/1.73m2 Kidney Failure < 15 mL/min/1.73m2 *Relative to young adult level Estimated glomerular filtration rate is determined by the 2020 CKD-EPI equation recommended by the National Kidney Foundation (A Unifying Approach to GFR Estimation: Recommendations of the NKF-ASK Task Force on Reassessing the Inclusion of Race in Diagnosing Kidney Disease, JASN 2020). The CKD-EPI equation should not be used for patients with unstable renal function and has not been validated in children and those over 70. Current interpretive data was last reviewed 2021. Blood 11/24/2024 8:24 AM CDT 11/24/2024 8:48 AM CDT Ashley Ivan NP LAB BLOOD ORDERABLE S Final Result Performing Organization Address [facility] Co de Phone Number [facility] [place]) [address] [facility] [place] [address] * Hemoglobin A1c (11/23/2024 8:28 AM CDT) Pathologist [facility] Hgb A1C 5.3 4.0 - 5.6 % Estimated Average Glucose 105 mg/dL [facility] Comment: The ADA recommends reporting an estimated Average Glucose (eAG) with all Hemoglobin A1c results using the equation derived from a study of 507 normal and diabetic adults. Minority populations were underrepresented and children were not included. (Diabetes Care 31:0328-1975, 2008). The eAG is not equivalent to a fasting glucose. Blood 11/23/2024 8:28 AM CDT 11/23/2024 1:34 PM CDT Ashley Ivan NP LAB BLOOD ORDERABLE S Final Result Performing Organization Address City/[facility] Co de Phone Number [facility] ([place]) [address] [place] [address] * Lipid panel (06/24/2024 10:29 AM CDT) Cholesterol 127 <200 mg/dL [facility] HDL 59 > OR = 50 mg/dL [facility] Triglycerides 47 <150 mg/dL [facility] LDL 55 mg/dL (calc) [facility] Comment: Reference range: <100 Desirable range <100 mg/dL for primary prevention; <70 mg/dL for patients with CHD or diabetic patients with > or = 2 CHD risk factors. LDL-C is now calculated using the Rg calculation, which is a validated novel method providing better accuracy than the Friedewald equation in the estimation of LDL-C. William SORIANO et al. NEELAM. 2013;310(19): 6236-9118 (http://education.Rebelle/faq/PFH725) Chol/HDL ratio 2.2 <5.0 (calc) [facility] Non-HDL, (LDL+VLDL) 68 <130 mg/dL (calc) [facility] Comment: For patients with diabetes plus 1 major ASCVD risk factor, treating to a non-HDL-C goal of <100 mg/dL (LDL-C of <70 mg/dL) is considered a therapeutic option. Blood 06/24/2024 10:2 9 AM CDT 06/24/2024 10:32 AM CDT Narrative [facility] - 06/25/2024 8:16 AM CDT FASTING:YES FASTING: YES us Mendoza Tapia MD LAB BLOOD ORDERABLES Final Result Performing Organization Address City/State/[facility] [place] Phone Number [facility] [address] [place] [address] * Screening Mammogram Bilateral W [place] (12/10/2023 8:09 AM CDT) Anatomical Region Laterality Modality Breast Bilateral Mammography 12/11/2023 8:54 AM CDT Impressions 12/11/2023 8:54 AM CDT There is no mammographic evidence of malignancy. A 1 year screening mammogram is recommended. BI-RADS: 1 - Negative. The patient has been or will be contacted. The patient will be entered into a reminder system with a target due date of 1 year for her next mammogram. Electronically signed by: Shari Bowen M.D. Narrative 12/11/2023 8:54 AM CDT EXAMINATION: SCREENING MAMMOGRAM BILATERAL W [place] ORDERING HEALTHCARE PROVIDER: ROSA CARLOS HISTORY: Routine screening mammography. COMPARISON: 10/20/2022, 09/19/2021, 02/17/2019, 02/22/2013 TECHNIQUE: CC and MLO views of the bilateral breasts were obtained with digital technique using breast tomosynthesis with C view. Computer aided detection was utilized. FINDINGS: DENSITY: The tissue of the breasts is extremely dense, which lowers the sensitivity of mammography. BREASTS: There are benign bilateral microcalcifications. There are no suspicious masses, suspicious calcifications, or other suspicious findings in either breast. There has been no suspicious interval change. 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) Scribed Colonoscopy Normal Historical Provider MD HEALTH MAINTENANCE Final Result from Last 3 Months or Most Recently Relevant to Health Maintenance Insurance [employer] MEDICARE PPO IDPA [facility] MEDICARE ADVANTAGE Advance Directives For more information, please contact: [phone] Documents on File Type Date Recorded Patient [place] Conservationist Expl anation ADVANCE DIRECTIVE 04/16/2021 7:55 AM Power of Implementation Director-Medical * Full Code (Latest Code Status on File) Date Activated Date Inactivated Comments 11/22/2024 9:44 AM 11/25/2024 8:47 PM * Full Code Date Activated Date Inactivated Comments 10/24/2023 8:00 PM 10/26/2023 3:45 PM * Full Code Date Activated Date Inactivated Comments 12/17/2021 5:49 PM 12/24/2021 6:51 PM * Full Code Date Activated Date Inactivated Comments 04/16/2021 2:04 PM 04/18/2021 11:12 PM Care Teams Weight Loss Physician Relationship Specialty Start Date End Date Mendoza Tapia MD [address] [place] [address] PCP - General Internal Medicine 02/16/24 Mickey Naidu NP [address] [place] [address] Nurse Practitioner Nurse Practitioner 04/18/21 Adama Haro DO [address] [place] [address] Consulting Physician Pulmonary Disease 11/25/24
--- OUTSIDE RECORDS SUMMARY | 2025-07-03 14:10 | XMS_ITS | Clinical Summary ---
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 Active lamoTRIgine (LAMICTAL) 200 MG tablet Take 1 tablet (200 mg total) by mouth 2 (two) times a day. Active apixaban (ELIQUIS) 5 MG tablet Take 1 tablet (5 mg total) by mouth 2 (two) times daily. Active acyclovir (ZOVIRAX) 400 MG tablet Take 1 tablet (400 mg total) by mouth 2 (two) times a day. Active LORazepam (ATIVAN) 0.5 MG tablet Take 1 tablet (0.5 mg total) by mouth every 8 (eight) hours as needed for Anxiety. Active pantoprazole EC (PROTONIX) 40 MG tablet Take 1 tablet (40 mg total) by mouth daily. Active sertraline (ZOLOFT) 100 MG tablet Take 2 tablets (200 mg total) by mouth daily. Active guaiFENesin ER (MUCINEX) 600 MG 12 hr tablet Take 2 tablets (1,200 mg total) by mouth 2 (two) times daily. Active meloxicam (MOBIC) 7.5 MG tablet Take 1 tablet (7.5 mg total) by mouth daily. Active Calcium-Vitamin D-Vitamin K (CALCIUM + D OR) Take 2 each by mouth daily. Active aspirin 81 MG chewable tablet Chew 1 tablet (81 mg total) by mouth daily. Active cloZAPine (CLOZARIL) 100 MG tablet Take 1-5 tablets (100-500 mg total) by mouth 2 (two) times a day. 100 mg QAM; 500 mg HS Active desvenlafaxine ER (PRISTIQ) 50 MG 24 hr tablet Take 1 tablet (50 mg total) by mouth daily. Active latanoprost (XALATAN) 0.005 % ophthalmic solution 1 drop nightly at bedtime. Active alendronate (FOSAMAX) 70 MG tablet Take 1 tablet (70 mg total) by mouth every 7 days. Active fluticasone propionate (FLONASE) 50 MCG/ACT nasal spray 1 spray by Each Nostril route every 12 (twelve) hours as needed for Rhinitis. Active albuterol sulfate HFA 108 (90 Base) MCG/ACT inhaler Inhale 2 puffs into the lungs every 4 (four) hours as needed for Wheezing. Active acetaminophen (TYLENOL) 325 MG tablet Take 2 tablets (650 mg total) by mouth every 6 (six) hours as needed for Pain. Active bismuth subsalicylate (PEPTO BISMOL) 262 mg/15mL suspension Take 15 mLs by mouth every 4 (four) hours as needed for Indigestion. Active polyethylene glycol (GLYCOLAX) packet Take 240 mLs (17 g total) by mouth daily as needed for Constipation. Dissolve powder in 240 mL water Active atorvastatin (LIPITOR) 10 MG tablet Take 1 tablet (10 mg total) by mouth every evening. Active ipratropium-albut wallace (DUONEB) 0.5-2.5 (3) MG/3ML Solution Take 3 mLs by nebulization every 6 (six) hours. Active Active Problems Problem Noted Date Diagnosed Date Acute on chronic respiratory failure with hypoxia and hypercapnia 06/01/2025 Encounters Date Type Department Care Team Description 06/01/2025 6:29 PM CDT - 06/05/2025 2:16 PM CDT Hospital Encounter [facility] Med/Surg [address] [place] [address] Grover Munson MD Alexander, Kaci M, DO Wolf, Brittany, Evelyn Díaz NP Breathing Problem Discharge Disposition: [facility] 06/01/2025 Travel from Last 3 Months Social History Tobacco Use Types Packs/Day Years Used Date Smoking Tobacco: Never Passive Smoke Exposure: Never Smokeless Tobacco: Never Tobacco Cessation:Counseling Given: No Alcohol Use Standard Drinks/Week Comments Not Currently 0 (1 standard drink = 0.6 oz pur e alcohol) [facility] Utilities Answer Date Recorded In the past 12 months has th e electric, gas, oil, or water company threatened to shut off services in your home? No 06/02/2025 Humiliation, Afraid, Rape, and Kick questionnair e Answer Date Recorded Within the last year, have y ou been afraid of your partner or ex-partner? No 06/02/2025 Within the last year, have y ou been humiliated or emotionally abused in other ways by your partner or ex-partner? No Within the last year, have y ou been kicked, hit, slapped, or otherwise physically hurt by your partner or ex-partner? No 06/02/2025 Within the last year, have y ou been raped or forced to have any kind of sexual activity by your partner or ex-partner? No 06/02/2025 Overall Financial Resource Strain (CARDIA) Answe r Date Recorded How hard is it for you to pa y for the very basics like food, housing, medical care, and heating? Patient unable to answer 06/02/2025 Hunger Vital Sign Answer Date Recorded Within the past 12 months, y ou worried that your food would run out before you got the money to buy more. Patient unable to answer 06/02/2025 Within the past 12 months, t he food you bought just didn't last and you didn't have money to get more. Patient unable to answer 06/02/2025 PRAPARE - Transportation Answer Date Re corded In the past 12 months, has l ack of transportation kept you from medical appointments or from getting medications? No 05/24 In the past 12 months, has l ack of transportation kept you from meetings, work, or from getting things needed for daily living? No 06/02/2025 Housing Stability Vital Sign Answer Tee e Recorded In the last 12 months, was t here a time when you were not able to pay the mortgage or rent on time? No 06/02/2025 In the past 12 months, how m any times have you moved where you were living? 0 06/02/2025 At any time in the [facility], were you homeless or living in a longterm (including now)? 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 Gender Identity Female 06/02/2025 12:48 AM CDT Sexual Orientation Not on file Last Filed Vital Signs Vital Sign Reading Time Taken Comments Blood Pressure 125/76 06/05/2025 11:05 AM CDT Pulse 86 06/05/2025 11:05 AM CDT Temperature 36.3 C (97.4 F) 06/05/2025 11:05 AM CDT Respiratory Rate 20 06/05/2025 11:05 AM CDT Oxygen Saturation 97% 06/05/2025 11:05 AM CDT Inhaled Oxygen Concentration - - Weight 84 kg (185 lb 3 oz) 06/01/2025 6:35 PM CD T Height 154.9 cm (5' 1) 06/01/2025 6:35 PM CDT Body Mass Index 34.99 06/01/2025 6:35 PM CDT Plan of Treatment Health Maintenance Due Date Last Done Comments Cervical Cancer Screening Pap Smear (Age 30 to 64) Every 3 Years 1960 Colorectal Cancer Screening Colonoscopy (10 Years) 1960 Annual Physical 1963 Hepatitis C 1978 Cervical Cancer Screening Pap with HPV Testing (Age 30 to 64) Every 5 Years 1990 Cervical Cancer Screening with HPV 1990 Zoster Vaccines (1 of 2) 2010 Pneumococcal Vaccine: 50+ Years (2 of 2 - PCV) 06/14/2016 06/14/2015, 05/24/2013 RSV Immunization or 60+ Years (1 - Risk 60-74 years 1-dose series) 2020 COVID-19 Vaccine ( season) 2025 07/23/2023, 06/12/2022, 03/19/2022, Additional history exists Influenza Adult (#1) 2025 05/25/2024, 05/22/2023, 06/12/2022, Additional history exists Mammogram Screening 12/09/2025 12/10/2023, 10/20/2022, 09/19/2021, Additional history exists DTaP, Tdap and Td Vaccines (2 - Td or Tdap) 06/15/2030 06/15/2020, 10/22/2005 Hepatitis A Vaccines Aged Out No long er eligible based on patient's age to complete this topic Meningococcal B Vaccine Aged Out No l onger eligible based on patient's age to complete this topic Meningococcal Vaccine Aged Out No daisha addi eligible based on patient's age to complete this topic RSV Immunizations Under 20 Months Aged Out No longer eligible based on patient's age to complete this topic Goals Goal Patient Goal Type Associated Problems Recent Progress Patient-Stated? 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 Procedure Name Priority Date/Time Associated Diagnosis Comments HC BASIC METABOLIC PANEL Routine 5:15 AM CDT HC CBC AUTO W/AUTO DIFF Routine 06/05/20 5:15 AM CDT HC MAGNESIUM Routine 06/04/2025 6:20 AM CDT HC BASIC METABOLIC PANEL Routine 6:20 AM CDT HC CBC AUTO W/AUTO DIFF Routine 06/04/20 6:20 AM CDT HC BLOOD GAS PH PO2 &/OR PCO2 STAT 06/03/2025 9:58 AM CDT XR CHEST PORTABLE STAT 06/03/2025 8:4 2 AM CDT HC BLOOD GAS PH PO2 &/OR PCO2 STAT 06/03/2025 8:09 AM CDT POCT GLUCOSE - DOCKED DEVICE Routine 06/03/2025 8:08 AM CDT HC BLOOD CULTURE Routine 06/03/2025 6:25 AM CDT HC BLOOD CULTURE Routine 06/03/2025 6:10 AM CDT HC CBC AUTO W/AUTO DIFF Routine 06/03/20 6:10 AM CDT HC BASIC METABOLIC PANEL Routine 6:[address] CHEST+ABD+PEL WO CON Today 06/02/20 11:52 PM CDT MRI BRAIN WO CON Today 06/02/2025 8:11 PM CDT HC MAGNESIUM Routine 06/02/2025 9:33 AM CDT HC CBC AUTO W/AUTO DIFF Routine 06/02/20 9:33 AM CDT HC BLOOD GAS PH PO2 &/OR PCO2 Routine 06/02/2025 7:20 AM CDT HC BLOOD GAS PH PO2 &/OR PCO2 Routine 06/02/2025 1:50 AM CDT HC BLOOD GAS PH PO2 &/OR PCO2 STAT 06/02/2025 12:21 AM CDT RESPIRATORY PCR PANEL 2 STAT 06/01/20 10:43 PM CDT HC TROPONIN QN STAT 06/01/2025 8:[address] HEAD WO CON STAT 06/01/2025 8:27 PM CDT HC URINALYSIS AUTO W/O MICRO STAT 06/01/2025 7:37 PM CDT XR CHEST PORTABLE STAT 06/01/2025 7:1 3 PM CDT ELECTROCARDIOGRAM REPORT Routine 025 6:51 PM CDT ECG 12-LEAD Routine 06/01/2025 6:47 PM CDT HC BLOOD GAS PH PO2 &/OR PCO2 STAT 06/01/2025 6:45 PM CDT HC BLOOD CULTURE Routine 06/01/2025 6:44 PM CDT PRO-BRAIN NATRIURETIC PEPTIDE STAT 06/01/2025 6:42 PM CDT LACTIC ACID W REFLEX (SEPSIS) STAT 06/01/2025 6:42 PM CDT HC CREATINE KINASE (CPK) TOTAL STAT 06/01/2025 6:42 PM CDT HC TROPONIN QN STAT 06/01/2025 6:42 PM CDT HC COMPREHENSIVE METABOLIC PANEL STAT 06/01/2025 6:42 PM CDT HC PTT STAT 06/01/2025 6:42 PM CDT HC PROTHROMBIN TIME (PT) STAT 025 6:42 PM CDT HC CBC AUTO W/AUTO DIFF STAT 06/01/20 25 6:42 PM CDT CULTURE, BLOOD, PCR PANEL Routine 2024 6:40 PM CDT HC BLOOD CULTURE Routine 06/01/2025 6:40 PM CDT from Last 3 Months Results * (ABNORMAL) BASIC METABOLIC PANEL (06/05/2025 5:15 AM CDT) Only the most recent of3 resultswithin the time period is included. GLUCOSE 123(H) 70 - 99 MG/DL 06/05/2025 6:58 AM CDT [facility] BUN 22(H) 7 - 18 MG/DL 06/05/2025 6:58 AM CDT [facility] CREATININE S/P/B 0.75 0.55 - 1.02 MG/DL 06/05/2025 6:58 AM T [facility] SODIUM S/P/B 145 136 - 145 MMOL/L 06/05/2025 6:58 AM CDT [facility] POTASSIUM S/P/B 4.2 3.5 - 5.1 MMOL/L 06/05/2025 6:58 AM CDT [facility] CHLORIDE S/P/B 104 97 - 115 MMOL/L 06/05/2025 6:58 AM T [facility] CO2 40.5(HH) 21 - 32 MMOL/L 06/05/2025 6:58 AM CDT [facility] Comment: Critical Result(s) Called at: 06:56:59 on 06/05/2025 by: MARTHA JACOBSON to and read back by:EVELYN BAILEY CALCIUM S/P/B 9.2 8.5 - 10.1 MG/DL 06/05/2025 6:58 AM T [facility] ANION GAP 0.5(L) 2 - 10 MMOL/L 06/05/2025 6:58 AM T [facility] BUN CREATININE RATIO 29.3(H) 6 - 26 06/05/2025 6:58 AM T [facility] GFR ESTIMATE 89(L) >90 ML/MIN/1.7 3 M2 06/05/2025 6:58 AM T [facility] Comment: NOTE: eGFR is not calculated for patients <18 years of age or gender unknown. This is an estimated GFR calculation using the new CKD EPI creatinine equation without race and so does not require a correction factor for race. This estimated GFR should not be used for calculating drug doses. 06/05/2025 5:15 AM CDT Theresa Robins PA-C LABORATORY Final Result [facility] [address] [place] [address], [place] [phone] * (ABNORMAL) CBC W/DIFF AUTOMATED (06/05/2025 5:15 AM CDT) Only the most recent of5 resultswithin the time period is included. WBC 5.94 4.5 - 11.0 x10'3/uL 06/05/2025 6:22 AM CDT [facility] RBC 3.30(L) 4.20 - 5.40 x10'6/uL 06/05/2025 6:22 AM CDT [facility] HGB 8.9(L) 12.0 - 16.0 G/DL 06/05/2025 6:22 AM CDT [facility] HCT 31.3(L) 38.0 - 48.0 % 06/05/2025 6:22 AM CDT [facility] MCV 94.8 81.0 - 99.0 FL 06/05/2025 6:22 AM CDT [facility] MCH 27.0 27.0 - 31.0 PG 06/05/2025 6:22 AM CDT [facility] MCHC 28.4(L) 32.0 - 36.0 G/DL 06/05/2025 6:22 AM CDT [facility] RDW 15.9(H) 11.5 - 14.5 % 06/05/2025 6:22 AM CDT [facility] PLT 311 130 - 400 x10'3/uL 06/05/2025 6:22 AM CDT [facility] MPV 9.6 9.3 - 12.2 FL 06/05/2025 6:22 AM CDT [facility] DIFFERENTIAL TYPE AUTOMATED DIFFERENTIAL 06/05/2025 6:49 AM CDT [facility] NEUTROPHILS % 66.7 % 06/05/2025 6:49 AM CDT [facility] LYMPHOCYTES % 14.6 % 06/05/2025 6:49 AM CDT [facility] MONOCYTES % 11.1 % 06/05/2025 6:49 AM CDT [facility] EOSINOPHILS 6.6 % 06/05/2025 6:49 AM CDT [facility] BASOPHILS 0.5 % 06/05/2025 6:49 AM CDT [facility] IMMATURE GRANS % 0.5 % 06/05/20 6:49 AM CDT [facility] ABS. NEUTROPHILS 3.96 1.80 - 7.70 x10'3/uL 06/05/2025 6:49 AM CDT [facility] ABS. LYMPHOCYTES 0.87(L) 1.00 - 4.80 x10'3/uL 06/05/2025 6:49 AM CDT [facility] ABS. MONOCYTES 0.66 0.24 - 0.86 x10'3/uL 06/05/2025 6:49 AM CDT [facility] ABS. EOSINOPHILS 0.39(H) 0.04 - 0.36 x10'3/uL 06/05/2025 6:49 AM CDT [facility] ABS. BASOPHILS 0.03 0.01 - 0.08 x10'3/uL 06/05/2025 6:49 AM CDT [facility] ABS. IMMATURE GRANULOCYTES 0.03 0.00 - 0.49 x10'3/uL 06/05/2025 6:49 AM CDT [facility] RBC MORPHOLOGY RBC MORPHOLOGY APPEARS NORMAL. SLIDE REVIEWED. 06/05/2025 6:49 AM CDT [facility] PLT EST. ADEQUATE 06/05/2025 6:49 AM CDT [facility] 06/05/2025 5:15 AM CDT Theresa Robins PA-C LABORATORY Final Result [facility] [address] [place] [id number], * MAGNESIUM (06/04/2025 6:20 AM CDT) Only the most recent of2 resultswithin the time period is included. MAGNESIUM 2.3 1.8 - 2.4 MG/DL 06/04/2025 7:08 AM CDT [facility] 06/04/2025 6:20 AM CDT Theresa Robins PA-C LABORATORY Final Result Performing Organization Address City/[facility]/ZIP Co de Phone Number [facility] [address] [place] [address], [place] [phone] * (ABNORMAL) ARTERIAL BLOOD GAS (06/03/2025 9:58 AM CDT) Only the most recent of6 resultswithin the time period is included. PH ARTERIAL 7.39 7.35 - 7.45 06/03/2025 10:05 AM CDT [facility] PCO2 76.0(HH) 35.0 - 45.0 MMHG 06/03/2025 10:05 AM CDT [facility] Comment: Successful Call: [employer] called 06/03/2025 10:06 AM to THERESA ROBINS PA C ( /THERESA ROBINS PA C) by [id number]. Read Back: Yes PO2 55.0(L) 83.0 - 108.0 MMHG 06/03/2025 10:05 AM CDT [facility] TOTAL CO2 ARTERIAL 48.3(H) 19.0 - 24.0 MMOL/L 06/03/2025 10:05 AM CDT [facility] BASE EXCESS 16.9(H) 0.0 - 3.0 MMOL/L 06/03/2025 10:05 AM CDT [facility] O2 SATURATION 88(L) 94.0 - 98.0 % 06/03/2025 10:05 AM CDT [facility] BICARB ARTERIAL 46.0(H) 21.0 - 28.0 MMOL/L 06/03/2025 10:05 AM CDT [facility] MANUEL TEST MANUEL TEST PERFORMED 06/03/2025 10:02 AM CDT [facility] O2 ADMIN ARTERIAL 30% 06/03/2025 10:02 AM CDT [facility] DRAW SITE ARTERIAL RT RADIAL 06/03/2025 10:02 AM CDT [facility] 06/03/2025 9:58 AM CDT Theresa Robins PA-C LABORATORY Final Result [facility] [address] [place] [address], * XR CHEST PORTABLE (06/03/2025 8:42 AM CDT) Only the most recent of2 resultswithin the time period is included. Anatomical Region Laterality Modality Chest Radiographic Brigitte ging 06/03/2025 8:47 AM CDT Impressions 06/03/2025 8:53 AM CDT IMPRESSION: Pulmonary venous congestion, possibly mild edema. Referred By: Interpreted By: Esteban Duran MD, 06/03/2025 8:47 AM Narrative 06/03/2025 8:53 AM CDT [place] [address] EXAMINATION: CHEST RADIOGRAPH SINGLE VIEW Exam date/time: 06/03/2025 8:22 AM Reason For Exam: respiratory distress Comparison: 06/01/2025 Technique: Upright AP view of the chest Findings: Mild cardiomegaly. Pulmonary venous congestion, possibly mild edema. Atherosclerosis. No pneumothorax or pleural effusion. ===== Procedure Note Esteban Duran MD - 06/03/2025 [place] [address] EXAMINATION: CHEST RADIOGRAPH SINGLE VIEW Exam date/time: 06/03/2025 8:22 AM Reason For Exam: respiratory distress Comparison: 06/01/2025 Technique: Upright AP view of the chest Findings: Mild cardiomegaly. Pulmonary venous congestion, possibly mildedema. Atherosclerosis. No pneumothorax or pleural effusion. ===== IMPRESSION: Pulmonary venous congestion, possibly mild edema. Referred By: Interpreted By: Esteban Duran MD, 06/03/2025 8:47 AM Les Mendoza MD GENERAL IMAGING Final Result * (ABNORMAL) POCT glucose (06/03/2025 8:08 AM CDT) GLUCOSE POC 117(H) 70 - 99 mg/dL 06/03/2025 8:34 AM CDT [facility] 06/03/2025 8:08 AM CDT Theresa Robins PA-C POCT ORDERABLES - DEVICE Jennifer l Result [facility] [address] [place] [id number], * CULTURE, BACTERIA, BLOOD (06/03/2025 6:25 AM CDT) Only the most recent of4 resultswithin the time period is included. SPEC DESCRIPTION BLOOD 06/03/2025 12:31 AM CDT [facility] SPECIAL REQUESTS NO SPECIAL REQUEST 06/03/2025 12:31 AM CDT [facility] CULTURE RESULT NO GROWTH 5 DAYS 06/08/2025 6:51 AM CDT [facility] BLOOD SPECIMEN OBTAINED FOR BLOOD CULTURE / Unknown 06/03/2025 6:25 AM CDT 06/03/2025 6:34 AM CDT Theresa Robins PA-C MICROBIOLOGY - GENERAL ORDERA BLES Final Result [address] [address], * CT CHEST+ABD+PEL WO CON (06/02/2025 11:52 PM CDT) Anatomical Region Laterality Modality Chest, Abdomen, Pelvis Computed Tomography 06/03/2025 8:54 AM CDT Impressions 06/03/2025 9:13 AM CDT IMPRESSION: 1. Limited by motion artifact. 2. Scattered patchy groundglass opacities bilaterally could relate to atelectasis or pneumonia. 3. Mild pulmonary edema. 4. Atherosclerosis. 5. Indeterminate 12 mm left adrenal nodule. Nonemergent CT abdomen with and without contrast adrenal mass protocol recommended. 6. 13 mm right adrenal nodule with Hounsfield units less than 10, compatible with lipid rich adenoma. 7. Large amount of retained fecal material throughout the large bowel. 8. Small subcentimeter lucent lesion of the T12 vertebral body could be incidental normal variation. Metastatic disease/myeloma not fully excluded. Clinical follow-up recommended. 9. 5 mm right upper lobe nodule. 7 mm right upper lobe nodule. Workup for primary malignancy recommended. If no primary malignancy detected, these are indeterminate and six-month follow- up CT chest without contrast is recommended. If primary malignancy is detected, these are concerning for metastatic disease. Referred By: Interpreted By: Esteban Duran MD, 06/03/2025 8:54 AM Narrative 06/03/2025 9:13 AM CDT [address] [address] EXAMINATION: CT CHEST ABDOMEN PELVIS WITHOUT CONTRAST EXAM DATE: 06/02/2025 11:40 PM REASON FOR EXAM: Possible metastatic disease. COMPARISON: None TECHNIQUE: Axial images through the chest and pelvis without intravenous contrast. No enteric contrast. Dose lowering technique was used for this study which may include, but is not limited to, dose reduction techniques, automated exposure control, use of iterative reconstruction and ALARA (As low As Reasonably Achievable)/Image Gently techniques. FINDINGS: Chest: Limited by motion artifact. Septal thickening concerning for mild pulmonary edema. Mild dependent atelectasis. 5 mm right upper lobe nodule axial image 56. 7 mm right upper lobe nodule axial image 55. 5 mm right upper lobe nodule axial image 61. Scattered patchy groundglass opacities bilaterally. No pneumothorax or pleural effusion. No axillary or supraclavicular lymphadenopathy. Atherosclerosis. Heart size is the upper limits of normal. No pericardial effusion. No mediastinal or hilar lymphadenopathy. No evidence of fracture. Small subcentimeter lucent lesion of the T12 vertebral body could be incidental normal variation. Metastatic disease/myeloma not fully excluded. ABDOMEN: Indeterminate 12 mm left adrenal nodule. 13 mm right adrenal nodule with Hounsfield units less than 10, compatible with lipid rich adenoma. No suspicious renal lesion or hydronephrosis. Stomach and duodenum unremarkable. Pancreas unremarkable. Spleen unremarkable. Gallbladder partially filled and grossly unremarkable. Liver: No evidence of intrahepatic biliary dilatation or mass. No mesenteric lymphadenopathy. No evidence of small bowel dilatation. No retroperitoneal lymphadenopathy. Scattered atherosclerosis. Large bowel: Large amount of retained fecal material throughout the large bowel. No evidence of mass or dilatation. Appendix normal. Pelvis: Urinary bladder and rectum unremarkable. Uterus is identified. Bilateral sacroiliac osteoarthritis. Procedure Note Esteban Duran MD - 06/03/[address] [address] EXAMINATION: CT CHEST ABDOMEN PELVIS WITHOUT CONTRAST EXAM DATE: 06/02/2025 11:40 PM REASON FOR EXAM: Possible metastatic disease. COMPARISON: None TECHNIQUE: Axial images through the chest and pelvis without intravenouscontrast. No enteric contrast. Dose lowering technique was used for this study which may include, but isnot limited to, dose reduction techniques, automated exposure control, use of iterativereconstruction and ALARA (As low As Reasonably Achievable)/Image Gently techniques. FINDINGS: Chest: Limited by motion artifact. Septal thickening concerning for mild pulmonary edema. Mild dependentatelectasis. 5 mm right upper lobe nodule axial image 56. 7 mm right upper lobe nodule axial image 55. 5 mm right upper lobe nodule axial image 61. Scattered patchy groundglass opacities bilaterally. No pneumothorax orpleural effusion. No axillary or supraclavicular lymphadenopathy. Atherosclerosis. Heart size is the upper limits of normal. Nopericardial effusion. No mediastinal or hilar lymphadenopathy. No evidence of fracture. Small subcentimeter lucent lesion of the T12 vertebral body could beincidental normal variation. Metastatic disease/myeloma not fullyexcluded. ABDOMEN: Indeterminate 12 mm left adrenal nodule. 13 mm right adrenal nodule with Hounsfield units less than 10, compatiblewith lipid rich adenoma. No suspicious renal lesion or hydronephrosis. Stomach and duodenum unremarkable. Pancreas unremarkable. Spleen unremarkable. Gallbladder partially filled and grossly unremarkable. Liver: No evidence of intrahepatic biliary dilatation or mass. No mesenteric lymphadenopathy. No evidence of small bowel dilatation. No retroperitoneal lymphadenopathy. Scattered atherosclerosis. Large bowel: Large amount of retained fecal material throughout the largebowel. No evidence of mass or dilatation. Appendix normal. Pelvis: Urinary bladder and rectum unremarkable. Uterus is identified. Bilateral sacroiliac osteoarthritis. IMPRESSION: 1. Limited by motion artifact. 2. Scattered patchy groundglass opacities bilaterally could relate toatelectasis or pneumonia. 3. Mild pulmonary edema. 4. Atherosclerosis. 5. Indeterminate 12 mm left adrenal nodule. Nonemergent CT abdomen withand without contrast adrenal mass protocol recommended. 6. 13 mm right adrenal nodule with Hounsfield units less than 10,compatible with lipid rich adenoma. 7. Large amount of retained fecal material throughout the large bowel. 8. Small subcentimeter lucent lesion of the T12 vertebral body could beincidental normal variation. Metastatic disease/myeloma not fullyexcluded. Clinical follow- up recommended. 9. 5 mm right upper lobe nodule. 7 mm right upper lobe nodule. Workupfor primary malignancy recommended. If no primary malignancy detected,these are indeterminate and six-month follow-up CT chest without contrastis recommended. If primary malignancy is detected, these are concerningfor metastatic disease. Referred By: Interpreted By: Esteban Duran MD, 06/03/2025 8:54 AM Theresa Robins PA-C CT Final Result * MRI BRAIN WO CON (06/02/2025 8:11 PM CDT) Anatomical Region Laterality Modality Head Magnetic Resonan ce 06/02/2025 8:18 PM CDT Impressions 06/02/2025 8:22 PM CDT IMPRESSION: 1. No acute intracranial abnormalities identified. 2. No evidence of intracranial metastatic disease. 3. No evidence of acute infarction or hemorrhage. 4. Mild acute sphenoid sinusitis. 5. No visible worrisome signal abnormalities within the calvarium. Further evaluation with whole body bone scan to assess for osseous metastatic disease could be beneficial. Referred By: Interpreted By: Jose David Graves DO, 06/02/2025 8:18 PM Narrative 06/02/2025 8:22 PM CDT [facility] [address] [address] EXAMINATION: MRI BRAIN WO CON HISTORY: Altered mental status. Abnormal CT head. Concern for brain metastases. COMPARISON: CT head 06/01/2025. TECHNIQUE: Multisequence and multiplanar MR images of the brain without the use of intravenous contrast. FINDINGS: There is no diffusion restriction. No evidence of acute infarction. No acute intracranial hemorrhage, edema, or mass effect. There is no midline shift. No evidence of subdural or epidural hematoma. No visible areas of diffusion restriction within the calvarium. No acute-appearing white matter signal abnormalities. Minimal chronic small vessel ischemic changes within the white matter, within normal limits for the patient's age. Minimal age-related cerebral atrophy. No visible T-2/flair signal abnormalities within the calvarium. No worrisome T1 or gradient signal abnormalities. The sagittal midline structures are negative for acute appearing abnormality. The visualized major intracranial arterial flow voids appear normal caliber. No acute appearing orbital abnormalities. There is mild acute sphenoid sinusitis. The paranasal sinuses are otherwise clear. The mastoid air cells are clear. Procedure Note Jose David Graves, - 06/02/[address] [address] EXAMINATION: MRI BRAIN WO CON HISTORY: Altered mental status. Abnormal CT head. Concern for brain metastases. COMPARISON: CT head 06/01/2025. TECHNIQUE: Multisequence and multiplanar MR images of the brain without the use ofintravenous contrast. FINDINGS: There is no diffusion restriction. No evidence of acute infarction. Noacute intracranial hemorrhage, edema, or mass effect. There is no midlineshift. No evidence of subdural or epidural hematoma. No visible areas ofdiffusion restriction within the calvarium. No acute-appearing white matter signal abnormalities. Minimal chronicsmall vessel ischemic changes within the white matter, within normallimits for the patient's age. Minimal age-related cerebral atrophy. Novisible T-2/flair signal abnormalities within the calvarium. No worrisome T1 or gradient signal abnormalities. The sagittal midlinestructures are negative for acute appearing abnormality. The visualizedmajor intracranial arterial flow voids appear normal caliber. No acuteappearing orbital abnormalities. There is mild acute sphenoid sinusitis.The paranasal sinuses are otherwise clear. The mastoid air cells areclear. IMPRESSION: 1. No acute intracranial abnormalities identified. 2. No evidence of intracranial metastatic disease. 3. No evidence of acute infarction or hemorrhage. 4. Mild acute sphenoid sinusitis. 5. No visible worrisome signal abnormalities within the calvarium.Further evaluation with whole body bone scan to assess for osseousmetastatic disease could be beneficial. Referred By: Interpreted By: Jose David Graves DO, 06/02/2025 8:18 PM Theresa Robins PA-C MRI Final Result * RESPIRATORY PCR PANEL 2 (06/01/2025 10:43 PM CDT) ADENOVIRUS PCR (RESP) NOT DETECTED NOT DETECTED 06/02/2025 12:02 AM CDT [facility] CORONAVIRUS 229E PCR (RESP) NOT DETECTED NOT DETECTED 06/02/2025 12:02 AM CDT [facility] CORONAVIRUS HKU1 PCR (RESP) NOT DETECTED NOT DETECTED 06/02/2025 12:02 AM CDT [facility] CORONAVIRUS NL63 PCR (RESP) NOT DETECTED NOT DETECTED 06/02/2025 12:02 AM T [facility] CORONAVIRUS OC43 PCR (RESP) NOT DETECTED NOT DETECTED 06/02/2025 12:02 AM CDT [facility] METAPNEUMOVIRUS PCR (RESP) NOT DETECTED NOT DETECTED 06/02/2025 12:02 AM CDT [facility] RHINOVIRUS/ENTEROV IRUS PCR (RESP) NOT DETECTED NOT DETECTED 06/02/2025 12:02 AM T [facility] INFLUENZA A PCR (RESP) NOT DETECTED NOT DETECTED 06/02/2025 12:02 AM CDT [facility] INFLUENZA B PCR (RESP) NOT DETECTED NOT DETECTED 06/02/2025 12:02 AM CDT [facility] PARAINFLUENZA 1 PCR (RESP) NOT DETECTED NOT DETECTED 06/02/2025 12:02 AM CDT [facility] PARAINFLUENZA 2 PCR (RESP) NOT DETECTED NOT DETECTED 06/02/2025 12:02 AM CDT [facility] PARAINFLUENZA 3 PCR (RESP) NOT DETECTED NOT DETECTED 06/02/2025 12:02 AM CDT [facility] PARAINFLUENZA 4 PCR (RESP) NOT DETECTED NOT DETECTED 06/02/2025 12:02 AM CDT [facility] RSV PCR (RESP) NOT DETECTED NOT DETECTED 06/02/2025 12:02 AM CDT [facility] B PARAPERTUSIS PCR (RESP) NOT DETECTED NOT DETECTED 06/02/2025 12:02 AM CDT [facility] BORDETELLA PERTUSSIS PCR (RESP) NOT DETECTED NOT DETECTED 06/02/2025 12:02 AM CDT [facility] CHLAMYDOPHILA PNEUMONIAE PCR (RESP) NOT DETECTED NOT DETECTED 06/02/2025 12:02 AM CDT [facility] MYCOPLASMA PNEUMONIAE PCR (RESP) NOT DETECTED NOT DETECTED 06/02/2025 12:02 AM CDT [facility] CORONAVIRUS SARS COV 2 PCR (RESP) NOT DETECTED NOT DETECTED 06/02/2025 12:02 AM CDT [facility] NASOPHARYNGEAL SWAB / Unknown 06/01/2025 10:43 PM CDT us Cristal Suárez DO MICROBIOLOGY - GENERAL ORDER JESSICA Final Result [facility] [address] [place] [address], [place] [phone] * TROPONIN, QUANT (06/01/2025 8:41 PM CDT) Only the most recent of2 resultswithin the time period is included. TROPONIN I HIGH SENSITIVITY 21 <54 ng/L 06/01/2025 9:17 PM CDT [facility] Comment: HIGH DOSES OF BIOTIN, TROPONIN-SPECIFIC AUTOANTIBODIES, AND ANTIBODY THERAPY CONTAINING HAMA MAY INTERFERE WITH THIS TEST RESULT. CORRELATION TO CLINICAL HISTORY AND PRESENTATION RECOMMENDED. 06/01/2025 8:41 PM CDT Grover Munson MD LABORATORY Final Result [facility] [address] [place] [address], [place] [phone] * CT HEAD WO CON (06/01/2025 8:27 PM CDT) Anatomical Region Laterality Modality Head Computed Tomogra phy 06/01/2025 8:43 PM CDT Impressions 06/01/2025 8:49 PM CDT IMPRESSION: 1. No acute intracranial findings. If concern for acute ischemia, consider rapid MRI for increase sensitivity. 2. Fluid level in the right sphenoid sinus, correlate for acute sinusitis. 3. Lucencies throughout the skull concerning for osseous metastatic disease. 4. Brain parenchymal volume loss and chronic microvascular ischemic white matter changes, greater than expected for patient age. Referred By: Interpreted By: Josseline Trujillo DO, 06/01/2025 8:43 PM Narrative 06/01/2025 8:49 PM CDT [facility] [address] [place], [place] [address] EXAMINATION: CT Head REPORT DATE: 06/01/2025 8:43 PM INDICATION: ams COMPARISON(S): None. TECHNIQUE: CT acquisition of the head with multiplanar reformations. Individualized dose optimization techniques were used for this CT. A dose lowering technique was utilized for this procedure which may include but is not limited to dose reduction techniques, automated exposure control, and/or the use of iterative reconstruction in accordance with ALARA principle. Contrast: None. FINDINGS: Brain: There is no acute intracranial hemorrhage, mass effect, or midline shift. No acute cortical infarct is noted. Extensive areas of hypodensity are noted throughout the cerebral white matter most likely due to chronic microvascular ischemic changes. There is atherosclerotic calcification of the cavernous internal carotid arteries. Ventricles: The ventricles and sulci are moderately enlarged consistent with moderate global parenchymal volume loss. Orbits: Bilateral lens replacement. Paranasal sinuses: Fluid level within the right sphenoid sinus Mastoids/middle ears: Clear. Pneumatization of the petrous apices. Bones: Numerous lucencies throughout the skull. Scalp/facial soft tissues: Scarring of the skull vertex. Procedure Note Josseline Trujillo DO - 06/01/[address] [address] EXAMINATION: CT Head REPORT DATE: 06/01/2025 8:43 PM INDICATION: ams COMPARISON(S): None. TECHNIQUE: CT acquisition of the head with multiplanar reformations.Individualized dose optimization techniques were used for this CT. A doselowering technique was utilized for this procedure which may include butis not limited to dose reduction techniques, automated exposure control,and/or the use of iterative reconstruction in accordance with ALARAprinciple. Contrast: None. FINDINGS: Brain: There is no acute intracranial hemorrhage, mass effect, or midlineshift. No acute cortical infarct is noted. Extensive areas of hypodensityare noted throughout the cerebral white matter most likely due to chronicmicrovascular ischemic changes. There is atherosclerotic calcification ofthe cavernous internal carotid arteries. Ventricles: The ventricles and sulci are moderately enlarged consistentwith moderate global parenchymal volume loss. Orbits: Bilateral lens replacement. Paranasal sinuses: Fluid level within the right sphenoid sinus Mastoids/middle ears: Clear. Pneumatization of the petrous apices. Bones: Numerous lucencies throughout the skull. Scalp/facial soft tissues: Scarring of the skull vertex. IMPRESSION: 1. No acute intracranial findings. If concern for acute ischemia,consider rapid MRI for increase sensitivity. 2. Fluid level in the right sphenoid sinus, correlate for acutesinusitis. 3. Lucencies throughout the skull concerning for osseous metastaticdisease. 4. Brain parenchymal volume loss and chronic microvascular ischemic whitematter changes, greater than expected for patient age. Referred By: Interpreted By: Josseline Trujillo DO, 06/01/2025 8:43 PM Grover Munson MD CT Final Result * (ABNORMAL) URINALYSIS (06/01/2025 7:37 PM CDT) SPECIMEN TYPE URINE CLEAN CATCH 06/01/2025 7:38 PM CDT [facility] COLOR (U) YELLOW 06/01/2025 7:49 PM CDT [facility] TRANSPARENCY CLEAR 06/01/2025 7:49 PM CDT [facility] SPECIFIC GRAVITY (U) 1.027 1.001 - 1.030 06/01/2025 7:49 PM CDT [facility] U PH 6.0 5.0 - 9.0 06/01/2025 7:49 PM CDT [facility] LEUKOCYTES (U) NEGATIVE NEGATIVE 06/01/2025 7:49 PM CDT [facility] NITRITES NEGATIVE NEGATIVE 06/01/2025 7:49 PM CDT [facility] PROTEIN RANDOM (U) 50(H) <30 MG/DL 06/01/2025 7:49 PM CDT [facility] GLUCOSE (U) NORMAL NORMAL MG/DL 06/01/2025 7:49 PM CDT [facility] KETONES MG/DL (U) NEGATIVE NEGATIVE MG/DL 06/01/2025 7:49 PM CDT [facility] UROBILINOGEN NORMAL NORMAL MG/DL 06/01/2025 7:49 PM CDT [facility] BILIRUBIN (U) NEGATIVE NEGATIVE MG/DL 06/01/2025 7:49 PM CDT [facility] BLOOD (U) NEGATIVE NEGATIVE 06/01/2025 7:49 PM CDT [facility] MUCUS RARE /LPF 06/01/2025 7:49 PM CDT [facility] WBC/HPF 2 <6 /HPF 06/01/2025 7:49 PM CDT [facility] RBC/HPF 2 <6 /HPF 06/01/2025 7:49 PM CDT [facility] SQUAMOUS EPITHELIALS RARE /HPF 06/01/2025 7:49 PM CDT [facility] URINE SPECIMEN OBTAINED BY CLEAN CATCH PROCEDURE / Unknown 06/01/2025 7:37 PM CDT us Grover Munson MD URINE ORDERABLES Final Result [facility] [address] [place] [address], [place] [phone] * EKG Reading (06/01/2025 6:51 PM CDT) Narrative Grover Munson MD - 06/01/2025 6:51 PM CDT Grover Munson MD 06/01/2025 9:07 PM EKG Reading Date/Time: 06/01/2025 6:51 PM Performed by: Grover Munson MD Authorized by: Grover Munson MD Interpreted by ED physician Previous ECG: no previous ECG available Rhythm: sinus rhythm Rate: normal BPM: 86 Comments: Normal sinus rhythm. Heart rate 86. Normal axis terminable no QRS nonspecific ST-T wave changes. No old EKG to compare. Rhythm strip are interpreted 1847 Normal sinus rhythm. Heart rate 86. No ectopy us Grover Munson MD [facility] Final Result * ECG 12 lead (06/01/2025 6:47 PM CDT) 06/01/2025 6:47 PM CDT Narrative [facility] - 06/01/2025 11:[address] 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: [id number] : 1960 Requested By: GROVER MUNSON Order Number: [id number] Reading : Herrera Lagunas Measurements Intervals [place] Rate: 86 P: 69 ME: 152 QRS: -2 QRSD: 104 T: 75 QT: 387 QTc: 463 Interpretive Statements SINUS RHYTHM WITH OCCASIONAL SUPRAVENTRICULAR PREMATURE COMPLEXES No previous ECG available for comparison us Grover Munson MD ECG ORDERABLES Final Result [facility] * LACTIC ACID W REFLEX (SEPSIS) (06/01/2025 6:42 PM CDT) LACTIC ACID VENOUS 0.7 0.4 - 2.0 MMOL/L 06/01/2025 7:25 PM CDT [facility] 06/01/2025 6:42 PM CDT Grover Munson MD LABORATORY Final Result [facility] [address] [place] [address], [place] [phone] * (ABNORMAL) PRO-BRAIN NATRIURETIC PEPTIDE (06/01/2025 6:42 PM CDT) PRO-B TYPE NATRIURETIC PEPTIDE 1,026(H) <125 PG/ML 06/01/2025 7:30 PM CDT [facility] Comment: CUT POINTS ESTABLISHED BY [employer] ON NT PROBNP (ICON) STUDY (2006). AGE INDEPENDENT: <300 PG/ML HAS A 99% NEGATIVE PREDICTIVE VALUE FOR EXCLUDING ACUTE CHF <50 YEARS: >450 PG/ML IS CONSISTENT WITH ACUTE CHF 50-75 YEARS: >900 PG/ML IS CONSISTENT WITH ACUTE CHF >75 YEARS: >1800 PG/ML IS CONSISTENT WITH ACUTE CHF IN PATIENTS WITH RENAL INSUFFICIENCY (GFR <60), >1200 PG/ML YIELDS A DIAGNOSTIC SENSITIVITY AND SPECIFICITY OF 89% AND 72% FOR ACUTE CHF. 06/01/2025 6:42 PM CDT Grover Munson MD LABORATORY Final Result [facility] [address] [place] [address], [place] [phone] * (ABNORMAL) PARTIAL THROMBOPLASTIN TIME,PTT (06/01/2025 6:42 PM CDT) PTT 46.4(H) 25.1 - 36.5 SEC 06/01/2025 7:21 PM CDT [facility] 06/01/2025 6:42 PM CDT Grover Munson MD LABORATORY Final Result Performing Organization Address [facility] Co de Phone Number [facility] [address] [place] [address], [place] [phone] * (ABNORMAL) PROTIME/INR, VENOUS (06/01/2025 6:42 PM CDT) PROTIME 17.0(H) 10.2 - 12.9 SEC 06/01/2025 7:21 PM CDT [facility] INR 1.5 06/01/2025 7:21 PM CDT [facility] Comment: Recommended INR Therapeutic Goals: 2.0-3.0 Routine Therapy 2.5-3.5 Mechanical Prosthetic Valves (High Risk) 06/01/2025 6:42 PM CDT rGover Munson MD LABORATORY Final Result Performing Organization Address [facility] Co de Phone Number [facility] [address] [place] [address], [place] [phone] * (ABNORMAL) COMPREHENSIVE METABOLIC PANEL (06/01/2025 6:42 PM CDT) GLUCOSE 109(H) 70 - 99 MG/DL 06/01/2025 7:30 PM CDT [facility] BUN 25(H) 7 - 18 MG/DL 06/01/2025 7:30 PM CDT [facility] CREATININE S/P/B 0.89 0.55 - 1.02 MG/DL 06/01/2025 7:30 PM CDT [facility] SODIUM S/P/B 143 136 - 145 MMOL/L 06/01/2025 7:30 PM CDT [facility] POTASSIUM S/P/B 4.1 3.5 - 5.1 MMOL/L 06/01/2025 7:30 PM CDT [facility] CHLORIDE S/P/B 104 97 - 115 MMOL/L 06/01/2025 7:30 PM CDT [facility] CO2 37.9(H) 21 - 32 MMOL/L 06/01/2025 7:30 PM CDT [facility] CALCIUM S/P/B 9.6 8.5 - 10.1 MG/DL 06/01/2025 7:30 PM CDT [facility] BILIRUBIN TOTAL S/P/B 0.3 0.2 - 1.2 MG/DL 06/01/2025 7:30 PM CDT [facility] Comment: THIS ASSAY IS NOT RECOMMENDED FOR PATIENTS UNDERGOING TREATMENT WITH ELTROMBOPAG DUE TO THE POTENTIAL FOR FALSELY ELEVATED RESULTS. TOTAL PROTEIN S/P/B 7.7 6.4 - 8.2 G/DL 06/01/2025 7:30 PM T [facility] ALBUMIN S/P/B 3.6 3.4 - 5.0 G/DL 06/01/2025 7:30 PM CDT [facility] AST 19 15 - 37 U/L 06/01/2025 7:30 PM CDT [facility] ALT 18 14 - 55 U/L 06/01/2025 7:30 PM CDT [facility] ALKALINE PHOSPHATASE S/P/B 95 50 - 136 U/L 06/01/2025 7:30 PM CDT [facility] ANION GAP 1.1(L) 2 - 10 MMOL/L 06/01/2025 7:30 PM CDT [facility] BUN CREATININE RATIO 28.1(H) 6 - 26 06/01/2025 7:30 PM CDT [facility] A/G RATIO 0.9(L) 1.0 - 2.0 RATIO 06/01/2025 7:30 PM CDT [facility] GFR ESTIMATE 72(L) >90 ML/MIN/1.7 3 M2 06/01/2025 7:30 PM CDT [facility] Comment: NOTE: eGFR is not calculated for patients <18 years of age or gender unknown. This is an estimated GFR calculation using the new CKD EPI creatinine equation without race and so does not require a correction factor for race. This estimated GFR should not be used for calculating drug doses. 06/01/2025 6:42 PM CDT Grover Munson MD LABORATORY Final Result Performing Organization Address City/[facility]/ZIP Co de Phone Number [facility] [address] [place] [address], [place] [phone] * CK (CPK) (06/01/2025 6:42 PM CDT) [facility] CPK 120 21 - 215 U/L 06/01/2025 7:30 PM CDT [facility] 06/01/2025 6:42 PM CDT Grover Munson MD LABORATORY Final Result Performing Organization Address City/[facility]/ZIP Co de Phone Number [facility] [address] [place] [address], [place] [phone] * (ABNORMAL) CULTURE, BLOOD, PCR PANEL (06/01/2025 6:40 PM CDT) [facility] METHICILLIN RESISTANT GENE PCR (BLD) DETECTED(A) NOT DETECTED 06/02/2025 1:24 PM CDT [facility] Comment: Note: Antimicrobial resistance can occur via multiple mechanisms. A NOT DETECTED result from the [employer] antimicrobial resistance gene assay does not indicate antimicrobial susceptibility. A DETECTED result for a genetic marker of antimicrobial resistance gene assay does not indicate antimicrobial susceptibility. Subculturing is required for species identification and susceptibility testing of isolates. ENTEROCOCCUS FAECALIS PCR (BLD) NOT DETECTED NOT DETECTED 06/02/2025 1:24 PM CDT [facility] ENTEROCUCCUS FAECIUM PCR (BLD) NOT DETECTED NOT DETECTED 06/02/2025 1:24 PM CDT [facility] LISTERIA MONOCYTOGENES PCR (BLD) NOT DETECTED NOT DETECTED 06/02/2025 1:24 PM CDT [facility] STAPH SPECIES PCR (BLD) DETECTED(A) NOT DETECTED 06/02/2025 1:24 PM CDT [facility] STAPH AUREUS PCR (BLD) NOT DETECTED NOT DETECTED 06/02/2025 1:24 PM CDT [facility] STAPHYLOCOCCUS EPIDERMIDIS PCR (BLD) DETECTED(A) NOT DETECTED 06/02/2025 1:24 PM CDT [facility] Comment:CALLED TO AND REPEAT ED BACK BY [facility] 06/02/2025 [id number] STAPHYLOCOCCUS LUGDUNENSIS PCR (BLD) NOT DETECTED NOT DETECTED 06/02/2025 1:24 PM CDT [facility] STREPTOCOCCUS PCR (BLD) NOT DETECTED NOT DETECTED 06/02/2025 1:24 PM CDT [facility] STREP AGALACTIAE PCR (BLD) NOT DETECTED NOT DETECTED 06/02/2025 1:24 PM CDT [facility] STREP PNEUMONIAE PCR (BLD) NOT DETECTED NOT DETECTED 06/02/2025 1:24 PM CDT [facility] STREP PYOGENES (GRP A) PCR (BLD) NOT DETECTED NOT DETECTED 06/02/2025 1:24 PM CDT [facility] ACINETOBACTER BAUMANII PCR (BLD) NOT DETECTED NOT DETECTED 06/02/2025 1:24 PM CDT [facility] BACTEROIDES FRAGILIS PCR (BLD) NOT DETECTED NOT DETECTED 06/02/2025 1:24 PM CDT [facility] ENTEROBACTERIACEAE PCR (BLD) NOT DETECTED NOT DETECTED 06/02/2025 1:24 PM CDT [facility] ENTEROBACTER CLOACAE COMP PCR (BLD) NOT DETECTED NOT DETECTED 06/02/2025 1:24 PM CDT [facility] ESCHERICHIA COLI PCR (BLD) NOT DETECTED NOT DETECTED 06/02/2025 1:24 PM CDT [facility] KLEBSIELLA AEROGENES PCR (BLD) NOT DETECTED NOT DETECTED 06/02/2025 1:24 PM CDT [facility] KLEBSIELLA OXYTOCA PCR (BLD) NOT DETECTED NOT DETECTED 06/02/2025 1:24 PM CDT [facility] KLEBSIELLA PNEUMONIAE PCR (BLD) NOT DETECTED NOT DETECTED 06/02/2025 1:24 PM CDT [facility] PROTEUS PCR (BLD) NOT DETECTED NOT DETECTED 06/02/2025 1:24 PM CDT [facility] SALMONELLA PCR (BLD) NOT DETECTED NOT DETECTED 06/02/2025 1:24 PM CDT [facility] SERRATIA MARCESCENS PCR (BLD) NOT DETECTED NOT DETECTED 06/02/2025 1:24 PM CDT [facility] H. INFLUENZAE PCR (BLD) NOT DETECTED NOT DETECTED 06/02/2025 1:24 PM CDT [facility] N. MENINGITIDIS PCR (BLD) NOT DETECTED NOT DETECTED 06/02/2025 1:24 PM CDT [facility] PSEUDOMONAS AERUGINOSA PCR (BLD) NOT DETECTED NOT DETECTED 06/02/2025 1:24 PM CDT [facility] STENOTROPHOMONAS MALTOPHILIA PCR (BLD) NOT DETECTED NOT DETECTED 06/02/2025 1:24 PM CDT [facility] JACQUELINE ALBICANS PCR (BLD) NOT DETECTED NOT DETECTED 06/02/2025 1:24 PM CDT [facility] JACQUELINE AURIS PCR (BLD) NOT DETECTED NOT DETECTED 06/02/2025 1:24 PM CDT [facility] JACQUELINE GLABRATA PCR (BLD) NOT DETECTED NOT DETECTED 06/02/2025 1:24 PM CDT [facility] JACQUELINE KRUSEI PCR (BLD) NOT DETECTED NOT DETECTED 06/02/2025 1:24 PM CDT [facility] JACQUELINE PARAPSILOSIS PCR (BLD) NOT DETECTED NOT DETECTED 06/02/2025 1:24 PM CDT [facility] JACQUELINE TROPICALIS PCR (BLD) NOT DETECTED NOT DETECTED 06/02/2025 1:24 PM CDT [facility] CRYPTOCOCCUS NEOFORMANS/GATTII PCR (BLD) NOT DETECTED NOT DETECTED 06/02/2025 1:24 PM CDT [facility] 06/01/2025 6:40 PM CDT Grover Munson MD MICROBIOLOGY - GENERAL ORDERAB LES Final Result [facility] [address] [place] [address], [place] [phone] from Last 3 Months Insurance MEDICAID [facility] MEDICARE Advance Directives * Full Code (Latest Code Status on File) Date Activated Date Inactivated Comments 06/02/2025 4:43 AM 06/05/2025 4:22 PM Care Teams Table 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
[2025-07-03 14:46] LABS: Alveolar/Arterial O2 Gradient 77.3 mmHg; Carboxyhemoglobin 0.8 % THb (0-2.0); Fractional Inspired Oxygen 32 %; HCO3 ABG 33.7 mEq/l (22.0-26.0); Methemoglobin ABG 0.3 %THb (0-1.5); Oxygen Content ABG 14.3 %vol (16.0-22.0); Oxygen Saturation ABG 93.7 % (95.0-100.0); PO2 ABG 74.8 mmHg (80.0-100.0); PO2 FiO2 Ratio Arterial Blood 2.34 %; Reduced Hemoglobin 6.3 %THb (0-5.0)
[2025-07-03 14:50] VITALS: O2SAT 86
[2025-07-03 14:52] LABS: Liters per Minute 3.0 LPM; Modified Allen's Test Pass; PCO2 ABG 65.0 mmHg (35.0-45.0); Site Drawn RIGHT BRACHIAL
[2025-07-03 14:55] VITALS: O2SAT 87
[2025-07-03 15:00] VITALS: O2SAT 92
[2025-07-03 15:10] VITALS: O2SAT 93
--- NOTE | 2025-07-03 15:17 | HOMEO2EVAL ---
Evaluation was performed at [facility] Home Oxygen Evaluation RC: Home Oxygen (O2) Evaluation Start: 07/03/25 15:12 Freq: Status: Active Protocol: RPE Activity Type Activity Date Activity User E-sign Co-sign Detail Recorded Client Recorded Date Recorded By Document 07/03/25 14:50 PK [email or web address] 07/03/25 15:16 PK Document 07/03/25 14:55 PK [email or web address] 07/03/25 15:16 PK Document 07/03/25 15:00 PK [email or web address] 07/03/25 15:16 PK Document 07/03/25 15:10 [facility] [email or web address] 07/03/25 15:16 PK 07/03/25 07/03/25 07/03/25 14:50 14:55 15:00 Home O2 Evaluation [Oxygen] -Test Phase Resting Resting Resting -Oxygen Delivery Room Air Nasal Cannula Nasal Cannula -Oxygen Flow Rate (L/min) 2 3 [Pulse Oximetry] -Pulse Oximetry (90-100 %) 86 L 87 L 92 [Charges] -Evaluation Charges O2 Evaluation by Pulmonary 07/03/25 15:10 Home O2 Evaluation [Oxygen] -Test Phase Exercise -Oxygen Delivery Nasal Cannula -Oxygen Flow Rate (L/min) 3 [Pulse Oximetry] -Pulse Oximetry (90-100 %) 93 [Charges] -Evaluation Charges
--- NOTE | 2025-07-03 17:03 | WPDPFTINT ---
PFT Procedure Performed PFT Procedure Performed Spirometry with Pre/Post Bronchodilator Flow Vol Loop PFT Interpretation This is a pulmonary function test with pre and post-bronchodilator spirometry, and ABG on 3 L nasal cannula. The test was performed and results interpreted in accordance with the 2019 and 2005 ATS/ERS Task Force guidelines respectively using the Global Lung Function Initiative-2012 reference equations. Patient demonstrated good effort and cooperation. Reproducibility criteria were met. The quality of the pre bronchodilator spirometry maneuver was Grade B and post bronchodilator spirometry maneuver was Grade B. Of note, patient struggled with effort requirements of the testing and was unable to perform DLCO or plethysmography. Findings: Spirometry: The contour the inspiratory and expiratory flow tracing are normal. The pre bronchodilator FVC is 0.91 L, 34% predicted. The pre bronchodilator FEV1 is 0.70 L, 33% predicted. The pre bronchodilator FEV1: FVC ratio is 77%. The post bronchodilator FVC is 1.19 L, representing a 31% increase. The post bronchodilator FEV1 is 0.90 L, representing a 29% increase. The post bronchodilator FEV1: FVC ratio is 76%. Rest ABG on 3 L nasal cannula: PH 7.33, PA CO2 65, PaO2 74.8. Impression: The FEV1 is less than 80% predicted and the FEV1: FVC ratio is greater than 70% consistent with Preserved Ratio Impaired Spirometry (PRISm) with a low FVC. There is significant improvement after inhaling a single dose of albuterol. A concurrent restrictive abnormality cannot be excluded as the patient was unable to perform plethysmography. The rest ABG on 3 L nasal cannula demonstrates a compensated respiratory acidosis with normal PaO2. There are no prior studies for comparison
== END 2025-07-03 13:59 | disposition home or self-care (01) ==
PROVIDERS: PCP Family Medicine; Visit Provider Internal Medicine Pulmonary Disease
DX: J96.01 Acute respiratory failure with hypoxia (principal); R91.8 Other nonspecific abnormal finding of lung field
CPT/HCPCS: 36600; 71250; 82375; 82805; 83050; 85018; 94060; 94375; 94618